=== PATIENT | female | born 1955 | race Caucasian/White ===

== ENCOUNTER 2021-07-18 12:42 | Outpatient (CLI) | payer MEDICARE, BC, SELFPAY ==
--- NOTE | 2021-07-18 12:50 | CT_ITS ---
STUDY: CT SCAN LOWER EXTREME RIGHT REASON FOR EXAM: Female, 66 years old. Templating for right TKA.JESUS protocol. RADIATION DOSAGE (If Supplied By Facility): CTDIvol = ( 18.76 ) mGy, DLP = ( 1257.95 ) mGycm. Individualized dose optimization techniques were used for this CT.? TECHNIQUE: Multiple axial tomographic images of the right hip, right knee and right ankle joints were obtained. Coronal and sagittal reconstruction was obtained as well. COMPARISON: None. FINDINGS: Imaging of the hip joint was obtained. Minimal degree of joint space narrowing. Otherwise, no abnormality is seen. Imaging of the right knee joint was obtained. There is a moderate to marked degree of joint space narrowing involving the medial compartment of the knee joint. There is a 9.7 mm well-corticated bony fragment in the anterior infrapatellar region of the joint space. 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 Small joint effusion. Imaging of the right ankle joint was obtained as well. There is evidence of an old avulsion fracture of the medial malleolus. CT/Extremity Lower without Contra IMPRESSION: Moderate to marked degree of joint space narrowing involving the medial compartment and the joint. 9.7 mm well-defined corticated bony fragment in the anterior infrapatellar region suggestive of a small joint mouse. Electronically Signed: Trent Arreguin MD at 15:19 EST ,
== END 2021-07-18 23:59 | disposition short-term general hospital (02) ==
PROVIDERS: Referring Provider Orthopaedic Surgery; Visit Provider Orthopaedic Surgery
DX: M17.11 Unilateral primary osteoarthritis, right knee (principal)
CPT/HCPCS: 73700

== ENCOUNTER 2021-08-06 10:29 | Observation (INO) | payer MEDICARE, BC, SELFPAY ==
--- NOTE | 2021-07-26 11:33 | EKG12_ITS ---
Test Reason : PREOP Blood Pressure : / mmHG Vent. Rate : 077 BPM Atrial Rate : 077 BPM P-R Int : 186 ms QRS Dur : 094 ms QT Int : 384 ms P-R-T Axes : 049 -11 053 degrees QTc Int : 434 ms Normal sinus rhythm Normal ECG Confirmed by JEFF COTTO, SARAI ([id number]), associate editor FER MAYO ([id number]) on 07/29/2021 10:24:35 AM Referred By: Aly Lujan Confirmed By:SARAI AGUILAR MD
[2021-07-26 12:14] LABS: Absolute Lymphocyte Count 1.72 X10^3/uL (0.83-4.51); Basophil# 0.09 X10^3/uL; Basophil% 0.9 % (0-1); Eosinophil# 0.11 X10^3/uL; Eosinophils% 1.2 % (0-5); Hematocrit 39.1 % (37-47); Hemoglobin 12.3 g/dL (12.0-15.0); Lymphocyte # 1.72 X10^3/ul (0.83-4.51); Mean Corp Hgb Conc 31.5 g/dL (32-36); Mean Corpuscular Hgb 26.1 pg (27.0-32.0); Mean Platelet Vol. 10.2 fl (6.2-12.0); Monocyte# 0.64 X10^3/uL; Monocyte% 6.7 % (0-10); NRBC Flagged by Analyzer 0 % (0-5); Neutrophil # 6.96 X10^3/uL (2.7-7.7); Platelet Count 252 K/mm3 (150-450); RBC Distribution Width SD 49.1 fl (35.1-43.9); Red Blood Count 4.71 M/mm3 (4.2-5.4); White Blood Count 9.5 K/mm3 (4.4-11.0)
[2021-07-26 12:21] LABS: International Normalized Ratio 1.1; Prothrombin Time (Protime)PT. 13.7 SECONDS (11.7-14.9)
[2021-07-26 12:48] LABS: Anion Gap 6 (5-15); BUN 24 mg/dL (7-18); BUN/Creat Ratio 29.7 RATIO (10-20); Calcium,Total 9.2 mg/dL (8.5-10.1); Chloride 106 mmol/L (98-107); Creatinine, Serum 0.81 mg/dL (0.55-1.02); EST Glomerular Filtration Rate 75 mL/min (>60); Est Glom Filt Rate - Afr Amer 91 mL/min (>60); Glucose 94 mg/dL (74-106); Potassium 3.8 mmol/L (3.5-5.1); Sodium Level 138 mmol/L (136-145)
[2021-07-26 12:57] LABS: AST(SGOT) 8 U/L (15-37); Alanine Aminotransfer ALT/SGPT 19 U/L (13-56); Albumin, Serum 3.6 g/dL (3.2-5.0); Alkaline Phosphatase 99 U/L (45-117); Bilirubin, Direct 0.07 mg/dL (0.00-0.30); Protein, Total 7.6 g/dL (6.4-8.2)
[2021-07-27 07:15] LABS: Fructosamine 205 umol/L (0-285); MG Sendout 2.4 mg/dL (1.6-2.3)
[2021-08-06] VITALS (11 sets, daily range): BP systolic 106–156; BP diastolic 62–90; PULSE 59–90; RESP 16–18; TEMP 36.3–36.6; O2SAT 94–100; BMI 33.7
--- NOTE | 2021-08-06 | KNEE_PTH ---
PATIENT: HERNÁN BERRY LOC: MS3 U#:[id number] AGE/SX: 66/F ROOM: [facility] [place]/06/[address]: Dr. Aly Lujan DO : 1955 BED: 1 DIS: 08/07/2021 SPEC #: [id number] RECD: 08/06/21 13:16 STATUS: KATERIN PAULProsper #: [id number] KELLY: 08/06/21 00:[address]: Aly Lujan DEPT: SURGICAL PATHOLOGY RECD BY: Faraz Mccoy ENTERED: 08/06/21 13:17 SP TYPE: TOTAL KNEE OTHR DR: Dr. Raúl Rivas MD Tissues: Knee, NOS Procedures: Decalcification bone/plaque Surgery Specimen Level IV HEADER OPERATION: ERAS, total knee replacement, robotic arm assist PRE-OP DIAGNOSIS: Osteoarthritis right knee TISSUE SUBMITTED: Debrided tissue and bone right knee MICROSCOPIC DIAGNOSIS Bone and soft tissue, right knee, total knee replacement/resection: Pieces of bone with degenerative osteoarthritic changes. TERESE:sid 08/09/2021 MICROSCOPIC DESCRIPTION Slides are reviewed. GROSS DESCRIPTION Received is one container designated bone and tissue right knee. The specimen consists of multiple fragments of ibarra-yellow bone measuring in aggregate 9 x 7 x 2 cm. No soft tissue is identified. A number of bony fragments contain articular surfaces consistent with tibial plateau and femoral condyle and displaying prominent osteophyte formation, eburnation, and bone erosion. Bakery Machine Mechanic sections are submitted in one cassette after decalcification. / TERESE:sid 08/06/2021 TC:5 CPT: 50319, 95532
--- NOTE | 2021-08-06 06:00 | HP_ITS ---
Visit Reasons: Bilat knee Allergies amoxicillin [From Augmentin] Allergy (Verified 08/10/20 09:43) rash clavulanic acid [From Augmentin] Allergy (Verified 08/10/20 09:43) rash Medications glucosam 750 mg-chondroi 100 mg-hyalur 1.65 mg-CF borate 108 mg tablet tab PO 08/10/20 [History Confirmed 06/26/21] vitamins A,C,J-kwyi-ttpwnm 14,320 unit-226 mg-200 unit capsule 1 cap PO BID 08/10/20 [History Confirmed 06/26/21] [facility] Medical History (Updated 06/26/21 @ 09:37 by Izabela Corona) Knee pain Surgical History (Updated 08/10/20 @ 09:44 by Tiana Guerra) History of appendectomy History of bilateral carpal tunnel release History of tubal ligation Family History (Updated 08/10/20 @ 09:45 by Tiana Guerra) Father CVA (cerebral vascular accident) Brother CVA (cerebral vascular accident) Myocardial infarction Mother Bladder cancer Social History (Updated 08/15/20 @ 10:[address] Aly Lujan DO) Smoking Status: Never smoker alcohol intake: never HPI Bilat knee Details: Parts of this documentation were recorded by a scribe, this documentation accurately reflects the service provided and the decisions made by me, Dr. Aly Lujan DO 06/26/21 3206. HERNÁN BERRY is a 66 year old F here today for BL knee pain, she states that the right knee pain is worse then the left. She last had BL knee steroid injection in 07/2020 which she states was effective until March and she stated that they were helpful. She said that if she knew she was going to be preforming increased ambulation she should take Ibuprofen that day. Denies any new injuries. She said that a couple weeks ago she has had some increased achiness with ADLs. Right knee pain is over the anterior lateral knee pain, feel that it is muscular pain and and achiness, increased stiffness/tightness. Left knee pain is occasionally achy with weight bearing and she does have a feeling of giving out in the left knee. She denies any knee bracing. Denies any PT. Denies any surgery of the BL knees. Ortho Exam General General: Yes no acute distress Neurologic: Yes alert and Yes oriented x3 Psychologic: Yes reasonable and appropriate Right Knee Homans Sign: No Knee ROM: No ROM-Extension -20 to 0 (lacking 5) and No ROM-Flexion 0-140 (100) Examination: Yes Med jt line tenderness and Yes Lat jt line tenderness Stability: NML: Anterior Drawer, NML: Posterior Drawer and NML: Varus 30 and 1+: Valgus 30 (3mm medial gapping d/t joint space narrowing) Patella Translation: 1 Apprehension with Lateral Translation: No KNEE: varicose veins no significant edema good pulses Left Knee Skin/Wound: No ecchymosis, No erythema and No swelling Homans Sign: No Knee ROM: Yes ROM-Extension -20 to 0 and No ROM-Flexion 0-140 (120) Stability: NML: Anterior Drawer, NML: Posterior Drawer and NML: Varus 30 and 1+: Valgus 30 (1mm medial gapping d/t joint space narrowing) Patella Translation: 1 Office Procedures Ortho Injections Injections Yes Knee Left Details: Obtained consent for injection. Under sterile conditions, injected the patient's left knee with 2cc bupivacaine, 2cc lidocaine and 1.5cc Kenalog. The patient tolerated the injection well without any noted complication. Patient should call our office if redness develops, pain worsens or if they have any concerns. Office Meds Kenalog Performing Provider: Aly Lujan DO Administered by: Aly Lujan DO on 06/26/21 09:39 Dose Route Admin Location Lot Number Expiration Date NDC Electrical Project Engineer 60 mg intra-articular left knee [id number] 05/22/22 9111-3564-42 [facility] Supplemental Info 08/15/2020 x-ray right knee: Advanced knee arthrosis [id number] medial compartment with varus deformity moderate patellofemoral arthrosis 08/15/2020 x-ray left knee: Medial joint space narrowing Coding Level of Care Code Off vis,est,level 3 Diagnoses Primary osteoarthritis of left knee M17.12 Primary osteoarthritis of right knee M17.11 CPT 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 Aly Lujan DO: Obtained X-rays of patient's BL knees. Personally reviewed x-rays. There is no obvious fracture, dislocation, or lucency noted. Patient educated that she does have arthritis of her BL knee and the right knee arthritis is more advanced. Treatment options are do nothing or NSAIDs or PT for strengthening or process chemist bracing or steroid injection or viscosupplementation which may not be as effective with her more severe arthritis or TKA. Risks, benefits and alternatives of surgery reviewed including but not limited to bleeding, infection, nerve, artery and/or tissue damage, fracture, VTE, mechanical feel of the knee, continued pain, stiffness and expected post-operative course. If she does wish to have a knee replacement then she will need pre-hab and post op outpatient PT. She may need to stay the night, she will be on a blood thinner for 2 weeks post op to reduce the risk of blood clot. Can take up to 1-2 years to recover from a TKA. Can prescribe the ice machine if she wishes. Educated on the IOVERA procedure and she wishes to have this as long as it is covered by insurance. She wishes to think about her options and will call with a decision. She does wish to proceed with a left knee steroid injection today. Follow up if wishes to proceed with right TKA or for injection in right knee or sooner if pain, swelling, numbness or associated symptoms, or concerns develop. All questions answered. Patient in agreement of plan.
[2021-08-06 06:21] LABS: Bedside Glucose 100 mg/dL (70-110)
[2021-08-06] MEDS: Lactated Ringers 1,000 ML 15 ML IV (06:30)
[2021-08-06] MEDS: Celecoxib 200 MG Capsule 400 MG PO (06:32)
[2021-08-06] MEDS: Gabapentin 600 MG Tablet PO (06:32)
[2021-08-06] MEDS: Acetaminophen 500 MG Tablet 1000 MG PO ×3 (06:32→21:22)
--- NOTE | 2021-08-06 07:29 | PCM.HP.BLA ---
History and Physical Date of Admission: 08/06/21 Date of Service: 06/26/21 MR#:[id number]:[id number]: HERNÁN BERRY [facility] #:[id number]:1955 Provider:Dr. Aly Lujan DOAge/Sex: 66/F Location:[facility]:Signed Intake Vital Signs 06/26/21 09:29 Height 5 ft 5.5 in Weight: 209 lb BMI 34.2 Intake Visit Reasons: Bilat knee Allergies amoxicillin [From Augmentin] Allergy (Verified 08/10/20 09:43) rash clavulanic acid [From Augmentin] Allergy (Verified 08/10/20 09:43) rash Medications glucosam 750 mg-chondroi 100 mg-hyalur 1.65 mg-CF borate 108 mg tablet tab PO 08/10/20 [History Confirmed 06/26/21] vitamins A,C,C-dwrs-wnyjxp 14,320 unit-226 mg-200 unit capsule 1 cap PO BID 08/10/20 [History Confirmed 06/26/21] [facility] Medical History (Updated 06/26/21 @ 09:37 by Izabela Corona) Knee pain Surgical History (Updated 08/10/20 @ 09:44 by Tiana Guerra) History of appendectomy History of bilateral carpal tunnel release History of tubal ligation Family History (Updated 08/10/20 @ 09:45 by Tiana Guerra) Father CVA (cerebral vascular accident) Brother CVA (cerebral vascular accident) Myocardial infarction Mother Bladder cancer Social History (Updated 08/15/20 @ 10:[address] Aly Lujan DO) Smoking Status: Never smoker alcohol intake: never HPI Bilat knee Details: Parts of this documentation were recorded by a scribe, this documentation accurately reflects the service provided and the decisions made by me, Dr. Aly Lujan DO 06/26/21 0756. HERNÁN BERRY is a 66 year old F here today for BL knee pain, she states that the right knee pain is worse then the left. She last had BL knee steroid injection in 07/2020 which she states was effective until March and she stated that they were helpful. She said that if she knew she was going to be preforming increased ambulation she should take Ibuprofen that day. Denies any new injuries. She said that a couple weeks ago she has had some increased achiness with ADLs. Right knee pain is over the anterior lateral knee pain, feel that it is muscular pain and and achiness, increased stiffness/tightness. Left knee pain is occasionally achy with weight bearing and she does have a feeling of giving out in the left knee. She denies any knee bracing. Denies any PT. Denies any surgery of the BL knees. Ortho Exam General General: Yes no acute distress Neurologic: Yes alert and Yes oriented x3 Psychologic: Yes reasonable and appropriate Right Knee Homans Sign: No Knee ROM: No ROM-Extension -20 to 0 (lacking 5) and No ROM-Flexion 0-140 (100) Examination: Yes Med jt line tenderness and Yes Lat jt line tenderness Stability: NML: Anterior Drawer, NML: Posterior Drawer and NML: Varus 30 and 1+: Valgus 30 (3mm medial gapping d/t joint space narrowing) Patella Translation: 1 Apprehension with Lateral Translation: No KNEE: varicose veins no significant edema good pulses Left Knee Skin/Wound: No ecchymosis, No erythema and No swelling Homans Sign: No Knee ROM: Yes ROM-Extension -20 to 0 and No ROM-Flexion 0-140 (120) Stability: NML: Anterior Drawer, NML: Posterior Drawer and NML: Varus 30 and 1+: Valgus 30 (1mm medial gapping d/t joint space narrowing) Patella Translation: 1 Office Procedures Ortho Injections Injections Yes Knee Left Details: Obtained consent for injection. Under sterile conditions, injected the patient's left knee with 2cc bupivacaine, 2cc lidocaine and 1.5cc Kenalog. The patient tolerated the injection well without any noted complication. Patient should call our office if redness develops, pain worsens or if they have any concerns. Office Meds Kenalog Performing Provider: Aly Lujan DO Administered by: Aly Lujan DO on 06/26/21 09:39 Dose Route Admin Location Lot Number Expiration Date NDC Contract Post Office Clerk 60 mg intra-articular left knee [id number] 05/22/22 [id number] [facility] Supplemental Info 08/15/2020 x-ray right knee: Advanced knee arthrosis dizi-dx-egze medial compartment with varus deformity moderate patellofemoral arthrosis 08/15/2020 x-ray left knee: Medial joint space narrowing Coding Level of Care Code Off vis,est,level 3 Diagnoses Primary osteoarthritis of left knee M17.12 Primary osteoarthritis of right knee M17.11 CPT Codes 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 Aly Lujan, DO: Obtained X-rays of patient's BL knees. Personally reviewed x-rays. There is no obvious fracture, dislocation, or lucency noted. Patient educated that she does have arthritis of her BL knee and the right knee arthritis is more advanced. Treatment options are do nothing or NSAIDs or PT for strengthening or ship unloader bracing or steroid injection or viscosupplementation which may not be as effective with her more severe arthritis or TKA. Risks, benefits and alternatives of surgery reviewed including but not limited to bleeding, infection, nerve, artery and/or tissue damage, fracture, VTE, mechanical feel of the knee, continued pain, stiffness and expected post-operative course. If she does wish to have a knee replacement then she will need pre-hab and post op outpatient PT. She may need to stay the night, she will be on a blood thinner for 2 weeks post op to reduce the risk of blood clot. Can take up to 1-2 years to recover from a TKA. Can prescribe the ice machine if she wishes. Educated on the IOVERA procedure and she wishes to have this as long as it is covered by insurance. She wishes to think about her options and will call with a decision. She does wish to proceed with a left knee steroid injection today. Follow up if wishes to proceed with right TKA or for injection in right knee or sooner if pain, swelling, numbness or associated symptoms, or concerns develop. All questions answered. Patient in agreement of plan. 06/26/21 1025<Electronically signed by Aly Lujan DO>Date Aly Lujan DO Cosigner Signature:Date (if applicable) CC: ~I have re-examined the patient. There are no clinical changes since date of exam
[2021-08-06] MEDS: Cefazolin 2 GM in 0.9% Normal Saline 100 ML IV (07:57)
[2021-08-06] MEDS: TXA 1000mg in NS100 100ml (IVPB at Incision) 660 MG IV (08:09)
[2021-08-06] MEDS: Scopolamine 1mg/72hr Patch 1 PATCH TD (08:15)
[2021-08-06] MEDS: dexAMETHasone 10 MG/ML Vial IV (09:23)
[2021-08-06] MEDS: TXA 1000mg in NS100 100ml (IVPB at Closure) 660 MG IV (09:26)
[2021-08-06] MEDS: 0.9% Normal Saline (Pres. free 10 ML Vial (09:44)
[2021-08-06] MEDS: Bupivacaine 0.5% PF 10 ML VIAL (09:44)
[2021-08-06] MEDS: Epinephrine (1 mg/ml) 1 MG/ML VIAL (09:44)
[2021-08-06] MEDS: Betamethasone/Betamethasone 30 MG/5 ML Vial (09:44)
--- NOTE | 2021-08-06 10:29 | PCM.OPRPT ---
Report of Operation Date of Procedure: 08/06/21 Description of Surgical Findings:: Preoperative diagnosis: Right knee DJD Postoperative diagnosis: Same Procedure: Right total knee arthroplasty CT guided Robotic Assisted Implant: Ayde triathlon press fit, femoral component size3, tibial baseplate size 4, asymmetric patella size 35, polyethylene X3 size 10 CS Anesthesia: Spinal with adductor canal block Tourniquet time: 15 minutes at 300 mmHg Complications: None Condition: Stable to PACU Estimated blood loss: 200 cc Indication for procedure: This is a 66-year-old female with long standing degenerative joint disease of the knee who has failed conservative treatment and wished to proceed with elective total knee arthroplasty. Risk benefits and alternatives were reviewed including; risk of bleeding, infection, nerve artery and tissue damage, continued pain, postoperative stiffness, venous thromboembolism, need for postoperative rehabilitation, mechanical feel to the knee, and expected postoperative course. The pre- operative CT and templating was performed with component sizing. Procedure: The patient was met in the preoperative holding area. The operative extremity was identified by both patient and physician and was marked. Patient was met by anesthesia. An adductor canal block was placed by anesthesia postoperatively the patient was brought back to the operating room on a wheeled cart and transferred to the operating table in the supine position. Anesthesia was started. A well-padded tourniquet was placed on the operative extremity. The patient was prepped and draped in the usual sterile fashion. A timeout was called to ensure the proper patient procedure and extremity were being contemplated. An esmarch was used to exsanguinate the extremity. The tourniquet was inflated. A 10 blade scalpel was used to make a midline incision down through the skin and subcutaneous tissue. Skin retractors placed. Bovie and Aquamantis were used to perform meticulous hemostasis. full-thickness flaps were elevated medial and lateral along the joint capsule. A deep blade scalpel was used to perform a medial parapatellar arthrotomy. The knee was brought to full extension. A bovie was used to release the soft tissues off the most proximal aspect of the medial tibial plateau, a three-quarter inch curved osteotome was also used in this process. The infrapatellar fat pad was excised. The suprapatellar fat pad was excised partially anteriorolateraly and portion the anterioromedial pad was elevated from the femur. At this point our intra-articular femoral array was placed at a 45 degree angle proximal and posterior to the medial epicondyle. femoral checkpoint was placed at this time. Our tibial array was placed greater than 1 hands breath below the incision at a 20 degree angle stab incisions were made with a 15 blade scalpel and pins were placed and attached to the tibial array , tibial checkpoint was placed in the proximal tibial metaphysis. Tourniquet was let down. At this point registration will were taken throughout the knee . Once the knee was registered we then tensioned the medial and lateral ligaments in extension and 90 degrees of flexion. We then used these numbers to adjust our components within parameters to balance the knee in both flexion and extension once this was done on our monitor we then proceeded with using the robotic arm to make our tibial plateau cut, anterior and posterior chamfer and distal femur cuts., Just prior to making our last chamfer cut the robotic arm handle became detached and fell onto the field landing on the tibial array, we removed the handle from the field the screw was removed from the field nothing entered the wound. We thoroughly irrigated the wound and ray with Betadine and several liters of irrigation wrapped the handle with Coban completed the last cut. Gloves were changed. we removed the cut fragments with the use of a bovie and Lu, we did use a lamina associate programmer analyst to insure we visualized and removed all posterior osteophytes and at this time also used the Aquamantis on the posterior joint capsule. we then trialed and achieved the desired plan with a well-balanced knee. we used the green probe to mariel the corresponding tibial rotation based on our CT template. Lug holes were drilled in the femur the tibia preparation was completed with the appropriate sized base plate pinned based on previous rotation mariel. An appropriate sized fin punch was used on the tibia and 4 corner drill was used for the press fit component and the patella was prepared by first using a caliper to ensure sufficient bone stock and a patellar reamer to remove the desired amount of bone. lug holes drilled for an asymmetric poly. We then brought the knee through range of motion with excellent patellar tracking. We thoroughly irrigated the knee. Trial components were removed a posterior capsular injection was preformed with our standard cocktail. In addition the aqua Mantis was also used to aid in hemostasis. Betadine rinse was allowed to sit and washed out completely. Components were press-fit into place. Aricept rinse was then used followed by several more liters of irrigation after it was allowed to sit. The joint capsule was closed with #1 Ethibond [id number] followed by Vicryl in the subcutaneous tissues with gerald in the skin. Arrays and checkpoints were removed prior to closure all counts were correct stab incisions were closed with a staple standard dressing in the form of Mepilex AG for the main incision and a small Mepilex over the pin holes. Thigh-high ASHLEY hose applied over top of dressing. Patient tolerated the procedure well and was directed to PACU in stable condition .
--- NOTE | 2021-08-06 10:50 | RAD_ITS ---
STUDY: X-RAY - RIGHT KNEE REASON FOR EXAM: Female, 66 years old. Postoperative evaluation after total knee arthroplasty. TECHNIQUE: 2 view(s) of the knee. COMPARISON: CT of the right knee dated 07/18/2021. FINDINGS: There is a 3 component total knee arthroplasty in anatomic position. There are expected post-operative findings. There are no complications. No other significant abnormality is identified. RAD/Knee 1 or 2 Views IMPRESSION: Total knee arthroplasty in anatomic alignment without complications. Electronically Signed: Karson Matthew MD at 11:04 EST ,
[2021-08-06] MEDS: Lactated Ringers 1,000 ML 125 ML IV ×2 (11:10→17:29)
[2021-08-06] MEDS: Ketorolac 15 MG/ML Vial IV (12:04)
[2021-08-06] MEDS: oxyCODONE 5 MG Tablet PO ×2 (12:49→21:21)
[2021-08-06] MEDS: Cefazolin 1 GM/50 ML BAG IV (15:35)
[2021-08-06] MEDS: Ondansetron 4 MG/2 ML Vial IV (18:08)
[2021-08-06] MEDS: Senna/Docusate Sodium 1 Tablet 2 TABLET PO (21:22)
[2021-08-07] MEDS: Cefazolin 1 GM/50 ML BAG IV ×2 (00:27→07:57)
[2021-08-07 00:51] VITALS: BP 108/45; PULSE 63; RESP 18; TEMP 36.6; O2SAT 97
[2021-08-07] MEDS: oxyCODONE 5 MG Tablet PO ×3 (04:21→12:44)
[2021-08-07] MEDS: Acetaminophen 500 MG Tablet 1000 MG PO ×2 (04:48→14:07)
[2021-08-07 04:53] VITALS: BP 124/63; PULSE 63; RESP 16; TEMP 36.4; O2SAT 96
[2021-08-07 06:33] LABS: Hematocrit 30.6 % (37-47); Hemoglobin 9.9 g/dL (12.0-15.0); Mean Corp Hgb Conc 32.4 g/dL (32-36); Mean Corpuscular Hgb 26.7 pg (27.0-32.0); Mean Corpuscular Volume 82.5 fL (81-99); Mean Platelet Vol. 10.5 fl (6.2-12.0); Platelet Count 238 K/mm3 (150-450); RBC Distribution Width CV 16.1 % (11.6-14.6); RBC Distribution Width SD 48.8 fl (35.1-43.9); Red Blood Count 3.71 M/mm3 (4.2-5.4); White Blood Count 15.3 K/mm3 (4.4-11.0)
[2021-08-07] MEDS: APIXABAN 2.5 MG TABLET PO ×2 (06:40→07:59)
[2021-08-07 06:55] LABS: Anion Gap 7 (5-15); BUN 15 mg/dL (7-18); BUN/Creat Ratio 16.3 RATIO (10-20); Calcium,Total 8.5 mg/dL (8.5-10.1); Chloride 106 mmol/L (98-107); Creatinine, Serum 0.92 mg/dL (0.55-1.02); EST Glomerular Filtration Rate 65 mL/min (>60); Est Glom Filt Rate - Afr Amer 78 mL/min (>60); Estimated Creatinine Clearance 52.66 ml/min; Glucose 150 mg/dL (74-106); Potassium 3.9 mmol/L (3.5-5.1); Sodium Level 139 mmol/L (136-145)
--- NOTE | 2021-08-07 07:43 | PCM.PN.ORT ---
Subjective Subjective sitting in chairDoing well pain controlled. Ambulated well with physical therapy denies fever chills nausea vomiting shortness of breath or chest pain. Objective Data Objective Data Vital Signs: Vital Signs Temp Pulse Resp BP Pulse Ox 97.5 F L 63 16 124/63 H 96 08/07/21 04:53 08/07/21 04:53 08/07/21 04:53 08/07/21 04:53 08/07/21 04:53 Oxygen Flow Rate (L/min) 5 Oxygen Delivery Method Room Air Weight: 205 lb 14.588 oz Body Mass Index (BMI) 33.7 Intake & Output: Intake and Output for Last 24 Hours 08/05/21 08/06/21 08/07/21 23:59 23:59 23:59 Intake Total 2885.5 / 2885.5 1350.00 / 1350.00 Output Total 200 / 200 Balance 2685.5 / 2685.5 1350.00 / 1350.00 Lab / Micro Data Result Diagrams: 08/07/21 05:50 08/07/21 05:50 Labs: Laboratory Results - last 24 hr 08/07/21 05:50: WBC 15.3 H, RBC 3.71 L, Hgb 9.9 L, Hct 30.6 L, MCV 82.5, MCH 26.7 L, MCHC 32.4, RDW Std Deviation 48.8 H, RDW Coeff of Ilana 16.1 H, Plt Count 238, MPV 10.5 08/07/21 05:50: Sodium 139, Potassium 3.9, Chloride 106, Carbon Dioxide 26.0, Anion Gap 7, BUN 15, Creatinine 0.92, Estim Creat Clear Calc 52.66, Est GFR (MDRD) Af Amer 78, Est GFR (MDRD) Non-Af 65, BUN/Creatinine Ratio 16.3, Glucose 150 H, Calcium 8.5 Micro: Microbiology 07/26/21 11:49 Swab (Method) Nasal Screen MRSA/MSSA - Final Radiography Diagnostic Testing: Radiology Impression Knee X-Ray 08/06/21 10:50 IMPRESSION: Total knee arthroplasty in anatomic alignment without complications. Electronically Signed: Karson Matthew MD at 11:04 EST , Physical Exam Const alert and oriented x3 General Appearance: cooperative Extremity Extremity Narrative: Dressings with mild bloody drainage still sealed compartments soft neurovascular intact EHL tibialis anterior gastrocsoleus intact station light touch palpable pedal pulses Assessment & Plan Assessment/Plan (1) Status post total knee replacement not using cement: QUALIFIERS: Laterality: right Qualified Code(s): Z96.651 - Presence of right artificial knee joint PLAN: Patient is doing well. She will be discharged home after physical therapy and 23 hours of postoperative antibiotics she will continue her Eliquis 2.5 mg twice daily for 2 weeks she will follow-up in the office in 2 weeks she is already scheduled for outpatient physical therapy.
--- NOTE | 2021-08-07 07:45 | EX.PCM.DISCH ---
Discharge Instructions Diet Discharge Diet: No restrictions Activity Weight Bearing Status: Weight bearing as tolerated Additional Activity Instructions:: Ice and elevate one week while not ambulating. Ambulation is encouraged. Weightbearing as tolerated. Use assistive devise for stability. Encourage FULL knee extension and flexion 1 time EVERY time you get up and down and MULTIPLE times per day. No showering 72 hours after surgery. Begin showering postop day #3. Remove the dressing prior to shower and gently wash with warm water and antibacterial soap then pat dry and place abdominal pad (or plain gauze) and ASHLEY hose over top. This is to be done daily. Do not submerge for 3 weeks. If not showering daily after the initial 72 hours then you must clean incision and change dressing daily. Do not allow animals near the incision area. Keep clean. Follow anticoagulation recommendations as prescribed. Do not take any NSAIDs while on blood thinner. Do not take any additional narcotic pain medication other than what was prescribed on your surgery day without discussing with physician. Narcotic medication can be addictive. Do not drink alcohol while taking narcotics. Start physical therapy. If you are not currently scheduled for physical therapy or you are unsure of appointment time please call office [place] to arrange. Call Dr. Lujan with any concerns. Follow Up Care Please Follow Up With: Aly Lujan DO When: 2 weeks Test Results: Test results from this visit will be discussed in further detail at your follow-up appointment, if applicable. Discharge Plan Admission Admit Date/Time: 08/06/21 10:29 Attending Provider: Aly Lujan Primary Care Provider: Raúl Rivas Discharge Orders/Prescriptions Prescriptions: New acetaminophen 500 mg Tablet 1,000 mg PO Q6H Qty: 90 RF: 0 oxycodone 5 mg Tablet 5 - 10 mg PO Q4H PRN PRN (Reason: Pain Score 4-10) 7 Days Qty: 60 RF: 0 Eliquis 2.5 mg Tablet 2.5 mg PO BID Qty: 28 RF: 0 No Action PreserVision AREDS [id number]-[id number] capsule 1 cap PO BID RF: 0 Referrals / Follow Up: Raúl Rivas MD [Primary Care Provider] -
[2021-08-07 07:50] VITALS: BP 103/62; PULSE 56; RESP 16; TEMP 36.3; O2SAT 96
[2021-08-07 07:53] VITALS: BP 115/64; PULSE 58; RESP 14; TEMP 36.6; O2SAT 96
[2021-08-07] MEDS: 0.9% Saline Lock 10 ML Syringe IV (07:57)
[2021-08-07] MEDS: Senna/Docusate Sodium 1 Tablet 2 TABLET PO (07:59)
[2021-08-07 08:10] VITALS: O2SAT 98
--- NOTE | 2021-08-07 11:18 | CASEMGMT ---
TC to [facility] pharmacy, spoke with Jose Limon applied pt cost is 0.
--- NOTE | 2021-08-07 11:30 | CASEMGMT ---
AME RODRIGUES Assessment: Face to Face with pt for initial transition planning/care coordination assessment. AME RODRIGUES introduced self and role at [facility], pt voices understanding and consents to assessment. Pt is A/O x4 and answers all questions appropriately at this time. Pt sitting up in chair in no distress. Pt is at bedside. Care providers, pharmacy, and demographics verified/updated. Admitting Dx: Rt Total Knee Robotic PCP: Rob Specialists: justa Lujan Pharmacy: [facility] Retail Insurance: Long GARCIA Prescription Benefit: yes LW/HPOA: Pt has a LW/DPOA on file at [facility] and this is on file. Her DPOA is her Karson Caraballo. LNOK: Karson Caraballo, Living Arrangements: Pt lives with in a single story house with 2 steps to enter without a rail. Pt reports she is I in ADL's and denies concerns at home. Transportation: Pt drives self and denies concerns with transportation. Pt able to assist with transportation until pt able to drive again. DME/HHC/SNF: Pt has polar care, walker, shower seat and BSC at home. Pt denies hx of HHC or SNF stays. Pt states no concerns with going home at time of dc. Pt has outpt therapy set up at [facility] on Thursday. Pt states no further concerns/needs. CM to follow. Advised pt to ask CM if any further question/concerns/needs arise, voices understanding. Pt Goal: Home with outpt therapy Plan: Home with outpt therapy
== END 2021-08-07 14:33 ==
LOC: SDC 10:54 → MS3 10:54
PROVIDERS: Anesthesiology; Admitting Provider Orthopaedic Surgery; PCP Internal Medicine; Referring Provider Orthopaedic Surgery; Visit Provider Orthopaedic Surgery
PROC: 0SRC0JZ Replacement of Right Knee Joint with Synthetic Substitute, Open Approach (ICD-10-PCS; CPT 27447; principal; 2021-08-06 07:45)
DX: M17.0 Bilateral primary osteoarthritis of knee (principal); R35.0 Frequency of micturition; I83.91 Asymptomatic varicose veins of right lower extremity; R23.8 Other skin changes; R12 Heartburn; R06.02 Shortness of breath
CPT/HCPCS: 27447; S2900; 64447; 01402; 36415; 73560; 80048; 80076; 82962; 82985; 83735; 85025; 85027; 85610; 85730; 86850; 86900; 86901; 87081; 88305; 88311; 93005; 96361; 96365; 96366; 96375; 96376; 97110; 97116; 97162; 97166; 97530; 97535; 99218; 99251; C1776; J7120; A4216; G0378; G0463; J0702; J2405; J3490

== ENCOUNTER 2021-09-25 11:00 | Outpatient (RCR) | payer MEDICARE, BC, SELFPAY ==
--- NOTE | 2021-06-27 16:23 | HP.PTEVAL ---
Patient's Visit Information HERNÁN BERRY is a 66 year old F referred to Physical Therapy by Dr. Aly Lujan DO with a diagnosis of Right Knee OA. Date of Evaluation: 06/27/21 Physical Therapist: Susan Peterson DPT - Visit Plan Frequency: 1x/Week Duration: 1 Week Plan: HEP Given IE: Seated hamstring stretch, seated knee extension stretch, heel slide, quad set, SLR, hip abd, hip add - Subjective Patient reports that her right knee- saw Dr. Hanks- has OA and is bone to bone the left is thin but not bone to bone. Had cortisone injections lasted about 9 months- few weeks ago noticed that she aches all the time unless she is off of it. It is drastically effected her life even through pain medication. Not to bad right now as she has rested it and had 4 Ibuprofen. Went to see him again- had an injection yesterday in the left but thinks that she will have a right TKR. She would like to build up the muscles in the knee for a home exercise program to prepare for the replacement. Agg: being up on it, going down the stairs she has to go backwards, down hill. She plans to have the knee sooner rather than later. Pain is located around the knee- no radiating pain. Worst: 8/10 Best: 0/10 Eases: sitting and elevation and a pillow under the knee. Sleep: not disturbed- side sleeper- pillow between the knees. X-rays: in system no MRI completed at this time. Walk in shower- fully I and very active but is limited due to pain. Does not have stairs inside- 3 steps to enter. She has a walking stick at home- does not have access to a walker or cane- only uses the stick for uneven surfaces. PMHx/Meds: no changes since saw MD - Objective Posture: FH, RS- can correct but does not maintain. Gait: slightly antalgic- decreased stance on the right LE with poor heel/toe pattern due to decreased extension HR/TR: able reports pulling and discomfort with TR. SLS: weight shift but does not SLS reports pain and buckling. Observation: no edema noted. Stairs: asc/desc non recip with 2 HR Palpation: tender along medial joint line. ROM: -10-115 degrees with pain at end range. Strength: Core: fair Hip: 4+/5 throughout, Knee: 4-/5 with pain, ankle: 5/5. Flex: HS: severe, Gastroc: moderate. Special Test: Haylee: positive - Balance/Special Test Scores Lower Extremity Functional Score: 24 - Goals Goal 1:: Patient will be I with HEP and progression Goal Time Frame: 4-6 Weeks - Rehabilitation Potential Physical Therapy Diagnosis: Patient presents with hypomobility- she has decreased pain free ROM, LE and core strength/stabilization, flex and muscular endurance leading to poor posture and increased pain with ADL's. Rehabilitation Potential: Good - Anticipated Interventions Patient/Client Instruction: Educate patient on: Benefits of Fitness Program Therapeutic Exercise to Include: Strength training Thank you for the opportunity to evaluate your patient. For Medicare and Medicare HMO plans, please review the plan of care and approve it. It will need to be FAXED BACK to us at [phone] for Medicare purposes. For Medicare only, by signing this I certify the plan of care. Please let me know if there are questions or concerns regarding this plan of care. Physician Signature: Date:
--- NOTE | 2021-06-27 16:23 | HP.PT.NRP ---
HERNÁN BERRY was seen in my office for initial evaluation on 06/27/21. The following Plan of Care was established for this patient: Initial Frequency: 1x/Week Initial Duration: 1 Week Patient/Client Instruction: Educate patient on: Benefits of Fitness Program Therapeutic Exercise to Include: Strength training This patient was last seen in our office . Pertinent comments regarding their Physical therapy will appear below: At this point I will be discontinuing this patient from physical therapy. I would be happy to see this patient again in the future if found appropriate by the physician. Thank you! Susan Peterson, JACOBY Balance/Gait/Functional tests - Balance/Special Test Scores Lower Extremity Functional Score: 24
--- NOTE | 2021-08-09 11:55 | HP.PTREVAL_ITS ---
Dr. Aly Lujan, DO, It has been my pleasure to treat HERNÁN BERRY over the last 2 visits for Right Knee OA. Please see the progress note below for an update on the physical therapy plan of care! Subjective: Right TKR 08/06/[address] Hanks- stayed in the hospital overnight. She lives with her - just two steps to enter- then lives on one floor. Sleep: in the recliner- disturbed. Worst: 01/29 Agg: movement Eases: rest and ice, medication. Best: 07/01. Describes the pain as dull and achy- soreness. Pain is located in the knee- no radiating pain. No N/T in the toes. Fully I prior to surgery. She has a walker, cane and walking stick at home as needed. She was in/out of the shower safely with help from . Objective/Function: Posture: FH, RS, can correct with verbal and tactile cues. Gait: antalgic- decreased stance on the right LE with poor heel/toe pattern- step to with FWW. Stairs non recip with 2 HR. HR/TR: able with UE A. SLS: weight shift with UE A. Girth: Patella: 47 cm. ROM: -5-80 degrees. Strength: Core: fair, Hip: unable to SLR without mod A from PT, all other motions: 4+/5 Kn ee: quad set visible Flexion: 11.7 Extn: 10.4 Ankle: 5/5 Plan Plan: Right TKR 08/05/2021- focus on ROM and LE strength with functional mobility. HEP Given IE: Seated hamstring stretch, seated knee extension stretch, heel slide, quad set, SLR, hip abd, hip add Balance/Gait/Functional tests - Balance/Special Test Scores Lower Extremity Functional Score: 12 TUG Test Time Seconds: 45 Tug Test: >30sec.=impaired mobility WOMAC Total Score: 83 WOMAC Percentage: 13.5500 Goals Goal 1:: Patient will be I with HEP and progression Goal Time Frame: 4-6 Weeks Goal 2:: Patient will ambulate >300 feet with a normalized gait pattern no AD Goal Time Frame: 4-6 Weeks Goal 3:: Patient will asc/desc 8 stairs recip no HR Goal Time Frame: 4-6 Weeks Goal 4:: Patient will demo 0-120 degrees of ROM in right knee Goal Time Frame: 4-6 Weeks Goal 5:: Patient will report 80% better Goal Time Frame: 4-6 Weeks Anticipated Interventions Patient/Client Instruction: Educate patient on: Benefits of Fitness Program Therapeutic Exercise to Include: Strength training Please do not hesitate to contact me at [phone] by phone or if you have questions or concerns regarding this new plan of care! Sincerely, ELISA ChaseT
--- NOTE | 2021-09-03 11:31 | HP.PTREVAL_ITS ---
Dr. Aly Lujan, DO, It has been my pleasure to treat HERNÁN BERRY over the last 12 visits for Right Knee OA. Please see the progress note below for an update on the physical therapy plan of care! Subjective: Patient reports that she is doing okay- she feels like she starts over every day. Sleep: a little better- she is not able to sleep all night in bed- left side sleeper. She is using a cane in the community but does not always use it at home. Worst: 3/10 Best: 0/10. Eases: ice and movement. Objective/Function: Posture: fair throughout. Gait: slightly antalgic- decreased stance on the right LE with poor heel/toe pattern straight cane. Stairs: recip with 2 HR poor control with descent and jumps for propulsion HR/TR: able with UE A. SLS: 5 seconds. Girth: Patella: 42 cm, 6 above: 57 cm. ROM: 0-105 degrees. Strength: Core: fair, Hip: 4+/5 Knee: Flexion: 22.9 Extn: 28.8 Ankle: 5/5 Plan Plan: 09/03/21: Continue with POC- continue to focus on functional mobility. IE:Right TKR 08/06/2021- focus on ROM and LE strength with functional mobility Balance/Gait/Functional tests - Balance/Special Test Scores Lower Extremity Functional Score: 41 TUG Test Time Seconds: 12 Tug Test: <20 sec.=mostly independent WOMAC Total Score: 13 WOMAC Percentage: 86.4600 Goals Goal 1:: Patient will be I with HEP and progression Goal Time Frame: 4-6 Weeks Goal Progress: Progressing Goal 2:: Patient will ambulate >300 feet with a normalized gait pattern no AD Goal Time Frame: 4-6 Weeks Goal Progress: Progressing Goal 3:: Patient will asc/desc 8 stairs recip no HR Goal Time Frame: 4-6 Weeks Goal Progress: Progressing Goal 4:: Patient will demo 0-120 degrees of ROM in right knee Goal Time Frame: 4-6 Weeks Goal Progress: Progressing Goal 5:: Patient will report 80% better Goal Time Frame: 4-6 Weeks Goal Progress: Progressing Anticipated Interventions Patient/Client Instruction: Educate patient on: Benefits of Fitness Program Therapeutic Exercise to Include: Strength training Please do not hesitate to contact me at [phone] by phone or Fax: if you have questions or concerns regarding this new plan of care! Sincerely, ELISA ChaseT
--- NOTE | 2021-09-25 11:46 | HP.PTDCSUM_ITS ---
It has been my pleasure to treat HERNÁN BERRY referred by Dr. Aly Lujan, , with the diagnosis of Right Knee OA/R TKR DOS 08-06-21 for a total of 21 visit(s). Discharge Date: 09/25/21 Please see the following information for a summary of their discharge status. Subjective: PATIENT REPORTS SHE FEELS SHE IS DOING REALLY GOOD. STATES HER WENT TO [place] FOR 4 DAYS AND SHE DID FINE ALONE. ALSO REPORTS SHE WENT TO [facility] ALONE FOR 1.5 HOURS AND DID FINE. HER IS WITH HER AND THEY DESCRIBE IN GREAT DETAIL EXCELLENT HEP COMPLIANCE INCLUDING STATIONARY BIKE AND MEASURING HER KNEE BEND. SHE REPORTS SHE MAINLY ONLY HAS PAIN BENDING HER KNEE. RIGHT KNEE Pain Intensity (Out of 10): 2 % Improvement: 98 Objective/Function: PATIENT WAS SEEN TODAY FOR RE-ASSESSMENT OF PROGRESS TOWARD THE SET PT GOALS AND THE NEED FOR FURTHER PHYSICAL THERAPY VS READINESS FOR DISCHARGE. KNEE ROM HAS STAYED THE SAME FOR SEVERAL WEEKS NOW. PATIENT AND PATIENTS FEEL LIKE SHE IS DOING GOOD AND CAN CONTINUE AT HOME AT THIS POINT. PLAN TO FOLLOW UP WITH DR. LUJAN IN 3-4 WEEKS AND WILL CALL SOONER IF KNEE ROM DECREASES. UPON EXAM TODAY: THIS PATIENT AMBULATES INDEP'LY INTO PT TODAY WITHOUT ANY ASSISTIVE DEVICES AND A VERY MILD LIMP ON THE RIGHT LE. SHE IS ABLE TO ASCEND STEPS RECIP WITH NO HR AND DECEND RECIP WITH VERY MIN ONE UE HR ASSIST. GOOD MUSCLE CONTROL DESCENDING STEPS BUT APPEARS TO NEED A LITTLE UE ASSIST DUE TO KNEE TIGHTNESS. TUG TIME IS 9.92 SEC. CIRCUMFERENCE MEASUREMENTS: PATELLA 42.5CM, 6 SUPRAPETELLAR 57.5 CM (OVER JEANS). R KNEE ROM 0 DEG EXT TO 105 DEG FLEX WITH ASSIST SECURING FOOT IN PLACE. RIGHT LE HIP, KNE E AND ANKLE STRENGTH 5/5. Goal 1:: Patient will be I with HEP and progression Goal Progress: Goal Met Goal 2:: Patient will ambulate >300 feet with a normalized gait pattern no AD Goal Progress: Goal Met Goal 3:: Patient will asc/desc 8 stairs recip no HR Goal Progress: Progressing Goal 4:: Patient will demo 0-120 degrees of ROM in right knee Goal Progress: Not Progressing Goal 5:: Patient will report 80% better Goal Progress: Goal Met Plan: D/C TO INDEP HEP. PATIENT AND AGREEABLE. If there are questions or concerns regarding this patient's physical therapy, please feel free to call me at [phone]. Thank you for the referral of this patient. Sincerely, Bryanna Saldivar, PT, Cert MDT Balance/Gait/Functional tests - Balance/Special Test Scores Lower Extremity Functional Score: 59 TUG Test Time Seconds: 12 Tug Test: <20 sec.=mostly independent WOMAC Total Score: 13 WOMAC Percentage: 86.4600
== END 2021-09-25 12:21 | disposition home or self-care (01) ==
LOC: PT 11:00
PROVIDERS: Referring Provider Orthopaedic Surgery; Visit Provider Orthopaedic Surgery
DX: M17.0 Bilateral primary osteoarthritis of knee (principal)
CPT/HCPCS: 97110; 97162; 97164

== ENCOUNTER → 2024-09-23 | Outpatient (CLI) | payer MEDICARE, BC, SELFPAY ==
[2024-09-23 12:14] LABS: Absolute Lymphocyte Count 1.72 X10^3/uL (0.83-4.51); Absolute Neutrophil Count 11.5 X10^3/uL (2.0-7.7); Basophil# 0.12 X10^3/uL; Basophil% 0.8 % (0-1); Eosinophil# 0.25 X10^3/uL; Eosinophils% 1.7 % (0-5); Hematocrit 35.7 % (37-47); Hemoglobin 11.2 g/dL (12.0-15.0); Lymphocyte # 1.72 X10^3/ul (0.83-4.51); Lymphocyte % 11.7 % (19-41); Mean Corp Hgb Conc 31.4 g/dL (32-36); Mean Corpuscular Hgb 23.5 pg (27.0-32.0); Mean Corpuscular Volume 74.8 fL (81-99); Mean Platelet Vol. 9.2 fl (6.2-12.0); Monocyte# 0.99 X10^3/uL; Monocyte% 6.7 % (0-10); NRBC Flagged by Analyzer 0 % (0-5); Neutrophil # 11.49 X10^3/uL (2.7-7.7); Neutrophil % 78.4 % (47-70); POSITIVE MORPHOLOGY YES; Platelet Count 745 K/mm3 (150-450); RBC Distribution Width CV 20.2 % (11.6-14.6); RBC Distribution Width SD 53.8 fl (35.1-43.9); Red Blood Count 4.77 M/mm3 (4.2-5.4); White Blood Count 14.7 K/mm3 (4.4-11.0)
[2024-09-23 12:55] LABS: Differential Indicated SCAN CRITERIA MET
[2024-09-23 13:48] LABS: ALB/GLOB Ratio 0.9 RATIO (0.9-2.4); AST(SGOT) 26 U/L (<=31); Alanine Aminotransfer ALT/SGPT 36 U/L (<=34); Albumin, Serum 3.5 g/dL (3.4-4.8); Alkaline Phosphatase 253 U/L (35-104); Anion Gap 12 (5-15); BUN 18 mg/dL (4-19); BUN/Creat Ratio 20.7 RATIO (10-20); Calcium,Total 9.5 mg/dL (7.6-11.0); Carbon Dioxide 21.7 mmol/L (21.0-32.0); Chloride 104 mmol/L (98-108); Cholesterol 172 mg/dL (<=200); Creatinine, Serum 0.88 mg/dL (0.70-1.20); EST Glomerular Filtration Rate 70 (>60); Glucose 94 mg/dL (70-99); High Density Lipoprotein 45 mg/dL; Low Density Lipoprotein Calc. 112 mg/dL; Potassium 4.6 mmol/L (3.3-5.1); Protein, Total 7.6 g/dL (5.9-8.4); Sodium Level 138 mmol/L (133-145); Total Bilirubin 0.29 mg/dL (0.00-1.30); Triglycerides 74 mg/dL; Very Low Density Lipoprotein 15 mg/dL (5-40); cholesterol:hdl ratio screen 3.81
[2024-09-23 14:34] LABS: Anisocytosis 1+; Platelet Estimate MKD INC (ADEQ); Polychromasia 1+
[2024-09-23 16:48] LABS: Iron 27 ug/dL (50-170)
[2024-09-23 16:49] LABS: Ferritin 214 ng/mL (22-378); Vitamin B12 690 pg/mL (180-914)
== END | disposition home or self-care (01) ==
LOC: BIMLAB 09:54
PROVIDERS: PCP Internal Medicine; Referring Provider Physician Assistant; Visit Provider Physician Assistant
DX: Z00.00 Encounter for general adult medical examination without abnormal findings (principal); D64.9 Anemia, unspecified; E78.00 Pure hypercholesterolemia, unspecified; E55.9 Vitamin D deficiency, unspecified
CPT/HCPCS: 36415; 80053; 80061; 82306; 82607; 82728; 83540; 84443; 85025

== ENCOUNTER → 2024-09-26 | Outpatient (CLI) | payer MEDICARE, BC, SELFPAY | END | disposition home or self-care (01) | LOC: LABSPEC 10:09 | PROVIDERS: PCP Internal Medicine; Referring Provider Physician Assistant; Visit Provider Physician Assistant | DX: D64.9 Anemia, unspecified (principal) | CPT/HCPCS: 82274 ==

== ENCOUNTER → 2024-10-11 | Outpatient (CLI) | payer MEDICARE, BC, SELFPAY ==
[2024-10-11 12:26] LABS: Absolute Lymphocyte Count 1.52 X10^3/uL (0.83-4.51); Absolute Neutrophil Count 12.2 X10^3/uL (2.0-7.7); Basophil# 0.11 X10^3/uL; Basophil% 0.7 % (0-1); Eosinophil# 0.15 X10^3/uL; Hematocrit 39.3 % (37-47); Hemoglobin 12.3 g/dL (12.0-15.0); Lymphocyte # 1.52 X10^3/ul (0.83-4.51); Mean Corp Hgb Conc 31.3 g/dL (32-36); Mean Corpuscular Hgb 24.1 pg (27.0-32.0); Mean Corpuscular Volume 77.1 fL (81-99); Mean Platelet Vol. 10.1 fl (6.2-12.0); Monocyte# 1.16 X10^3/uL; Monocyte% 7.6 % (0-10); NRBC Flagged by Analyzer 0 % (0-5); Neutrophil # 12.23 X10^3/uL (2.7-7.7); Neutrophil % 80.3 % (47-70); POSITIVE MORPHOLOGY YES; Platelet Count 384 K/mm3 (150-450); RBC Distribution Width CV 22.6 % (11.6-14.6); RBC Distribution Width SD 61.7 fl (35.1-43.9); White Blood Count 15.2 K/mm3 (4.4-11.0)
[2024-10-11 12:43] LABS: Differential Indicated SCAN CRITERIA MET
[2024-10-11 12:56] LABS: Anisocytosis 2+; Differential Comment SCANNED
== END | disposition home or self-care (01) ==
LOC: BIMLAB 09:47
PROVIDERS: PCP Internal Medicine; Referring Provider Internal Medicine; Visit Provider Internal Medicine
DX: D64.9 Anemia, unspecified (principal)
CPT/HCPCS: 36415; 85025

== ENCOUNTER → 2024-10-26 | Outpatient (CLI) | payer MEDICARE, BC, SELFPAY | END | disposition home or self-care (01) | LOC: BIMLAB 15:27 | PROVIDERS: PCP Internal Medicine; Referring Provider Internal Medicine; Visit Provider Internal Medicine | DX: R53.83 Other fatigue (principal) | CPT/HCPCS: 36415; 84443 ==

== ENCOUNTER → 2024-11-11 | Outpatient (CLI) | payer MEDICARE, BC, SELFPAY ==
--- NOTE | 2024-11-11 06:06 | CT_ITS ---
PROCEDURE: ABDOMEN/PELVIS WITH CONTRAST 11/11/2024 REASON FOR EXAM: IRON ANEMIA, CONSTIPATION TECHNIQUE: Abdomen and pelvis CT with intravenous contrast. Coronal and Sagittal reconstruction series were provided. PATIENT PREPARATION: Per protocol ORAL CONTRAST TYPE: Readi-Cat CONTRAST: 96 cc Isovue 370 IV One or more dose reduction techniques were used (e.g., Automated exposure control, adjustment of the mA and/or kV according to patient size, use of iterative reconstruction technique. RADIATION DOSE SUMMARY: CTDlvol: 21.08 mGy DLP: 1068.97 mGycm COMPARISON: None available FINDINGS: Bilateral multifocal varying size pulmonary nodules, largest on the left is partially seen at the lingula measuring 9 mm and largest on the right just above the diaphragm 12 mm. Dredge Runner image with appearance of larger appearing pulmonary nodules and masses which are not included on field of view. The liver is enlarged containing innumerable varying size liver lesions concerning for metastatic disease. Liver mass in the posterior right lobe appears associated with calcification measuring around 4.8 cm. The gallbladder appears distended without wall thickening or surrounding inflammatory change and may contain a small amount of sludge. No biliary ductal dilation identified. 1.8 cm cystic focus within the head of the pancreas may represent pseudocyst or cystic neoplasm. No pancreatic ductal dilation identified. The adrenal glands, kidneys appear within limits. Small left renal cyst noted. The spleen appears diffusely heterogeneous and may represent differences in splenic pulp with possibility of numerous lesions, metastatic disease not excluded. Enlarged vipin hepatis node measuring 3.4 by 2.5 cm. Abdominal aorta appears within limits. Adjacent to the right common iliac vessels and right psoas muscle is a soft tissue mass measuring 4.5 by 2.7 cm with the right common iliac vein draped across and difficult to distinguish. Adjacent along the presacral soft tissues upper right sacrum is a heterogeneous mass with mixed cystic and solid appearance and areas of suggested calcification measures 4.2 x 3.7 cm. Possibility includes metastatic lymphadenopathy, possibility of lymphoma not excluded. No bowel dilation or free air. No evidence of colonic wall thickening or pericolonic inflammatory change. Overall there does appear to be soft tissue fullness at the perineum about the vaginal introitus and rectum/perianal soft tissues for example axial 117 and sagittal 97. Recommend further clinical correlation. Very small amount of perihepatic free fluid noted. Status post hysterectomy. Bilateral fallopian tube clips are seen with what appears to be adjacent bilateral ovarian tissue which appears within limits. The bladder appears within limits. There are multifocal areas of osseous sclerotic lesions mostly involving the sacrum although also involving the right ilium, posterior thoracic spine and the anterior right 6th rib. No pathologic fracture identified. Lower lumbar spondylosis/discogenic change and facet degenerative changes. CT/Abdomen/Pelvis WITH Contrast IMPRESSION: Multifocal partially imaged noncalcified pulmonary nodules, hepatomegaly filled with numerous lesions, vipin hepatis lymphadenopathy, possible splenic lesions, lower right retroperitoneal presacra l masses and sclerotic multifocal osseous lesions consistent with metastatic disease with possible lymphoma not entirely excluded as described in detail above. Requires further clinical correlation and workup. Fullness peroneal soft tissues about the vaginal introitus and rectum/anus anabel mmend further clinical correlation. Cystic focus within the pancreatic head as above. Reading Location: [id number]
== END | disposition home or self-care (01) ==
LOC: CT 06:04
PROVIDERS: PCP Internal Medicine; Referring Provider Internal Medicine Gastroenterology; Visit Provider Internal Medicine Gastroenterology
DX: D50.9 Iron deficiency anemia, unspecified (principal); K59.09 Other constipation
CPT/HCPCS: 74177; Q9967

== ENCOUNTER → 2024-11-29 | Outpatient (CLI) | payer MEDICARE, BC, SELFPAY ==
[2024-11-29] VITALS (12 sets, daily range): BP systolic 103–134; BP diastolic 68–93; PULSE 89–110; RESP 17–18; TEMP 36.6; O2SAT 93–97; BMI 29.9
--- NOTE | 2024-11-29 | ASPIGT_PTH ---
PATIENT: HERNÁN BERRY LOC: [place] U#:[id number] AGE/SX: 69/F ROOM: RE11/29/[address]: Dr. Ramona Funez MD : [id number] BED: DIS: 11/29/2024 SPEC #: [id number] RECD: 11/29/24 10:30 STATUS: KATERIN REQ #: [id number] KELLY: 11/29/24 00:[address]: Ramona Funez DEPT: SURGICAL PATHOLOGY RECD BY: Stefan Conteh ENTERED: 11/29/24 13:13 SP TYPE: ASP RAD OTHR DR: Dr. Diya George MD Tissues: A - Liver, NOS Procedures: FNA Specimen Adequacy Immunohistochemical Stains Special Stain Group II Surgery Specimen Level IV Surgery Specimen Level V Imprint (control) IHC Stain ADDITIONAL HEADER OPERATION: CT guided liver biopsy PRE-OP DIAGNOSIS: Liver lesions TISSUE SUBMITTED: A- Liver biopsy - 18 gauge x 5 cores MICROSCOPIC DIAGNOSIS A. Liver lesions, CT-guided core biopsy: * Well-differentiated neuroendocrine tumor, Grade 3, consistent with metastasis - see note and Comment. * Note: IHCs were performed - * Positive: Chromogranin, Synaptophysin, Ki67 (approximately 25%), CK7 (weak focal), CK8 (weak focal), 34be12 (focal). * Negative: Pancytokeratin, CK20, CDX2. * CK19 is pending and will be reported in an addendum. COMMENT The specimen is evaluated at the time of biopsy by Dr. Blandon. Immediate Evaluation - 1. Adequate. 2. Adequate Selected slides/images were reviewed in intradepartmental consultation by Dr Cuong Pinedo (GI pathology division, [facility]). MICROSCOPIC DESCRIPTION Slides are reviewed. All matched controls reacted appropriately. These tests were developed and their performance characteristics determined by [facility]. They may not have been cleared or approved by the U.S. Food and Drug Administration. The FDA has determined that such clearance or approval is not necessary.? The above immunohistochemical/dualISH?markers are ordered and reviewed by the Pathologist. GROSS DESCRIPTION A. Received in formalin following CT-guided liver biopsy, labeled with the patient's name and date of are multiple fragmented ibarra soft tissue cores, ranging 0.8 cm to 1.4 cm in length by 0.1 cm in diameter. Entirely submitted in 1 cassette, following evaluation of touch prep at time of biopsy. [facility] 11/29/2024 CPT:[id number] ADDENDUM ADDENDUM ADDENDUM ADDENDUM 12/09/2024 14:31 ADDENDUM 12/09/2024 14:31 ADDENDUM 12/09/2024 14:31 ADDENDUM 12/09/2024 14:31 ADDENDUM 12/09/2024 14:31 This addendum is to report the result of the IHC for CK19: The tumor cells are negative for CK19.
--- NOTE | 2024-11-29 08:57 | CT_ITS ---
PROCEDURE: BIOPSY/INJ OR NEEDLE PLACEMENT 11/29/2024 REASON FOR EXAM: UNKNOWN PRIMARY CANCER TECHNIQUE: CT-guided liver biopsy. The procedure as well as the benefits and possible complications including infection and bleeding were explained to the patient. Informed consent was obtained. The patient was in the supine position. Conscious sedation was performed. The patient received 2 mg of Versed and 50 mcg of fentanyl intravenously. Conscious sedation was started at 10:05 a.m. and terminated at 10:31 a.m.. The patient was independently monitored by the department nurse. The overlying skin was prepped and draped in the usual sterile fashion. Following local anesthetic application, an 18 gauge core biopsy needle system was placed into the medial aspect of the right lobe of the liver. 5 core biopsies were performed. The pathologist deemed the specimen to be adequate. The patient tolerated the procedure well. RADIATION DOSE SUMMARY: CTDlvol: 26.5 mGy DLP: 667.68 mGycm COMPARISON: Prior study dated November 11, 2024. FINDINGS: Multiple pulmonary nodules and hepatic lesions. Hepatomegaly. CT/Biopsy/Inj or Needle Placement IMPRESSION: CT-guided core biopsy of the right lobe of the liver as described. Conscious sedation was performed. The patient tolerated the procedure well. No immediate complication was noted. Reading Location: [facility]
[2024-11-29 09:07] LABS: Absolute Lymphocyte Count 2.05 X10^3/uL (0.83-4.51); Absolute Neutrophil Count 18.2 X10^3/uL (2.0-7.7); Basophil# 0.16 X10^3/uL; Basophil% 0.7 % (0-1); Eosinophil# 0.27 X10^3/uL; Eosinophils% 1.2 % (0-5); Hematocrit 36.5 % (37-47); Hemoglobin 11.9 g/dL (12.0-15.0); Lymphocyte # 2.05 X10^3/ul (0.83-4.51); Lymphocyte % 9.2 % (19-41); Mean Corp Hgb Conc 32.6 g/dL (32-36); Mean Corpuscular Hgb 24.8 pg (27.0-32.0); Mean Corpuscular Volume 76.2 fL (81-99); Mean Platelet Vol. 8.6 fl (6.2-12.0); Monocyte# 1.25 X10^3/uL; Monocyte% 5.6 % (0-10); NRBC Flagged by Analyzer 0 % (0-5); Neutrophil # 18.22 X10^3/uL (2.7-7.7); Neutrophil % 82.1 % (47-70); POSITIVE MORPHOLOGY YES; Platelet Count 715 K/mm3 (150-450); RBC Distribution Width CV 21.2 % (11.6-14.6); RBC Distribution Width SD 57.2 fl (35.1-43.9); Red Blood Count 4.79 M/mm3 (4.2-5.4); White Blood Count 22.2 K/mm3 (4.4-11.0)
[2024-11-29 09:08] LABS: Differential Indicated SCAN CRITERIA MET
[2024-11-29 09:14] LABS: International Normalized Ratio 1.2; Prothrombin Time (Protime)PT. 15.1 SECONDS (11.7-14.9)
[2024-11-29 09:15] LABS: Partial Thromboplast Time 30.9 Seconds (24.1-36.2)
[2024-11-29] MEDS: 0.9% Saline Lock 10 ML Syringe IV (09:30)
[2024-11-29 09:41] LABS: Platelet Estimate MKD DEC (ADEQ); Target Cells 1+
[2024-11-29] MEDS: 0.9% Normal Saline (250mL Bag) 250 ML 15 ML IV (10:05)
[2024-11-29] MEDS: Midazolam 2 MG/2 ML Syringe IV (10:08)
[2024-11-29] MEDS: fentaNYL 100 MCG/2 ML Ampul IV (10:08)
[2024-11-29] MEDS: Lidocaine 2% (20 ml mdv) 20 ML Vial INFILT (10:15)
== END | disposition home or self-care (01) ==
PROVIDERS: Radiology Diagnostic Radiology; PCP Internal Medicine; Referring Provider Internal Medicine Hematology & Oncology; Visit Provider Internal Medicine Hematology & Oncology
DX: Z01.818 Encounter for other preprocedural examination (principal); K76.9 Liver disease, unspecified
CPT/HCPCS: 47000; 36415; 77012; 85025; 85610; 85730; 88172; 88305; 88307; 88313; 99156

== ENCOUNTER → 2024-11-30 | Outpatient (CLI) | payer MEDICARE, BC, SELFPAY ==
--- NOTE | 2024-11-30 10:15 | NM_ITS ---
PROCEDURE: BONE SCAN WHOLE BODY 11/30/2024 REASON FOR EXAM: UNKNOWN PRIMARY CANCER TECHNIQUE: Whole-body bone scan with anterior and posterior views, with delayed imaging. RADIOPHARMACEUTICAL: 26.8 mCi Technetium-99m MDP IV COMPARISON: Abdomen and pelvis CT 11/11/2024. FINDINGS: Bones: Extensive abnormal uptake is seen throughout much of the bilateral sacrum, corresponding with sclerotic lesion seen on the CT of 11/11/2024. Degenerative changes are seen of the bilateral acromioclavicular joints, cervical and thoracic spine, and bilateral 1st carpal-metacarpal joints. NM/Bone Scan Whole Body IMPRESSION: Extensive abnormal uptake is seen throughout much of the bilateral sacrum, efrem esponding with sclerotic lesion seen on a recent CT scan. This is most consistent with osseous metastatic disease. Reading Location: [address]
--- NOTE | 2024-11-30 10:15 | CT_ITS ---
PROCEDURE: CHEST WITH CONTRAST 11/30/2024 REASON FOR EXAM: UNKNOWN PRIMARY CANCER TECHNIQUE: Prone and supine chest CT with intravenous contrast, high resolution CT (HRCT) protocol. Coronal and Sagittal reconstruction series were provided. CONTRAST: Isovue-350 VOLUME: 100 mL One or more dose reduction techniques were used (e.g., Automated exposure control, adjustment of the mA and/or kV according to patient size, use of iterative reconstruction technique). RADIATION DOSE SUMMARY: CTDlvol: 10.38 mGy DLP: 367 mGycm COMPARISON: CT scan of the abdomen and pelvis on 11/11/2024. FINDINGS: Multiple bilateral noncalcified pulmonary pulmonary nodules are noted in the upper lobes, right middle lobe, lingula and bilateral lower lobes ranging in size between 0.5 and 2.8 cm. Mildly enlarged mediastinal and hilar lymph nodes are noted with the largest measuring 1.7 cm. No coronary artery calcifications are noted. Hepatomegaly. Multiple hepatic nodules are noted with the largest measuring 1.7 cm. Enlarged vipin hepatis lymph nodes are noted with the largest measuring 1.6 cm. Normal thoracic aorta and visualized great vessels. There is no demonstrated aortic dissection. Normal heart and pericardium. Normal visualized trachea and bronchi. Normal pleura. CT/Chest WITH Contrast IMPRESSION: Coronary artery calcification (CAC) is is absent Multiple bilateral noncalcified pulmonary pulmonary nodules are noted in the up per lobes, right middle lobe, lingula and bilateral lower lobes ranging in size between 0.5 and 2.8 cm. Mildly enlarged mediastinal and hilar lymph nodes are noted with the largest me asuring 1.7 cm. No coronary artery calcifications are noted. Hepatomegaly. Multiple hepatic nodules are noted with the largest measuring 1.7 cm. Enlarged vipin hepatis lymph nodes are noted with the largest measuring 1.6 cm. Reading [facility] [address]
== END | disposition home or self-care (01) ==
LOC: NM 10:13
PROVIDERS: PCP Internal Medicine; Referring Provider Internal Medicine Hematology & Oncology; Visit Provider Internal Medicine Hematology & Oncology
DX: C79.9 Secondary malignant neoplasm of unspecified site (principal); C79.51 Secondary malignant neoplasm of bone
CPT/HCPCS: 71260; 78306; A9503; Q9967

== ENCOUNTER 2024-12-21 05:45 | Day surgery (SDC) | payer MEDICARE, BC, SELFPAY ==
[2024-12-21] VITALS (10 sets, daily range): BP systolic 88–120; BP diastolic 51–72; PULSE 69–85; RESP 14–20; TEMP 36.3–36.8; O2SAT 90–97; BMI 29.6
[2024-12-21] MEDS: Lactated Ringers 1,000 ML 15 ML IV (06:38)
[2024-12-21] MEDS: Clindamycin 900 MG/50 ML BAG 75 MG IV (07:34)
[2024-12-21] MEDS: Lidocaine 1% /Epi 1:100 (50ml) 50 ML VIAL (08:09)
== END 2024-12-21 10:00 | disposition home or self-care (01) ==
LOC: SDC 05:45 → AC 05:46
PROVIDERS: PCP Internal Medicine; Referring Provider Internal Medicine; Visit Provider Surgery
PROC: (CPT 36561; principal; 2024-12-21 07:15)
DX: Z45.2 Encounter for adjustment and management of vascular access device (principal); C79.51 Secondary malignant neoplasm of bone; C80.1 Malignant (primary) neoplasm, unspecified
CPT/HCPCS: 36561; 00532; 71045; 77001; C1788

== ENCOUNTER 2025-01-01 14:04 | Emergency (ER) | payer MEDICARE, BC, SELFPAY ==
[2025-01-01 14:05] VITALS: BP 117/73; PULSE 96; RESP 16; TEMP 36.5; O2SAT 93; BMI 29.6
--- NOTE | 2025-01-01 14:23 | EKG12_ITS ---
Test Reason : N/V Blood Pressure : */* mmHG Vent. Rate : 100 BPM Atrial Rate : 100 BPM P-R Int : 152 ms QRS Dur : 82 ms QT Int : 344 ms P-R-T Axes : 57 45 48 degrees QTcB Int : 443 ms Normal sinus rhythm Possible Anterior infarct , age undetermined Abnormal ECG Confirmed by Fernie Cardoso ([id number]), primer expeditor and drier DELIO NAVA ([id number]) on 01/02/2025 1:06:56 PM Referred By: Confirmed By: Fernie Cardoso
--- NOTE | 2025-01-01 14:23 | EX.ED.GENINJ ---
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 Wears glasses Arthritis Bladder disease Easy bruising Heartburn Non-smoker Shortness of breath on exertion History of pain when walking Home Medications ?Medication ?Instructions ?Recorded ?Last Taken ?Type pantoprazole 40 mg tablet,delayed 40 mg PO QDAY 11/23/24 12/20/24 History release (Protonix) ondansetron 4 mg disintegrating 4 mg PO Q6H PRN nausea and 12/01/24 12/20/24 Rx tablet vomiting #90 tabs oxycodone 5 mg tablet 2.5 - 5 mg PO Q6H PRN pain 12/19/24 Unknown History sennosides 8.6 mg-docusate sodium 1 tab PO BID PRN constipation 12/19/24 12/20/24 History 50 mg tablet (Stool Softener-Stimulant Laxative) vitamins A,C,G-nyki-nceidw 2,148 2 tab PO BID 12/19/24 Unknown History mcg-113 mg-45 mg-17.4 mg tablet (PreserVision AREDS) prochlorperazine maleate 10 mg 10 mg PO TID PRN nausea and 12/20/24 12/20/24 Rx tablet (Compazine) vomiting #30 tabs lidocaine-prilocaine 2.5 %-2.5 % 1 applic topical ONCE PRN port 12/26/24 Unknown Rx topical cream access 30 days #30 grams metoclopramide HCl 5 mg tablet 5 mg PO Q8H PRN nausea and 01/01/25 Unknown Rx (Reglan) vomiting 7 days #20 tabs Allergy/AdvReac Type Severity Reaction Status Date / Time amoxicillin (From Augmentin) Allergy rash Verified 12/28/24 09:15 clavulanic acid (From Allergy rash Verified 12/28/24 09:15 Augmentin) Family History Father CVA (cerebral vascular accident) Brother CVA (cerebral vascular accident) Myocardial infarction Prostate cancer Mother Bladder cancer Surgical History S/P breast biopsy History of liver biopsy S/P endoscopy History of total right knee replacement Hx of colonoscopy History of bilateral carpal tunnel release History of appendectomy History of tubal ligation Social History adopted: No household members: spouse number of children: 1 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[employer] pets and animals: No leisure activities: reading history of recent travel: No sexually active: Yes Smoking Status: Never smoker alcohol intake: never substance use type: does not use well-balanced diet: rarely or never caffeine: No eating out: other during the past year weight has: decreased > 10 lbs what type of physical activity do you participate in: none frequency: does not exercise ahsan/rastafari: NA seatbelt use: always do you feel safe at home: Yes EXAM Physical Exam Const Vital Signs: 01/01/25 14:05 01/01/25 15:34 01/01/25 17:00 Temperature 97.7 F L Temperature Source Oral Pulse Rate 96 91 86 Respiratory Rate 16 28 H 23 H Blood Pressure 117/73 134/83 H Blood Pressure Mean 87 100 Pulse Ox 93 93 93 Oxygen Delivery Method Room Air Room Air Room Air 01/01/25 19:28 Temperature 98.0 F Temperature Source Pulse Rate 80 Respiratory Rate 18 Blood Pressure 112/61 Blood Pressure Mean 78 Pulse Ox 97 Oxygen Delivery Method MDM MDM MDM Narrative Medical decision making narrative: HISTORY OF PRESENT ILLNESS: Chief complaint: Nausea vomiting 69-year-old female history of metastatic cancer, neuroendocrine tumor, venous access port presents with nausea and vomiting. Also endorses left arm swelling today. Denies history of blood clots. Denies chest pain or shortness of breath REVIEW OF SYSTEMS: Pertinent positives: Nausea vomiting Pertinent negatives: Fever, chest pain or shortness of PHYSICAL EXAM: Nursing triage notes reviewed, Vital signs reviewed Constitutional: please see mdm HENT: MMM Eyes: Pupils equal round and reactive to light, Extraocular muscles intact Neck: No stridor, no JVD, full neck ROM Lungs: Clear to auscultation, No wheezing or rales. No increased work of breathing, no conversational dyspnea, no accessory muscle use, no nasal flaring. No respiratory distress noted Heart: Regular rate and rhythm, No murmurs, No rubs and No gallops, 2+ distal pulses (radial, femoral, posterior tibial) in all extremities Abdomen: Soft, there is no tenderness, rigidity, rebound or guarding, no obvious peritoneal signs, no palpable pulsatile abdominal masses, no auscultated abdominal bruit : No CVAT Extremities:, Edema to noted to left upper extremity. No TTP over the venous system of the left upper extremity Neuro: No new focal neurological deficits, cranial nerves II through XII intact, 5/5 strength in all present extremities. Intact sensation to light touch in all present extremities, 2+ reflexes bilateral patella tendons. Skin: No rash or lesions noted MEDICAL DECISION MAKING: Chief Complaint: please see HPI External records reviewed: Reviewed prior imaging studies: Reviewed CT scan abdomen pelvis from August 2024 which showed pulmonary nodules, numerous hepatic lesions, splenic lesions, retroperitoneal and presacral masses, sclerotic osseous lesions as well Factors affecting care: Metastatic cancer Social determinants of health: none History obtained from others: family Consults: none MDM Narrative: The patient was initially hemodynamically stable, afebrile and nontoxic-appearing. Exam with TTP over the entire abdomen. I considered the following differential diagnosis: A AAA, small bowel obstruction, abdominal perforation, appendicitis, pancreatitis, hepatobiliary pathology (acute cholecystitis), mesenteric ischemia, pathology (ie nephrolithiasis, pyelonephritis). I obtained a broad lab and imaging work to further determine if the patient was suffering from a life-threatening etiology. Initially resuscitated patient with IV fluids, Pepcid, Reglan ALL IMAGES (IF OBTAINED) HAVE BEEN PERSONALLY REVIEWED AND INTERPRETED BY MYSELF. CBC with baseline leukocytosis concerning for systemic elevation, no anemia, no thrombocytopenia BMP without significant electrolyte abnormalities, no acute kidney injury, noted slightly low bicarb and elevated anion gap suggestive metabolic acidosis endorgan hypoperfusion LFTs show no evidence of hepatobiliary pathology. Noted elevation alk phos which is baseline likely secondary to metastatic lesion Lipase is wnl indicating no pancreatic inflammation. CT scan abdomen pelvis shows no acute surgical problem pathology but does show multiple metastatic foci likely source of the patient's pain Upon reevaluation vitals remained stable. Patient is able tolerate p.o. Ordered outpatient ultrasound given left upper extremity swelling that was noted. The patient and/or family, caregivers express understanding. The patient and/or family, caregivers agrees with the plan. Shared decision making: I will have a discussion with the patient and or visitors regarding risk/benefits of further testing or admission. They will be made aware of of the risk/benefits inherent in this decision they will be given the opportunity to voice understanding. Total critical care time today provided was at least 0 minutes. This excludes separately billable procedures. Critical care time (if documented) is secondary to the patient having high probability of clinically significant/life threatening deterioration in the patient's condition which required my urgent intervention. Impression: 1. Metastatic cancer 2. Leukocytosis 3. Nausea vomiting Dispo: Discharge This note was generated with INTTRA dictation software. It may contain incorrect words, spelling, and punctuation that were not noted in review of the chart prior to signing. Lab Data Labs: Laboratory Results - last 24 hr 01/01/25 14:55 WBC 22.1 H RBC 5.27 Hgb 13.1 Hct 40.6 MCV 77.0 L MCH 24.9 L MCHC 32.3 RDW Std Deviation 57.1 H RDW Coeff of Ilana 21.2 H Plt Count 684 H MPV 9.3 Immature Gran % (Auto) 0.900 Neut % (Auto) 92.4 H Lymph % (Auto) 5.1 L [place] % (Auto) 1.3 Eos % (Auto) 0.1 Baso % (Auto) 0.2 Absolute Neuts (auto) 20.4 H Absolute Lymphs (auto) 1.12 Nucleated RBC % 0 Differential Comment SCANNED Platelet Estimate MKD INC Anisocytosis 2+ Sodium 135 Potassium 4.3 Chloride 97 L Carbon Dioxide 20.8 L Anion Gap 17 H BUN 29 H Creatinine 0.76 Estim Creat Clear Calc 65.35 Est GFR (MDRD) Non-Af 84 BUN/Creatinine Ratio 38.1 H Glucose 112 H Calcium 8.4 Total Bilirubin 0.59 AST 16 ALT 15 Alkaline Phosphatase 297 H Total Protein 6.2 Albumin 3.0 L Globulin 3.2 Albumin/Globulin Ratio 0.9 Lipase 24 Radiography Diagnostic Testing: Clinical Impression(s) from Imaging Studies Abdomen/Pelvis CT 01/01/25 15:35 IMPRESSION: 1. Mild wall thickening involving the descending and sigmoid colon, which may represent colitis (of infectious, inflammatory, or ischemic etiology). Portal colopathy could also appear similar. 2. Small to moderate volume of ascites. 3. Hydropic gallbladder containing subtle densities within, possibly stones. No significant wall thickening or pericholecystic fluid. Consider ultrasound if there is concern for acute cholecystitis. 4. Interval worsening of pulmonary metastatic disease compared to CT on 11/11/2024. Persistence of hepatic and osseous metastases, in addition to multiple soft tissue masses throughout the abdomen and pelvis which are also likely metastatic deposits. Reading Location: [facility] Discharge Plan Triage Chief Complaint: Nausea/Vomiting ED Provider: Kumar Sanches Dx/Rx/DC Orders Instructions: ED Understanding Colitis, ED Diet Vomiting Diarrhea Prescriptions: New metoclopramide HCl [Reglan] 5 mg tablet 5 mg PO Q8H PRN (Reason: nausea and vomiting) 7 Days Qty: 20 0RF No Action ondansetron 4 mg tablet,disintegrating 4 mg PO Q6H PRN (Reason: nausea and vomiting) Qty: 90 0RF pantoprazole [Protonix] 40 mg tablet,delayed release (DR/EC) 40 mg PO QDAY sennosides-docusate sodium [Stool Softener-Stimulant Laxat] 8.6-50 mg tablet 1 tab PO BID PRN (Reason: constipation) oxycodone 5 mg tablet 2.5 - 5 mg PO Q6H PRN (Reason: pain) PreserVision AREDS 2,148 mcg-113 mg-45 mg-17.4mg tablet 2 tab PO BID Rx Instructions: administer with AM and PM meals prochlorperazine maleate [Compazine] 10 mg tablet 10 mg PO TID PRN (Reason: nausea and vomiting) Qty: 30 1RF lidocaine-prilocaine 2.5-2.5 % cream 1 applic topical ONCE PRN (Reason: port access) 30 Days Qty: 30 2RF Other Ambulatory Orders: Venous Duplex US, Unilateral (Stat) Facility: [facility] - Location: [facility] Ordered By: Dr. Kumar Sanches Primary Care Provider: Diya George Referrals: Diya George MD [Primary Care Provider] - Activity Restrictions/Additional Instructions: Thank you for trusting us with your care today! Your labs are reassuring. Your images are consistent with metastatic disease. There is also some inflammation of your colon consistent with colitis. Please take Tylenol (2 pills, 650 mg), ibuprofen (2 pills, 400 mg) every 6 hours as needed for pain and fever control. Please take Phenergan as needed for nausea and vomiting control Please return to the emergency department if your symptoms change or worsen. Please follow with your primary care physician for further outpatient evaluation and management. Print Language: Slovenian Disposition Disposition: Home, Self Care Discharge Date/Time: 01/01/25 19:29
[2025-01-01] MEDS: 0.9% Normal Saline (500mL Bag) 500 ML 1000 ML IV (14:57)
[2025-01-01] MEDS: Famotidine 200 MG/20 ML MDV 20 MG in 0.9% Normal Saline (Pres. free 8 ML 300 MG IV (14:58)
--- OUTSIDE RECORDS SUMMARY | 2025-01-01 15:07 | XMS RPT_ITS | CCD ---
Author Organization [facility] Care Team Providers Care Stock Car Driver Name Role Phone MARLINE LARA DPJosh Attending Unavailable MARLINE LARA DPM Primary Care Unavailable MARLINE LARA DPM Admitting Unavailable Dr. Aly Lujan Attending Provider [phone] Dr. Raúl Rivas Primary Care Provider Dr. Nj Miles Attending Provider [phone] Aly Lujan Referring Provider [phone] Care Physician, No Primary Primary Care Provider Unavailable Care Physician, No Primary Referring Provider Un available LOS Gallegos Attending Provider Dr. Aly Lujan Other Provider Dr. Aly Lujan Admit Provider Unavailable Primary Care Provider UnavailRaúl Moeller MD Primary Care Provider Raúl Rivas MD Primary Care Provider Unavailable Primary Care Provider Unavailabl e PROVIDER, UNKNOWN Referring Unavailable ROBE GARCIA Referring Unavailable ROBE GARCIA Referring Unavailable RAMONE MCMAHON Attending Unavailable ROBE GARCIA Referring Unavailable Dr. Raúl Rivas MD Primary Care Provider Dr. Raúl Rivas MD Referring Provider Adria Gallegos Attending Provider Dr. Diya George MD Primary Care Provider [phone] Adria Gallegos Referring Provider [phone] Diya George MD Attending Provider Dr. Diya George MD Referring Provider Batsheva COTTO Dr. Vincent Attending Provider Batsheva COTTO, Dr. Osman Referring Provider Dee Dee COTTO, Dr. Greene Attending Provider Dee Dee COTTO, Dr. Greene Referring Provider Evelyn Angela Attending Provider Unavailable Millie DIRECTOR [employer], Magalie Attending Provider Danna COTTO, Dr. Tera Le Attending Provider Danna COTTO, Dr. Tera Le Other Provider Dee Dee COTTO, Dr. Greene Attending Provider Dee Dee COTTO, Dr. Greene Referring Provider Ariel, Diay Primary Care Unavailable Ariel, Diya Referring Unavailable Isckarus, Mansour Attending Unavailable Rivas, Raúl Referring Unavailable Rivas, Raúl Primary Care Unavailable Adria Orosco Attending Unavailable South Lee, Diya Primary Care Unavailable Isckarus, Mansour Attending Unavailable Wayt, Adria Referring Unavailable Tera Clay Attending Unavailable Tera Clay Consulting Unavailable [place], Diya Primary Care Unavailable [place], Diya Referring Unavailable Ariel, Diya Primary Care Unavailable [place], Diya Attending Unavailable Rivas, Raúl Referring Unavailable [place], Diya Primary Care Unavailable [place], Diya Referring Unavailable Isckarus, Ramona Attending Unavailable Millie DIRECTOR [employer], Magalie Attending Unavailable [place], Diya Primary Care Unavailable [place], Diya Referring Unavailable Tera Clay Attending Unavailable [place], Diya Primary Care Unavailable Isckarus, Mansour Referring Unavailable [place], Diya Attending Unavailable [place], Diya Primary Care Unavailable Swanger, Abimaelvet Attending Unavailable [place], Diya Primary Care Unavailable Wayt Adria Attending Unavailable Ariel, Diya Primary Care Unavailable Wayt, Adria Referring Unavailable [place], Diya Primary Care Unavailable Isckarus, Mansour Referring Unavailable Isckarus, Sherrieour Attending Unavailable Ariel, Diya Attending Unavailable [place], Diya Primary Care Unavailable Ariel, Diya Referring Unavailable Ariel, Diya Primary Care Unavailable Brianakarus, Sherrieour Attending Unavailable Isckarus, Mansour Referring Unavailable [place], Diya Primary Care Unavailable Dawson Herman Attending Unavailable Dawson Herman Referring Unavailable Tera Clay Attending Unavailable [place], Diya Primary Care Unavailable [place], Diya Referring Unavailable Ariel, Diya Attending Unavailable Ariel, Dyia Primary Care Unavailable Ariel, Diya Referring Unavailable [place], Diya Primary Care Unavailable Brianakarus, Mansour Attending Unavailable Brianakarus, Mansour Referring Unavailable Adria Orosco Attending Unavailable Ariel, Diya Primary Care Unavailable Adria Orosco Referring Unavailable Allergies Allergy Classification Reported Allergen(s) Allergy Type Date of Onset Reaction(s) Facility (14 sources) Amoxicillin Drug Allergy 08-19-2021 [facility] (14 sources) Clavulanate Drug Allergy 08-19-2021 [facility] (17 sources) Amoxicillin / Clavulanate; Translations: [AMOXICILLIN-POT CLAVULANATE] Drug Allergy 07-03-2006 [facility] Work Phone: (1 source) Amoxicillin Drug Allergy 12-28-2024 [facility] Repository (1 source) Clavulanate Drug Allergy 12-28-2024 [facility] Repository Medications Current Medications Medication Drug Class(es) Dates Sig (Normalized) Sig (Original) acetaminophen 500 mg oral tablet (14 sources) Start: 08-07-2021 take 1000 mg by mouth every six hours Acetaminophen Active 1000 MG PO EVERY 6 HOURS 90 August 07, 2021 8:46am Start: 08-07-2021 End: 09-23-2024 take 2 tablets by mouth every six hours Acetaminophen 500 mg Tablet Discontinued 1000 mg PO EVERY 6 HOURS 90 0 August 07, 2021 1:00am September 23, 2024 8:37am ascorbic acid 113 mg / beta carotene 7160 mg / cuprous oxide 0.4 mg / dl-alpha tocopheryl acetate 100 unt / zinc oxide 17.4 mg oral tablet (2 sources) Vitamin C Start: 12-19-2024 Vitamins A,C,G-Duux-Lkhgdv (Preservision Areds) 2,148 mcg-113 mg-45 mg-17.4mg tablet Active 2 {tbl} PO TWICE A DAY December 19, 2024 12:00am administer with AM and PM meals docusate sodium 50 mg / sennosides, senior care 8.6 mg oral tablet (2 sources) Start: 12-19-2024 Sennosides-Docusate Sodium (Stool Softener-Stimulant Laxat) 8.6-50 mg tablet Active 1 {tbl} PO TWICE A DAY as needed for constipation December 19, 2024 12:00am Lidocaine / Prilocaine (1 source) Antiarrhythmic, Amide Local Anesthetic Start: 12-26-2024 Lidocaine-Prilocaine 2.5-2.5 % cream Active 1 NMA TOPICAL ONCE as needed for port access December 26, 2024 12:00am 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 Malignant neoplasm metastatic to lung Other malignant neuroendocrine tumors 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 Active ondansetron 4 mg disintegrating oral tablet (7 sources) Serotonin-3 Receptor Antagonist Start: 12-01-2024 take 1 tablet by mouth every six hours as needed for nausea and vomiting Ondansetron 4 mg tablet,disintegrating Active 4 mg PO EVERY 6 HOURS as needed for nausea and vomiting 90 0 December 01, 2024 12:00am oxyCODONE hydrochloride 5 mg oral tablet (20 sources) Opioid Agonist Start: 12-19-2024 take 2.5-5 mg by mouth every six hours as needed for pain Oxycodone 5 mg tablet Active 2.5 - 5 mg PO EVERY 6 HOURS as needed for pain December 19, 2024 12:00am Start: 08-14-2021 End: 08-21-2021 take 5-10 mg by mouth every six hours as needed for pain Oxycodone 5 mg tablet Discontinued 5 - 10 mg PO EVERY 6 HOURS as needed for Pain Score 6-10/10 56 7 0 August 14, 2021 August 20, 2021 1:00am August 21, 2021 1:04am Other acute postprocedural pain Start: 08-07-2021 End: 09-16-2021 take 5-10 mg by mouth every four hours as needed for pain Oxycodone 5 mg Tablet Discontinued 5 - 10 mg PO EVERY 4 HOURS NEEDED as needed for Pain Score 4-10 60 7 0 August 07, 2021 September 16, 2021 9:59am Other acute postprocedural pain Other acute postprocedural pain pantoprazole 40 mg delayed release oral tablet (8 sources) Proton Pump Inhibitor Start: 11-23-2024 take 1 tablet by mouth once daily Pantoprazole (Protonix) 40 mg tablet,delayed release (DR/EC) Active 40 mg PO daily November 23, 2024 12:00am prochlorperazine 10 mg oral tablet (2 sources) Phenothiazine Start: 12-20-2024 take 1 tablet by mouth three times daily as needed for nausea and vomiting Prochlorperazine Maleate (Compazine) 10 mg tablet Active 10 mg PO THREE TIMES A DAY as needed for nausea and vomiting 30 1 December 20, 2024 12:00am Nausea Pancreatobiliary-typ e carcinoma 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 Malignant neoplasm metastatic to lung Nausea Malignant (primary) neoplasm, unspecified Other malignant neuroendocrine tumors 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 Active vit C/vit E ac/l ut/copper/zinc (PRESERVISION LUTEIN ORAL) Take by mouth. 0 Active Comment on above: Take by mouth. Vitamins A,C,L-Vhoh-Fipycd (Preservision Areds) 14,320-226-200 weou-zx-aadk capsule (14 sources) Start: 08-10-2020 take 1 capsule by mouth twice daily Vitamins A,C,B-Pydx-Fcgijc (Preservision Areds) 14,320-226-200 xpjb-uu-daoh capsule Active 1 CAP PO TWICE A DAY August 10, 2020 10:43am Start: 08-10-2020 End: 12-07-2024 Vitamins A,C,D-Hdoo-Axgnnx ( Preservision Areds) 14,320-226-200 dfmy-is-xqjf capsule Discontinued 1 NMA PO TWICE A DAY August 10, 2020 1:00am December 07, 2024 3:50pm Start: 08-10-2020 Vitamins A,C,E -Zinc-Copper (Preservision Areds) 14,320-226-200 duqa-se-bvsq capsule Active 1 NMA PO TWICE A DAY August 10, 2020 1:00am Completed/Discontinued Medications Medication Drug Class(es) Dates Sig (Normalized) Sig (Original) apixaban 2.5 mg oral tablet (14 sources) Factor Xa Inhibitor Start: 08-07-2021 End: 09-16-2021 take 1 tablet by mouth twice daily Apixaban (Eliquis) 2.5 mg Tablet Discontinued 2.5 mg PO TWICE A DAY 28 0 August 07, 2021 1:00am September 16, 2021 9:59am cephalexin 500 mg oral capsule (20 sources) Cephalosporin Antibacterial Start: 03-11-2023 End: 09-23-2024 take 4 capsules by mouth once Cephalexin 500 mg capsule Discontinued 2000 mg PO ONCE 4 March 11, 2023 12:00am September 23, 2024 8:37am Take within 1 hour prior to dental procedure Start: 10-28-2021 End: 09-23-2024 take 4 capsules by mouth twice daily Cephalexin 500 mg capsule Discontinued 2000 mg PO TWICE A DAY 4 2 October 28, 2021 12:00am September 23, 2024 8:37am within 1 hr prior to dental procedure. clindamycin 300 mg oral capsule (13 sources) Lincosamide Antibacterial Start: 03-28-2024 End: 09-23-2024 take 2 capsules by mouth once Clindamycin Hcl 300 mg capsule Discontinued 600 mg PO ONCE 2 March 28, 2024 12:00am September 23, 2024 8:37am Take within 1 hour prior to dental procedure levothyroxine sodium 0.025 mg oral tablet (20 sources) l-Thyroxine Start: 10-27-2024 End: 11-29-2024 take 1 tablet by mouth once daily Levothyroxine 25 mcg tablet Discontinued 25 ug PO daily 30 0 October 27, 2024 10:27am November 29, 2024 9:26am Lidocaine (1 source) Antiarrhythmic, Amide Local Anesthetic Start: 05-18-2024 End: 05-18-2024 OTHER, X (OR/PROCEDURE) PRN, Starting on Thu05/18/24 at 1108, Until Thu05/18/24 at 1108, Intraprocedure linaclotide 0.072 mg oral capsule (9 sources) Guanylate Cyclase-C Agonist Start: 11-17-2024 End: 11-29-2024 take 1 capsule by mouth once daily in the morning Linaclotide (Linzess) 72 mcg capsule Discontinued 72 ug PO EVERY MORNING November 17, 2024 12:00am November 29, 2024 9:26am mesalamine 1200 mg delayed release oral tablet (9 sources) Aminosalicylate Start: 11-17-2024 End: 11-29-2024 take 2 tablets by mouth once daily Mesalamine (Lialda) 1.2 gram tablet,delayed release (DR/EC) Discontinued 2.4 g PO daily November 17, 2024 12:00am November 29, 2024 9:26am methylPREDNISolone acetate 40 mg/ml injectable suspension (1 source) Corticosteroid Start: 08-15-2020 End: 08-15-2020 Depo-Medrol (methylprednisolon e acetate) 40 mg/mL suspension for injection Discontinued 80 MG INTRAARTIC ONCE 2 August 15, 2020 10:29am August 15, 2020 11:14am Rdqqnxsn-Btw-Cnhd-Fa-V it K-Lut (Centrum Minis Women 50 Plus) 4 mg iron-200 mcg-25 mcg tablet (13 sources) Start: 09-23-2024 End: 11-29-2024 take 1 tablet by mouth once Lohpvhfj-Rgq-Idcx- Fa-Vit K-Lut (Centrum Minis Women 50 Plus) 4 mg iron-200 mcg-25 mcg tablet Discontinued {tbl} PO September 23, 2024 12:00am November 29, 2024 9:26am Start: 09-23-2024 take 1 tablet by maryanne th once Kdsfadix-Ayg-Ryao-Fa-Vit K-Lut (Centrum Minis Women 50 Plus) 4 mg iron-200 mcg-25 mcg tablet Active {tbl} PO September 23, 2024 12:00am sucralfate 1000 mg oral tablet (10 sources) Aluminum Complex Start: 11-09-2024 End: 11-23-2024 take 1 tablet by mouth twice daily Sucralfate (Carafate) 1 gram tablet Discontinued 1 g PO TWICE A DAY 30 0 November 09, 2024 12:00am November 23, 2024 2:24pm triamcinolone acetonide 40 mg/ml injectable suspension (1 source) Corticosteroid Start: 06-26-2021 End: 06-26-2021 Kenalog (triamcinolone acetonide) 40 mg/mL suspension for injection Discontinued 60 MG INTRAARTIC ONCE 1.5 June 26, 2021 9:55am June 26, 2021 10:40am Problems Active Problems Problem Classification Problem Date Documented Da te Episodic/Chronic Administrative/social admission (9 sources) First encounter by subject; Translations: [Persons encountering health services in other specified circumstances] Onset: 12-08-2024 12-01-2024 Episodic Deficiency and other anemia (20 sources) Anemia; Translations: [Anemia, unspecified] 09-23-2024 Episodic Deficiency and other anemia (1 source) Iron deficiency anemia, unspecified; Translations: [Iron deficiency anemia, unspecified] Onset: 11-15-2024 Episodic Deficiency and other anemia (1 source) Anemia, unspecified; Translations: [Anemia, unspecified] Onset: 10-17-2024 Episodic Disorders of lipid metabolism (1 source) Pure hypercholesterolemia , unspecified; Translations: [Pure hypercholesterolemia , unspecified] Onset: 09-23-2024 Chronic Malaise and fatigue (20 sources) Fatigue; Translations: [Other fatigue] Onset: 11-01-2024 09-23-2024 Episodic Malignant neoplasm without specification of site (20 sources) Neuroendocrine carcinoma; Translations: [Other malignant neuroendocrine tumors] Onset: 12-28-2024 12-07-2024 Chronic Nausea and vomiting (9 sources) Nausea and vomiting; Translations: [Nausea with vomiting, unspecified] 12-01-2024 Episodic Nonmalignant breast conditions (4 sources) Breast problem; Translations: [Disorder of breast, unspecified] Onset: 05-18-2024 05-04-2024 Episodic Nutritional deficiencies (1 source) Vitamin D deficiency, unspecified; Translations: [Vitamin D deficiency, unspecified] Onset: 09-23-2024 Chronic Osteoarthritis (20 sources) Osteoarthritis of left knee joint; Translations: [Unilateral primary osteoarthritis, left knee] Chronic Other aftercare (13 sources) Follow-up status; Translations: [Encounter for other orthopedic aftercare] 10-28-2021 Episodic Other aftercare (2 sources) Encounter for adjustment and management of vascular access device; Translations: [Encounter for adjustment and management of vascular access device] Onset: 12-29-2024 Episodic Other connective tissue disease (14 sources) History of total knee arthroplasty; Translations: [Presence of unspecified artificial knee joint] 08-07-2021 Chronic Other connective tissue disease (3 sources) Presence of unspecified artificial knee joint; Translations: [Knee joint replacement] Chronic Other gastrointestinal disorders (4 sources) Occult blood in stools Episodic Other nervous system disorders (15 sources) Carpal tunnel syndrome of left wrist; Translations: [Carpal tunnel syndrome, left upper limb] Onset: 01-03-2013 01-03-2013 Chronic Other nervous system disorders (14 sources) Acute postoperative pain; Translations: [Other acute postprocedural pain] 08-07-2021 Episodic Other nervous system disorders (1 source) Other acute postprocedural pain; Translations: [Other acute postoperative pain] Episodic Other screening for suspected conditions (not mental disorders or infectious disease) (20 sources) Patient encounter status; Translations: [Encounter for other screening for malignant neoplasm of breast] Onset: 03-09-2024 03-03-2024 Episodic Secondary malignancies (20 sources) Secondary malignant neoplasm of bone; Translations: [Secondary malignant neoplasm of bone] 11-17-2024 Chronic Secondary malignancies (20 sources) Secondary malignant neoplastic disease; Translations: [Secondary malignant neoplasm of unspecified site] 11-17-2024 Chronic Secondary malignancies (14 sources) Secondary malignant neoplasm of lung; Translations: [Secondary malignant neoplasm of unspecified lung] 12-07-2024 Chronic Secondary malignancies (14 sources) Secondary malignant neoplasm of liver; Translations: [Secondary malignant neoplasm of liver and intrahepatic bile duct] 12-07-2024 Chronic Secondary malignancies (2 sources) Secondary malignant neoplasm of unspecified site; Translations: [Secondary malignant neoplasm of unspecified site] Onset: 12-20-2024 Chronic Secondary malignancies (2 sources) Secondary malignant neoplasm of bone; Translations: [Secondary malignant neoplasm of bone] Onset: 12-20-2024 Chronic Secondary malignancies (1 source) Secondary malignant neoplasm of right lung; Translations: [Secondary malignant neoplasm of right lung] Onset: 12-28-2024 Chronic Secondary malignancies (1 source) Secondary malignant neoplasm of left lung; Translations: [Secondary malignant neoplasm of left lung] Onset: 12-28-2024 Chronic Secondary malignancies (1 source) Secondary malignant neoplasm of liver and intrahepatic bile duct; Translations: [Secondary malignant neoplasm of liver and intrahepatic bile duct] Onset: 12-28-2024 Chronic Sprains and strains (14 sources) Strain of knee; Translations: [Strain of unspecified muscle(s) and tendon(s) at lower leg level, right leg, initial encounter] 08-10-2020 Episodic Unclassified (13 sources) R19.5 - Other fecal abnormalities Unclassified (9 sources) C79.9 - Secondary malignant neoplasm of unspecified site,C79.51 - Secondary malignant neoplasm of bone Unclassified (3 sources) Metastasis of unknown origin Unclassified (3 sources) Malignant neoplasm metastatic to bone Unclassified (3 sources) Metastatic malignant neoplasm Past or Other Problems Problem Classification Problem Date Documented Da te Episodic/Chronic Residual codes; unclassified (15 sources) Family history of cardiac disorder; Translations: [Family history of ischemic heart disease and other diseases of the circulatory system] Onset: 08-12-2012 08-12-2012 Episodic Results Test Name Value Interpretation Reference Range Facility Absolute lymphocyte countOrd ered By: Ramona Funez on 12-28-2024 Lymphocytes Auto (Unsp spec) [#/Vol] 1.06 10*3/uL 0.83-4.51 [facility] Absolute neutrophil countOrd ered By: Ramona Funez on 12-28-2024 Neutrophils (Bld) [#/Vol] 16.3 10*3/uL High 2.0-7.7 [facility] Anion gap in Serum or Plasma Ordered By: Ramona Funez on 12-28-2024 Anion gap [Moles/Vol] 12 mmol/L 5-15 [facility] Automated lymphocyte count a s percentage of total leukocytesOrdered By: Ramona Funez on 12-28-2024 Lymphocytes/100 WBC Auto (Unsp spec) 5.6 % Low 19-41 [facility] BUN/creatinine ratioOrdered By: Ramona Funez on 12-28-2024 Urea nitrogen/Creatinine [Mass ratio] 29.5 mg/mg High 10-20 [facility] Basophil percentageOrdered B y: Ramona Warrendomi on 12-28-2024 Basophils/100 WBC (Bld) 0.4 % 0-1 [facility] Bilirubin, totalOrdered By: Ramona Warrendomi on 12-28-2024 Bilirubin [Mass/Vol] 0.46 mg/dL 0.00-1.30 [facility] CBC W/Diff, Automatedon 07-0 Anisocytosis Ql (Bld) 1+ Normal [facility] Comment on above: Performed By: #### L 501.5200, L500.4050, L100.0100 #### [facility] [address] [place], [address] Carbon dioxide, total [Moles /volume] in Central venous bloodOrdered By: Ramona Dee Dee on 12-28-2024 CO2 [Moles/Vol] 23.8 mmol/L 21.0-32.0 [facility] Chloride assayOrdered By: Kim chaudhry Dee Dee on 12-28-2024 Chloride [Moles/Vol] 96 mmol/L Low 98-108 [facility] Comprehensive Metabolic Prof ilon 12-28-2024 Albumin [Mass/Vol] 2.7 g/dL Low 3.4-4.8 [facility] Comment on above: Performed By: #### L 501.5200, [id number], L100.0100 #### [facility] [address] [place], [address] Albumin/Globulin [Mass ratio] 0.8 {ratio} Low 0.9-2.4 [facility] Comment on above: Performed By: #### L 501.5200, [id number], L100.0100 #### [facility] [address] [place], [address] ALK PHOS 361 U/L High 35-104 [facility] Comment on above: Performed By: #### L 501.5200, [id number], L100.0100 #### [facility] [address] [place], [address] ALT [Catalytic activity/Vol] 12 U/L Normal <=34 [facility] Comment on above: Performed By: #### L 501.5200, [id number], L100.0100 #### [facility] [address] [place], [address] AST [Catalytic activity/Vol] 23 U/L Normal <=31 [facility] Comment on above: Performed By: #### L 501.5200, [id number], L100.0100 #### [facility] [address] [place], [address] Bilirubin [Mass/Vol] 0.46 mg/dL Normal 0.00-1.30 [facility] Comment on above: Performed By: #### L 501.5200, [id number], L100.0100 #### [facility] [address] [place], [address] BUN/CRE 29.5 RATIO High 10-20 [facility] Comment on above: Performed By: #### L 501.5200, [id number], L100.0100 #### [facility] [address] [place], [address] Calcium [Mass/Vol] 8.6 mg/dL Normal 7.6-11.0 [facility] Comment on above: Performed By: #### L 501.5200, [id number], L100.0100 #### [facility] [address] [place], [address] Chloride [Moles/Vol] 96 mmol/L Low 98-108 [facility] Comment on above: Performed By: #### L 501.5200, [id number], L100.0100 #### [facility] [address] [place], [address] CO2 [Moles/Vol] 23.8 mmol/L Normal 21.0-32.0 [facility] Comment on above: Performed By: #### L 501.5200, [id number], L100.0100 #### [facility] [address] [place], [address] Creatinine [Mass/Vol] 0.57 mg/dL Low 0.70-1.20 [facility] Comment on above: Performed By: #### L 501.5200, [id number], L100.0100 #### [facility] [address] [place], [address] ECRCL 65.43 ml/min Normal 50-250 [facility] Comment on above: Performed By: #### L 501.5200, [id number], L100.0100 #### [facility] [address] [place], [address] GAP 12 Normal 5-15 [facility] Comment on above: Performed By: #### L 501.5200, [id number], L100.0100 #### [facility] [address] [place], [address] GFR/1.73 sq M.predicted among non-blacks MDRD (S/P/Bld) [Vol rate/Area] 97 mL/min/{1.73_m2} Normal >60 [facility] Comment on above: Result Comment: mL/m in/1.73m2 CKD-EPI Creatinine Equation (2020) Performed By: #### L 501.5200, [id number], L100.0100 #### [facility] [address] [place], [address] Globulin (S) [Mass/Vol] 3.4 g/dL Normal 2.2-4.2 [facility] Comment on above: Performed By: #### L 501.5200, [id number], L100.0100 #### [facility] [address] [place], [address] Glucose [Mass/Vol] 102 mg/dL High 70-99 [facility] Comment on above: Performed By: #### L 501.5200, [id number], L100.0100 #### [facility] [address] [place], [address] Potassium [Moles/Vol] 3.9 mmol/L Normal 3.3-5.1 [facility] Comment on above: Performed By: #### L 501.5200, L500.4050, L100.0100 #### [facility] [address] [place], [address] Sodium [Moles/Vol] 131 mmol/L Low 133-145 [facility] Comment on above: Performed By: #### L 501.5200, L500.4050, L100.0100 #### [facility] [address] [place], [address] T PROT 6.2 g/dL Normal 5.9-8.4 [facility] Comment on above: Performed By: #### L 501.5200, L500.4050, L100.0100 #### [facility] [address] [place], [address] Urea nitrogen [Mass/Vol] 17 mg/dL Normal 4-19 [facility] Comment on above: Performed By: #### L 501.5200, L500.4050, L100.0100 #### [facility] [address] [place], [address] Eosinophil percentageOrdered By: Ramona Funez on 12-28-2024 Eosinophils/100 WBC (Bld) 0.8 % 0-5 [facility] Erythrocyte distribution wid th ratioOrdered By: Ramona Funez on 12-28-2024 Erythrocyte distribution width (RBC) [Ratio] 20.1 % High 11.6-14.6 [facility] Erythrocyte distribution wid th standard deviationOrdered By: Ramona Funez on 12-28-2024 Erythrocyte distribution width (RBC) [Ratio] 55.8 fl High 35.1-43.9 [facility] Glomerular filtration rate ( GFR) estimation/1.73 sq m using serum, plasma, or whole bOrdered By: Ramona Funez on 12-28-2024 GFR/1.73 sq M.predicted among non-blacks MDRD (S/P/Bld) [Vol rate/Area] 97 mL/min/{1.73_m2} >60 [facility] Comment on above: mL/min/1.73m2 CKD-EP I Creatinine Equation (2020) Hematocrit Auto (Bld) [Volum e fraction]Ordered By: Ramona Funez on 12-28-2024 Hematocrit (Bld) [Volume fraction] 34.1 % Low 37-47 [facility] Hemoglobin measurementOrdere d By: Ramona Funez on 12-28-2024 Hemoglobin (Bld) [Mass/Vol] 11.3 g/dL Low 12.0-15.0 [facility] Immature granulocytes/100 WB C Auto (Bld)Ordered By: [facility] on 12-28-2024 Immature granulocytes/100 WBC (Bld) 0.600 % 0.0-0.9 [facility] Comment on above: IG% - Immature Granu locytes (promyelocytes, myelocytes and metamyelocytes) > 1% indicates that a LEFT SHIFT is Present. Laboratory - Chemistry and C hemistry - challengeOrdered By: Ramona Funez on 12-28-2024 AST [Catalytic activity/Vol] 23 U/L <32 [facility] Laboratory - Hematology and Cell countsOrdered By: [facility] on 12-28-2024 Anisocytosis Ql (Bld) 1+ [facility] MCV (mean corpuscular volume ) determinationOrdered By: Ramona Funez on 12-28-2024 MCV (RBC) [Entitic vol] 76.5 fL Low 81-99 [facility] Magnesiumon 12-28-2024 Magnesium [Mass/Vol] 2.1 mg/dL Normal 1.5-2.2 [facility] Comment on above: Performed By: #### L 501.5200, L500.4050, L100.0100 #### [facility] [address] [place], [place], [address] Magnesium measurement (mass/ volume)Ordered By: Ramona Funez on 12-28-2024 Magnesium (Unsp spec) [Mass/Vol] 2.1 mg/dL 1.5-2.2 [facility] Mean corpuscular hemoglobin (MCH) determinationOrdered By: Ramona Funez on 12-28-2024 MCH (RBC) [Entitic mass] 25.3 pg Low 27.0-32.0 [facility] Mean corpuscular hemoglobin concentration (MCHC) determinationOrdered By: [facility] on 12-28-2024 MCHC (RBC) [Mass/Vol] 33.1 g/dL 32-36 [facility] Mean platelet volume determi nationOrdered By: Ramona Funez on 12-28-2024 Platelet mean volume (Bld) [Entitic vol] 9.0 fL 6.2-12.0 [facility] Monocyte percentageOrdered B y: Ramona Funez on 12-28-2024 Monocytes/100 WBC (Bld) 7.2 % 0-10 [facility] Neutrophil percentageOrdered By: [facility] on 12-28-2024 Neutrophils/100 WBC (Bld) 85.4 % High 47-70 [facility] Nucleated red blood cell per centageOrdered By: Ramona Funez on 12-28-2024 Nucleated RBC/100 WBC (Bld) [Ratio] 0 % 0-5 [facility] Oncology Visit Reporton Oncology Visit Report [facility] [place] [facility] [address] [place] [address] OFFICE VISIT Date of Service: 12/28/24909 MR#: [id number] Acct: [id number] Name: LIZZETH BERRY Rep #: [id number] : 1955 From: aRmona Funez MD Age/Sex: 69/F Location: [facility] Status: Signed HPI Subjective Date of Service 12/28/24 Chief Complaint Metastatic cancer History of Present Illness 69-year-old female who presents with a few months history of anorexia, 20+ pound weight loss, and increasing fatigue. 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 Patient reports that in 2023 she had an abnormal screening mammogram on the left breast, had a biopsy at [facility] and was told was negative for malignancy. November 04, [address] Madsen: Impression colitis like picture Pathology: Ascending colon active colitis. Descending colon colonic mucosa no significant pathologic changes. Rectum biopsy rectal mucosa no significant histopathologic changes. November 11, 2024 CT abdomen and pelvis: FINDINGS: Bilateral multifocal varying size pulmonary nodules, largest on the left is partially seen at the lingula measuring 9 mm and largest on the right just above the diaphragm 12 mm. 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 The liver is enlarged containing innumerable varying size liver lesions concerning for metastatic disease. Liver mass in the posterior right lobe appears associated with calcification measuring around 4.8 cm. The gallbladder appears distended without wall thickening or surrounding inflammatory change and may contain a small amount of sludge. No biliary ductal dilation identified. 1.8 cm cystic focus within the head of the pancreas may represent pseudocyst or cystic neoplasm. No pancreatic ductal dilation identified. The adrenal glands, kidneys appear within limits. Small left renal cyst noted. The spleen appears diffusely heterogeneous and may represent differences in splenic pulp with possibility of numerous lesions, metastatic disease not excluded. Enlarged vipin hepatis node measuring 3.4 by 2.5 cm. Abdominal aorta appears within limits. Adjacent to the right common iliac vessels and right psoas muscle is a soft tissue mass measuring 4.5 by 2.7 cm with the right common iliac vein draped across and difficult to distinguish. Adjacent along the presacral soft tissues upper right sacrum is a heterogeneous mass with mixed cystic and solid appearance and areas of suggested calcification measures 4.2 x 3.7 cm. Possibility includes metastatic lymphadenopathy, possibility of lymphoma not excluded. No bowel dilation or free air. No evidence of colonic wall thickening or pericolonic inflammatory change. Overall there does appear to be soft tissue fullness at the perineum about the vaginal introitus and rectum/perianal soft tissues for example axial 117 and sagittal 97. Recommend further clinical correlation. Very small amount of perihepatic free fluid noted. Status post hysterectomy. Bilateral fallopian tube clips are seen with what appears to be adjacent bilateral ovarian tissue which appears within limits. The bladder appears within limits. There are multifocal areas of osseous sclerotic lesions mostly involving the sacrum although also involving the right ilium, posterior thoracic spine and the anterior right 6th rib. No pathologic fracture identified. Lower lumbar spondylosis/discogenic change and facet degenerative changes. IMPRESSION: Multifocal partially imaged noncalcified pulmonary nodules, hepatomegaly filled with numerous lesions, vipin hepatis lymphadenopathy, possible splenic lesions, lower right retroperitoneal presacral masses and sclerotic multifocal osseous lesions consistent with metastatic disease with possible lymphoma not entirely excluded as described in detail above. Requires further clinical correlation and workup. Fullness peroneal soft tissues about the vaginal introitus and rectum/anus recommend further clinical correlation. Cystic focus within the pancreatic head as above. November 22, [address] Herman: Hiatus hernia, exudate and ulceration in the prepyloric area and duodenum. Biopsy showing active inflammation and hemorrhage negative for H. pylori no malignancy. November 30, 2024 bone scan: IMPRESSION: Extensive abnormal uptake is seen throughout much of the bilateral sacrum, corresponding with sclerotic lesion seen on a recent CT scan. This is most consistent with osseous metastatic disease. November 30, 2024 CT chest: IMPRESSION: Coronary artery calcification (CAC) is is absent Multiple bilateral noncalcified pulmonary pulmonary nodules are noted in the upper lobes, right middle lobe, (more content not included)... Normal [facility] Platelet countOrdered By: Kim Funez on 12-28-2024 Platelets (Bld) [#/Vol] 488 10*3/uL High 150-450 [facility] Potassium measurement (mass/ volume)Ordered By: Ramona Funez on 12-28-2024 Potassium (Unsp spec) [Mass/Vol] 3.9 mmol/L 3.3-5.1 [facility] RBC Auto (Bld) [#/Vol]Ordere d By: Ramona Funez on 12-28-2024 RBC (Bld) [#/Vol] 4.46 10*6/uL 4.2-5.4 [facility] Serum creatinine measurement (mass/volume)Ordered By: Ramona Funez on 12-28-2024 Creatinine [Mass/Vol] 0.57 mg/dL Low 0.70-1.20 [facility] Serum globulin measurementOr dered By: Ramona Funez on 12-28-2024 Globulin (S) [Mass/Vol] 3.4 g/dL 2.2-4.2 [facility] Serum glucose measurement (m ass/volume)Ordered By: Ramona Funez on 12-28-2024 Glucose [Mass/Vol] 102 mg/dL High 70-99 [facility] Serum or plasma alanine wright otransferase (ALT) measurementOrdered By: Ramona Funez on 12-28-2024 ALT [Catalytic activity/Vol] 12 U/L <35 [facility] Serum or plasma albumin raúl urement (mass/volume)Ordered By: Ramona Funez on 12-28-2024 Albumin [Mass/Vol] 2.7 g/dL Low 3.4-4.8 [facility] Serum or plasma albumin/glob ulin mass ratioOrdered By: Ramona Funez on 12-28-2024 Albumin/Globulin [Mass ratio] 0.8 {ratio} Low 0.9-2.4 [facility] Serum or plasma alkaline lesli sphatase measurementOrdered By: Ramona Funez on 12-28-2024 ALP [Catalytic activity/Vol] 361 U/L High 35-104 [facility] Serum or plasma calcium raúl urement (mass/volume)Ordered By: Ramona Funez on 12-28-2024 Calcium [Mass/Vol] 8.6 mg/dL 7.6-11.0 [facility] Serum or plasma urea nitroge n measurement (mass/volume)Ordered By: Ramona Funez on 12-28-2024 Urea nitrogen [Mass/Vol] 17 mg/dL 4-19 [facility] Sodium levelOrdered By: Sherrie Funez on 12-28-2024 Sodium [Moles/Vol] 131 mmol/L Low 133-145 [facility] Total proteinOrdered By: Dante Funez on 12-28-2024 Protein [Mass/Vol] 6.2 g/dL 5.9-8.4 [facility] White blood cell (WBC) count Ordered By: Ramona Funez on 12-28-2024 WBC (Bld) [#/Vol] 19.1 10*3/uL High 4.4-11.0 [facility] CXR for Line Placementon CXR for Line Placement [facility] Imaging Services [address] [place] [address] CXR for Line Placement MR#: [id number] Acct: [id number] Name: LIZZETH BERRY Rep #: [id number] : 1955 F 69 From: Ricardo Beard MD PCP: Dr. Diya George MD Status: [facility] Study: CXR for Line Placement Date of Exam: 12/21/24 Exam# [id number] Ordering Dr: Tera Clay MD PROCEDURE: CXR FOR LINE PLACEMENT 12/21/2024 REASON FOR EXAM: NEW LEFT-SIDED MEDIPORT TECHNIQUE: CXR FOR LINE PLACEMENT COMPARISON: November 30, 2024 CT FINDINGS: There is a line on the left with its tip in the superior vena cava above the right atrium. Heart size is within normal limits. Bilateral pulmonary nodules are noted with the largest on the left measuring 2 cm, similar to the prior CT. There is no visible pneumothorax. There is no significant effusion. There is no acute bony abnormality. There is no acute bony abnormality. RAD/CXR for Line Placement IMPRESSION: Line in position. Reading Location: [facility] CC: Dr. Diya George MD; Dr. Tera Clay MD Cuff Presser: Signed Normal [facility] Discharge Instructionon Discharge Instruction [facility] Medical Records Department [address] [place] [address] Instructions for Home/Discharge Instructions 12/21/24826 MR#: [id number] Acct: [id number] Name: LIZZETH BERRY Rep #: [id number] : 1955 69 From: Tera Clay MD PCP: Dr. Diya George MD Status:REG [facility] Discharge Instructions Diet Discharge Diet: Light diet - advance as tolerated Activity Discharge Activity: Return to Normal Activity and May Shower May shower in (days): 1 Ice area for (Minutes): 30 Dressing / Incision Call your doctor if your incision/area has: Continuous Slow Oozing, Sudden Increased Bleeding, Increased Pain/ Swelling, Increased Redness, Foul Smelling Discharge and Swelling at the incision site Call your doctor if you observe: Fever of 101 or Higher Remove Dressing in: 2 days Cleanse incision/area with: Soap Water Follow Up Care Please Follow Up With: Tera Clay MD When: as needed Test Results: Test results from this visit will be discussed in further detail at your follow-up appointment, if applicable. Discharge Plan Admission Primary Reason for Your Visit: Mediport placement Attending Provider: Tera Clay Primary Care Provider: Diya George Instructions Print Language: Lao Discharge Orders/Prescriptions Prescriptions: Continued ondansetron 4 mg tablet,disintegrating 4 mg PO Q6H PRN (Reason: nausea and vomiting) Qty: 90 0RF pantoprazole [Protonix] 40 mg tablet,delayed release (DR/EC) 40 mg PO QDAY sennosides-docusate sodium [Stool Softener-Stimulant Laxat] 8.6-50 mg tablet 1 tab PO BID PRN (Reason: constipation) oxycodone 5 mg tablet 2.5 - 5 mg PO Q6H PRN (Reason: pain) PreserVision AREDS 2,148 mcg-113 mg-45 mg-17.4mg tablet 2 tab PO BID Rx Instructions: administer with AM and PM meals prochlorperazine maleate [Compazine] 10 mg tablet 10 mg PO TID PRN (Reason: nausea and vomiting) Qty: 30 1RF Referrals / Follow Up: Diya George MD [Primary Care Provider] - Disposition Disposition (needs filled in before D/C Order can be placed): Home, Self Care 12/21/24 0832 Tera Clay MD CC: Dr. Diya George MD Signed [facility] MR/POSTOP.Michelle 12-21-2024 MR/POSTOP.[facility] Medical Records Department [address] [place] [address] Anesthesia Postop Eval I 12/21/24 0826 MR#: [id number] Acct: [id number] Name: LIZZETH BERRY Rep #: [id number] : 1955 69 From: Poppy Loera CRNA PCP: Dr. Diya George MD Status:[facility] Y Race: C Location: [place] [address] Anesthesia: Postop Eval I Current Vital Signs Temperature: 97.4 F Pulse Rate: 85 Blood Pressure: 88/59 Respiratory Rate: 16 Pulse Ox: 91 Oxygen Delivery Method: Room Air Assessment Airway patent: Yes Spontaneous unlabored respirations: Yes Mental status: Awake and Calm nausea: No Vomiting: No Anesthesia Complication: No Fluid Hydration Crystalloid volume administer (ml): 300 Total IV fluid infused: 300 Progress Note Anesthesia document: Postop Eval 1 completed: Yes 12/21/24826 Date Poppy Loera REED MAN Cosigner Signature: Date CC: Signed Normal [facility] MR/[id number] 12-21-2024 [facility] Medical Records Department [address] [place] [address] Anesthesia Postop Eval II 12/21/24 1453 MR#: [id number] Acct: [id number] Name: LIZZETH BERRY Rep #: [id number] : 1955 69 From: Al Otto CRNA PCP: Dr. Diya George MD Status:[facility] Y Race: C Location: [facility] Anesthesia Postop Eval I Sum Postop Eval Completion status Anesthesia document: Postop Eval 1 completed: Yes Anesthesia Postop Eval I Summary Anesthesia Postop Eval I Summary: Anesthesia Postop Eval I: Assessment Summary Airway patent Yes 12/21/24 08:27 REED [email or web address] Spontaneous unlabored Yes 12/21/24 08:27 REED [email or web address] respirations Mental status Awake,Calm 12/21/24 08:27 REED [email or web address] nausea No 12/21/24 08:27 REED [email or web address] Vomiting No 12/21/24 08:27 REED [email or web address] Anesthesia Postop Eval I: Fluid Summary Crystalloid volume administer 300 12/21/24 08:27 REED [email or web address] (ml) Colloids volume administered ( ml) Blood Product volume administered (ml) Total IV fluid infused 300 12/21/24 08:27 REED [email or web address] Anesthesia Postop Eval I: Summary Notes Anesthesia Complication No 12/21/24 08:27 REED [email or web address] Anesthesia Complication Comment: Post-operative progress note Anesthesia: Postop Eval II Evaluation Mental status: Awake Pain Level: 1 nausea: No Vomiting: No 12/21/24 1453 Date Al Otto REED MAN Cosigner Signature: Date CC: Signed Normal [facility] Operative Reporton 5 Operative Report [facility] Medical Records Department [address] [place] [address] Operative Report 12/21/24 0832 MR#: [id number] Acct: [id number] Name: LIZZETH BERRY Rep #: [id number] : 1955 69 From: Tera Clay MD PCP: Dr. Diya George MD Status:[facility] Location: [place] [address] Problems Associated Problem List Diagnoses (1) Cancer, metastatic to bone: Procedures Cardiovascular CF Procedures [id number]-39xxx: [id number] Insert tunneled cv cath Operative Report (Standard) Operative Information Date of Procedure: 12/21/24 Pre-Operative Diagnosis: Metastatic cancer Post-Operative Diagnosis: Same Surgery/Procedure Performed: Left-sided Mediport placement with CM tube turner: No Type of Anesthesia: Local and MAC RN Documented Start/Stop Times: Operation Date: 12/21/24 07:30 Case Time Into Pre-Op 12/21/24 05:59 Out of Pre-Op 12/21/24 07:28 Anesthesia Start 12/21/24 07:30 Into Room 12/21/24 07:30 Procedure Start 12/21/24 07:53 Procedure End 12/21/24 08:16 Anesthesia End 12/21/24 08:21 Out of Room 12/21/24 08:21 Into Recovery 12/21/24 08:25 Procedure Start Time: 07:53 Procedure Stop Time: 08:16 Select all DRAINS/GRAFTS/IMPLANTS that apply: Implanted device Implanted device details: PowerPort Mediport Estimated Blood Loss: 5 mL Specimen collected: No Description of surgery: The patient is a 69-year-old female who was recently seen through the office to schedule Mediport insertion. She was recently discovered to have metastatic cancer to the bone. Her treating oncology team is recommending chemotherapy. For this reason Mediport insertion was recommended. In the office we discussed the details of the planned procedure as well as risks, benefits as well as alternatives. She wished to proceed. She was brought to the operating room today following informed consent. The operative antibiotics were given and a timeout was performed. She was placed supine on the operative table with arms ini tially outstretched on arm boards. MAC anesthesia was then induced. Once in sleep, axillary roll was placed between her shoulders and her arms were comfortably tucked at her sides. The chest and neck regions were prepped and draped in the usual sterile manner. Local anesthetic was then injected into the left periclavicular area. Using the supplied needle and syringe, the left subclavian vein was accessed on the first pass. The blood return was a dark red, nonpulsatile, venous appearing blood return. The guidewire was then threaded through the aperture and the needle and was advanced. The guidewire was then secured to the drapes. C-arm was brought into confirm guidewire being in the right side of the heart. Next a incision was made near the site of the planned port hub insertion. Local anesthetic was injected first and then a #15 blade was used to make the incision. Bovie electrocautery was then used to dissect down through subcutaneous tissue down to the level of the chest wall. Once at this level a subcutaneous pocket was created. A small incision was made at the entry point of the guidewire as well. Curved hemostat was then used to create a small pocket at the entry point of the guidewire. Tubing and tunneler were then threaded into the large incision and up and out through the smaller incision. Tubing was trimmed to about 21.5 cm. This was then attached to the port hub. The hub was then affixed to the chest wall using Prolene suture x 2. Next the dilator and tear-away sheath were threaded over the guidewire under fluoroscopy. This was in good position and so the guidewire and dilator were then removed thus leaving the sheath in place. The free end of the Mediport tubing was then threaded down the aperture and the sheath. The sheath was then extracted as the tubing was advanced. With this in place the port was tested using injectable saline. It patt and flushed easily with good blood return. It was then confirmed to be in good position with the aid of fluoroscopy. The port was then flushed with 3 mL of heparin flush. The incisions were then closed with 3-0 Vicryl and 4-0 Vicryl. Skin glue was applied as dressing. A sterile 2 x 2 and a large Tegaderm was then applied. She was awakened anesthesia and taken recovery in good condition where chest x-ray will be performed Surgical Findings: See operative note Complications Complications: No Admit VTE Documentation VTE Present on Admission: No VTE Mechan Device Prophylaxis: SCD's VTE Pharm Prophylaxis ordered?: No Reason prophylaxis not ordered: Treatment Not Indicated 12/21/24 0844 Cosigner Signature (if applicable): CC: Dr. Diya George MD; Dr. Tera Clay MD Signed Normal [facility] Surgery Visit Reporton 12-16 Surgery Visit Report [facility] [address] [place] [address] OFFICE VISIT Date of Service: 12/16/24 MR#: [id number] Acct: [id number] Name: LIZZETH BERRY Rep #: [id number] : 1955 Provider: Dr. Tera smiley MD Age/Sex: 69/F Location: [facility] Status: Signed Intake Vital Signs 12/08/24 15:00 12/16/24 13:39 Height 5 ft 4.5 in 5 ft 4 in Weight: 174 lb 171 lb 6 oz BMI 29.4 29.4 BP 114/75 118/77 Blood Pressure Location Lt brachial Rt brachial Position Sitting Sitting Respiration 18 17 Pulse 84 88 Pulse Source Monitor Monitor Temp 98.2 F 96.6 F L Temp Source Temporal Pulse Oximetry (%) 93 94 Oxygen Delivery Method room air room air Intake Visit Reasons: PORT PLACEMENT Chief Complaint: port placement Is patient in pain?: No Allergies amoxicillin (From Augmentin) Allergy (Verified 12/16/24 13:40) rash clavulanic acid (From Augmentin) Allergy (Verified 12/16/24 13:40) rash Medications ???Medication ???Instructions ???Recorded ???Confirmed ???Type pantoprazole 40 mg tablet,delayed 40 mg PO QDAY 11/23/24 12/16/24 H istory release (Protonix) ondansetron 4 mg disintegrating 4 mg PO Q6H PRN nausea and 5 12/16/24 Rx tablet vomiting #90 tabs Have you fallen in the past year?: No [facility] Medical History (Updated 12/16/24 @ 13:39 by Basilia Spencer) Encounter for education 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 Wears glasses Arthritis Bladder disease Easy bruising Heartburn Non-smoker Shortness of breath on exertion History of pain when walking Surgical History S/P breast biopsy History of liver biopsy S/P endoscopy History of total right knee replacement Hx of colonoscopy History of bilateral carpal tunnel release History of appendectomy History of tubal ligation Family History Father CVA (cerebral vascular accident) Brother CVA (cerebral vascular accident) Myocardial infarction Prostate cancer Mother Bladder cancer Social History adopted: No household members: spouse number of children: 1 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[employer] pets and animals: No leisure activities: reading history of recent travel: No sexually active: Yes Smoking Status: Never smoker alcohol intake: never substance use type: does not use well-balanced diet: rarely or never caffeine: No eating out: other during the past year weight has: decreased > 10 lbs what type of physical activity do you participate in: none frequency: does not exercise ahsan/hoahaoism: NA seatbelt use: always do you feel safe at home: Yes HPI HPI HPI: The patient is a 69-year-old female recently found to have metastatic lung cancer who is here today to discuss Mediport placement. ROS General General: Yes weight change and fatigue; No appetite, colon cancer, breast cancer or weakness HEENT HEENT: No difficulty swallowing, eye injury, eye surgery, swollen glands or hoarseness Endo Endocrine: No thyroid disease, diabetes mellitus, thyroid cancer, Hair loss, heat intolerance or cold intolerance Skin Skin: No rash or changing moles Musc Musculoskeletal: Yes arthritis; No back problems, rheumatoid arthritis, gout or joint pain Cardio Cardiovascular: No murmur, pacemaker, heart disease, atrial fibrillation, high blood pressure, heart attack, heart stent, palpitations, shortness of breath with exertion or chest pain Psych Psychiatric: Yes depression; No anxiety or hearing voices Resp Respiratory: No shortness of breath, No sleep apnea, No cough, No COPD, No asthma, No emphysema and No wheezing Gastro Gastrointestinal: No abdominal pain, Yes nausea or vomiting, No diarrhea, Yes constipation, Yes blood in stool, Yes acid reflux, Yes hemorrhoids, No ulcers, No gallbladder problem and No black,tarry stools Aaron Hematologic: No blood thinners, No blood disorders, No bleeding, No anemia and No blood clots Neuro Neurologic: No system reviewed and no additional complaints, except as documented, No as per HPI, No abnormal gait, No abnormal hearing, No abnormal movements, No abnormal speech, No behavioral changes, No burning sensations, No confusion, No convulsions, No disequilibrium, No dizziness, No localized weakness, No frequent falls, No headache(s), No lack of coordination, No loss of vision, No memory loss, No numbness, No other visual disturbances, No radicular pain, No restless legs, No sensory deficit, No syncope, No tingling, No tremor(s), No weakness and No other Exam Const General: cooperative, healt (more content not included)... [facility] Oncology Visit Reporton 11-20 Oncology Visit Report [facility] [place] [address] OFFICE VISIT Date of Service: 12/08/24 1458 MR#: [id number] Acct: [id number] Name: LIZZETH BERRY Rep #: [id number] : 1955 From: Magalie Pinto NP DIRECTOR CONSUMER AFFAIRS -C Age/Sex: 69/F [place] [facility] [place] Status: Signed HPI Subjective Date of Service 12/08/24 Chief Complaint Metastatic cancer History of Present Illness 69-year-old female who presents with a few months history of anorexia, 20+ pound weight loss, and increasing fatigue. 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 Patient reports that in 2023 she had an abnormal screening mammogram on the left breast, had a biopsy at [facility] and was told was negative for malignancy. November 04, [address] Madsen: Impression colitis like picture Pathology: Ascending colon active colitis. Descending colon colonic mucosa no significant pathologic changes. Rectum biopsy rectal mucosa no significant histopathologic changes. November 11, 2024 CT abdomen and pelvis: FINDINGS: Bilateral multifocal varying size pulmonary nodules, largest on the left is partially seen at the lingula measuring 9 mm and largest on the right just above the diaphragm 12 mm. 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 The liver is enlarged containing innumerable varying size liver lesions concerning for metastatic disease. Liver mass in the posterior right lobe appears associated with calcification measuring around 4.8 cm. The gallbladder appears distended without wall thickening or surrounding inflammatory change and may contain a small amount of sludge. No biliary ductal dilation identified. 1.8 cm cystic focus within the head of the pancreas may represent pseudocyst or cystic neoplasm. No pancreatic ductal dilation identified. The adrenal glands, kidneys appear within limits. Small left renal cyst noted. The spleen appears diffusely heterogeneous and may represent differences in splenic pulp with possibility of numerous lesions, metastatic disease not excluded. Enlarged vipin hepatis node measuring 3.4 by 2.5 cm. Abdominal aorta appears within limits. Adjacent to the right common iliac vessels and right psoas muscle is a soft tissue mass measuring 4.5 by 2.7 cm with the right common iliac vein draped across and difficult to distinguish. Adjacent along the presacral soft tissues upper right sacrum is a heterogeneous mass with mixed cystic and solid appearance and areas of suggested calcification measures 4.2 x 3.7 cm. Possibility includes metastatic lymphadenopathy, possibility of lymphoma not excluded. No bowel dilation or free air. No evidence of colonic wall thickening or pericolonic inflammatory change. Overall there does appear to be soft tissue fullness at the perineum about the vaginal introitus and rectum/perianal soft tissues for example axial 117 and sagittal 97. Recommend further clinical correlation. Very small amount of perihepatic free fluid noted. Status post hysterectomy. Bilateral fallopian tube clips are seen with what appears to be adjacent bilateral ovarian tissue which appears within limits. The bladder appears within limits. There are multifocal areas of osseous sclerotic lesions mostly involving the sacrum although also involving the right ilium, posterior thoracic spine and the anterior right 6th rib. No pathologic fracture identified. Lower lumbar spondylosis/discogenic change and facet degenerative changes. IMPRESSION: Multifocal partially imaged noncalcified pulmonary nodules, hepatomegaly filled with numerous lesions, vipin hepatis lymphadenopathy, possible splenic lesions, lower right retroperitoneal presacral masses and sclerotic multifocal osseous lesions consistent with metastatic disease with possible lymphoma not entirely excluded as described in detail above. Requires further clinical correlation and workup. Fullness peroneal soft tissues about the vaginal introitus and rectum/anus recommend further clinical correlation. Cystic focus within the pancreatic head as above. November 22, [address] Herman: Hiatus hernia, exudate and ulceration in the prepyloric area and duodenum. Biopsy showing active inflammation and hemorrhage negative for H. pylori no malignancy. November 30, 2024 bone scan: IMPRESSION: Extensive abnormal uptake is seen throughout much of the bilateral sacrum, corresponding with sclerotic lesion seen on a recent CT scan. This is most consistent with osseous metastatic disease. November 30, 2024 CT chest: IMPRESSION: Coronary artery calcification (CAC) is is absent Multiple bilateral noncalcified pulmonary pulmonary nodules are noted in the upper lobes, right middle l (more content not included)... [facility] Oncology Visit Reporton 06- Oncology Visit Report [facility] [place] [address] OFFICE VISIT Date of Service: 12/07/24 1547 MR#: [id number] Acct: [id number] Name: LIZZETH BERRY Rep #: [id number] : 1955 From: Ramona Funez MD Age/Sex: 69/F [place] [facility] [place] Status: Signed HPI Subjective Date of Service 12/07/24 Chief Complaint Metastatic cancer History of Present Illness 69-year-old female who presents with a few months history of anorexia, 20+ pound weight loss, and increasing fatigue. 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 Patient reports that in 2023 she had an abnormal screening mammogram on the left breast, had a biopsy at [facility] and was told was negative for malignancy. November 04, [address] Madsen: Impression colitis like picture Pathology: Ascending colon active colitis. Descending colon colonic mucosa no significant pathologic changes. Rectum biopsy rectal mucosa no significant histopathologic changes. November 11, 2024 CT abdomen and pelvis: FINDINGS: Bilateral multifocal varying size pulmonary nodules, largest on the left is partially seen at the lingula measuring 9 mm and largest on the right just above the diaphragm 12 mm. 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 The liver is enlarged containing innumerable varying size liver lesions concerning for metastatic disease. Liver mass in the posterior right lobe appears associated with calcification measuring around 4.8 cm. The gallbladder appears distended without wall thickening or surrounding inflammatory change and may contain a small amount of sludge. No biliary ductal dilation identified. 1.8 cm cystic focus within the head of the pancreas may represent pseudocyst or cystic neoplasm. No pancreatic ductal dilation identified. The adrenal glands, kidneys appear within limits. Small left renal cyst noted. The spleen appears diffusely heterogeneous and may represent differences in splenic pulp with possibility of numerous lesions, metastatic disease not excluded. Enlarged vipin hepatis node measuring 3.4 by 2.5 cm. Abdominal aorta appears within limits. Adjacent to the right common iliac vessels and right psoas muscle is a soft tissue mass measuring 4.5 by 2.7 cm with the right common iliac vein draped across and difficult to distinguish. Adjacent along the presacral soft tissues upper right sacrum is a heterogeneous mass with mixed cystic and solid appearance and areas of suggested calcification measures 4.2 x 3.7 cm. Possibility includes metastatic lymphadenopathy, possibility of lymphoma not excluded. No bowel dilation or free air. No evidence of colonic wall thickening or pericolonic inflammatory change. Overall there does appear to be soft tissue fullness at the perineum about the vaginal introitus and rectum/perianal soft tissues for example axial 117 and sagittal 97. Recommend further clinical correlation. Very small amount of perihepatic free fluid noted. Status post hysterectomy. Bilateral fallopian tube clips are seen with what appears to be adjacent bilateral ovarian tissue which appears within limits. The bladder appears within limits. There are multifocal areas of osseous sclerotic lesions mostly involving the sacrum although also involving the right ilium, posterior thoracic spine and the anterior right 6th rib. No pathologic fracture identified. Lower lumbar spondylosis/discogenic change and facet degenerative changes. IMPRESSION: Multifocal partially imaged noncalcified pulmonary nodules, hepatomegaly filled with numerous lesions, vipin hepatis lymphadenopathy, possible splenic lesions, lower right retroperitoneal presacral masses and sclerotic multifocal osseous lesions consistent with metastatic disease with possible lymphoma not entirely excluded as described in detail above. Requires further clinical correlation and workup. Fullness peroneal soft tissues about the vaginal introitus and rectum/anus recommend further clinical correlation. Cystic focus within the pancreatic head as above. November 22, [address] Herman: Hiatus hernia, exudate and ulceration in the prepyloric area and duodenum. Biopsy showing active inflammation and hemorrhage negative for H. pylori no malignancy. November 30, 2024 bone scan: IMPRESSION: Extensive abnormal uptake is seen throughout much of the bilateral sacrum, corresponding with sclerotic lesion seen on a recent CT scan. This is most consistent with osseous metastatic disease. November 30, 2024 CT chest: IMPRESSION: Coronary artery calcification (CAC) is is absent Multiple bilateral noncalcified pulmonary pulmonary nodules are noted in the upper lobes, right middle lobe, (more content not included)... [facility] Bone Scan Whole Bodyon 11-30 Bone Scan Whole Body [facility] Imaging Services [address] [place] [address] Bone Scan Whole Body MR#: [id number] Acct: [id number] Name: LIZZETH BERRY Rep #: [id number] : 1955 F 69 From: Erik Bland PCP: Dr. Diya George MD Status: REG CLI Study: Bone Scan Whole Body Date of Exam: 11/30/24 Exam# [id number] Ordering Dr: Ramona Funez MD PROCEDURE: BONE SCAN WHOLE BODY 11/30/2024 REASON FOR EXAM: UNKNOWN PRIMARY CANCER TECHNIQUE: Whole-body bone scan with anterior and posterior views, with delayed imaging. RADIOPHARMACEUTICAL: 26.8 mCi Technetium-99m MDP IV COMPARISON: Abdomen and pelvis CT 11/11/2024. FINDINGS: Bones: Extensive abnormal uptake is seen throughout much of the bilateral sacrum, corresponding with sclerotic lesion seen on the CT of 11/11/2024. Degenerative changes are seen of the bilateral acromioclavicular joints, cervical and thoracic spine, and bilateral 1st carpal-metacarpal joints. NM/Bone Scan Whole Body IMPRESSION: Extensive abnormal uptake is seen throughout much of the bilateral sacrum, corresponding with sclerotic lesion seen on a recent CT scan. This is most consistent with osseous metastatic disease. Reading Location: [address] CC: Dr. Diya George MD; Dr. Ramona Funez MD Cuff Presser: Signed [facility] Chest WITH Contraston 2024 Chest WITH Contrast [facility] Imaging Services [address] [place], [place] [address] Chest WITH Contrast MR#: [id number] Acct: [id number] Name: LIZZETH BERRY Rep #: [id number] : 1955 F 69 From: Myrna richter MD PCP: Dr. Diya George MD Status: REG CLI Study: Chest WITH Contrast Date of Exam: 11/30/24 Exam# [id number] Ordering Dr: Ramona Funez MD PROCEDURE: CHEST WITH CONTRAST 11/30/2024 REASON FOR EXAM: UNKNOWN PRIMARY CANCER TECHNIQUE: Prone and supine chest CT with intravenous contrast, high resolution CT (HRCT) protocol. Coronal and Sagittal reconstruction series were provided. CONTRAST: Isovue-350 VOLUME: 100 mL One or more dose reduction techniques were used (e.g., Automated exposure control, adjustment of the mA and/or kV according to patient size, use of iterative reconstruction technique). RADIATION DOSE SUMMARY: CTDlvol: 10.38 mGy DLP: 367 mGycm COMPARISON: CT scan of the abdomen and pelvis on 11/11/2024. FINDINGS: Multiple bilateral noncalcified pulmonary pulmonary nodules are noted in the upper lobes, right middle lobe, lingula and bilateral lower lobes ranging in size between 0.5 and 2.8 cm. Mildly enlarged mediastinal and hilar lymph nodes are noted with the largest measuring 1.7 cm. No coronary artery calcifications are noted. Hepatomegaly. Multiple hepatic nodules are noted with the largest measuring 1.7 cm. Enlarged vipin hepatis lymph nodes are noted with the largest measuring 1.6 cm. Normal thoracic aorta and visualized great vessels. There is no demonstrated aortic dissection. Normal heart and pericardium. Normal visualized trachea and bronchi. Normal pleura. CT/Chest WITH Contrast IMPRESSION: Coronary artery calcification (CAC) is is absent Multiple bilateral noncalcified pulmonary pulmonary nodules are noted in the upper lobes, right middle lobe, lingula and bilateral lower lobes ranging in size between 0.5 and 2.8 cm. Mildly enlarged mediastinal and hilar lymph nodes are noted with the largest measuring 1.7 cm. No coronary artery calcifications are noted. Hepatomegaly. Multiple hepatic nodules are noted with the largest measuring 1.7 cm. Enlarged vipin hepatis lymph nodes are noted with the largest measuring 1.6 cm. Reading Location: [facility] CC: Dr. Diya George MD; Dr. Ramona Funez MD Cuff Presser: Signed [facility] Internal Medicine Office Vis pawel 11-30-2024 Internal Medicine Office Visit [facility] [address] [place] [address] [place] [address] OFFICE VISIT Date of Service: 12/01/24 MR#: [id number] Acct: [id number] Name: LIZZETH BERRY Rep #: [id number] : 1955 Provider: Dr. 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 Required: No Is patient in pain?: No Allergies amoxicillin (From Augmentin) Allergy (Verified 12/01/24 10:52) rash clavulanic acid (From Augmentin) Allergy (Verified 12/01/24 10:52) rash Medications ???Medication ???Instructions ???Recorded ???Confirmed ???Type vitamins A,C,T-xtun-dbvhcx 4,296 1 cap PO BID 08/10/20 12/01/24 His tory mcg-226 mg-90 mg capsule (PreserVision AREDS) pantoprazole 40 mg tablet,delayed 40 mg PO QDAY 11/23/24 12/01/24 H istory release (Protonix) ondansetron 4 mg disintegrating 4 mg PO Q6H PRN nausea and 5 12/01/24 Rx tablet vomiting #90 tabs Have you fallen in the past year?: No Nurse's Note: Pt dc'd synthroid, and was having a hard time w/ Nausea and vomiting and felt like it was not going to make that big of a difference. Pt was prescribed carafate by Dr. Ferrer to get her through. Pt states protonix is helping some. She still has nausea and vomiting, has some days that are better than others, saw Dr. Herman who advised to go back to pcp. Pt unable to give average on how many times per week she has emesis episodes. [facility] Medical History (Updated 12/01/24 @ 11:[address] Diya George MD) Wears glasses Arthritis Bladder disease Easy bruising Heartburn Non-smoker Shortness of breath on exertion History of pain when walking Surgical History (Updated 12/01/24 @ 11:[address] 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 Over the last 2 weeks, how often have you been bothered by any of the following problems? 1. Little interest or pleasure in doing things: more than half the days 2. Feeling down, depressed, or hopeless: several days 3. Trouble falling or staying asleep, or sleeping too much: not at all 4. Feeling tired or having little energy: nearly every day 5. Poor appetite or overeating: nearly every day 6. Feeling bad about yourself - or that you are a failure or have let yourself and your family down: not at all 7. Trouble concentrating on things, such as reading the newspaper or watching television: not at all 8. Moving or speaking so slowly that other people could have noticed? - Or the opposite - being so fidgety or restless that you have been moving around a lot more than usual: not at all 9. Thoughts that you would be better off or of hurting yourself in some way: not at all Total score: 9 If you checked off any problems, how difficult have these problems made it for you to do your work, take care of things at home, or get along with other people?: very difficult Source: Developed by Drs. Junaid Ramirze, Joanna Hughes, All Dunn and colleagues, with an educational jasvir from [employer]. HPI HPI Details: LIZZETH BERRY, is a 69 F who presents to the office today to establish care. She was seeing Dr. Villaseñor and last saw them several years ago. She is not due for any routine blood work or screening. She isn't due for any immunizations. She doesn't smoke and doesn't need any (more content not included)... [facility] Absolute lymphocyte countOrd ered By: Trent Arreguin on 11-29-2024 Lymphocytes Auto (Unsp spec) [#/Vol] 2.05 10*3/uL 0.83-4.51 [facility] Absolute neutrophil countOrd ered By: Trent Arreguin on 11-29-2024 Neutrophils (Bld) [#/Vol] 18.2 10*3/uL High 2.0-7.7 [facility] Activated partial thrombopla stin time (aPTT) in platelet poor plasma by coagulation aOrdered By: Trent Arreguin on 11-29-2024 aPTT Coag (PPP) [Time] 30.9 s 24.1-36.2 [facility] Automated lymphocyte count a s percentage of total leukocytesOrdered By: Trent Arreguin on 11-29-2024 Lymphocytes/100 WBC Auto (Unsp spec) 9.2 % Low 19-41 [facility] Basophil percentageOrdered B y: Trent Arreguin on 11-29-2024 Basophils/100 WBC (Bld) 0.7 % 0-1 [facility] Biopsy/Inj or Needle Placeme nton 11-29-2024 Biopsy/Inj or Needle Placement [facility] Imaging Services [address] [place] [address] Biopsy/Inj or Needle Placement MR#: [id number] Acct: [id number] Name: LIZZETH BERRY Rep #: [id number] : 1955 F 69 From: Trent de santiago MD PCP: Dr. Diya George MD Status: REG CLI Study: Biopsy/Inj or Needle Placement Date of Exam: 0 11/29/24 Exam# [id number] Ordering Dr: Ramona Funez MD PROCEDURE: BIOPSY/INJ OR NEEDLE PLACEMENT 11/29/2024 REASON FOR EXAM: UNKNOWN PRIMARY CANCER TECHNIQUE: CT-guided liver biopsy. The procedure as well as the benefits and possible complications including infection and bleeding were explained to the patient. Informed consent was obtained. The patient was in the supine position. Conscious sedation was performed. The patient received 2 mg of Versed and 50 mcg of fentanyl intravenously. Conscious sedation was started at 10:05 a.m. and terminated at 10:31 a.m.. The patient was independently monitored by the department nurse. The overlying skin was prepped and draped in the usual sterile fashion. Following local anesthetic application, an 18 gauge core biopsy needle system was placed into the medial aspect of the right lobe of the liver. 5 core biopsies were performed. The pathologist deemed the specimen to be adequate. The patient tolerated the procedure well. RADIATION DOSE SUMMARY: CTDlvol: 26.5 mGy DLP: 667.68 mGycm COMPARISON: Prior study dated November 11, 2024. FINDINGS: Multiple pulmonary nodules and hepatic lesions. Hepatomegaly. CT/Biopsy/Inj or Needle Placement IMPRESSION: CT-guided core biopsy of the right lobe of the liver as described. Conscious sedation was performed. The patient tolerated the procedure well. No immediate complication was noted. Reading Location: [place] [address] CC: Dr. Diya George MD; Dr. Ramona Funez MD Cuff Presser: Signed [facility] CBC W/Diff, Automatedon 11-20 PLT EST MKD DEC Normal ADEQ [facility] Comment on above: Performed By: #### P IMHI #### [facility] [address] [place], [place], [id number] TARGET CELLS 1+ Normal [facility] Comment on above: Performed By: #### P IMHI #### [facility] [place], [address] Eosinophil percentageOrdered By: Trent Arreguin on 11-29-2024 Eosinophils/100 WBC (Bld) 1.2 % 0-5 [facility] Erythrocyte distribution wid th ratioOrdered By: Trentmanish Arreguin on 11-29-2024 Erythrocyte distribution width (RBC) [Ratio] 21.2 % High 11.6-14.6 [facility] Erythrocyte distribution wid th standard deviationOrdered By: Trentmanish Arreguin on 11-29-2024 Erythrocyte distribution width (RBC) [Ratio] 57.2 fl High 35.1-43.9 [facility] Hematocrit Auto (Bld) [Volum e fraction]Ordered By: Trentmanish Arreguin on 11-29-2024 Hematocrit (Bld) [Volume fraction] 36.5 % Low 37-47 [facility] Hemoglobin measurementOrdere d By: Trent Arreguin on 11-29-2024 Hemoglobin (Bld) [Mass/Vol] 11.9 g/dL Low 12.0-15.0 [facility] Immature granulocytes/100 WB C Auto (Bld)Ordered By: Trent Arreguin on 11-29-2024 Immature granulocytes/100 WBC (Bld) 1.200 % High 0.0-0.9 [facility] Comment on above: IG% - Immature Granu locytes (promyelocytes, myelocytes and metamyelocytes) > 1% indicates that a LEFT SHIFT is Present. Immunohistochemical Stainson 11-29-2024 Immunohistochemical Stains ---- Patient Age/Sex Location Account Attending Physician ---- LIZZETH BERRY 69/F CT [id number] Dr. Ramona Funez MD ---- Specimen: [id number] Received: 11/29/24 Status: KATERIN Javier Num: [id number] Spec Type: ASP RAD Subm Dr: Dr. Ramona Funez MD HEADER OPERATION: CT guided liver biopsy PRE-OP DIAGNOSIS: Liver lesions TISSUE SUBMITTED: A- Liver biopsy - 18 gauge x 5 cores ---- MICROSCOPIC DIAGNOSIS A. Liver lesions, CT-guided core biopsy: * Well-differentiated neuroendocrine tumor, Grade 3, consistent with metastasis - see note and Comment. * Note: IHCs were performed - * Positive: Chromogranin, Synaptophysin, Ki67 (approximately 25%), CK7 (weak focal), CK8 (weak focal), 34be12 (focal). * Negative: Pancytokeratin, CK20, CDX2. * CK19 is pending and will be reported in an addendum. COMMENT The specimen is evaluated at the time of biopsy by Dr. Blandon. Immediate Evaluation - 1. Adequate. 2. Adequate Selected slides/images were reviewed in intradepartmental consultation by Dr Cuong Pinedo (GI pathology division, [facility]). MICROSCOPIC DESCRIPTION Slides are reviewed. All matched controls reacted appropriately. These tests were developed and their performance characteristics determined by [facility]. They may not have been cleared or approved by the U.S. Food and Drug Administration. The FDA has determined that such clearance or approval is not necessary.??? The above immunohistochemical/du alISH???markers are ordered and reviewed by the Pathologist. GROSS DESCRIPTION A. Received in formalin following CT-guided liver biopsy, labeled with the patient's name and date of are multiple fragmented ibarra soft tissue cores, ranging 0.8 cm to 1.4 cm in length by 0.1 cm in diameter. Entirely submitted in 1 cassette, following evaluation of touch prep at time of biopsy. [facility] [place]/29/2024 ---- Patient Age/Sex Location Account Attending Physician ---- LIZZETH BERRY 69/F CT [id number] Dr. Ramona Funez MD ---- CPT:[id number], [id number] ---- ADDENDUM Addendum 1 Entered: 12/09/24-1431 This addendum is to report the result of the IHC for CK19: The tumor cells are negative for CK19. Addendum Signed (signature on file) Dr. Tiffany Blandon MD 12/09/24 1431 ---- ---- Patient Age/Sex Location Account Attending Physician ---- LIZZETH BERRY 69/F CT [id number] Dr. Ramona Funez MD ---- Signed (signature on file) Dr. Tiffany Blandon MD 12/07/24 1448 ---- Normal [facility] Comment on above: Performed By: #### [facility] #### [facility] [place], [address] International normalized rat io (INR) calculationOrdered By: Trent Arreguin on 11-29-2024 INR Coag (Bld) [Relative time] 1.2 {INR} [facility] MCV (mean corpuscular volume ) determinationOrdered By: Trent Arreguin on 11-29-2024 MCV (RBC) [Entitic vol] 76.2 fL Low 81-99 [facility] Mean corpuscular hemoglobin (MCH) determinationOrdered By: Trent Arreguin on 11-29-2024 MCH (RBC) [Entitic mass] 24.8 pg Low 27.0-32.0 [facility] Mean corpuscular hemoglobin concentration (MCHC) determinationOrdered By: Trent Arreguin on 11-29-2024 MCHC (RBC) [Mass/Vol] 32.6 g/dL 32-36 [facility] Mean platelet volume determi nationOrdered By: Trent Arreguin on 11-29-2024 Platelet mean volume (Bld) [Entitic vol] 8.6 fL 6.2-12.0 [facility] Monocyte percentageOrdered B y: Trent Arreguin on 11-29-2024 Monocytes/100 WBC (Bld) 5.6 % 0-10 [facility] Neutrophil percentageOrdered By: Trent Arreguin on 11-29-2024 Neutrophils/100 WBC (Bld) 82.1 % High 47-70 [facility] Nucleated red blood cell per centageOrdered By: Trent Arreguin on 11-29-2024 Nucleated RBC/100 WBC (Bld) [Ratio] 0 % 0-5 [facility] Partial Thromboplast Timeon 11-29-2024 aPTT Coag (Bld) [Time] 30.9 s Normal 24.1-36.2 [facility] Comment on above: Performed By: #### P IMHI #### [facility] [address] [place], [address] (393) Platelet countOrdered By: Dimitri Arreguin on 11-29-2024 Platelets (Bld) [#/Vol] 715 10*3/uL High 150-450 [facility] Platelet estimateOrdered By: Trent Arreguin on 11-29-2024 Platelets LM Ql (Bld) MKD DEC ADEQ [facility] Prothrombin Time w/INRon INR Coag (PPP) [Relative time] 1.2 {INR} Normal [facility] Comment on above: Performed By: #### P IMHI #### [facility] [address] [place], [address] PT Coag (PPP) [Time] 15.1 s High 11.7-14.9 [facility] Comment on above: Performed By: #### P IMHI #### [facility] [address] [place], [address] Prothrombin timeOrdered By: Trent Arreguin on 11-29-2024 PT Coag (PPP) [Time] 15.1 s High 11.7-14.9 [facility] RBC Auto (Bld) [#/Vol]Ordere d By: Trent Arreguin on 11-29-2024 RBC (Bld) [#/Vol] 4.79 10*6/uL 4.2-5.4 [facility] Target cell detectionOrdered By: Trent Arreguin on 11-29-2024 Target cells LM Ql (Bld) 1+ [facility] White blood cell (WBC) count Ordered By: Trent Arreguin on 11-29-2024 WBC (Bld) [#/Vol] 22.2 10*3/uL High 4.4-11.0 [facility] Absolute lymphocyte countOrd ered By: [facility] on 11-17-2024 Lymphocytes Auto (Unsp spec) [#/Vol] 2.10 10*3/uL 0.83-4.51 [facility] Absolute neutrophil countOrd ered By: Ramona Funez on 11-17-2024 Neutrophils (Bld) [#/Vol] 17.6 10*3/uL High 2.0-7.7 [facility] Anion gap in Serum or Plasma Ordered By: Ramona Funez on 11-17-2024 Anion gap [Moles/Vol] 14 mmol/L 5-15 [facility] Automated lymphocyte count a s percentage of total leukocytesOrdered By: Ramona Funez on 11-17-2024 Lymphocytes/100 WBC Auto (Unsp spec) 9.7 % Low 19-41 [facility] BUN/creatinine ratioOrdered By: Ramona Funez on 11-17-2024 Urea nitrogen/Creatinine [Mass ratio] 18.5 mg/mg 10-20 [facility] Basophil percentageOrdered B y: Ramona Funez on 11-17-2024 Basophils/100 WBC (Bld) 0.8 % 0-1 [facility] Bilirubin, totalOrdered By: Ramona Funez on 11-17-2024 Bilirubin [Mass/Vol] 0.42 mg/dL 0.00-1.30 [facility] Blood manual differential co mment interpretation (narrative result)Ordered By: Ramona Funez on 11-17-2024 Manual differential comment Earnest (Bld) [Interp] SCANNED [facility] CBC W/Diff, Automatedon - Anisocytosis Ql (Bld) 2+ Normal [facility] Comment on above: Performed By: #### P IMHI #### [facility] [address] [place], [address] SMEAR COMMENT SCANNED Normal [facility] Comment on above: Performed By: #### P IMHI #### [facility] [address] [place], [address] Carbon dioxide, total [Moles /volume] in Central venous bloodOrdered By: Ramona Funez on 11-17-2024 CO2 [Moles/Vol] 22.0 mmol/L 21.0-32.0 [facility] Chloride assayOrdered By: Kim Funez on 11-17-2024 Chloride [Moles/Vol] 100 mmol/L 98-108 [facility] Comprehensive Metabolic Prof ilon 11-17-2024 Albumin [Mass/Vol] 3.9 g/dL Normal 3.4-4.8 [facility] Comment on above: Performed By: #### P IMHI #### [facility] [address] [place], [address] Albumin/Globulin [Mass ratio] 1.1 {ratio} Normal 0.9-2.4 [facility] Comment on above: Performed By: #### P IMHI #### [facility] [address] [place], [address] ALK PHOS 284 U/L High 35-104 [facility] Comment on above: Performed By: #### P IMHI #### [facility] [address] [place], [address] ALT [Catalytic activity/Vol] 24 U/L Normal <=34 [facility] Comment on above: Performed By: #### P IMHI #### [facility] [address] [place], [address] AST [Catalytic activity/Vol] 34 U/L High <=31 [facility] Comment on above: Performed By: #### P IMHI #### [facility] [address] [place], [address] Bilirubin [Mass/Vol] 0.42 mg/dL Normal 0.00-1.30 [facility] Comment on above: Performed By: #### P IMHI #### [facility] [address] [place], [address] BUN/CRE 18.5 RATIO Normal 10-20 [facility] Comment on above: Performed By: #### P IMHI #### [facility] [address] [place], [address] Calcium [Mass/Vol] 9.9 mg/dL Normal 7.6-11.0 [facility] Comment on above: Performed By: #### P IMHI #### [facility] [address] [place], [address] Chloride [Moles/Vol] 100 mmol/L Normal 98-108 [facility] Comment on above: Performed By: #### P IMHI #### [facility] [address] [place], [address] CO2 [Moles/Vol] 22.0 mmol/L Normal 21.0-32.0 [facility] Comment on above: Performed By: #### P IMHI #### [facility] [address] [place], [address] Creatinine [Mass/Vol] 0.97 mg/dL Normal 0.70-1.20 [facility] Comment on above: Performed By: #### P IMHI #### [facility] [address] [place], [address] ECRCL 54.59 ml/min Normal 50-250 [facility] Comment on above: Performed By: #### P IMHI #### [facility] [address] [place], [address] GAP 14 Normal 5-15 [facility] Comment on above: Performed By: #### P IMHI #### [facility] [address] [place], [address] GFR/1.73 sq M.predicted among non-blacks MDRD (S/P/Bld) [Vol rate/Area] 62 mL/min/{1.73_m2} Normal >60 [facility] Comment on above: Result Comment: mL/m in/1.73m2 CKD-EPI Creatinine Equation (2020) Performed By: #### P IMHI #### [facility] [address] [place], [address] Globulin (S) [Mass/Vol] 3.7 g/dL Normal 2.2-4.2 [facility] Comment on above: Performed By: #### P IMHI #### [facility] [address] [place], [address] Glucose [Mass/Vol] 107 mg/dL High 70-99 [facility] Comment on above: Performed By: #### P IMHI #### [facility] [address] [place], [address] Potassium [Moles/Vol] 4.4 mmol/L Normal 3.3-5.1 [facility] Comment on above: Performed By: #### P IMHI #### [facility] [address] [place], [address] Sodium [Moles/Vol] 136 mmol/L Normal 133-145 [facility] Comment on above: Performed By: #### P IMHI #### [facility] [address] [place], [address] T PROT 7.5 g/dL Normal 5.9-8.4 [facility] Comment on above: Performed By: #### P IMHI #### [facility] [address] [place], [place], [id number] Urea nitrogen [Mass/Vol] 18 mg/dL Normal 4-19 [facility] Comment on above: Performed By: #### [facility] #### [facility] [address] [place], [place], [id number] Eosinophil percentageOrdered By: Ramona Funez on 11-17-2024 Eosinophils/100 WBC (Bld) 0.8 % 0-5 [facility] Erythrocyte distribution wid th ratioOrdered By: [facility] on 11-17-2024 Erythrocyte distribution width (RBC) [Ratio] 21.8 % High 11.6-14.6 [facility] Erythrocyte distribution wid th standard deviationOrdered By: [facility] [place] Dee on 11-17-2024 Erythrocyte distribution width (RBC) [Ratio] 59.0 fl High 35.1-43.9 [facility] Glomerular filtration rate ( GFR) estimation/1.73 sq m using serum, plasma, or whole bOrdered By: [facility] on 11-17-2024 GFR/1.73 sq M.predicted among non-blacks MDRD (S/P/Bld) [Vol rate/Area] 62 mL/min/{1.73_m2} >60 [facility] Comment on above: mL/min/1.73m2 CKD-EP I Creatinine Equation (2020) Hematocrit Auto (Bld) [Volum e fraction]Ordered By: [facility] on 11-17-2024 Hematocrit (Bld) [Volume fraction] 42.3 % 37-47 [facility] Hemoglobin measurementOrdere d By: [facility] on 11-17-2024 Hemoglobin (Bld) [Mass/Vol] 13.7 g/dL 12.0-15.0 [facility] Immature granulocytes/100 WB C Auto (Bld)Ordered By: Ramona Funez on 11-17-2024 Immature granulocytes/100 WBC (Bld) 0.400 % 0.0-0.9 [facility] Comment on above: IG% - Immature Granu locytes (promyelocytes, myelocytes and metamyelocytes) > 1% indicates that a LEFT SHIFT is Present. LDHon 11-17-2024 LDH 152 U/L Normal 84-246 [facility] Comment on above: Order Comment: ADD O N FROM EARLIER, THANKS Performed By: #### P IMHI #### [facility] [address] [place], [address] Laboratory - Chemistry and C hemistry - challengeOrdered By: Ramona Funez on 11-17-2024 AST [Catalytic activity/Vol] 34 U/L High <32 [facility] - Hematology and Cell countsOrdered By: Ramona Funez on 11-17-2024 Anisocytosis Ql (Bld) 2+ [facility] Lactate dehydrogenase (LDH) measurementOrdered By: Ramona Funez on 11-17-2024 LDH [Catalytic activity/Vol] 152 U/L 84-246 [facility] MCV (mean corpuscular volume ) determinationOrdered By: Ramona Funez on 11-17-2024 MCV (RBC) [Entitic vol] 77.6 fL Low 81-99 [facility] Mean corpuscular hemoglobin (MCH) determinationOrdered By: [facility] on 11-17-2024 MCH (RBC) [Entitic mass] 25.1 pg Low 27.0-32.0 [facility] Mean corpuscular hemoglobin concentration (MCHC) determinationOrdered By: Ramona Funez on 11-17-2024 MCHC (RBC) [Mass/Vol] 32.4 g/dL 32-36 [facility] Mean platelet volume determi nationOrdered By: Ramona Funez on 11-17-2024 Platelet mean volume (Bld) [Entitic vol] 9.9 fL 6.2-12.0 [facility] Monocyte percentageOrdered B y: Ramona Funez on 11-17-2024 Monocytes/100 WBC (Bld) 7.3 % 0-10 [facility] Neutrophil percentageOrdered By: Ramona Funez on 11-17-2024 Neutrophils/100 WBC (Bld) 81.0 % High 47-70 [facility] Nucleated red blood cell per centageOrdered By: Ramona Funez on 11-17-2024 Nucleated RBC/100 WBC (Bld) [Ratio] 0 % 0-5 [facility] Oncology Visit Reporton 05- Oncology Visit Report [facility] [place] [address] [place] [address] OFFICE VISIT Date of Service: 11/17/24 1455 MR#: [id number] Acct: [id number] Name: LIZZETH BERRY Rep #: [id number] : 1955 From: Ramona Funez MD Age/Sex: 69/F [place] [facility] [place] Status: Signed HPI Subjective Date of Service 11/17/24 Chief Complaint Weight loss History of Present Illness 69-year-old female who presents with a few months history of anorexia, 20+ pound weight loss, and increasing fatigue. 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 Patient reports that in 2023 she had an abnormal screening mammogram on the left breast, had a biopsy at [facility] and was told was negative for malignancy. November 04, [address] Madsen: Impression colitis like picture Pathology: Ascending colon active colitis. Descending colon colonic mucosa no significant pathologic changes. Rectum biopsy rectal mucosa no significant histopathologic changes. November 11, 2024 CT abdomen and pelvis: FINDINGS: Bilateral multifocal varying size pulmonary nodules, largest on the left is partially seen at the lingula measuring 9 mm and largest on the right just above the diaphragm 12 mm. 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 The liver is enlarged containing innumerable varying size liver lesions concerning for metastatic disease. Liver mass in the posterior right lobe appears associated with calcification measuring around 4.8 cm. The gallbladder appears distended without wall thickening or surrounding inflammatory change and may contain a small amount of sludge. No biliary ductal dilation identified. 1.8 cm cystic focus within the head of the pancreas may represent pseudocyst or cystic neoplasm. No pancreatic ductal dilation identified. The adrenal glands, kidneys appear within limits. Small left renal cyst noted. The spleen appears diffusely heterogeneous and may represent differences in splenic pulp with possibility of numerous lesions, metastatic disease not excluded. Enlarged vipin hepatis node measuring 3.4 by 2.5 cm. Abdominal aorta appears within limits. Adjacent to the right common iliac vessels and right psoas muscle is a soft tissue mass measuring 4.5 by 2.7 cm with the right common iliac vein draped across and difficult to distinguish. Adjacent along the presacral soft tissues upper right sacrum is a heterogeneous mass with mixed cystic and solid appearance and areas of suggested calcification measures 4.2 x 3.7 cm. Possibility includes metastatic lymphadenopathy, possibility of lymphoma not excluded. No bowel dilation or free air. No evidence of colonic wall thickening or pericolonic inflammatory change. Overall there does appear to be soft tissue fullness at the perineum about the vaginal introitus and rectum/perianal soft tissues for example axial 117 and sagittal 97. Recommend further clinical correlation. Very small amount of perihepatic free fluid noted. Status post hysterectomy. Bilateral fallopian tube clips are seen with what appears to be adjacent bilateral ovarian tissue which appears within limits. The bladder appears within limits. There are multifocal areas of osseous sclerotic lesions mostly involving the sacrum although also involving the right ilium, posterior thoracic spine and the anterior right 6th rib. No pathologic fracture identified. Lower lumbar spondylosis/discogenic change and facet degenerative changes. IMPRESSION: Multifocal partially imaged noncalcified pulmonary nodules, hepatomegaly filled with numerous lesions, vipin hepatis lymphadenopathy, possible splenic lesions, lower right retroperitoneal presacral masses and sclerotic multifocal osseous lesions consistent with metastatic disease with possible lymphoma not entirely excluded as described in detail above. Requires further clinical correlation and workup. Fullness peroneal soft tissues about the vaginal introitus and rectum/anus recommend further clinical correlation. Cystic focus within the pancreatic head as above. [facility] Medical History (Updated 11/17/24 @ 08:12 by LOS Garzon) Wears glasses Arthritis Bladder disease Easy bruising Heartburn Non-smoker Shortness of breath on exertion History of pain when walking Knee pain Surgical History (Updated 11/17/24 @ 15:03 by Evelyn Angela) Hx of colonoscopy History of bilateral carpal tunnel release History of appendectomy History of tubal ligation Family History (Updated 11/17/24 @ 15:04 by Evelyn Angela) Father CVA (cerebral vascular accident) Brother CVA (cerebral vascular accident) Myocardial infarction Prostate cancer Mother Bladder cancer So (more content not included)... Normal [facility] Platelet countOrdered By: Kim Funez on 11-17-2024 Platelets (Bld) [#/Vol] 535 10*3/uL High 150-450 [facility] Potassium measurement (mass/ volume)Ordered By: Ramona Funez on 11-17-2024 Potassium (Unsp spec) [Mass/Vol] 4.4 mmol/L 3.3-5.1 [facility] RBC Auto (Bld) [#/Vol]Ordere d By: Ramona Funez on 11-17-2024 RBC (Bld) [#/Vol] 5.45 10*6/uL High 4.2-5.4 [facility] Serum creatinine measurement (mass/volume)Ordered By: Ramona Funez on 11-17-2024 Creatinine [Mass/Vol] 0.97 mg/dL 0.70-1.20 [facility] Serum globulin measurementOr dered By: Ramona Funez on 11-17-2024 Globulin (S) [Mass/Vol] 3.7 g/dL 2.2-4.2 [facility] Serum glucose measurement (m ass/volume)Ordered By: Ramona Funez on 11-17-2024 Glucose [Mass/Vol] 107 mg/dL High 70-99 [facility] Serum or plasma alanine wright otransferase (ALT) measurementOrdered By: Ramona Funez on 11-17-2024 ALT [Catalytic activity/Vol] 24 U/L <35 [facility] Serum or plasma albumin raúl urement (mass/volume)Ordered By: Ramona Funez on 11-17-2024 Albumin [Mass/Vol] 3.9 g/dL 3.4-4.8 [facility] Serum or plasma albumin/glob ulin mass ratioOrdered By: Ramona Funez on 11-17-2024 Albumin/Globulin [Mass ratio] 1.1 {ratio} 0.9-2.4 [facility] Serum or plasma alkaline lesli sphatase measurementOrdered By: Ramona Funez on 11-17-2024 ALP [Catalytic activity/Vol] 284 U/L High 35-104 [facility] Serum or plasma calcium raúl urement (mass/volume)Ordered By: Ramona Funez on 11-17-2024 Calcium [Mass/Vol] 9.9 mg/dL 7.6-11.0 [facility] Serum or plasma urea nitroge n measurement (mass/volume)Ordered By: Ramona Dee Dee on 11-17-2024 Urea nitrogen [Mass/Vol] 18 mg/dL 4-19 [facility] Sodium levelOrdered By: Sherrie yadav Dee Dee on 11-17-2024 Sodium [Moles/Vol] 136 mmol/L 133-145 [facility] Total proteinOrdered By: Dante carranza Dee Dee on 11-17-2024 Protein [Mass/Vol] 7.5 g/dL 5.9-8.4 [facility] White blood cell (WBC) count Ordered By: Ramona Dee Dee on 11-17-2024 WBC (Bld) [#/Vol] 21.7 10*3/uL High 4.4-11.0 [facility] Abdomen/Pelvis WITH Contrast on 11-11-2024 Abdomen/Pelvis WITH Contrast [facility] Imaging Services [facility] [place], [place] [id number] Abdomen/Pelvis WITH Contrast MR#: [id number] Acct: [id number] Name: LIZZETH BERRY Rep #: [id number] : 1955 F 69 From: Junaid Esparza MD PCP: Dr. Diya George MD Status: REG CLI Study: Abdomen/Pelvis WITH Contrast Date of Exam: Exam# [id number] Ordering Dr: Dawson Herman MD PROCEDURE: ABDOMEN/PELVIS WITH CONTRAST 11/11/2024 REASON FOR EXAM: IRON ANEMIA, CONSTIPATION TECHNIQUE: Abdomen and pelvis CT with intravenous contrast. Coronal and Sagittal reconstruction series were provided. PATIENT PREPARATION: Per protocol ORAL CONTRAST TYPE: Readi-Cat CONTRAST: 96 cc Isovue 370 IV One or more dose reduction techniques were used (e.g., Automated exposure control, adjustment of the mA and/or kV according to patient size, use of iterative reconstruction technique. RADIATION DOSE SUMMARY: CTDlvol: 21.08 mGy DLP: 1068.97 mGycm COMPARISON: None available FINDINGS: Bilateral multifocal varying size pulmonary nodules, largest on the left is partially seen at the lingula measuring 9 mm and largest on the right just above the diaphragm 12 mm. 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 The liver is enlarged containing innumerable varying size liver lesions concerning for metastatic disease. Liver mass in the posterior right lobe appears associated with calcification measuring around 4.8 cm. The gallbladder appears distended without wall thickening or surrounding inflammatory change and may contain a small amount of sludge. No biliary ductal dilation identified. 1.8 cm cystic focus within the head of the pancreas may represent pseudocyst or cystic neoplasm. No pancreatic ductal dilation identified. The adrenal glands, kidneys appear within limits. Small left renal cyst noted. The spleen appears diffusely heterogeneous and may represent differences in splenic pulp with possibility of numerous lesions, metastatic disease not excluded. Enlarged vipin hepatis node measuring 3.4 by 2.5 cm. Abdominal aorta appears within limits. Adjacent to the right common iliac vessels and right psoas muscle is a soft tissue mass measuring 4.5 by 2.7 cm with the right common iliac vein draped across and difficult to distinguish. Adjacent along the presacral soft tissues upper right sacrum is a heterogeneous mass with mixed cystic and solid appearance and areas of suggested calcification measures 4.2 x 3.7 cm. Possibility includes metastatic lymphadenopathy, possibility of lymphoma not excluded. No bowel dilation or free air. No evidence of colonic wall thickening or pericolonic inflammatory change. Overall there does appear to be soft tissue fullness at the perineum about the vaginal introitus and rectum/perianal soft tissues for example axial 117 and sagittal 97. Recommend further clinical correlation. Very small amount of perihepatic free fluid noted. Status post hysterectomy. Bilateral fallopian tube clips are seen with what appears to be adjacent bilateral ovarian tissue which appears within limits. The bladder appears within limits. There are multifocal areas of osseous sclerotic lesions mostly involving the sacrum although also involving the right ilium, posterior thoracic spine and the anterior right 6th rib. No pathologic fracture identified. Lower lumbar spondylosis/discogenic change and facet degenerative changes. CT/Abdomen/Pelvis WITH Contrast IMPRESSION: Multifocal partially imaged noncalcified pulmonary nodules, hepatomegaly filled with numerous lesions, vipin hepatis lymphadenopathy, possible splenic lesions, lower right retroperitoneal presacral masses and sclerotic multifocal osseous lesions consistent with metastatic disease with possible lymphoma not entirely excluded as described in detail above. Requires further clinical correlation and workup. Fullness peroneal soft tissues about the vaginal introitus and rectum/anus recommend further clinical correlation. Cystic focus within the pancreatic head as above. Reading Location: [id number] CC: Dr. Diya George MD; Dr. Dawson Herman MD Cuff Presser: Signed Normal [facility] TSH DL <= 0.005 mIU/L QnOrde red By: Diya Georeg on 10-26-2024 TSH Qn 5.270 uIU/mL High 0.300-4.200 [facility] Thyroid Stim Hormone (TSH)on 10-26-2024 TSH 5.270 uIU/mL High 0.300-4.200 [facility] Comment on above: Performed By: #### P IMHI #### [facility] Laboratory [facility] [address] [place], [place], [id number] Absolute lymphocyte countOrd ered By: Diya George on 10-11-2024 Lymphocytes Auto (Unsp spec) [#/Vol] 1.52 10*3/uL 0.83-4.51 [facility] Absolute neutrophil countOrd ered By: Diya George on 10-11-2024 Neutrophils (Bld) [#/Vol] 12.2 10*3/uL High 2.0-7.7 [facility] Automated lymphocyte count a s percentage of total leukocytesOrdered By: Diya George on 10-11-2024 Lymphocytes/100 WBC Auto (Unsp spec) 10.0 % Low 19-41 [facility] Basophil percentageOrdered B y: Diya George on 10-11-2024 Basophils/100 WBC (Bld) 0.7 % 0-1 [facility] Blood manual differential co mment interpretation (narrative result)Ordered By: Diya George on 10-11-2024 Manual differential comment Earnest (Bld) [Interp] SCANNED [facility] CBC W/Diff, Automatedon 09-21 Absolute Lymph 1.52 X10 3/uL Normal 0.83-4.51 [facility] Comment on above: Performed By: #### P IMHI #### [facility] Laboratory [address] [place], [address] Absolute Neut 12.2 X10 3/uL High 2.0-7.7 [facility] Comment on above: Performed By: #### P IMHI #### [facility] Laboratory [address] [place], [address] Basophils/100 WBC (Bld) 0.7 % Normal 0-1 [facility] Comment on above: Performed By: #### P IMHI #### [facility] Laboratory [address] [place], [address] Eosinophils/100 WBC (Bld) 1.0 % Normal 0-5 [facility] Comment on above: Performed By: #### P IMHI #### [facility] Laboratory [address] [place], [address] Erythrocyte distribution width (RBC) [Ratio] 22.6 % High 11.6-14.6 [facility] Comment on above: Performed By: #### P IMHI #### [facility] Laboratory [address] [place], [address] Hematocrit (Bld) [Volume fraction] 39.3 % Normal 37-47 [facility] Comment on above: Performed By: #### P IMHI #### [facility] Laboratory [address] [place], [address] Hemoglobin (Bld) [Mass/Vol] 12.3 g/dL Normal 12.0-15.0 [facility] Comment on above: Performed By: #### P IMHI #### [facility] Laboratory [address] [place], [address] IG% 0.400 Normal 0.0-0.9 [facility] Comment on above: Result Comment: IG% - Immature Granulocytes (promyelocytes, myelocytes and metamyelocytes) > 1% indicates that a LEFT SHIFT is Present. Performed By: #### P IMHI #### [facility] Laboratory [address] [place], [address] Lymphocytes/100 WBC (Bld) 10.0 % Low 19-41 [facility] Comment on above: Performed By: #### P IMHI #### [facility] Laboratory [address] [place], [address] MCH (RBC) [Entitic mass] 24.1 pg Low 27.0-32.0 [facility] Comment on above: Performed By: #### P IMHI #### [facility] Laboratory [address] [place], [address] MCHC (RBC) [Mass/Vol] 31.3 g/dL Low 32-36 [facility] Comment on above: Performed By: #### P IMHI #### [facility] Laboratory [address] [place], [address] MCV (RBC) [Entitic vol] 77.1 fL Low 81-99 [facility] Comment on above: Performed By: #### P IMHI #### [facility] Laboratory [address] [place], [address] Monocytes/100 WBC (Bld) 7.6 % Normal 0-10 [facility] Comment on above: Performed By: #### P IMHI #### [facility] Laboratory [address] [place], [address] Neutrophils/100 WBC (Bld) 80.3 % High 47-70 [facility] Comment on above: Performed By: #### P IMHI #### [facility] Laboratory [address] [place], [address] Nucleated RBC (Bld) [#/Vol] 0 10*3/uL Normal 0-5 [facility] Comment on above: Performed By: #### P IMHI #### [facility] Laboratory [address] [place], [address] Platelet mean volume (Bld) [Entitic vol] 10.1 fL Normal 6.2-12.0 [facility] Comment on above: Performed By: #### P IMHI #### [facility] Laboratory [address] [place], [address] Platelets (Bld) [#/Vol] 384 10*3/uL Normal 150-450 [facility] Comment on above: Performed By: #### P IMHI #### [facility] Laboratory [address] [place], [address] RBC (Bld) [#/Vol] 5.10 10*6/uL Normal 4.2-5.4 [facility] Comment on above: Performed By: #### P IMHI #### [facility] Laboratory [address] [place], [address] RDW SD 61.7 fl High 35.1-43.9 [facility] Comment on above: Performed By: #### P IMHI #### [facility] Laboratory [address] [place], [address] WBC (Bld) [#/Vol] 15.2 10*3/uL High 4.4-11.0 [facility] Comment on above: Performed By: #### P IMHI #### [facility] Laboratory [address] [place], [address] Eosinophil percentageOrdered By: Diya George on 10-11-2024 Eosinophils/100 WBC (Bld) 1.0 % 0-5 [facility] Erythrocyte distribution wid th ratioOrdered By: Diya George on 10-11-2024 Erythrocyte distribution width (RBC) [Ratio] 22.6 % High 11.6-14.6 [facility] Erythrocyte distribution wid th standard deviationOrdered By: Diya George on 10-11-2024 Erythrocyte distribution width (RBC) [Ratio] 61.7 fl High 35.1-43.9 [facility] Hematocrit Auto (Bld) [Volum e fraction]Ordered By: Diya George on 10-11-2024 Hematocrit (Bld) [Volume fraction] 39.3 % 37-47 [facility] Hemoglobin measurementOrdere d By: Diya George on 10-11-2024 Hemoglobin (Bld) [Mass/Vol] 12.3 g/dL 12.0-15.0 [facility] Immature granulocytes/100 WB C Auto (Bld)Ordered By: Diya George on 10-11-2024 Immature granulocytes/100 WBC (Bld) 0.400 % 0.0-0.9 [facility] Comment on above: IG% - Immature Granu locytes (promyelocytes, myelocytes and metamyelocytes) > 1% indicates that a LEFT SHIFT is Present. Laboratory - Hematology and Cell countsOrdered By: Diya George on 10-11-2024 Anisocytosis Ql (Bld) 2+ [facility] MCV (mean corpuscular volume ) determinationOrdered By: Diya George on 10-11-2024 MCV (RBC) [Entitic vol] 77.1 fL Low 81-99 [facility] Mean corpuscular hemoglobin (MCH) determinationOrdered By: Diya George on 10-11-2024 MCH (RBC) [Entitic mass] 24.1 pg Low 27.0-32.0 [facility] Mean corpuscular hemoglobin concentration (MCHC) determinationOrdered By: Diya George on 10-11-2024 MCHC (RBC) [Mass/Vol] 31.3 g/dL Low 32-36 [facility] Mean platelet volume determi nationOrdered By: Diya George on 10-11-2024 Platelet mean volume (Bld) [Entitic vol] 10.1 fL 6.2-12.0 [facility] Monocyte percentageOrdered B y: Diya George on 10-11-2024 Monocytes/100 WBC (Bld) 7.6 % 0-10 [facility] Neutrophil percentageOrdered By: Diya George on 10-11-2024 Neutrophils/100 WBC (Bld) 80.3 % High 47-70 [facility] Nucleated red blood cell per centageOrdered By: Diya George on 10-11-2024 Nucleated RBC/100 WBC (Bld) [Ratio] 0 % 0-5 [facility] Platelet countOrdered By: Ray George on 10-11-2024 Platelets (Bld) [#/Vol] 384 10*3/uL 150-450 [facility] RBC Auto (Bld) [#/Vol]Ordere d By: Diya George on 10-11-2024 RBC (Bld) [#/Vol] 5.10 10*6/uL 4.2-5.4 [facility] White blood cell (WBC) count Ordered By: Diya George on 10-11-2024 WBC (Bld) [#/Vol] 15.2 10*3/uL High 4.4-11.0 [facility] Lower GI hemoglobin IA Ql (S tl)Ordered By: Adria Orosco on 09-26-2024 Stool Occult Blood (ZACK) Positive Abnormal [facility] Stool Occult Blood iFOBon STOB Positive Normal [facility] Comment on above: Performed By: #### L 501.5200, L500.4050, L100.0100 #### [facility] Laboratory [address] [place] [address], [address] Stool gastrointestinal hemog lobin detection by immunologic methodOrdered By: Adria Orosco on 09-26-2024 Lower GI hemoglobin IA Ql (Stl) Positive Abnormal [facility] Lower GI hemoglobin IA Ql (S tl)Ordered By: Adria Orosco on 09-25-2024 Stool Occult Blood (ZACK) Positive Abnormal [facility] Stool gastrointestinal hemog lobin detection by immunologic methodOrdered By: Adria Orosco on 09-25-2024 Lower GI hemoglobin IA Ql (Stl) Positive Abnormal [facility] Lower GI hemoglobin IA Ql (S tl)Ordered By: Adria Orosco on 09-24-2024 Stool Occult Blood (ZACK) Positive Abnormal [facility] Stool gastrointestinal hemog lobin detection by immunologic methodOrdered By: Adria Orosco on 09-24-2024 Lower GI hemoglobin IA Ql (Stl) Positive Abnormal [facility] Absolute lymphocyte countOrd ered By: Adria Orosco on 09-23-2024 Lymphocytes Auto (Unsp spec) [#/Vol] 1.72 10*3/uL 0.83-4.51 [facility] Absolute neutrophil countOrd ered By: Adria Orosco on 09-23-2024 Neutrophils (Bld) [#/Vol] 11.5 10*3/uL High 2.0-7.7 [facility] Anion gap in Serum or Plasma Ordered By: Adria Orosco on 09-23-2024 Anion gap [Moles/Vol] 12 mmol/L 5-15 [facility] Automated lymphocyte count a s percentage of total leukocytesOrdered By: Adria Orosco on 09-23-2024 Lymphocytes/100 WBC Auto (Unsp spec) 11.7 % Low 19-41 [facility] BUN/creatinine ratioOrdered By: Adria Orosco on 09-23-2024 Urea nitrogen/Creatinine [Mass ratio] 20.7 mg/mg High 10-20 [facility] Basophil percentageOrdered B y: Adria Orosco on 09-23-2024 Basophils/100 WBC (Bld) 0.8 % 0-1 [facility] Bilirubin, totalOrdered By: Adria Orosco on 09-23-2024 Bilirubin [Mass/Vol] 0.29 mg/dL 0.00-1.30 [facility] Blood polychromasia detectio n by light microscopyOrdered By: Adria Orosco on 09-23-2024 Polychromasia LM Ql (Bld) 1+ [facility] CBC W/Diff, Automatedon Anisocytosis Ql (Bld) 1+ Normal [facility] Comment on above: Performed By: #### L 501.5200, L500.4050, L100.0100 #### [facility] Laboratory [address] [place], [place], [id number] PLT EST MKD INC Normal ADEQ [facility] Comment on above: Performed By: #### L 501.5200, L500.4050, L100.0100 #### [facility] Laboratory [address] [place], [address] POLYCHROMASIA 1+ Normal [facility] Comment on above: Performed By: #### L 501.5200, L500.4050, L100.0100 #### [facility] Laboratory [address] [place], [address] Calculated very low density lipoprotein (VLDL) cholesterol measurementOrdered By: Adria Orosco on 09-23-2024 Calculated very low density lipoprotein (VLDL) cholesterol measurement 15 mg/dL -40 [facility] VLDL Cholesterol 15 mg/dL -40 [facility] Carbon dioxide, total [Moles /volume] in Central venous bloodOrdered By: Adria Orosco on 09-23-2024 CO2 [Moles/Vol] 21.7 mmol/L 21.0-32.0 [facility] Chloride assayOrdered By: Kim ttronal Orosco on 09-23-2024 Chloride [Moles/Vol] 104 mmol/L 98-108 [facility] Comprehensive Metabolic Prof ilon 09-23-2024 Albumin [Mass/Vol] 3.5 g/dL Normal 3.4-4.8 [facility] Comment on above: Performed By: #### L 501.5200, L500.4050, L100.0100 #### [facility] Laboratory [address] [place], [address] Albumin/Globulin [Mass ratio] 0.9 {ratio} Normal 0.9-2.4 [facility] Comment on above: Performed By: #### L 501.5200, L500.4050, L100.0100 #### [facility] Laboratory [address] [place], [address] ALK PHOS 253 U/L High 35-104 [facility] Comment on above: Performed By: #### L 501.5200, L500.4050, L100.0100 #### [facility] Laboratory [address] [place], [address] ALT [Catalytic activity/Vol] 36 U/L High <=34 [facility] Comment on above: Performed By: #### L 501.5200, L500.4050, L100.0100 #### [facility] Laboratory [address] [place], [address] AST [Catalytic activity/Vol] 26 U/L Normal <=31 [facility] Comment on above: Performed By: #### L 501.5200, L500.4050, L100.0100 #### [facility] Laboratory [address] [place], [address] Bilirubin [Mass/Vol] 0.29 mg/dL Normal 0.00-1.30 [facility] Comment on above: Performed By: #### L 501.5200, L500.4050, L100.0100 #### [facility] Laboratory [address] [place], [address] BUN/CRE 20.7 RATIO High 10-20 [facility] Comment on above: Performed By: #### L 501.5200, L500.4050, L100.0100 #### [facility] Laboratory [address] [place], [address] Calcium [Mass/Vol] 9.5 mg/dL Normal 7.6-11.0 [facility] Comment on above: Performed By: #### L 501.5200, L500.4050, L100.0100 #### [facility] Laboratory [address] [place], [address] Chloride [Moles/Vol] 104 mmol/L Normal 98-108 [facility] Comment on above: Performed By: #### L 501.5200, L500.4050, L100.0100 #### [facility] Laboratory [address] [place], [address] CO2 [Moles/Vol] 21.7 mmol/L Normal 21.0-32.0 [facility] Comment on above: Performed By: #### L 501.5200, L500.4050, L100.0100 #### [facility] Laboratory [address] [place], [address] Creatinine [Mass/Vol] 0.88 mg/dL Normal 0.70-1.20 [facility] Comment on above: Performed By: #### L 501.5200, L500.4050, L100.0100 #### [facility] Laboratory [address] [place], [address] GAP 12 Normal 5-15 [facility] Comment on above: Performed By: #### L 501.5200, L500.4050, L100.0100 #### [facility] Laboratory [address] [place], [address] GFR/1.73 sq M.predicted among non-blacks MDRD (S/P/Bld) [Vol rate/Area] 70 mL/min/{1.73_m2} Normal >60 [facility] Comment on above: Result Comment: mL/m in/1.73m2 CKD-EPI Creatinine Equation (2020) Performed By: #### L 501.5200, L500.4050, L100.0100 #### [facility] Laboratory [address] [place], [address] Globulin (S) [Mass/Vol] 4.0 g/dL Normal 2.2-4.2 [facility] Comment on above: Performed By: #### L 501.5200, L500.4050, L100.0100 #### [facility] Laboratory [address] [place], [address] Glucose [Mass/Vol] 94 mg/dL Normal 70-99 [facility] Comment on above: Performed By: #### L 501.5200, L500.4050, L100.0100 #### [facility] Laboratory [address] [place], [address] Potassium [Moles/Vol] 4.6 mmol/L Normal 3.3-5.1 [facility] Comment on above: Performed By: #### L 501.5200, L500.4050, L100.0100 #### [facility] Laboratory [address] [place], [address] Sodium [Moles/Vol] 138 mmol/L Normal 133-145 [facility] Comment on above: Performed By: #### L 501.5200, L500.4050, L100.0100 #### [facility] Laboratory [address] [place], [address] T PROT 7.6 g/dL Normal 5.9-8.4 [facility] Comment on above: Performed By: #### L 501.5200, L500.4050, L100.0100 #### [facility] Laboratory [address] [place], [address] Urea nitrogen [Mass/Vol] 18 mg/dL Normal 4-19 [facility] Comment on above: Performed By: #### L 501.5200, L500.4050, L100.0100 #### [facility] Laboratory [address] [place], [address] Eosinophil percentageOrdered By: Adria Orosco on 09-23-2024 Eosinophils/100 WBC (Bld) 1.7 % 0-5 [facility] Erythrocyte distribution wid th (RBC) [Ratio]Ordered By: Adria Orosco on 09-23-2024 Erythrocyte distribution width (RBC) [Entitic vol] 53.8 fL High 35.1-43.9 [facility] Erythrocyte distribution wid th ratioOrdered By: Adria Orosco on 09-23-2024 Erythrocyte distribution width (RBC) [Ratio] 20.2 % High 11.6-14.6 [facility] Erythrocyte distribution wid th standard deviationOrdered By: Adria Orosco on 09-23-2024 Erythrocyte distribution width (RBC) [Ratio] 53.8 fl High 35.1-43.9 [facility] Ferritinon 09-23-2024 Ferritin [Mass/Vol] 214 ng/mL Normal 22-378 [facility] Comment on above: Performed By: #### L 501.5200, L500.4050, L100.0100 #### [facility] Laboratory [address] [place], [address] GFR/1.73 sq M.predicted richard g non-blacks MDRD (S/P/Bld) [Vol rate/Area]Ordered By: Adria Orosco on 09-23-2024 Estimated GFR (MDRD) Non-Af Amer 70 >60 [facility] Comment on above: mL/min/1.73m2 CKD-EP I Creatinine Equation (2020) Glomerular filtration rate ( GFR) estimation/1.73 sq m using serum, plasma, or whole bOrdered By: Adria Orosco on 09-23-2024 GFR/1.73 sq M.predicted among non-blacks MDRD (S/P/Bld) [Vol rate/Area] 70 mL/min/{1.73_m2} >60 [facility] Comment on above: mL/min/1.73m2 CKD-EP I Creatinine Equation (2020) Hematocrit Auto (Bld) [Volum e fraction]Ordered By: Adria Orosco on 09-23-2024 Hematocrit (Bld) [Volume fraction] 35.7 % Low 37-47 [facility] Hemoglobin measurementOrdere d By: Adria Orosco on 09-23-2024 Hemoglobin (Bld) [Mass/Vol] 11.2 g/dL Low 12.0-15.0 [facility] Immature granulocytes/100 WB C Auto (Bld)Ordered By: Adria Orosco on 09-23-2024 Immature granulocytes/100 WBC (Bld) 0.700 % 0.0-0.9 [facility] Comment on above: IG% - Immature Granu locytes (promyelocytes, myelocytes and metamyelocytes) > 1% indicates that a LEFT SHIFT is Present. Internal Medicine Office Vis pawel 09-23-2024 Internal Medicine Office Visit [facility] [address] [place] [address] [place] [address] OFFICE VISIT Date of Service: 09/23/24 MR#: [id number] Acct: [id number] Name: LIZZETH BERRY Rep #: [id number] : 1955 Provider: LOS Thakkar Age/Sex: 69/F Location: [facility] [place] Status: Signed Intake Vital Signs 08/06/21 11:54 09/23/24 08:39 Height 5 ft 5.5 in 5 ft 4 in Weight: 191 lb 8 oz BMI 32.8 BP 120/82 H Blood Pressure Location Rt brachial Position Sitting Respiration 16 Pulse 94 Pulse Source Monitor Temp 96.7 F L Temp Source Temporal Pulse Oximetry (%) 98 Oxygen Delivery Method room air Intake Visit Reasons: ACUTE NEW - FATIGUE AND TIRED 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 Accompanied by: Is patient in pain?: No Allergies amoxicillin (From Augmentin) Allergy (Verified 09/23/24 08:36) rash clavulanic acid (From Augmentin) Allergy (Verified 09/23/24 08:36) rash Medications ???Medication ???Instructions ???Recorded ???Confirmed ???Type vitamins A,C,S-nmpn-kgiepx 4,296 1 cap PO BID 08/10/20 09/23/24 His tory mcg-226 mg-90 mg capsule (PreserVision AREDS) [id number] 4 mg-folic acid tab PO 09/23/24 09/23/24 History 200 mcg-vit K 25 mcg-lutein tablet (Centrum Minis Women 50 Plus) Have you fallen in the past year?: No PFSH Medical History Wears glasses Arthritis Bladder disease Easy bruising Heartburn Non-smoker Shortness of breath on exertion History of pain when walking Knee pain Surgical History History of bilateral carpal tunnel release History of appendectomy History of tubal ligation Family History Father CVA (cerebral vascular accident) Brother CVA (cerebral vascular accident) Myocardial infarction Mother Bladder cancer Social History Smoking Status: Never smoker alcohol intake: never HPI HPI Chief Complaint: establishing fatigue and tired Details: LIZZETH KRISTI, is a 69 F who presents to the office today to establish care here in our office. She is a healthy 69 year old female without any significant PMH. She has never taken any daily medications or had any significant issues She does wear glasses and sees eye doctor regularly every 6 months for macular degeneration She does see Dentist regularly She has had colonoscopies last one in 2017 and they told her she was good for 10 years She did have regular mammograms. She had previous u/s as well as biopsies on the left breast. She states that everything ended up being normal without any concerns She did have bone density previously She was never a smoker or ever used nicotine No regular ETOH use She used to be a big Pepsi drinker but has layed off of this she states. She drinks sweet tea She does not get regular exercise She states that she feels like her diet is good. She states that her consumption of fruits and vegetables is iffy. Then states that pretty much eats what she wants when she wants. She is UTD with immunizations. She states that she is immunized up the [place] Patient has been a regular blood donor over the past 20 years. She states that over the years she has been unable to donate a few times when her hemoglobin was low. She used to take some Iron supplement to raise this and normally she could but it has been more consistently low She also had a stomach bug for a while She then just felt extremely tired for about a week after that. Since that week she has seen improvement in her fatigue ROS Const Constitutional: No body ache, excessive sweating, fatigue, fever(s), frequent falls, headache(s), snoring, weakness, weight change, sleep problems or change in appetite Eyes Eyes: No blurry vision, change in vision, eye pain or Light sensitivity ENT ENT: No abnormal hearing, ear or mastoid pain, tinnitus, nasal congestion, headache(s), neck pain or sore throat Resp Respiratory: No cough, shortness of breath, snoring or wheezing Cardio Cardiology: No chest pain at rest, chest pain with exertion, excessive sweating, shortness of breath, dyspnea on exertion, lightheadedness, orthopnea or palpitations Gastro GI: No abdominal pain, change in bowel habits, constipation, cramping, diarrhea, nausea/dyspepsia or vomiting Genitourinary-Female: No burning urination, painful urination, urinary incontinence, urinary frequency, blood in urine, abnormal periods or pelvic pain Musc Musculoskeletal: No abnormal gait, joint pain, back pain, limited range of motion, neck pain, numbness, stiffness, tingling or Arthritis Skin Skin: No dry skin, redness, lesions, i (more content not included)... Normal [facility] Ironon 09-23-2024 Iron [Mass/Vol] 27 ug/dL Low 50-170 [facility] Comment on above: Performed By: #### L 501.5200, L500.4050, L100.0100 #### [facility] [address] [place], [address] Iron (Unsp spec) [Mass/Mass] Ordered By: Adria Orosco on 09-23-2024 Iron [Mass/Vol] 27 ug/dL Low 50-170 [facility] Iron measurement (mass/mass) Ordered By: Adria Orosco on 09-23-2024 Iron (Unsp spec) [Mass/Mass] 27 ug/dL Low 50-170 [facility] LDL calc ser/plasOrdered By: Adria Orosco on 09-23-2024 Cholesterol in LDL [Mass/Vol] 112 mg/dL [facility] Comment on above: Oliwdzwgre=747-376 m g/dL & Higher Uboz=368 mg/dL or greater LDL Cholesterol, Calculated 112 mg/dL [facility] Comment on above: Gldnusiewd=519-634 m g/dL & Higher Bzjk=954 mg/dL or greater Laboratory - Chemistry and C hemistry - challengeOrdered By: Adria Orosco on 09-23-2024 AST [Catalytic activity/Vol] 26 U/L <32 [facility] Laboratory - Hematology and Cell countsOrdered By: Adria Orosco on 09-23-2024 Anisocytosis Ql (Bld) 1+ [facility] Lipid Profileon 09-23-2024 CHOL:HDL 3.81 Normal [facility] Comment on above: Performed By: #### L 501.5200, L500.4050, L100.0100 #### [facility] [address] [place], [address] Cholesterol [Mass/Vol] 172 mg/dL Normal <=200 [facility] Comment on above: Result Comment: Chol esterol level, Desirable <200 mg/dL Borderline high cholesterol 200-239 mg/dL High cholesterol >=240 mg/dL Recommendations of the NCEP Adult Treatment Panel for the following risk-cutoff thresholds for the [place] population. Performed By: #### L 501.5200, L500.4050, L100.0100 #### [facility] [address] [place], [address] Cholesterol in HDL [Mass/Vol] 45 mg/dL Normal [facility] Comment on above: Result Comment: Kayy onal Cholesterol Education Program (NCEP) guidelines: <40 mg/dL: Low HDL-cholesterol (major risk factor for CHD) >= 60 mg/dL: High HDL-cholesterol (negative risk factor for CHD) HDL-cholesterol is affected by a number of factors, e.g. smoking, exercise, hormones, sex and age. Performed By: #### L 501.5200, L500.4050, L100.0100 #### [facility] [address] [place], [address] Cholesterol in LDL [Mass/Vol] 112 mg/dL Normal [facility] Comment on above: Result Comment: Bord tfbzhk=361-827 mg/dL Higher Oors=775 mg/dL or greater Performed By: #### L 501.5200, L500.4050, L100.0100 #### [facility] [address] [place], [address] Cholesterol in VLDL [Mass/Vol] 15 mg/dL Normal 5-40 [facility] Comment on above: Performed By: #### L 501.5200, L500.4050, L100.0100 #### [facility] [address] [place], [address] Triglyceride [Mass/Vol] 74 mg/dL Normal [facility] Comment on above: Result Comment: The drugs N-Acetylcysteine and Metamizole may falsely depress this assay. Normal range: <150 mg/dL Borderline High: 150-199 mg/dL High: 200-499 mg/dL Very High: >500 mg/dL Performed By: #### L 501.5200, L500.4050, L100.0100 #### [facility] [address] [place], [address] Lymphocytes Auto (Unsp spec) [#/Vol]Ordered By: Adria Orosco on 09-23-2024 Lymphocytes (Bld) [#/Vol] 1.72 10*3/uL 0.83-4.51 [facility] Lymphocytes/100 WBC Auto (Un sp spec)Ordered By: Adria Orosco on 09-23-2024 Lymphocytes/100 WBC (Bld) 11.7 % Low 19-41 [facility] MCV (mean corpuscular volume ) determinationOrdered By: Adria Orosco on 09-23-2024 MCV (RBC) [Entitic vol] 74.8 fL Low 81-99 [facility] Mean corpuscular hemoglobin (MCH) determinationOrdered By: Adria Orosco on 09-23-2024 MCH (RBC) [Entitic mass] 23.5 pg Low 27.0-32.0 [facility] Mean corpuscular hemoglobin concentration (MCHC) determinationOrdered By: Adria Orosco on 09-23-2024 MCHC (RBC) [Mass/Vol] 31.4 g/dL Low 32-36 [facility] Mean platelet volume determi nationOrdered By: Adria Orosco on 09-23-2024 Platelet mean volume (Bld) [Entitic vol] 9.2 fL 6.2-12.0 [facility] Monocyte percentageOrdered B y: Adria Orosco on 09-23-2024 Monocytes/100 WBC (Bld) 6.7 % 0-10 [facility] Neutrophil percentageOrdered By: Adria Orosco on 09-23-2024 Neutrophils/100 WBC (Bld) 78.4 % High 47-70 [facility] Nucleated red blood cell per centageOrdered By: Adria Orosco on 09-23-2024 Nucleated RBC/100 WBC (Bld) [Ratio] 0 % 0-5 [facility] Platelet countOrdered By: Kim ttronal Orosco on 09-23-2024 Platelets (Bld) [#/Vol] 745 10*3/uL High 150-450 [facility] Platelet estimateOrdered By: Adria Orosco on 09-23-2024 Platelets LM Ql (Bld) MKD INC ADEQ [facility] Platelets LM Ql (Bld)Ordered By: Adria Orosco on 09-23-2024 Platelet Estimate MKD INC ADEQ [facility] Polychromasia LM Ql (Bld)Ord ered By: Adria Orosco on 09-23-2024 Polychromasia 1+ [facility] Potassium (Unsp spec) [Mass/ Vol]Ordered By: Adria Orosco on 09-23-2024 Potassium [Moles/Vol] 4.6 mmol/L 3.3-5.1 [facility] Potassium measurement (mass/ volume)Ordered By: Adria Orosco on 09-23-2024 Potassium (Unsp spec) [Mass/Vol] 4.6 mmol/L 3.3-5.1 [facility] RBC Auto (Bld) [#/Vol]Ordere d By: Adria Orosco on 09-23-2024 RBC (Bld) [#/Vol] 4.77 10*6/uL 4.2-5.4 [facility] Screening total cholesterol/ high density lipoprotein (HDL) cholesterol ratioOrdered By: Adria Orosco on 09-23-2024 Cholesterol.total/Choles terol in HDL [Mass ratio] 3.81 {ratio} [facility] Serum creatinine measurement (mass/volume)Ordered By: Adria Orosco on 09-23-2024 Creatinine [Mass/Vol] 0.88 mg/dL 0.70-1.20 [facility] Serum globulin measurementOr dered By: Adria Orosco on 09-23-2024 Globulin (S) [Mass/Vol] 4.0 g/dL 2.2-4.2 [facility] Serum glucose measurement (m ass/volume)Ordered By: Adria Orosco on 09-23-2024 Glucose [Mass/Vol] 94 mg/dL 70-99 [facility] Serum or plasma alanine wright otransferase (ALT) measurementOrdered By: Adria Orosco on 09-23-2024 ALT [Catalytic activity/Vol] 36 U/L High <35 [facility] Serum or plasma albumin raúl urement (mass/volume)Ordered By: Adria Orosco on 09-23-2024 Albumin [Mass/Vol] 3.5 g/dL 3.4-4.8 [facility] Serum or plasma albumin/glob ulin mass ratioOrdered By: Adria Orosco on 09-23-2024 Albumin/Globulin [Mass ratio] 0.9 {ratio} 0.9-2.4 [facility] Serum or plasma alkaline lesli sphatase measurementOrdered By: Adria Orosco on 09-23-2024 ALP [Catalytic activity/Vol] 253 U/L High 35-104 [facility] Serum or plasma calcium raúl urement (mass/volume)Ordered By: Adria Orosco on 09-23-2024 Calcium [Mass/Vol] 9.5 mg/dL 7.6-11.0 [facility] Serum or plasma cholesterol in HDL measurement (mass/volume)Ordered By: Adria Orosco on 09-23-2024 Cholesterol in HDL [Mass/Vol] 45 mg/dL >40 [facility] Comment on above: National Cholesterol Education Program (NCEP) guidelines:<40 mg/dL: Low HDL-cholesterol (major risk factor for CHD)>= 60 mg/dL: High HDL-cholesterol (negative risk factor for CHD)HDL-cholesterol is affected by a number of factors, e.g. smoking, exercise, hormones, sex and age. Serum or plasma cholesterol measurement (mass/volume)Ordered By: Adria Orosco on 09-23-2024 Cholesterol [Mass/Vol] 172 mg/dL <201 [facility] Comment on above: Cholesterol level, D esirable <200 mg/dLBorderline high cholesterol 200-239 mg/dLHigh cholesterol >=240 mg/dLRecommendations of the NCEP Adult Treatment Panel for the following risk-cutoff thresholds for the [place] population. Serum or plasma ferritin aleksandra surement (mass/volume)Ordered By: Adria Orosco on 09-23-2024 Ferritin [Mass/Vol] 214 ng/mL 22-378 [facility] Serum or plasma urea nitroge n measurement (mass/volume)Ordered By: Adria Orosco on 09-23-2024 Urea nitrogen [Mass/Vol] 18 mg/dL 4-19 [facility] Sodium levelOrdered By: Subhash sholavicente Orosco on 09-23-2024 Sodium [Moles/Vol] 138 mmol/L 133-145 [facility] TSH DL <= 0.005 mIU/L QnOrde red By: Adria Orosco on 09-23-2024 Thyroid Stimulating Hormone (TSH) 4.680 uIU/mL High 0.300-4.200 [facility] TSH Qn 4.680 uIU/mL High 0.300-4.200 [facility] Thyroid Stim Hormone (TSH)on 09-23-2024 TSH 4.680 uIU/mL High 0.300-4.200 [facility] Comment on above: Performed By: #### L 501.5200, L500.4050, L100.0100 #### [facility] [address] [place], [place], [id number] Total proteinOrdered By: Keny Orosco on 09-23-2024 Protein [Mass/Vol] 7.6 g/dL 5.9-8.4 [facility] Triglycerides measurementOrd ered By: Adria Orosco on 09-23-2024 Triglyceride [Mass/Vol] 74 mg/dL <199 [facility] Comment on above: The drugs N-Acetylcy steine and Metamizole may falsely depress this assay. Normal range: <150 mg/dLBorderline High: 150-199 mg/dLHigh: 200-499 mg/dLVery High: >500 mg/dL Vitamin B12on 09-23-2024 Cobalamin (Vitamin B12) [Mass/Vol] 690 pg/mL Normal 180-914 [facility] Comment on above: Performed By: #### L 501.5200, L500.4050, L100.0100 #### [facility] [address] [place], [place], [address] Vitamin B12 ser/plasOrdered By: Adria Orosco on 09-23-2024 Cobalamin (Vitamin B12) [Mass/Vol] 690 pg/mL 180-914 [facility] Vitamin D, 25-hydroxyOrdered By: Adria Orosco on 09-23-2024 Vitamin D 25-Hydroxy 37.0 ng/mL 30-100 [facility] Comment on above: Vitamin D StatusDefi ciency: <20 ng/mL (50nmol/L)Insufficiency: 20-30 ng/mL (50-75 nmol/L)Sufficiency: 30-100 ng/mL (75-250 nmol/L)Toxicity: >100 ng/mL (>250 nmol/L) Vitamin D,25 Hydroxyon 09-23 Vitamin D 25-OH 37.0 ng/mL Normal 30-100 [facility] Comment on above: Result Comment: Priscilla min D Status Deficiency: <20 ng/mL (50nmol/L) Insufficiency: 20-30 ng/mL (50-75 nmol/L) Sufficiency: 30-100 ng/mL (75-250 nmol/L) Toxicity: >100 ng/mL (>250 nmol/L) Performed By: #### L 501.5200, L500.4050, L100.0100 #### [facility] [address] [place], [address] White blood cell (WBC) count Ordered By: Adria Orosco on 09-23-2024 WBC (Bld) [#/Vol] 14.7 10*3/uL High 4.4-11.0 [facility] Andrew 05-24-2024 JILLIANN Telephone (RADMN) LIZZETH BERRY ([id number]) 1955 F Date Time Provider Department 05/24/24 CAROLYN MORGAN During your visit today, we recorded the following information about you: Carolyn Morgan, RN 05/24/2024 8:07 AM Signed Called patient to notify the breast pathology results are benign per Dr. Christine. Informed patient a 6 month follow up is recommended. Patient verbalized understanding. Allergies As of Date: 05/24/2024 Noted Allergy Reaction AUGMENTIN (AMOXICILLIN-POT CLAVUL*07/03/2006 2 - Rash Date Reviewed: 05/02/2024 Reviewed by: Selene Rush RN - Fully Assessed Reason for Visit: Results [95] Prescriptions as of 05/24/2024 - multivit with minerals/lutein (MULTIVITAMIN 50 PLUS ORAL) Take 1 tablet by mouth once daily. - vit C/vit E ac/lut/copper/zinc (PRESERVISION LUTEIN ORAL) Take by mouth. Meds Comments as of 01/03/2013: Krreal on hold January 03, 2013 Problem List As Of Date 05/24/2024 Noted Resolved Routine general medical examination at [facility]*02/04/2007 01/05/2012 Family history of cardiac arrest [Z82.49] 08/12/2012 Carpal tunnel syndrome of left wrist [G56.02] 01/03/2013 Encounter Status:Closed by CAROLYN MORGAN on 05/24/24 Normal [facility] RYLEE STEREO BX BREAST LTon [facility] STEREO BX BREAST LT * * *Final Repor t* * * * * * SEE BOTTOM OF REPORT FOR ADDENDED TEXT * * * DATE OF EXAM: May 18 2024 11:45AM RYAN 0630 - RYLEE STEREO BX BREAST LT / PROCEDURE REASON: N64.9-Breast disorder * * * * Physician Interpretation * * * * [place] [address] - - - - - - - - - - ADDENDED REPORT - - - - - - - - - - 05/23/2024 at 20:54:59 Addendum: The final pathology results of the patient's ultrasound guided core biopsy demonstrate the following; Site 1 - (left breast) - Fibroadenomatoid Changes. - Microcalcifications In Fibroadenomatoid Changes.. This is concordant with the imaging findings. RECOMMENDATION Site 1: Six month follow up mammogram Pathology results are as follows: Left breast, upper outer, calcifications, core biopsy, with tophat clip placement: - Fibroadenomatoid changes. - Microcalcifications in fibroadenomatoid change The breast imaging nurse will review these pathology results by phone with the patient. Patient should follow up with repeat imaging in six months. Interpreting Radiologist: María Christine M.D. Electronically signed on: 05/23/2024 - - - - - - - - - - ORIGINAL REPORT - - - - - - - - - - #[id number] - RYLEE STEREO BX BREAST LT HISTORY: 69 year old patient presents for a stereotactic core biopsy of grouped calcifications in the upper outer quadrant in the left breast. PATIENT CONSENT: A time out was performed immediately prior to procedure start with the radiology team, correctly identifying the patient name, date of , procedure, anatomy (including marking of site and side), patient position, relevant diagnostic and radiology test results, safety precautions, and procedure-specific equipment needs. The procedure was explained to the patient including the risks, benefits and alternatives. Medications and allergies were also reviewed. The risks, including but not limited to infection and bleeding, were reviewed by the performing physician and the patient agreed to undergo the procedure. The radiologist and technologist were present throughout the entire procedure. PROCEDURE: Correlation is made to exams dated: 04/05/2019 (mammogram), 10/25/2020 (mammogram), 10/28/2022 (mammogram), 03/09/2024 (mammogram) and 04/20/2024 (mammogram). Site 1: Audible Time Out: 1106 Procedure Start: 1108 Procedure End: 1118 A stereotactic biopsy was performed for the grouped calcifications located in the upper outer quadrant in the left breast. This was described on the previous mammography report. The skin was prepped in the usual manner. The abnormality was approached from the lateral aspect using an upright table. 10 ml of local anesthetic agent was administered. A skin jocelyn was made in the breast. A 12 gauge biopsy needle was placed adjacent to the grouped calcifications under computer guidance and confirmatory stereotactic mammography images were obtained to document needle placement. Once the needle was documented to be in the correct location, 7 specimens were obtained using the vacuum-assisted system. A top hat biopsy marker was then placed under mammogram guidance. A skin closure strip and a sterile dressing were applied to the access site. The specimens were sent to the laboratory for pathological analysis. Post-procedure mammogram: Localization device is displaced 2 cm lateral to the target. Post-procedure mammogram density: There are scattered areas of fibroglandular density. IMPRESSION: STEREOTACTIC GUIDED BIOPSY Site 1: Stereotactic biopsy of grouped calcifications in the upper outer quadrant in the left breast with placement of a top hat biopsy marker. Procedure was successful. Waiting for pathology result. An amendment will be issued to this report when pathology results become available. The specimen radiograph includes calcifications. Complications of this procedure was a small hematoma, which was treated with applied pressure. Interpreting Radiologist: María Christine M.D. Electronically signed on: 05/18/2024 Cuff Presser: CHRISTOPHER Transcribe Date/Time: May 18 2024 10:32A Dictated by : MARÍA CHRISTINE MD This examination was interpreted and the report reviewed and electronically signed by: MARÍA CHRISTINE MD on May 18 2024 11:53AM EST This document has been addended by: MARÍA CHRISTINE MD on May 23 2024 8:54PM EST [id number] [facility] stereo Guidance for biops y of Breast - lefton 05-18-2024 IMPRESSION: STEREOTACTIC GUIDED BIOPSY Site 1: Stereotactic biopsy of grouped calcifications in the upper outer quadrant in the left breast with placement of a top hat biopsy marker. Procedure was successful. Waiting for pathology result. An amendment will be issued to this report when pathology results become available. The imaged specimens includes calcifications. Complications of this procedure was a small hematoma, which was treated with applied pressure. Interpreting Radiologist: María Christine M.D. Electronically signed on: 05/18/2024 Cuff Presser: CHRISTOPHER Transcribe Date/Time: May 18 2024 10:32A Dictated by : MARÍA CHRISTINE MD This examination was interpreted and the report reviewed and electronically signed by: MARÍA CHRISTINE MD on May 18 2024 11:53AM EST [facility] * * *Final Report* * * DATE OF EXAM: May 18 2024 11:45AM RYAN 0630 - RYLEE STEREO BX BREAST LT / PROCEDURE REASON: N64.9-Breast disorder * * * * Physician Interpretation * * * * [facility] [address] [place] [address] #[id number] - [facility] STEREO BX BREAST LT HISTORY: 69 year old patient presents for a stereotactic guided core biopsy of grouped calcifications in the upper outer quadrant in the left breast. PATIENT CONSENT: A time out was performed immediately prior to procedure start with the radiology team, correctly identifying the patient name, date of , procedure, anatomy (including marking of site and side), patient position, relevant diagnostic and radiology test results, safety precautions, and procedure-specific equipment needs. The procedure was explained to the patient including the risks, benefits and alternatives. Medications and allergies were also reviewed. The risks, including but not limited to infection and bleeding, were reviewed by the performing physician and the patient agreed to undergo the procedure. The radiologist and technologist were present throughout the entire procedure. PROCEDURE: Correlation is made to exams dated: 04/05/2019 (mammogram), 10/25/2020 (mammogram), 10/28/2022 (mammogram), 03/09/2024 (mammogram) and 04/20/2024 (mammogram). Site 1: Audible Time Out: 1106 Procedure Start: 1108 Procedure End: 1118 A stereotactic guided biopsy was performed for the grouped calcifications located in the upper outer quadrant in the left breast. This was described on the previous mammography report. The skin was prepped in the usual manner. The abnormality was approached from the lateral aspect using an upright table. 10 ml of local anesthetic agent was administered. A skin jocelyn was made in the breast. A 12 gauge biopsy needle was placed adjacent to the grouped calcifications under computer guidance and confirmatory stereotactic mammography images were obtained to document needle placement. Once the needle was documented to be in the correct location, 7 specimens were obtained using the vacuum-assisted system. A top hat biopsy marker was then placed under mammogram guidance. A skin closure strip and a sterile dressing were applied to the access site. The specimens were sent to the laboratory for pathological analysis. Post-procedure mammogram: Localization device is displaced 2 cm lateral to the target. Post-procedure mammogram density: There are scattered areas of fibroglandular density. [place] [facility] Provider, [facility] - 05/18/2024 * * *Final Report* * * DATE OF EXAM: May 18 2024 11:45AM RYAN 0630 - [facility] STEREO BX BREAST LT / PROCEDURE REASON: N64.9-Breast disorder * * * * Physician Interpretation * * * * [facility] [address] [place] [address] #[id number] - RYLEE STEREO BX BREAST LT HISTORY: 69 year old patient presents for a stereotactic guided core biopsy of grouped calcifications in the upper outer quadrant in the left breast. PATIENT CONSENT: A time out was performed immediately prior to procedure start with the radiology team, correctly identifying the patient name, date of , procedure, anatomy (including marking of site and side), patient position, relevant diagnostic and radiology test results, safety precautions, and procedure-specific equipment needs. The procedure was explained to the patient including the risks, benefits and alternatives. Medications and allergies were also reviewed. The risks, including but not limited to infection and bleeding, were reviewed by the performing physician and the patient agreed to undergo the procedure. The radiologist and technologist were present throughout the entire procedure. PROCEDURE: Correlation is made to exams dated: 04/05/2019 (mammogram), 10/25/2020 (mammogram), 10/28/2022 (mammogram), 03/09/2024 (mammogram) and 04/20/2024 (mammogram). Site 1: Audible Time Out: 1106 Procedure Start: 1108 Procedure End: 1118 A stereotactic guided biopsy was performed for the grouped calcifications located in the upper outer quadrant in the left breast. This was described on the previous mammography report. The skin was prepped in the usual manner. The abnormality was approached from the lateral aspect using an upright table. 10 ml of local anesthetic agent was administered. A skin jocelyn was made in the breast. A 12 gauge biopsy needle was placed adjacent to the grouped calcifications under computer guidance and confirmatory stereotactic mammography images were obtained to document needle placement. Once the needle was documented to be in the correct location, 7 specimens were obtained using the vacuum-assisted system. A top hat biopsy marker was then placed under mammogram guidance. A skin closure strip and a sterile dressing were applied to the access site. The specimens were sent to the laboratory for pathological analysis. Post-procedure mammogram: Localization device is displaced 2 cm lateral to the target. Post-procedure mammogram density: There are scattered areas of fibroglandular density. IMPRESSION IMPRESSION: STEREOTACTIC GUIDED BIOPSY Site 1: Stereotactic biopsy of grouped calcifications in the upper outer quadrant in the left breast with placement of a top hat biopsy marker. Procedure was successful. Waiting for pathology result. An amendment will be issued to this report when pathology results become available. The imaged specimens includes calcifications. Complications of this procedure was a small hematoma, which was treated with applied pressure. Interpreting Radiologist: María Christine M.D. Electronically signed on: 05/18/2024 Cuff Presser: CHRISTOPHER Transcribe Date/Time: May 18 2024 10:32A Dictated by : MARÍA CHRISTINE MD This examination was interpreted and the report reviewed and electronically signed by: MARÍA CHRISTINE MD on May 18 2024 11:53AM EST [facility] Radiology Study observation (narrative) [facility] stereo Guidance for biops y of Breast - leftOrdered By: Ccf Provider on 05-18-2024 [facility] SURGICAL PATHOLOGYon 024 CASE REPORT [facility] Comment on above: Order Comment: Elyssa mandujano Type: TISSUE SPECIMEN Ordering Facility: [facility] Address: [address] [place] [address] Result Comment: Surg ica Pathology Report Case: [id number] Authorizing Provider: María Christine MD Collected: 05/18/2024 11:13 AM Ordering Location: Mammography Received: 05/18/2024 12:03 PM Pathologist: Maged Meredith MD Specimen: Breast, Left, Core Biopsy, Left uppoer outer calcifications; tophat clip Performed By: #### S #### [facility] CLIA [id number] [address] [place], [place] [address]K [address] [facility] FINAL DIAGNOSIS Normal [facility] Comment on above: Order Comment: Speckavon mandujano Type: TISSUE SPECIMEN Ordering Facility: [facility] Address: [address] [place] [address] Result Comment: Left breast, upper outer, calcifications, core biopsy, with tophat clip placement: - Fibroadenomatoid changes. - Microcalcifications in fibroadenomatoid changes. RS/rs 05/23/24 Performed By: #### S #### [facility] CLIA [id number] [address] [place] [address] OF [facility] FINAL PERFORMING LAB [facility] Comment on above: Order Comment: Elyssa mandujano Type: TISSUE SPECIMEN Ordering Facility: [facility] Address: [address] [place] [address] Result Comment: Diag nostic interpretation performed at [facility], [address] [place] [address] CLIA# [id number] Community Nurse: Rodolfo Rodriguez M.D. Performed By: #### S #### [facility] CLIA [id number] [address] [place] [address] OF [facility] GROSS DESCRIPTION [facility] Comment on above: Order Comment: Elyssa mandujano Type: TISSUE SPECIMEN Ordering Facility: [facility] Address: [address] [place] [address] Result Comment: Noel esparza, Left, Core Biopsy Received in formalin labeled as left breast core are multiple segments of cylindrical tissue aggregating to 3.0 x 2.0 x 0.2 cm, yellow-white in red-brown and of a soft consistency. The specimen was removed from the patient at 11:13 05/18/2024. On the same day, the specimen was placed in formalin at 11:20. Totally submitted in formalin in two cassettes. [facility] May 18, 2024 3:40 PM Gross examination performed at [facility], [address] [place] [address] Performed By: #### S #### [facility] CLIA [id number] [address] [place] [address] OF [facility] CNOVon 05-02-2024 CNOV Office Visit (GENS ) LIZZETH BERRY ([id number]) 1955 F Date Time Provider Department 05/02/24 2:00 PM RAMONE MCMAHON During your visit today, we recorded the following information about you: Temperature Pulse Blood pressure Weight 97.1 degrees 103/minute 118/81 95.2 kg Height 1.651 m Selene Rush RN 05/02/2024 1:59 PM Signed REVIEW OF SYSTEMS: General: The patient denies fatigue, denies weight loss, denies weight gain, denies feeling hot, and denies feelings of cold. Eyes: The patient denies glaucoma, denies eye injury/surgery, wears glasses or contacts. Ear/Nose/Throat: The patient NOTES allergies, denies hayfever, denies ear infections, and denies bloody noses. Cardiovascular: The patient denies chest pain, denies heart disease, denies high blood pressure,denies cardiac stent, denies prior heart attack, denies irregular heart beat, denies high cholesterol, denies poor circulation, denies heart failure, other cardiac issues, denies claudication, denies cold feet, denies peripheral arterial stent. Respiratory: The patient denies tuberculosis, denies pneumonia, denies frequent cough, denies pulmonary embolism, denies shortness of breath, and denies coughing up blood. Gastrointestinal: The patient denies difficulty swallowing, NOTES acid reflux, denies ulcers, denies vomiting, denies jaundice/hepatitis, denies gallbladder problems, denies black or tarry stools, denies hemorrhoids, denies bleeding from rectum, denies diverticulitis, denies constipation, denies diarrhea, denies loss of stool control, and denies hernias. Kidney/Bladder: The patient denies kidney stones, denies urine infections, and denies bloody urine. Skin: The patient denies a history of skin cancer, denies bleeding/changing moles, and denies a history of skin rash. Neurologic: The patient denies a history of epilepsy/convulsions, denies headaches, denies head/spinal injuries, and denies stroke/TIA. Psychiatric: The patient denies psychiatric medications, denies depression, and denies voices, denies substance abuse. Endocrine: The patient denies thyroid disorders, denies diabetes, and denies hormonal problems. Hematologic: The patient denies a history of bruising, denies bleeding, and denies anemia, denies blood clots. Infections: The patient denies a history of measles and mumps, denies rheumatic fever, and denies sexually transmitted diseases. Musculoskeletal: The patient denies back pain/injury, denies back problems, denies sciatica, NOTES knee/foot trouble, NOTES arthritis, or denies gout. When was patient's last Mammogram screening? 03/09/2024, 04/20/2024 Last Colonoscopy: 03/01/2018 AME Alvarado Daniel P, MD 05/05/2024 12:39 PM Signed HISTORY AND PHYSICAL - BREAST COMPLAINT Lizzeth Berry 1955 REFERRING PHYSICIAN: Robe Garcia MD CHIEF COMPLAINT: Microcalcification of left breast on mammogram (primary encounter diagnosis) HPI: The patient is a 69 year old female with a complaint of an abnormal mammogram. The patient had a mammogram with ultrasound on 04/20/24 which demonstrated : The patient denies a history of breast masses. She does perform a self breast exam routinely. She notes no skin changes. She denies nipple discharge. She notes no axillary masses. She notes no family history of breast problems. She notes no significant breast trauma or breast difficulties in the past. The patient is being seen by me today at the request of Dr. Garcia for my opinion and advice regarding Microcalcification of left breast on mammogram (primary encounter diagnosis). PAST MEDICAL HISTORY Diagnosis Date Abnormal mammogram of left breast 04/20/2024 Carpal tunnel syndrome bilateral wrists GERD (gastroesophageal reflux disease) PAST SURGICAL HISTORY Procedure Laterality Date APPENDECTOMY 1989 COLONOSCOPY FLX DX W/COLLJ SPEC WHEN PFRMD 01/31/2008 Colonoscopy [facility] Dr. Herman COLONOSCOPY FLX DX W/COLLJ SPEC WHEN PFRMD 03/01/2018 Dr. Hreman-next colonoscopy in 10 years-02/2028 LIG/TRNSXJ FLP TUBE ABDL/VAG APPR UNI/BI 1987 Tubal ligation NEUROPLASTY AND/TRANSPOS MEDIAN NRV CARPAL TUNNE 11/22/2012 right NEUROPLASTY AND/TRANSPOS MEDIAN NRV CARPAL TUNNE 01/17/2013 LEFT Real Intent COVID-19 VACCINE, AGE 12+ YR (PURPLE TOP) 08/2020 both vaccines completed in August 2020 STEREOTACTIC CORE BIOPSY 08/17/2006 RIGHT BREAST BIOPSY TOTAL KNEE REPLACEMENT Right 08/06/2021 Current Outpatient Medications Medication Sig Dispense Refill multivit with minerals/lutein (MULTIVITAMIN 50 PLUS ORAL) Take 1 tablet by mouth once daily. vit C/vit E ac/lut/copper/zinc (PRESERVISION LUTEIN ORAL) Take by mouth. No current facility-administered medications for this visit. ALLERGIES: Augmentin [Amoxicillin-Pot Clavulanate] PERSONAL HISTORY: Social History Tobacco Use (more content not included)... Normal [facility] DBT Breast - left diagnostic for implanton 04-20-2024 IMPRESSION: Calcifications in the left breast are suspicious of malignancy. A stereotactic biopsy is recommended. BI-RADS Category 4: Suspicious RISK: Based on the Tyrer-Cuzick (TC) risk assessment model, this patient has a 3.2% lifetime risk of developing breast cancer, meaning they are at average risk for developing breast cancer. However, this is only an estimate based on available history provided on the patient's questionnaire. We encourage all patients to talk with their providers about these results, further recommendations for managing breast health, and appropriate supplemental screening options if the patient has dense breast tissue. Interpreting Radiologist: Tomasz Marmolejo M.D. Electronically signed on: 04/20/2024 Cuff Presser: CHRISTOPHER Transcribe Date/Time: Apr 20 2024 11:41A Dictated by: TOMASZ MARMOLEJO MD This examination was interpreted and the report reviewed and electronically signed by: TOAMSZ MARMOLEJO MD on Apr 20 2024 11:54AM [facility] DIVISION OF RADIOLOGY * * *Final Report* * * DATE OF EXAM: Apr 20 2024 11:42AM [facility] 0628 - RYLEE OANHG Vicente RODRÍGUEZ LT / PROCEDURE REASON: Abnormal screening mammogram * * * * Physician Interpretation * * * * RESULT: [place] [address] [place] [id number] HISTORY: Patient is 69 years old and is seen for diagnostic evaluation of abnormal mammogram in the left breast. COMPARISON STUDIES: The present examination has been compared to prior imaging studies dated 10/25/2020 (mammogram), 10/28/2022 (mammogram) and 03/09/2024 (mammogram). MAMMOGRAM TECHNIQUE: The study was acquired using full field digital technology and interpreted from soft copy. Digital Breast Tomosynthesis (DBT) images were obtained and used to assist in the interpretation of this examination. Computer-aided detection was utilized by the radiologist in the interpretation of this examination. MAMMOGRAM FINDINGS: There are scattered areas of fibroglandular density. There are grouped fine pleomorphic calcifications in the upper outer quadrant of the left breast. DIVISION OF RADIOLOGY Provider, [facility] - 04/20/2024 * * *Final Report* * * DATE OF EXAM: Apr 20 2024 11:42AM [facility] 0628 - RYLEE FRANK RODRÍGUEZ LT / PROCEDURE REASON: Abnormal screening mammogram * * * * Physician Interpretation * * * * RESULT: [place] [id number] HISTORY: Patient is 69 years old and is seen for diagnostic evaluation of abnormal mammogram in the left breast. COMPARISON STUDIES: The present examination has been compared to prior imaging studies dated 10/25/2020 (mammogram), 10/28/2022 (mammogram) and 03/09/2024 (mammogram). MAMMOGRAM TECHNIQUE: The study was acquired using full field digital technology and interpreted from soft copy. Digital Breast Tomosynthesis (DBT) images were obtained and used to assist in the interpretation of this examination. Computer-aided detection was utilized by the radiologist in the interpretation of this examination. MAMMOGRAM FINDINGS: There are scattered areas of fibroglandular density. There are grouped fine pleomorphic calcifications in the upper outer quadrant of the left breast. IMPRESSION IMPRESSION: Calcifications in the left breast are suspicious of malignancy. A stereotactic biopsy is recommended. BI-RADS Category 4: Suspicious RISK: Based on the Tyrer-Cuzick (TC) risk assessment model, this patient has a 3.2% lifetime risk of developing breast cancer, meaning they are at average risk for developing breast cancer. However, this is only an estimate based on available history provided on the patient's questionnaire. We encourage all patients to talk with their providers about these results, further recommendations for managing breast health, and appropriate supplemental screening options if the patient has dense breast tissue. Interpreting Radiologist: Tomasz Marmolejo M.D. Electronically signed on: 04/20/2024 Cuff Presser: CHRISTOPHER Transcriazul Date/Time: Apr 20 2024 11:41A Dictated by: TOMASZ MARMOLEJO MD This examination was interpreted and the report reviewed and electronically signed by: TOMASZ MARMOLEJO MD on Apr 20 2024 11:54AM EST [facility] Radiology Study observation (narrative) [facility] DBT Breast - left diagnostic for implantOrdered By: Ccf Provider on 04-20-2024 [facility] RYLEE DIAG W MARCOS LTon 024 RYLEE DIAG W MARCOS LT * * *Final Report* * * DATE OF EXAM: Apr 20 2024 11:42AM [facility] 0628 - RYLEE DIAG W MARCOS LT / PROCEDURE REASON: Abnormal screening mammogram * * * * Physician Interpretation * * * * RESULT: [place] [address] [place] [address] HISTORY: Patient is 69 years old and is seen for diagnostic evaluation of abnormal mammogram in the left breast. COMPARISON STUDIES: The present examination has been compared to prior imaging studies dated 10/25/2020 (mammogram), 10/28/2022 (mammogram) and 03/09/2024 (mammogram). MAMMOGRAM TECHNIQUE: The study was acquired using full field digital technology and interpreted from soft copy. Digital Breast Tomosynthesis (DBT) images were obtained and used to assist in the interpretation of this examination. Computer-aided detection was utilized by the radiologist in the interpretation of this examination. MAMMOGRAM FINDINGS: There are scattered areas of fibroglandular density. There are grouped fine pleomorphic calcifications in the upper outer quadrant of the left breast. IMPRESSION: Calcifications in the left breast are suspicious of malignancy. A stereotactic biopsy is recommended. BI-RADS Category 4: Suspicious RISK: Based on the Tyrer-Cuzick (TC) risk assessment model, this patient has a 3.2% lifetime risk of developing breast cancer, meaning they are at average risk for developing breast cancer. However, this is only an estimate based on available history provided on the patient's questionnaire. We encourage all patients to talk with their providers about these results, further recommendations for managing breast health, and appropriate supplemental screening options if the patient has dense breast tissue. Interpreting Radiologist: Tomasz Marmolejo M.D. Electronically signed on: 04/20/2024 Cuff Presser: CHRISTOPHER Transcriazul Date/Time: Apr 20 2024 11:41A Dictated by: TOMASZ MARMOLEJO MD This examination was interpreted and the report reviewed and electronically signed by: TOMASZ MARMOLEJO MD on Apr 20 2024 11:54AM EST [id number] Normal [facility] CNPNon 03-11-2024 CNPN Telephone (RADMN) LIZZETH BERRY ([id number]) 1955 F Date Time Provider Department 03/11/24 OLIMPIA HENAO RADNH During your visit today, we recorded the following information about you: Allergies As of Date: 03/11/2024 Noted Allergy Reaction AUGMENTIN (AMOXICILLIN-POT CLAVUL*07/03/2006 2 - Rash Date Reviewed: 10/28/2022 Reviewed by: Robe Garcia MD - Fully Assessed Reason for Visit: Mammogram Result Call Back [[id number]] Prescriptions as of 03/11/2024 - vit C/vit E ac/lut/copper/zinc (PRESERVISION LUTEIN ORAL) Take by mouth. Meds Comments as of 01/03/2013: Yolis on hold January 03, 2013 Problem List As Of Date 03/11/2024 Noted Resolved Routine general medical examination at [facility]*02/04/2007 01/05/2012 Family history of cardiac arrest [Z82.49] 08/12/2012 Carpal tunnel syndrome of left wrist [G56.02] 01/03/2013 Encounter Status:Closed by FÁTIMA TREVINO on 03/11/24 Normal [facility] CNCOon 03-10-2024 CNCO HNO ID: [id number] Author: COORDINATOR, MAMMOGRAPHY, ? Service: ? Author Type: Physician Type: Letter Filed: 03/10/2024 16:04 Note Text: March 10, 2024 PID: [id number] Lizzeth Berry [address] [place] [address] Dear Ms. Berry, Your recent breast imaging exam on 03/09/2024 showed a possible finding that requires additional imaging studies for a complete evaluation. Most such findings are probably benign (not cancer). Breast tissue can be either dense or not dense. Dense tissue makes it harder to find breast cancer on a mammogram and also raises the risk of developing breast cancer. Your breast tissue is not dense. Talk to your healthcare provider about breast density, risks for breast cancer, and your individual situation. If you have a healthcare provider who ordered/prescribed your screening mammogram: Please call [phone] or EXT: [phone] to schedule an appointment for your additional imaging (if you have not already done so). If you DO NOT have a healthcare provider (ie you did not have an order/prescription for your screening mammogram): Please call to schedule an appointment for your additional imaging (if you have not already done so). You must have an order/prescription from your physician when calling to schedule your appointment. If your order/prescription is not electronic, you must bring the hard copy with you on the day of your exam to avoid delays. Your imaging studies and reports are kept on file at [facility] as part of your permanent medical record, and are available for your continuing care. Thank you for allowing us to help in meeting your health care needs. Sincerely, Dr. Henao Interpreting Radiologist [facility] (Additional imaging) Normal [facility] Andrew 03-10-2024 MIGUEL Telephone (OBGYWM) LIZZETH BERRY ([id number]) 1955 F Date Time Provider Department 03/10/24 ROBE GARCIA During your visit today, we recorded the following information about you: Eunice Santa RN 03/10/2024 4:58 PM Signed ----- Message from Robe Garcia MD sent at 03/10/2024 4:41 PM EDT ----- Needs additional imaging MD Arina Gomez Trisha, RN 03/10/2024 5:00 PM Signed Please file orders. AME Sabillon Karmon, MD 03/10/2024 5:04 PM Signed Orders filed MD Alina Gomez Jennifer, RN 03/11/2024 8:27 AM Signed Left message for patient to call office. AME Manning Lindsey, RN 03/11/2024 8:54 AM Signed Patient notified and voiced understanding. Transferred to schedule diagnostic mammogram. Margaret Torre RN Allergies As of Date: 03/10/2024 Noted Allergy Reaction AUGMENTIN (AMOXICILLIN-POT CLAVUL*07/03/2006 2 - Rash Date Reviewed: 10/28/2022 Reviewed by: Robe Garcia MD - Fully Assessed Reason for Visit: Results [95] Primary Visit Diagnosis:Abnormal screening mammogram [R92.8] Order(s):US BREAST LTD LEFT [[id number]] Order #: [id number] FUTURE [facility] DIAGNOSTIC LEFT [[id number]] Order #: [id number] FUTURE Prescriptions as of 03/11/2024 - vit C/vit E ac/lut/copper/zinc (PRESERVISION LUTEIN ORAL) Take by mouth. Meds Comments as of 01/03/2013: Yolis on hold January 03, 2013 Problem List As Of Date 03/10/2024 Noted Resolved Routine general medical examination at [facility]*02/04/2007 01/05/2012 Family history of cardiac arrest [Z82.49] 08/12/2012 Carpal tunnel syndrome of left wrist [G56.02] 01/03/2013 Encounter Status:Closed by MARGARET TORRE on 03/11/24 Normal [facility] Breast Screeningon 2023 * * *Final Report* * * DATE OF EXAM: Mar 09 2024 11:27AM [facility] 0581 - [facility] SCREENING / PROCEDURE REASON: multiple diagnoses * * * * Physician Interpretation * * * * RESULT: #[id number] - RYLEE SCREENING BILATERAL DIGITAL SCREENING MAMMOGRAM WITH CAD: 03/09/2024 HISTORY: /Screening Mammogram - patient reports NO breast symptoms /priors available for comparison Multiple Diagnoses. RESULT: TECHNIQUE: The study was acquired using full field digital technology and interpreted from soft copy. Current study was also evaluated with a Computer Aided Detection (CAD). Comparison is made to exams dated: 10/28/2022 mammogram, 10/25/2020 mammogram - [facility], and 04/05/2019 mammogram - [facility]. There are scattered areas of fibroglandular density. There is a biopsy clip in the right breast. There is a possible cluster of calcifications in the left breast central to the nipple middle depth. No other significant masses, calcifications, or other findings are seen in either breast. DIVISION OF RADIOLOGY Provider, [facility] - 03/10/2024 * * *Final Report* * * DATE OF EXAM: Mar 09 2024 11:27AM [facility] 0581 - [facility] SCREENING / PROCEDURE REASON: multiple diagnoses * * * * Physician Interpretation * * * * RESULT: #[id number] - RYLEE SCREENING BILATERAL DIGITAL SCREENING MAMMOGRAM WITH CAD: 03/09/2024 HISTORY: /Screening Mammogram - patient reports NO breast symptoms /priors available for comparison Multiple Diagnoses. RESULT: TECHNIQUE: The study was acquired using full field digital technology and interpreted from soft copy. Current study was also evaluated with a Computer Aided Detection (CAD). Comparison is made to exams dated: 10/28/2022 mammogram, 10/25/2020 mammogram - [facility], and 04/05/2019 mammogram - [facility]. There are scattered areas of fibroglandular density. There is a biopsy clip in the right breast. There is a possible cluster of calcifications in the left breast central to the nipple middle depth. No other significant masses, calcifications, or other findings are seen in either breast. IMPRESSION IMPRESSION: INCOMPLETE: NEED ADDITIONAL IMAGING EVALUATION The possible cluster of calcifications in the left breast is indeterminate. Additional views are recommended. Olimpia Henao M.D., jr/yung:03/10/2024 16:04:08 Double Back Operator(s): RT Jermaine(Ella)(M), [facility] letter sent: Additional Imaging Needed Mammogram BI-RADS: Category 0: Incomplete: Need Additional Imaging Evaluation If this report indicates you need additional imaging, and it has NOT yet been performed, please call , to schedule. We sincerely thank you for choosing the [facility] for your breast imaging needs. Multiple national specialty organizations have released breast cancer screening guidelines for women at average risk for developing breast cancer - guidelines that are based on both evidence and opinion, yet differ on when to start and how often to screen for breast cancer. With representation from Breast Imaging, Internal Medicine, Women's Health, Family Medicine, and Medical/Surgical Oncology, the [facility] has carefully reviewed the data and reached the following consensus: 1) All women should engage in shared decision-making with their providers to decide when to start and how often to screen; 2) All women should have the opportunity to start screening mammography at age 40; 3) For women ages 45-55, we recommend annual screening mammograms; 4) For women ages 55 and over, we support both the transition from an annual to a biennial interval if this aligns more with patient's values and preferences, or continuation with annual screening; 5) All women should discuss with their providers when to stop screening mammograms. Cuff Presser: Yung Transcribe Date/Time: Mar 09 2024 11:17A Dictated by: OLIMPIA HENAO MD This examination was interpreted and the report reviewed and electronically signed by: OLIMPIA HENAO MD on Mar 10 2024 4:04PM EST [facility] MG Breast ScreeningOrdered B y: [facility] Provider on 03-10-2024 [facility] SCREENINGon 03-09-2024 [facility] SCREENING * * *Final Report* * * DATE OF EXAM: Mar 09 2024 11:27AM JRW [id number] - [facility] SCREENING / PROCEDURE REASON: multiple diagnoses * * * * Physician Interpretation * * * * RESULT: #[id number] - [facility] SCREENING BILATERAL DIGITAL SCREENING MAMMOGRAM WITH CAD: 03/09/2024 HISTORY: /Screening Mammogram - patient reports NO breast symptoms /priors available for comparison Multiple Diagnoses. RESULT: TECHNIQUE: The study was acquired using full field digital technology and interpreted from soft copy. Current study was also evaluated with a Computer Aided Detection (CAD). Comparison is made to exams dated: 10/28/2022 mammogram, 10/25/2020 mammogram - [facility], and 04/05/2019 mammogram - [facility]. There are scattered areas of fibroglandular density. There is a biopsy clip in the right breast. There is a possible cluster of calcifications in the left breast central to the nipple middle depth. No other significant masses, calcifications, or other findings are seen in either breast. IMPRESSION: INCOMPLETE: NEED ADDITIONAL IMAGING EVALUATION The possible cluster of calcifications in the left breast is indeterminate. Additional views are recommended. Olimpia Henao M.D., jr/yung:03/10/2024 16:04:08 Double Back Operator(s): RT Jermaine(R)(M), [facility] letter sent: Additional Imaging Needed Mammogram BI-RADS: Category 0: Incomplete: Need Additional Imaging Evaluation If this report indicates you need additional imaging, and it has NOT yet been performed, please call , to schedule. We sincerely thank you for choosing the [facility] for your breast imaging needs. Multiple national specialty organizations have released breast cancer screening guidelines for women at average risk for developing breast cancer - guidelines that are based on both evidence and opinion, yet differ on when to start and how often to screen for breast cancer. With representation from Breast Imaging, Internal Medicine, Women's Health, Family Medicine, and Medical/Surgical Oncology, the [facility] has carefully reviewed the data and reached the following consensus: 1) All women should engage in shared decision-making with their providers to decide when to start and how often to screen; 2) All women should have the opportunity to start screening mammography at age 40; 3) For women ages 45-55, we recommend annual screening mammograms; 4) For women ages 55 and over, we support both the transition from an annual to a biennial interval if this aligns more with patient's values and preferences, or continuation with annual screening; 5) All women should discuss with their providers when to stop screening mammograms. Cuff Presser: Yung Transcribe Date/Time: Mar 09 2024 11:17A Dictated by: OLIMPIA HENAO MD This examination was interpreted and the report reviewed and electronically signed by: OLIMPIA HENAO MD on Mar 10 2024 4:04PM EST [id number] Normal [facility] Breast Screeningon 2023 Radiology Study observation (narrative) [facility] CNPNon 03-03-2024 CNPN Telephone (OBGYWM) LIZZETH BERRY ([id number]) 1955 F Date Time Provider Department 03/03/24 ROBE GARCIA OBGYWM During your visit today, we recorded the following information about you: Keri Fuller RN 03/03/2024 2:36 PM Signed Patient requesting order for Mammogram. Order pending. Has upcoming Mamm appt on 03/09/24. AME Manning Karmon, MD 03/03/2024 3:01 PM Signed Filed Robe Garcia MD Allergies As of Date: 03/03/2024 Noted Allergy Reaction AUGMENTIN (AMOXICILLIN-POT CLAVUL*07/03/2006 2 - Rash Date Reviewed: 10/28/2022 Reviewed by: Robe Garcia MD - Fully Assessed Reason for Visit: Orders [681] Primary Visit Diagnosis:Breast screening [Z12.39] Other Visit Diagnosis:Encounter for screening mammogram for malignant neoplasm of breast [Z12.31] Order(s):RYLEE SCREENING [[id number]] Order #: [id number] FUTURE Prescriptions as of 03/03/2024 - vit C/vit E ac/lut/copper/zinc (PRESERVISION LUTEIN ORAL) Take by mouth. Meds Comments as of 01/03/2013: Yolis on hold January 03, 2013 Problem List As Of Date 03/03/2024 Noted Resolved Routine general medical examination at [facility]*02/04/2007 01/05/2012 Family history of cardiac arrest [Z82.49] 08/12/2012 Carpal tunnel syndrome of left wrist [G56.02] 01/03/2013 Encounter Status:Closed by [facility]INTMWS[facility] LIZZETH BERRY ([id number]) 1955 F Date Time Provider Department 12/29/23 LARISA GUEVARA INTJoshWS During your visit today, we recorded the following information about you: Larisa Guevara, CECY.JILLIAN 12/29/2023 9:47 AM Signed Patient has not been seen in two years. Please call and schedule Medicare Wellness visit Larisa Guevara APRN.Khadra Bosch RN 12/29/2023 10:30 AM Signed Called and left a voicemail for the Patient to call back and ask for a nurse to receive the providers message. AME Forrester Toni, MA 12/30/2023 12:25 PM Signed Spoke with patient - states that she does not want to schedule an appointment at this time and to remove Dr. Rivas as PCP. Allergies As of Date: 12/29/2023 Noted Allergy Reaction AUGMENTIN (AMOXICILLIN-POT CLAVUL*07/03/2006 2 - Rash Date Reviewed: 10/28/2022 Reviewed by: Robe Garcia MD - Fully Assessed Reason for Visit: Appointment [186] Prescriptions as of 12/30/2023 - vit C/vit E ac/lut/copper/zinc (PRESERVISION LUTEIN ORAL) Take by mouth. Meds Comments as of 01/03/2013: Yolis on January 03, 2013 Problem List As Of Date 12/29/2023 Noted Resolved [facility]*02/04/2007 01/05/2012 Family history of cardiac arrest [Z82.49] 08/12/2012 Carpal tunnel syndrome of left wrist [G56.02] 01/03/2013 Encounter Status:Closed by NILESH ANDERSON on 12/30/23 Normal [facility] Basophil percentageon 2021 Chloride [Moles/Vol] 106 mmol/L 98-107 [facility] Work Phone: Glucose [Mass/Vol] 150 mg/dL 74-106 [facility] Work Phone: Comment on above: Fasting Glucose resu lt greater than or equal to 126 mg/dL suggests DIABETES MELLITUS per A.D.A. criteria. Potassium [Moles/Vol] 3.9 mmol/L 3.5-5.1 [facility] Work Phone: Sodium [Moles/Vol] 139 mmol/L 136-145 [facility] Work Phone: [phone] WBC (Bld) [#/Vol] 15.3 10*3/uL 4.4-11.0 [facility] Work Phone: Blood erythrocytes count (nu mber/volume)on 08-07-2021 RBC (Bld) [#/Vol] 3.71 10*6/uL 4.2-5.4 [facility] Work Phone: [phone] Blood hemoglobin measurement (mass/volume)on 08-07-2021 Hemoglobin (Bld) [Mass/Vol] 9.9 g/dL 12.0-15.0 [facility] Work Phone: [phone] Blood platelet mean volumeon 08-07-2021 Platelet mean volume (Bld) [Entitic vol] 10.5 fL 6.2-12.0 [facility] Work Phone: [phone] Determination of erythrocyte mean corpuscular volume (MCV)on 08-07-2021 MCV (RBC) [Entitic vol] 82.5 fL 81-99 [facility] Work Phone: [phone] Hematocrit Auto (Bld) [Volum e fraction]on 08-07-2021 Hematocrit (Bld) [Volume fraction] 30.6 % 37-47 [facility] Work Phone: [phone] Laboratory - Chemistry and C hemistry - challengeon 08-07-2021 CO2 [Moles/Vol] 26.0 mmol/L 21.0-32.0 [facility] Work Phone: [phone] Urea nitrogen/Creatinine [Mass ratio] 16.3 mg/mg 10-20 [facility] Work Phone: [phone] Laboratory - Hematology and Cell countson 08-07-2021 Erythrocyte distribution width (RBC) [Entitic vol] 48.8 fL 35.1-43.9 [facility] Work Phone: [phone] Erythrocyte distribution width (RBC) [Ratio] 16.1 % 11.6-14.6 [facility] Work Phone: [phone] MCH (RBC) [Entitic mass] 26.7 pg 27.0-32.0 [facility] Work Phone: [phone] MCHC Auto (RBC) [Mass/Vol]on 08-07-2021 MCHC (RBC) [Mass/Vol] 32.4 g/dL 32-36 [facility] Work Phone: No Panel Informationon 08-07 Estimated Creatinine Clearance Calc 52.66 ml/min [facility] Work Phone: [phone] GFR (MDRD) Amer 78 mL/min >60 [facility] Work Phone: [phone] Comment on above: GFR Calc Estimated GFR (MDRD) Non-Af Amer 65 mL/min >60 [facility] Work Phone: [phone] Comment on above: Non- GFR Calc Platelets bldon 08-07-2021 Platelets (Bld) [#/Vol] 238 10*3/uL 150-450 [facility] Work Phone: [phone] Serum or plasma calcium raúl urement (mass/volume)on 08-07-2021 Calcium [Mass/Vol] 8.5 mg/dL 8.5-10.1 [facility] Work Phone: Serum or plasma creatinine m easurement (mass/volume)on 08-07-2021 Creatinine [Mass/Vol] 0.92 mg/dL 0.55-1.02 [facility] Work Phone: Comment on above: The validity of the calculated GFR & GFRAA in patients over 70 years has not been determined. Clinical correlation is essential. Serum or plasma urea nitroge n measurement (mass/volume)on 08-07-2021 Urea nitrogen [Mass/Vol] 15 mg/dL 7-18 [facility] Work Phone: Thin prep Papanicolaou smear with manual screeningon 08-07-2021 Thin prep Papanicolaou smear with manual screening 7 5-15 [facility] Work Phone: Glucose Glucometer (BldC) [M ass/Vol]on 08-06-2021 Glucose [Mass/Vol] 100 mg/dL 70-110 [facility] Work Phone: Comment on above: MANAGEMENT OF PATIEN T CARE PER NURSING PROTOCOL Absolute lymphocyte counton 07-26-2021 Lymphocytes Auto (Unsp spec) [#/Vol] 1.72 10*3/uL 0.83-4.51 [facility] Work Phone: Basophil percentageon 2021 Basophils/100 WBC (Bld) 0.9 % 0-1 [facility] Work Phone: Bilirubin [Mass/Vol] 0.40 mg/dL 0.20-1.00 [facility] Work Phone: Comment on above: For patients on eltr ombopag therapy, use of Dimension [place] TBIL is not recommended. Eosinophils/100 WBC (Bld) 1.2 % 0-5 [facility] Work Phone: Neutrophils (Bld) [#/Vol] 7.0 10*3/uL 2.0-7.7 [facility] Work Phone: Neutrophils/100 WBC (Bld) 73.0 % 47-70 [facility] Work Phone: Protein [Mass/Vol] 7.6 g/dL 6.4-8.2 [facility] [place] [place] Work Phone: Blood lymphocytes/100 leukoc yteson 07-26-2021 Lymphocytes/100 WBC (Bld) 18.0 % 19-41 [facility] Work Phone: Blood monocytes/100 leukocyt eson 07-26-2021 Monocytes/100 WBC (Bld) 6.7 % 0-10 [facility] Work Phone: Direct bilirubinon Bilirubin.direct [Mass/Vol] 0.07 mg/dL 0.00-0.30 [facility] Work Phone: INR in Blood by Coagulation assayon 07-26-2021 INR Coag (Bld) [Relative time] 1.1 {INR} [facility] Work Phone: Laboratory - Chemistry and C hemistry - challengeon 07-26-2021 ALP [Catalytic activity/Vol] 99 U/L 45-117 [facility] Work Phone: ALT [Catalytic activity/Vol] 19 U/L 13-56 [facility] Work Phone: Globulin (S) [Mass/Vol] 4.0 g/dL 2.2-4.2 [facility] Work Phone: Magnesium [Mass/Vol] 2.4 mg/dL [facility] Work Phone: Comment on above: Performed at: [facility] [address] [id number] Director: Dawson Dwyer PhD, Phone: [phone] Laboratory - Coagulationon 0 07-26-2021 aPTT Coag (Bld) [Time] 31.0 s 24.1-36.2 [facility] Work Phone: PT Coag (PPP) [Time] 13.7 s 11.7-14.9 [facility] Work Phone: Laboratory - Hematology and Cell countson 07-26-2021 Immature granulocytes/100 WBC (Bld) 0.200 % 0.0-0.9 [facility] Work Phone: Comment on above: IG% - Immature Granu locytes (promyelocytes, myelocytes and metamyelocytes) > 1% indicates that a LEFT SHIFT is Present. Nucleated RBC/100 WBC (Bld) [Ratio] 0 % 0-5 [facility] Work Phone: No Panel Informationon 07-26 Fructosamine 205 umol/L [facility] Work Phone: Comment on above: Published reference interval for apparently healthysubjects between age 20 and 60 is 205 - 285 umol/L and in apoorly controlled diabetic population is 228 - 563 umol/Lwith a mean of 396 umol/L.Performed at: [address] [id number] Director: Dawson Dwyer PhD, Phone: [phone] Nasal Screen MRSA/MSSA [facility] Work Phone: Serum or plasma albumin raúl urement (mass/volume)on 07-26-2021 Albumin [Mass/Vol] 3.6 g/dL 3.2-5.0 [facility] Work Phone: Thin prep Papanicolaou smear with manual screeningon 07-26-2021 Thin prep Papanicolaou smear with manual screening 8 U/L 15-37 [facility] Work Phone: FOOT COMPLETE LTon 1 FOOT COMPLETE LT [place] [id number] Patient: LIZZETH BERRY Phone#: : 1955 Age: 65 Gender: F Pt. Type: Out Account: [id number] Location: Ordering: MARLINE LARA Exam Date: 10/16/2020/9:14 Family Phys: Charge Code: [id number] Physician: [place] Order #: [id number] DLP Dose#: PROCEDURE: X-RAY FOOT LT COMPLETE MIN 3 VIEWS COMPARISON: None. INDICATIONS: Foot pain. FINDINGS: BONES: A small calcaneal spur is present. There is no evidence of acute bone abnormality. SOFT TISSUES: Negative. No visible soft tissue swelling. EFFUSION: None visible. OTHER: Negative. CONCLUSION: No acute disease. Dictated by: Afsaneh Love MD on 10/16/2020 at 15:00 Approved by: Afsaneh Love MD on 10/16/2020 at 15:01 Normal [facility] Vital Signs Date Time Vital Sign Value Performing Clinician Facility 12-28-2024 09:17-0400 Body height 162.[address] Raúl Rivas MD Work Phone: 9(046)333-184761 [place] [address] 12-28-2024 09:17-0400 Body mass index (BMI) [Ratio] 29.7 kg/m2 Dr. Raúl Rivas MD Work Phone: 1(606)962-037192 [place] [address] 12-28-2024 09:17-0400 Body temperature 97.8 [degF] Dr. Raúl Rivas MD Work Phone: 0(540)286-104892 [place] [address] 12-28-2024 09:17-0400 Body weight 78.[address] Raúl Rivas MD Work Phone: 8(144)577-984192 [place] [address] 12-28-2024 09:17-0400 Diastolic blood pressure 75 mm[Hg] Dr. Raúl Rivas MD Work Phone: 0(610)035-680561 [place] [address] 12-28-2024 09:17-0400 Heart rate 88 /min Dr. Raúl Rivas MD Work Phone: 3(562)591-572761 [place] [address] 12-28-2024 09:17-0400 Respiratory rate 16 /min Dr. Raúl Rivas MD Work Phone: 1(111)411-527861 [place] [address] 12-28-2024 09:17-0400 SaO2% (BldA) [Mass fraction] 94 % Dr. Raúl Rivas MD Work Phone: 1(541)739-988492 [place] [address] 12-28-2024 09:17-0400 Systolic blood pressure 118 mm[Hg] Dr. Raúl Rivas MD Work Phone: 0(036)679-276692 [place] [address] 12-21-2024 09:11-0400 Body temperature 97.4 [degF] Dr. Raúl Rivas MD Work Phone: 8(945)004-308592 [place] [address] 12-21-2024 09:11-0400 Diastolic blood pressure 72 mm[Hg] Dr. Raúl Rivas MD Work Phone: 5(931)211-933792 [place] [address] 12-21-2024 09:11-0400 Heart rate 69 /min Dr. Raúl Rivas MD Work Phone: 1(788)952-402692 [place] [address] 12-21-2024 09:11-0400 Respiratory rate 18 /min Dr. Raúl Rivas MD Work Phone: 4(618)175-366892 [place] [address] 12-21-2024 09:11-0400 SaO2% (BldA) [Mass fraction] 97 % Dr. Raúl Rivas MD Work Phone: 8(126)193-382092 [place] [address] 12-21-2024 09:11-0400 Systolic blood pressure 120 mm[Hg] Dr. Raúl Rivas MD Work Phone: 6(756)105-344392 [place] [address] 12-21-2024 08:45-0400 Inhaled oxygen flow rate 2 L/min Dr. Raúl Riavs MD Work Phone: 3(049)638-450692 [place] [address] 12-21-2024 06:32-0400 Body height 162.[address] Raúl Rivas MD Work Phone: 7(401)281-023992 [place] [address] 12-21-2024 06:32-0400 Body mass index (BMI) [Ratio] 29.6 kg/m2 Dr. Raúl Rivas MD Work Phone: 7(508)183-838992 [place] [address] 12-21-2024 06:32-0400 Body weight 78.[address] Raúl Rivas MD Work Phone: 8(927)051-904692 [place] [address] 12-16-2024 13:39-0400 Body height 162.[address] Raúl Rivas MD Work Phone: 1(969)529-533192 [place] [address] 12-16-2024 13:39-0400 Body mass index (BMI) [Ratio] 29.4 kg/m2 Dr. Raúl Rivas MD Work Phone: 5(288)784-522692 [place] [address] 12-16-2024 13:39-0400 Body temperature 96.6 [degF] Dr. Raúl Rivas MD Work Phone: 4(872)543-479792 [place] [address] 12-16-2024 13:39-0400 Body weight 77.[address] Raúl Rivas MD Work Phone: 3(531)181-937592 [place] [address] 12-16-2024 13:39-0400 Diastolic blood pressure 77 mm[Hg] Dr. Raúl Rivas MD Work Phone: 6(067)697-144692 [place] [address] 12-16-2024 13:39-0400 Heart rate 88 /min Dr. Raúl Rivas MD Work Phone: 3(562)983-617892 [place] [address] 12-16-2024 13:39-0400 Respiratory rate 17 /min Dr. Raúl Rivas MD Work Phone: 5(902)386-399392 [place] [address] 12-16-2024 13:39-0400 SaO2% (BldA) [Mass fraction] 94 % Dr. Raúl Rivas MD Work Phone: 2(978)359-547592 [place] [address] 12-16-2024 13:39-0400 Systolic blood pressure 118 mm[Hg] Dr. Raúl Rivas MD Work Phone: 8(900)816-382492 [place] [address] 12-08-2024 15:00-0400 Body height 163.[address] Raúl Rivas MD Work Phone: 4(723)400-020692 [place] [address] 12-08-2024 15:00-0400 Body mass index (BMI) [Ratio] 29.4 kg/m2 Dr. Raúl Rivas MD Work Phone: 4(290)373-925592 [place] [address] 12-08-2024 15:00-0400 Body temperature 98.2 [degF] Dr. Raúl Rivas MD Work Phone: 1(863)456-125392 [place] [address] 12-08-2024 15:00-0400 Body weight 78.[address] Raúl Rivas MD Work Phone: 2(404)421-111061 [place] [address] 12-08-2024 15:00-0400 Diastolic blood pressure 75 mm[Hg] Dr. Raúl Rivas MD Work Phone: [facility] 12-08-2024 15:00-0400 Heart rate 84 /min Dr. Raúl Rivas MD Work Phone: 6(616)870-910261 [place] [address] 12-08-2024 15:00-0400 Respiratory rate 18 /min Dr. Raúl Rivas MD Work Phone: 3(262)705-443561 [place] [address] 12-08-2024 15:00-0400 SaO2% (BldA) [Mass fraction] 93 % Dr. Raúl Rivas MD Work Phone: 0(731)967-735561 [place] [address] 12-08-2024 15:00-0400 Systolic blood pressure 114 mm[Hg] Dr. Raúl Rivas MD Work Phone: 2(556)920-348261 [place] [address] 12-07-2024 15:48-0400 Body height 163.[address] Raúl Rivas MD Work Phone: 9(538)447-086261 [place] [address] 12-07-2024 15:48-0400 Body mass index (BMI) [Ratio] 29.4 kg/m2 Dr. Raúl Rivas MD Work Phone: 3(062)456-034061 [place] [address] 12-07-2024 15:48-0400 Body temperature 98 [degF] Dr. Raúl Rivas MD Work Phone: 2(669)285-259961 [place] [address] 12-07-2024 15:48-0400 Body weight 78.[address] Raúl Rivas MD Work Phone: 6(870)003-507061 [place] [address] 12-07-2024 15:48-0400 Diastolic blood pressure 81 mm[Hg] Dr. Raúl Rivas MD Work Phone: 1(031)340-463761 [place] [address] 12-07-2024 15:48-0400 Heart rate 88 /min Dr. Raúl Rivas MD Work Phone: 3(079)753-019261 [place] [address] 12-07-2024 15:48-0400 Respiratory rate 16 /min Dr. Raúl Rivas MD Work Phone: 0(935)605-551692 [place] [address] 12-07-2024 15:48-0400 SaO2% (BldA) [Mass fraction] 93 % Dr. Raúl Rivas MD Work Phone: 6(943)471-833692 [place] [address] 12-07-2024 15:48-0400 Systolic blood pressure 123 mm[Hg] Dr. Raúl Rivas MD Work Phone: 9(725)653-047492 [place] [address] 12-01-2024 11:01-0400 Body height 163.[address] Raúl Rivas MD Work Phone: 2(722)620-592692 [place] [address] 12-01-2024 11:01-0400 Body mass index (BMI) [Ratio] 29.5 kg/m2 Dr. Raúl Rivas MD Work Phone: 9(608)757-549392 [place] [address] 12-01-2024 11:01-0400 Body temperature 97.5 [degF] Dr. Raúl Rivas MD Work Phone: 3(919)758-586192 [place] [address] 12-01-2024 11:01-0400 Body weight 79.[address] Raúl Rivas MD Work Phone: 5(968)927-715692 [place] [address] 12-01-2024 11:01-0400 Diastolic blood pressure 82 mm[Hg] Dr. Raúl Rivas MD Work Phone: 4(504)782-962292 [place] [address] 12-01-2024 11:01-0400 Heart rate 110 /min Dr. Raúl Rivas MD Work Phone: 1(222)735-528392 [place] [address] 12-01-2024 11:01-0400 Respiratory rate 16 /min Dr. Raúl Rivas MD Work Phone: 6(229)508-518192 [place] [address] 12-01-2024 11:01-0400 SaO2% (BldA) [Mass fraction] 97 % Dr. Raúl Rivas MD Work Phone: 7(194)411-247392 [place] [address] 12-01-2024 11:01-0400 Systolic blood pressure 120 mm[Hg] Dr. Raúl Rivas MD Work Phone: 2(072)141-629092 [place] [address] 11-29-2024 11:20-0400 Body temperature 97.8 [degF] Dr. Raúl Rivas MD Work Phone: 7(484)896-335292 [facility] [place] [address] 11-29-2024 11:20-0400 Diastolic blood pressure 87 mm[Hg] Dr. Raúl Rivas MD Work Phone: 4(289)101-636792 [place] [address] 11-29-2024 11:20-0400 Heart rate 90 /min Dr. Raúl Rivas MD Work Phone: 8(463)126-215392 [place] [address] 11-29-2024 11:20-0400 Respiratory rate 18 /min Dr. Raúl Rivas MD Work Phone: 1(468)893-475292 [place] [address] 11-29-2024 11:20-0400 SaO2% (BldA) [Mass fraction] 94 % Dr. Raúl Rivas MD Work Phone: 3(694)686-420792 [place] [address] 11-29-2024 11:20-0400 Systolic blood pressure 129 mm[Hg] Dr. Raúl Rivas MD Work Phone: 7(928)692-482092 [place] [address] 11-29-2024 10:31-0400 Inhaled oxygen flow rate 2 L/min Dr. Raúl Rivas MD Work Phone: 4(489)718-368192 [place] [address] 11-29-2024 09:27-0400 Body mass index (BMI) [Ratio] 29.9 kg/m2 Dr. Raúl Rivas MD Work Phone: 2(920)134-713092 [place] [address] 11-29-2024 09:27-0400 Body weight 80.[address] Raúl Rivas MD Work Phone: 3(702)589-494292 [place] [address] 11-17-2024 16:26-0400 Body mass index (BMI) [Ratio] 29.9 kg/m2 Dr. Raúl Rivas MD Work Phone: 1(369)909-408992 [place] [address] 11-17-2024 15:08-0400 Body height 163.[address] Raúl Rivas MD Work Phone: 7(616)253-082061 [place] [address] 11-17-2024 15:08-0400 Body temperature 97.9 [degF] Dr. Raúl Rivas MD Work Phone: 2(243)417-953892 [place] [address] 11-17-2024 15:08-0400 Body weight 80.[address] Raúl Rivas MD Work Phone: 7(787)508-397992 [place] [address] 11-17-2024 15:08-0400 Diastolic blood pressure 85 mm[Hg] Dr. Ralú Rivas MD Work Phone: 1(214)414-830092 [place] [address] 11-17-2024 15:08-0400 Heart rate 105 /min Dr. Raúl Rivas MD Work Phone: 0(542)505-784292 [place] [address] 11-17-2024 15:08-0400 Respiratory rate 8 /min Dr. Raúl Rivas MD Work Phone: 3(879)915-153592 [place] [address] 11-17-2024 15:08-0400 SaO2% (BldA) [Mass fraction] 96 % Dr. Raúl Rivas MD Work Phone: 3(623)201-211092 [place] [address] 11-17-2024 15:08-0400 Systolic blood pressure 137 mm[Hg] Dr. Raúl Rivas MD Work Phone: 6(438)825-070092 [place] [address] 09-23-2024 08:39-0400 Body height 162.[address] Raúl Rivas MD Work Phone: 8(268)178-061861 [place] [address] 09-23-2024 08:39-0400 Body mass index (BMI) [Ratio] 32.8 kg/m2 Dr. Raúl Rivas MD Work Phone: 8(057)054-624492 [place] [address] 09-23-2024 08:39-0400 Body temperature 96.7 [degF] Dr. Raúl Rivas MD Work Phone: 9(488)397-638292 [place] [address] 09-23-2024 08:39-0400 Body weight 86.[address] Raúl Rivas MD Work Phone: 3(090)214-698961 [place] [address] 09-23-2024 08:39-0400 Diastolic blood pressure 82 mm[Hg] Dr. Raúl Rivas MD Work Phone: [facility] 09-23-2024 08:39-0400 Heart rate 94 /min Dr. Raúl Rivas MD Work Phone: [facility] 09-23-2024 08:39-0400 Respiratory rate 16 /min Dr. Raúl Rivas MD Work Phone: [facility] 09-23-2024 08:39-0400 SaO2% (BldA) [Mass fraction] 98 % Dr. Raúl Rivas MD Work Phone: [facility] 09-23-2024 08:39-0400 Systolic blood pressure 120 mm[Hg] Dr. Raúl Rivas MD Work Phone: [facility] 05-02-2024 13:51-0500 Body height 165.1 cm Ramone Mcmahon MD Work Phone: [facility] 05-02-2024 13:51-0500 Body mass index (BMI) [Ratio] 34.91 kg/m2 Ramone Mcmahon MD Work Phone: [facility] 05-02-2024 13:51-0500 Body temperature 97.11 [degF] Ramone Mcmahon MD Work Phone: [facility] 05-02-2024 13:51-0500 Body weight 95.17 kg Ramone Mcmahon MD Work Phone: [facility] 05-02-2024 13:51-0500 Diastolic blood pressure 81 mm[Hg] Ramone Mcmahon MD Work Phone: [facility] 05-02-2024 13:51-0500 Heart rate 103 /min Ramone Mcmahon MD Work Phone: [facility] 05-02-2024 13:51-0500 SaO2% (BldA) [Mass fraction] 98 % Ramone Mcmahon MD Work Phone: [facility] 05-02-2024 13:51-0500 Systolic blood pressure 118 mm[Hg] Ramone Mcmahon MD Work Phone: [facility] 08-07-2021 07:10-0500 SaO2% (BldA) [Mass fraction] 98 % Dr. Aly Lujan Work Phone: [facility] Work Phone: 08-07-2021 06:53-0500 Body temperature 97.9 [degF] Dr. Aly Lujan Work Phone: [facility] Work Phone: 08-07-2021 06:53-0500 Diastolic blood pressure 64 mm[Hg] Dr. Aly Lujan Work Phone: [facility] Work Phone: 08-07-2021 06:53-0500 Heart rate 58 /min Dr. Aly Lujan Work Phone: [facility] Work Phone: 08-07-2021 06:53-0500 Respiratory rate 14 /min Dr. Aly Lujan Work Phone: [facility] Work Phone: 08-07-2021 06:53-0500 Systolic blood pressure 115 mm[Hg] Dr. Aly Lujan Work Phone: [facility] Work Phone: 08-06-2021 10:54-0500 Body height 166.[address] Aly Lujan Work Phone: [facility] Work Phone: 08-06-2021 10:54-0500 Body mass index (BMI) [Ratio] 33.7 kg/m2 Dr. Aly Lujan Work Phone: [facility] Work Phone: 08-06-2021 10:54-0500 Body weight 93.[address] Aly Lujan Work Phone: [facility] Work Phone: 06-26-2021 08:29-0500 Body mass index (BMI) [Ratio] 34.2 kg/m2 Dr. Aly Lujan Work Phone: [facility] Work Phone: 06-26-2021 08:29-0500 Body weight 94.[address] Aly Lujan Work Phone: [facility] Work Phone: Encounters Encounter Date Encounter Type Care Provider Facility Start: 12-30-2024 ambulatory [facility] Facility :[facility] Start: 12-28-2024 End: 12-28-[address] Ramona Funez MD -[facility] Work Phone: Start: 12-28-2024 End: 12-28-[address] Raúl Rivas MD Work Phone: -[facility] Start: 12-28-[address] Clifford Funez MD -[facility] Start: 12-21-2024 ambulatory Tera Clay Facility :[facility] Start: 12-21-2024 Non-patient / Non-visit Dr. Suzy COTTO -[facility] Start: 12-21-2024 End: 12-21-2024 Admission to same day surgery center Dr. Tera Clay [facility] Start: 12-21-2024 End: 12-21-[address] Raúl Rivas MD Work Phone: [facility] Start: 12-16-2024 End: 12-16-[address] Tera Clay MD -[facility] Work Phone: Start: 12-16-2024 End: 12-16-[address] Raúl Rivas MD Work Phone: -[facility] Start: 12-08-2024 End: 12-08-2024 Patient encounter procedure Magalie AVALOS [facility] Work Phone: Start: 12-08-2024 End: 12-08-[address] Raúl Rivas MD Work Phone: [facility] Work Phone: Start: 12-07-2024 End: 12-07-[address] Ramona Funez MD -[facility] Work Phone: Start: 12-07-2024 End: 12-07-[address] Raúl Rivas MD Work Phone: [facility] Work Phone: Start: 12-02-2024 Encounter for other preprocedural examination Ramona Funez [facility] Start: 12-01-2024 End: 12-01-[address] Diya George MD -[facility] Work Phone: Start: 12-01-2024 End: 12-01-[address] Raúl Rivas MD Work Phone: [facility] Work Phone: Start: 11-30-2024 End: 11-30-[address] Raúl Rivas MD Work Phone: [facility] Work Phone: Start: 11-30-2024 End: 11-30-[address] Ramona Funez MD -Nuclear Medicine [facility] Work Phone: Start: 11-29-2024 End: 11-30-[address] Raúl Rivas MD Work Phone: [facility] Work Phone: Start: 11-29-2024 End: 11-29-[address] Ramona Funez MD -Cat Scan [facility] Work Phone: Start: 11-29-2024 End: 11-29-2024 ambulatory Diya George Facility:[facility] Start: 11-23-2024 Non-patient / Non-visit Evelyn ivey [facility] Work Phone: Start: 11-23-2024 ambulatory Evelyn Angela Facility [facility] Start: 11-17-2024 End: 11-17-[address] Ramona Funez MD -[facility] Work Phone: Start: 11-17-2024 End: 11-17-[address] Raúl Rivas MD Work Phone: [facility] Work Phone: Start: 11-17-[address] Clifford Funez MD -[facility] Start: 11-11-2024 End: 11-11-[address] Raúl Rivas MD Work Phone: [facility] Work Phone: Start: 11-11-2024 End: 11-11-[address] Dawson Herman MD -[facility] Work Phone: Start: 11-11-2024 End: 11-11-2024 ambulatory Diya George Facility:[facility] Start: 10-26-2024 End: 10-26-[address] Raúl Rivas MD Work Phone: [facility] Work Phone: Start: 10-26-2024 End: 10-26-[address] Diya George MD -Laboratory, [place] Start: 10-26-2024 End: 10-26-2024 ambulatory Diya Conroylay Facility:[facility] Start: 10-11-2024 End: 10-11-[address] Diya George MD -Laboratory, [place] Start: 10-11-2024 End: 10-11-2024 ambulatory Diya Conroylay Facility:[facility] Start: 09-28-2024 Encounter for genera l adult medical examination without abnormal findings Adria Orosco [facility] Start: 09-26-2024 Non-patient / Non-visit Dr. Andi COTTO -[facility] Start: 09-26-2024 ambulatory Diya Conroylay Facility :[facility] Start: 09-26-2024 End: 09-26-[address] Raúl Rivas MD Work Phone: [facility] Work Phone: Start: 09-26-2024 End: 09-26-2024 Patient encounter procedure Adria MADISON -Laboratory, Spec[facility] Work Phone: Start: 09-26-2024 End: 09-26-2024 ambulatory Adria Dolanclaudia Facility:[facility] Start: 09-23-2024 End: 09-23-[address] Raúl Rivas MD Work Phone: [facility] Work Phone: Start: 09-23-2024 End: 09-23-2024 Patient encounter procedure Adria MADISON -Laboratory, [facility] Start: 09-23-[address] Brian Rivas MD Work Phone: [facility] Start: 09-23-2024 End: 09-23-2024 Patient encounter procedure Adria MADISON -[facility] Work Phone: Start: 09-23-2024 End: 09-23-2024 ambulatory Raúl Rivas Facility:[facility] Start: 09-23-2024 End: 09-23-2024 ambulatory Adria Wayclaudia Facility:[facility] Start: 05-24-2024 End: 05-24-2024 Telephone encounter Carolyn Morgan RN Work Phone: Mammography Comment on above: Results Start: 05-18-2024 ambulatory UNKNOWN PROVIDER Facili ty:[facility] Start: 05-18-2024 End: 05-18-2024 Subsequent hospital visit by physician Procedure Mammo [facility] Work Phone: Mammography Comment on above: Breast disorder [N64 .9] Start: 05-17-2024 End: 05-17-2024 ambulatory María Christine MD Work Phone: Mammography Comment on above: Breast Problem Start: 05-17-2024 End: 05-17-2024 Patient encounter procedure María Christine MD Work Phone: Mammography Start: 05-04-2024 End: 05-04-2024 Radiology Wilbert Maldonado Work Phone: Mammography Comment on above: breast disorder Start: 05-02-2024 End: 05-02-2024 ambulatory RAMONE MCMAHON Facility:[facility] Start: 05-02-2024 End: 05-02-2024 Patient encounter procedure Ramone Mcmahon MD Work Phone: General Surgery Comment on above: Microcalcification o f left breast on mammogram (Primary Dx) Start: 04-20-2024 End: 04-20-2024 ambulatory ROBE GARCIA Facility:[facility] Start: 04-20-2024 End: 04-20-2024 Subsequent hospital visit by physician Diagnostic Mammo [facility] Start: 03-11-2024 End: 03-11-2024 Telephone encounter Olimpia Henao MD Work Phone: Mammography Comment on above: Mammogram Result Jack l Back Start: 03-10-2024 End: 03-11-2024 Documentation procedure Mammography Coordinator [facility] Start: 03-10-2024 End: 03-11-2024 Letter encounter Mammography Coordinator [facility] Start: 03-10-2024 End: 03-11-2024 Telephone encounter Robe Garcia MD Work Phone: OB/Gynecology Comment on above: Results Start: 03-09-2024 End: 03-09-2024 ambulatory ROBE GARCIA Facility:[facility] Start: 03-09-2024 End: 03-09-2024 Subsequent hospital visit by physician Screen Mammo [facility] Comment on above: Breast screening [Z1 2.39] Start: 03-03-2024 End: 03-03-2024 Telephone encounter Robe Garcia MD Work Phone: OB/Gynecology Comment on above: Orders Start: 12-29-2023 Telephone encounter Larisa kee APRN.CNP Work Phone: Internal Medicine [place] Comment on above: Appointment Start: 12-03-2022 ambulatory Jammie Desouza ladanvalentin KIM [facility] Comment on above: Population Health Na vigation Outreach (ACO No PCP list) Start: 10-29-2022 Documentation procedure Mammog imelda Coordinator [facility] Start: 10-29-2022 Letter encounter Mammography Coordinator [facility] Start: 09-25-2021 End: 09-25-[address] Aly Lujan Work Phone: [facility]-Physical Therapy Start: 09-16-2021 End: 09-16-[address] Aly Lujan Work Phone: [facility] Start: 08-19-2021 End: 08-19-[address] Aly Lujan Work Phone: [facility] Start: 08-07-2021 Non-patient / Non-visit Dr. Maya Lujan Work Phone: [facility] Start: 08-06-2021 End: 08-07-2021 Evaluation and management of inpatient [facility] A[facility] Start: 08-06-2021 Non-patient / Non-visit Dr. Maya Lujan Work Phone: [facility] Start: 07-26-2021 End: 07-26-[address] Aly Lujan Work Phone: [facility] Start: 07-26-2021 Non-patient / Non-visit Dr. Maya Lujan Work Phone: [facility] Start: 07-18-2021 End: 07-18-[address] Aly Lujan Work Phone: [facility] Start: 06-26-2021 End: 06-26-[address] Aly Lujan Work Phone: [facility] Start: 10-16-2020 End: 10-16-2020 ambulatory MARLINE DPM [facility] Start: 02-04-2007 End: 01-05-2012 Patient encounter status Larisa Guevara APRN.CNP Work Phone: [facility] Work Phone: Procedures Date Procedure Procedure Detail Performing Clinician Start: 12-28-[address] Raúl Rivas MD Work Phone: Start: 12-21-2024 Plain chest X-ray Dr. Brian Rivas MD Work Phone: Start: 12-21-2024 Fluoroscopic guidance Edwina Rivas MD Work Phone: Start: 12-21-2024 Implantation to cardiovascular system Dr. Raúl Rivas MD Work Phone: Start: 11-30-2024 CT of thorax with contrast Dr. Raúl Rivas MD Work Phone: Start: 11-30-2024 Radionuclide whole b azul bone study Dr. Raúl Rivas MD Work Phone: Start: 11-29-2024 Biopsy/Inj or Needle Placement Dr. Raúl Rivas MD Work Phone: Start: 11-17-[address] Raúl Rivas MD Work Phone: Start: 11-11-2024 Computed tomography of abdomen and pelvis with contrast Dr. Raúl Rivas MD Work Phone: Start: 09-26-2024 Measurement of occul t blood in stool specimen using immunoassay Dr. Raúl Rivas MD Work Phone: Start: 09-25-2024 Measurement of occul t blood in stool specimen using immunoassay Dr. Raúl Rivas MD Work Phone: Start: 09-24-2024 Measurement of occul t blood in stool specimen using immunoassay Dr. Raúl Rivas MD Work Phone: Start: 09-23-2024 Vitamin D, 25-hydrox y measurement Dr. Raúl Rivas MD Work Phone: Comment on above: Vitamin D StatusDefi ciency: <20 ng/mL (50nmol/L)Insufficiency: 20-30 ng/mL (50-75 nmol/L)Sufficiency: 30-100 ng/mL (75-250 nmol/L)Toxicity: >100 ng/mL (>250 nmol/L) Start: 05-18-2024 Bx breast w/device 1 st lesion stereotactic guid Wilbert Maldonado DO Work Phone: Start: 04-20-2024 Digital breast tomosynthesis unilateral Robe Garcia MD Work Phone: Start: 03-09-2024 Screening mammograph y bi 2-view breast inc cad Robe Garcia MD Work Phone: Start: 10-28-2022 Mammography Mammograph y Coordinator Start: 09-16-2021 Radiologic examinati on of knee Dr. Aly Lujan Work Phone: Start: 08-06-2021 Radiologic examinati on of knee Dr. Aly Lujan Work Phone: Start: 07-26-2021 Nasal Screen MRSA/MSSA Dr. Aly Lujan Work Phone: Start: 07-18-2021 MRI of lower extremity Dr. Aly Lujan Work Phone: Start: 03-01-2018 Colonoscopy Mammograph y Coordinator Start: 02-09-2017 Lipid 1996 panel - S caterina or Plasma Larisa Janice [employer]PORATE BANKING OFFICER.WINE BOTTLE INSPECTOR Work Phone: Plan of Treatment Date Care Activity Detail Author Start: 04-08-2030 Urine microalbumin profile [facility] Start: 2028 RSV Vaccine (1 - 1-dose 75+ series) RSV Vaccine (1 - 1-dose 75+ series) [facility] Start: 03-01-2028 Colonoscopy COLONOSCOPY [facility] Start: 03-01-2028 COLORECTAL CANCER SCREENING COLORECTAL CANCER SCREENING [facility] Start: 03-01-2028 Screening for malignant neoplasm of colon [facility] Start: 03-09-2025 Screening for malignant neoplasm of breast Mammogram Screening [facility] Start: 12-28-2024 [facility] Start: 12-28-2024 Venous catheter care management [facility] Start: 12-28-2024 Vital signs measurements [facility] Start: 12-21-2024 Patient discharge [facility] Start: 11-30-2024 NM Whole body Bone Views [facility] Start: 11-30-2024 Radionuclide whole body bone study Bone Scan Whole Body [facility] Start: 11-29-2024 Biopsy liver needle percutaneous NEEDLE BIOPSY OF LIVER PERQ [facility] Start: 11-29-2024 Following clinical pathway protocol [facility] Start: 11-29-2024 Catheterization of vein [facility] Start: 11-29-2024 Oxygen therapy [facility] Start: 11-29-2024 Patient discharge [facility] Start: 11-29-2024 Vital signs measurements [facility] Start: 11-17-2024 Lactate dehydrogenase measurement [facility] Start: 11-17-2024 [facility] Start: 11-17-2024 Patient referral [facility] Work Phone: Start: 09-26-2024 Patient referral [facility] Work Phone: Start: 08-01-2024 DIABETES SCREEN DIABETES SCREEN [facility] Start: 08-01-2024 Diabetes Screening Diabetes Screening [facility] Start: 05-18-2024 End: 05-18-2024 Patient encounter procedure 05/18/2024 10:00 AM EST Appointment Mammography [address] [place] [address] lt breast stereo upright Mammography Comment on above: lt breast stereo upright Start: 05-02-2024 End: 05-02-2024 Patient encounter procedure 05/02/2024 2:00 PM EST Office Visit General Surgery [address] [place] [address] Ramone Mcmahon MD [address] [place] [address] LT STEROTACTIC BIOPSY CONSULT General Surgery Comment on above: LT STEROTACTIC BIOPSY CONSULT Start: 04-20-2024 End: 04-20-2024 Patient encounter procedure Mammogram Comment on above: RYLEE DIAGNOSTIC LEFT CB PER JR US BREAST LTD LEFT C B PER JR Start: 03-09-2024 End: 03-09-2024 Patient encounter procedure 03/09/2024 11:30 AM EDT Appointment Mammogram [address] [place], [place] [id number] mamm screening Mammogram Comment on above: mamm screening Start: 02-21-2024 Covid-19 Vaccine () Covid-19 Vaccine () [facility] Start: 02-21-2024 Covid-19 Vaccine () Covid-19 Vaccine () [facility] Start: 02-21-2024 Influenza vaccination Influenza Vaccine (#1) [facility] Start: 10-29-2023 Mammography MAMMOGRAM [facility] Start: 10-29-2023 Screening for malignant neoplasm of breast Mammogram Screening [facility] Start: 06-22-2023 Advance Directive Discussion Advance Directive Discussion [facility] Start: 06-22-2023 Behavioral Health Screening Behavioral Health Screening [facility] Start: 02-20-2023 Covid-19 Vaccine () Covid-19 Vaccine () [facility] Start: 06-22-2022 ADVANCE DIRECTIVE DISCUSSION ADVANCE DIRECTIVE DISCUSSION [facility] Start: 06-22-2022 DEPRESSION ASSESSMENT DEPRESSION ASSESSMENT [facility] Start: 02-09-2022 Lipid panel Lipid Screening [facility] Start: 02-09-2022 LIPID SCREEN LIPID SCREEN [facility] Start: 08-06-2021 Anesth open/surg arthrs total knee arthroplasty ANESTH KNEE ARTHROPLASTY [facility] Work Phone: Start: 08-06-2021 Arthrp kne condyle&platu medial&lat compartments TOTAL KNEE ARTHROPLASTY [facility] Work Phone: Start: 08-06-2021 Injection aa&/strd femoral nerve NJX AA&/STRD FEMORAL NERVE [facility] Work Phone: Start: 2013 RSV Vaccine (1 - 1-dose 60+ series) RSV Vaccine (1 - 1-dose 60+ series) [facility] Start: 1998 COLOGUARD (FIT-DNA) COLOGUARD (FIT-DNA) [facility] Start: [address] COLONOGRAPHY [facility] Start: 1998 FECAL OCCULT BLOOD FECAL OCCULT BLOOD [facility] Start: 1998 Screening for malignant neoplasm of colon [facility] Start: 1998 SIGMOIDOSCOPY SIGMOIDOSCOPY [facility] Start: 1971 Anxiety Screening Anxiety Screening [facility] Start: 1971 Depression Screening Depression Screening [facility] Basic metabolic 2008 panel with ionized calcium - Serum or Plasma [facility] CBC W Auto Different ial panel - Blood [facility] CT Chest W contrast IV ost [facility] Folate [Moles/volume ] in Serum or Plasma [facility] Magnesium measurement [facility] End: 2025 MG Breast - left Diagnostic for implant RYLEE DIAGNOSTIC LEFT Radiology Routine Abnormal screening mammogram 1 Occurrences starting 03/10/2024 until 2025 [facility] Comment on above: 1 Occurrences starting 03/10/2024 until 2025 End: 04-02-2025 MG Breast Screening RYLEE SCREENING Radiology Routine Breast screening Encounter for screening mammogram for malignant neoplasm of breast 1 Occurrences starting 03/03/2024 until 04/02/2025 [facility] Work Phone: Comment on above: 1 Occurrences starting 03/03/2024 until 04/02/2025 End: 06-03-2025 MG stereo Guidance for biopsy of Breast - left RYLEE STEREO BX BREAST LEFT Radiology Routine Breast disorder 1 Occurrences starting 05/04/2024 until 06/03/2025 [facility] Work Phone: Comment on above: 1 Occurrences starting 05/04/2024 until 06/03/2025 End: 06-01-2025 MG stereo Guidance for biopsy of Breast - left RYLEE STEREO BX BREAST LEFT Radiology Routine Microcalcification of left breast on mammogram 1 Occurrences starting 05/02/2024 until 06/01/2025 [facility] Work Phone: Comment on above: 1 Occurrences starting 05/02/2024 until 06/01/2025 NM Whole body Bone Views [facility] Patient Education RAD RN Biopsy Liver Dc RAD RN Procedural Sedation [facility] Work Phone: Patient referral [facility] Work Phone: Serum inorganic phosphate measurement [facility] SURGICAL PATHOLOGY [facility] Work Phone: Comment on above: Release Upon Ordering for 1 Occurrences starting 05/18/2024, 1 completed End: 2025 US Breast - left limited US BREAST LTD LEFT Radiology Routine Abnormal screening mammogram 1 Occurrences starting 03/10/2024 until 2025 [facility] Work Phone: Comment on above: 1 Occurrences starting 03/10/2024 until 2025 [facility] Immunizations Immunization Date Immunization Notes Care Provider Fa carrier clinicty 03-09-2024 Pfizer Covid-19 (Comirnaty) Dr. Raúl Rivas MD Work Phone: [facility] 2023 influenza, injectabl e, quadrivalent, preservative free Dr. Raúl Rivas MD Work Phone: [facility] 2023 Pfizer Covid-19 (Comirnaty) Dr. Raúl Rivas MD Work Phone: [facility] 2023 influenza virus vaccine, unspecified formulation Screen Wstr [facility] 03-27-2022 Influenza High-Dose Quadrivalent Dr. Raúl Rivas MD Work Phone: [facility] 03-27-2022 influenza, high dose seasonal, preservative-free Mammography Coordinator [facility] 03-27-2022 influenza virus vaccine, unspecified formulation Larisa Guevara APRN.CNP Work Phone: [facility] 03-23-2022 Covid Pfizer Bivalen t Booster Dr. Raúl Rivas MD Work Phone: [facility] 04-19-2021 Covid (Pfizer) Dr. Raúl tee MD Work Phone: [facility] 04-10-2021 influenza, injectabl e, quadrivalent, preservative free Dr. Raúl Rivas MD Work Phone: [facility] 09-05-2020 Covid (Pfizer) Dr. Raúl tee MD Work Phone: [facility] 08-16-2020 Covid (Pfizer) Dr. Raúl tee MD Work Phone: [facility] 04-08-2020 Influenza High-Dose Quadrivalent Dr. Raúl Rivas MD Work Phone: [facility] 04-08-2020 influenza, high dose seasonal, preservative-free Mammography Coordinator [facility] 04-08-2020 pneumococcal polysaccharide vaccine, 23 valent Mammography Coordinator [facility] 04-08-2020 tetanus toxoid, redu sebastián diphtheria toxoid, and acellular pertussis vaccine, adsorbed Mammography Coordinator [facility] 08-05-2019 zoster vaccine recombinant Mammography Coordinator [facility] 04-06-2019 influenza, high dose seasonal, preservative-free Mammography Coordinator [facility] 04-06-2019 pneumococcal conjuga te vaccine, 13 valent Mammography Coordinator [facility] 04-06-2019 zoster vaccine recombinant Mammography Coordinator [facility] 03-25-2018 influenza, injectabl e, quadrivalent, preservative free Dr. Raúl Rivas MD Work Phone: [facility] 03-25-2018 influenza, seasonal, injectable Mammography Coordinator [facility] 04-03-2017 influenza, injectabl e, quadrivalent, preservative free Dr. Raúl Rivas MD Work Phone: [facility] 04-01-2016 influenza, injectabl e, quadrivalent, contains preservative Mammography Coordinator [facility] Work Phone: 04-01-2016 influenza, injectabl e, quadrivalent, preservative free Dr. Raúl Rivas MD Work Phone: [facility] 03-24-2015 influenza, injectabl e, quadrivalent, preservative free Dr. Raúl Rivas MD Work Phone: [facility] 03-24-2015 influenza, seasonal, injectable Mammography Coordinator [facility] Work Phone: 04-03-2014 influenza, injectabl e, quadrivalent, preservative free Dr. Raúl Rivas MD Work Phone: [facility] 04-03-2014 influenza, seasonal, injectable Mammography Coordinator [facility] 04-13-2013 zoster vaccine, live Mammogr aphy Coordinator [facility] 04-16-2009 novel [id number], preservative-free, injectable Dr. Raúl Rivas MD Work Phone: [facility] Payers Date Payer Category Payer Self-pay [id number] 2018 Medicare MEDICARE MEDICAR E A AND B [id number] 2018-Present [phone] [address] [address] [place] [address] Medicare [id number] 2018 Unknown ANTHEM ANTHEM ME DICARE SUPPLEMENT [id number] 2018-Present [phone] [address] [place] [address] Indemnity [id number] 2018 Medicare [id number] 2018 Medicare [id number] 1955 Unknown [id number] Unknown UHC *DO NOT USE* [id number] Unknown UHC *DO NOT USE* [id number] Unknown [id number] Unknown [id number] [id number]2 Unknown [id number] 2.16.840.1.475230.3.579.2.462 Unknown [id number] 2.16.840.1.067590.3.579.2.462 Unknown [id number] 2.16.840.1.953907.3.579.2.462 Unknown [id number] 2.16.840.1.460042.3.579.2.462 Unknown [id number] 2.16.840.1.906272.3.579.2.462 Unknown [id number] 2.16.840.1.893074.3.579.2.462 Unknown [id number] 2.16.840.1.741831.3.579.2.462 Unknown [id number] 2.16.840.1.433045.3.579.2.462 Unknown [id number] 2.16.840.1.074906.3.579.2.462 Unknown [id number] 2.16.840.1.983462.3.579.2.462 Unknown [id number] 2.16.840.1.679036.3.579.2.462 Unknown [id number] 2.16.840.1.483840.3.579.2.462 Unknown [id number] 2.16.840.1.780861.3.579.2.462 Unknown [id number] 2.16.840.1.198485.3.579.2.462 Unknown [id number] 2.16.840.1.310164.3.579.2.462 Unknown [id number] 2.16.840.1.972953.3.579.2.462 Unknown [id number] 2.16.840.1.742228.3.579.2.462 Social History Date Type Detail Facility [facility] Work Phone: Start: 09-16-2021 Tobacco smoking stat us NHIS Unknown if ever smoked [facility] Work Phone: Start: 1955 Sex Assigned At Female W [facility] Start: 01-05-2012 End: 12-19-2024 Tobacco smoking status NHIS Never smoked tobacco [facility] Start: 01-05-2012 Tobacco use and exposure Smokeless tobacco non-user [facility] Start: 10-28-2022 End: 05-02-2024 Alcohol intake Current drinker of alcohol (finding) [facility] Start: 12-18-2015 Alcohol Comment Rarely [facility] Start: 1955 Sex Assigned At Not on file C [facility] Start: 10-28-2022 End: 05-02-2024 History of Social function [facility] Start: 10-28-2022 End: 05-02-2024 Tobacco use panel [facility] National Score (1-100), lower number is lower risk 76 [facility] Start: 09-28-2024 End: 09-29-2024 Sex Female (finding) [facility] Sexual Orientation Heterosexual (finding) [facility] NEGATED: Highlighted row Not [facility] Medical Equipment Procedure Code Equipment Code Equipment Origin al Text Equipment Identifier Dates Insertion, vascular access port ([id number]) Vascular port/catheter ()[id number] FDA Start: 12-21-2024 ([id number]) Metal-backed patella prosthesis ()[id number] FDA Start: 08-06-2021 ([id number]) Coated knee femu r prosthesis ()[id number] [id number] FDA Start: 08-06-2021 ([id number]) Coated knee tibi a prosthesis ()[id number] [id number] FDA Start: 08-06-2021 ([id number]) Tibial insert ()[id number] [id number] FDA Start: 08-06-2021 Goals Date Patient Goal Desired Activity /State Functional Status Date Assessment Result Facility 08-07-2021 Functional status Chair [facility] Work Phone: Mental Status Date Assessment Result Facility 12-21-2024 Cognitive function Voice/Name [facility] Work Phone: 11-29-2024 Cognitive function Voice/Name [facility] Work Phone: 08-07-2021 Cognitive function Appropriate [facility] Work Phone: 08-07-2021 Cognitive function Arousable To Voice/Nam e [facility] Work Phone: Clinical Notes 02-04-2007 to 12-28-2024 Note Date & Type Note Facility 12-28-2024 Progress note [facility] 12-21-2024 History and physical note Note Date/Time December 21, 2024 7:19am [facility] Medical Records Department [address] [place] [place] [address] History & Physical Exam 12/21/24717 MR#: [id number] Acct: [id number] Name: LIZZETH BERRY Rep #:[id number] : 1955 69 From: Tera Clay MD PCP: Dr. 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 Wears glasses Arthritis Bladder disease Easy bruising Heartburn Non-smoker Shortness of breath on exertion History of pain when walking Home Medications ?Medication ?Instructions ?Recorded ?Last Taken ?Type pantoprazole 40 mg tablet,delayed 40 mg PO QDAY 12/20/24 History release (Protonix) ondansetron 4 mg disintegrating 4 mg PO Q6H PRN nausea and 12/01/24 12/20/24 Rx tablet vomiting #90 tabs oxycodone 5 mg tablet 2.5 - 5 mg PO Q6H PRN pain 0 12/19/24 Unknown History sennosides 8.6 mg-docusate sodium 1 tab PO BID PRN con stipation 12/19/24 12/20/24 History 50 mg tablet (Stool Softener-Stimulant Laxative) vitamins A,C,M-wzfq-rlsvvy 2,148 2 tab PO BID 12/19/24 Unknown History mcg-113 mg-45 mg-17.4 mg tablet (PreserVision AREDS) prochlorperazine maleate 10 mg 10 mg PO TID PRN nausea and 12/20/24 12/20/24 Rx tablet (Compazine) vomiting #30 tabs Allergy/AdvReac Type Severity Reaction Status Date / Time amoxicillin (From Augmentin) Allergy rash Verified 12/19/24 14:18 clavulanic acid (From Allergy rash Verified 12/19/24 14:18 Augmentin) Family History Father CVA (cerebral vascular accident) Brother CVA (cerebral vascular accident) Myocardial infarction Prostate cancer Mother Bladder cancer Surgical History S/P breast biopsy History of liver biopsy S/P endoscopy History of total right knee replacement Hx of colonoscopy History of bilateral carpal tunnel release History of appendectomy History of tubal ligation Social History adopted: No household members: spouse number of children: 1 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[employer] pets and animals: No leisure activities: reading history of recent travel: No sexually active: Yes Smoking Status: Never smoker alcohol intake: never substance use type: does not use well-balanced diet: rarely or never caffeine: No eating out: other during the past year weight has: decreased > 10 lbs what type of physical activity do you participate in: none frequency: does not exercise ahsan/hoahaoism: NA seatbelt use: always do you feel safe at home: Yes Vital Signs Vital Signs Vital Signs: 12/21/24 06:32 12/21/24 06:32 12/21/24 07:08 Temperature 98.2 F 98.2 F Temperature Source Temporal Pulse Rate 74 74 Respiratory Rate 18 18 Respiratory Pattern Normal Blood Pressure 100/51 L 100/51 L Blood Pressure Mean 67 Blood Pressure Source Monitor Blood Pressure Position Left Lateral Blood Pressure Location Right Arm Pulse Ox 96 96 Oxygen Delivery Method Room Air Room Air Weight Weight: 172 lb 9.951 oz Body Mass Index (BMI) 29.6 Physical Exam Const alert, oriented x3 and no apparent distress Assessment & Plan Assessment/Plan (1) Encounter for insertion of venous access port: PLAN: Plan left sided port placement today 12/21/24 0719 <Electronically signed by Tera Clay MD> Cosigner Signature (if applicable): CC: Dr. Diya George MD; Dr. Tera Clay MD~ Signed [facility] Work Phone: 1(891) 288-858007-02-2025 Consult note Author [facility] Note Date/Time December 21, 2024 7:08a [facility] Medical Records Department [address] [place] [address] Pre-Anesthesia Evaluation 12/21/24 0658 MR#: [id number] Acct: [id number] Name: LIZZETH BERRY Rep #:[id number] : 1955 69 From: Elan Rushing MD PCP: Dr. Diya George MD Status:REG SD Y Race: C Location: [place] [address] ASA Classification* ASA Classification ASA Classification: 2 Assessment & Plan Anesthesia* Anesthesia Assessment Anesthesia Assessment: Discussed sedation and/or anesthesia options, risks, benefits, and alternatives with patient/parents/legal guardian/POA. Questions invited. The patient/parents/legal guardian/POA seems to understand and agrees to proceedwith anesthesia plan. Reviewed the physical assessment, medical history, allergy history and patient home medications list prior to surgery/procedure/anesthetic and documented any changes. Performed airway and anesthesia risk assessments. Anesthesia Type Anesthesia Type: MAC History Source History Obtained from:: Patient and Chart Anesthesia Focused Assessment* Temperature: 98.2 F Pulse Rate: 74 Blood Pressure: 100/51 Respiratory Rate: 18 Pulse Ox: 96 Oxygen Delivery Method: Room Air Airway Assessment Mouth opens: >3 cm Mallampati Score: II Teeth Condition: Intact Neck Range of motion (ROM): Full ROM Labs Anesthesia Preop lab: CBC WBC 22.2 K/mm3 (4.4-11.0) H 11/29/24 08:50 5 RBC 4.79 M/mm3 (4.2-5.4) 11/29/24 08:50 11/29/24 Hgb 11.9 g/dL (12.0-15.0) L 11/29/24 08:50 5 Hct 36.5 % (37-47) L 11/29/24 08:50 11/29/24 Plt Count 715 K/mm3 (150-450) H 11/29/24 08:50 11/29/24 CHEMISTRY Potassium 4.4 mmol/L (3.3-5.1) 11/17/24 14:47 11/17/24 Sodium 136 mmol/L (133-145) 11/17/24 14:47 11/17/24 Magnesium 2.4 mg/dL (1.6-2.3) H 07/26/21 11:49 07/26/21 Phosphorus 3.2 mg/dL (2.5-4.9) 03/02/13 06:01 03/02/13 BUN 18 mg/dL (4-19) 11/17/24 14:47 11/17/24 Creatinine 0.97 mg/dL (0.70-1.20) 11/17/24 14:47 11/17/24 Glucose 107 mg/dL (70-99) H 11/17/24 14:47 11/17/24 POC Glucose 100 mg/dL (70-110) 08/06/21 06:16 08/06/21 TSH 5.270 uIU/mL (0.300-4.200) H 10/26/24 15:27 COAG PT 15.1 SECONDS (11.7-14.9) H 11/29/24 08:50 11/20 Pre-Assessment Diagnosis/Proposed Procedure Planned Operative Procedure(s): (L) Insertion, Vascular Port left poss right Anesthesia History Anesthesia History - reed man: Anesthesia History - reed man Hx Hospitalization No 12/19/24 14:27 Any Problems With Anesthesia No 12/19/24 14:27 Cholinesterase deficiency No 12/19/24 14:27 You/Your Family Experience No 12/19/24 14:27 fever (hyperthermia) with Relationship Recent Exposure to Contagious No 12/21/24 06:32 Disease Does patient have nerve No 12/19/24 14:27 stimulator Patient instructed to have device shut off --Does patient have Pacemaker No 12/21/24 06:32 or ICD? When Was Last Pacemaker Check QUESTION #4 FULL TEXT: You/Your Family Experience fever (hyperthermia) with Anesthesia Last Oral Intake Last Oral intake: Last Oral Intake NPO since 22:00 12/21/24 06:32 Meds taken in AM with sips of No 12/21/24 06:32 water? Meds patient instructed to take am of surgery PONV PONV - reed man: PONV - reed man Female Yes 12/19/24 14:27 HX of Motion Sickness No 12/19/24 14:27 HX of N/V After Surgery No 12/19/24 14:27 Non-Smoker Yes 12/19/24 14:27 Duration of Surgery greater No 12/19/24 14:27 than 60 minutes Number of Risk Factors 2 12/19/24 14:27 PONV Score Moderate Risk 12/19/24 14:27 Height & Weight Height & Weight: Anesthesia: Height & Weight Height 5 ft 4 in 12/21/24 06:32 Weight: 78.3 kg 12/21/24 06:32 Body Mass Index (BMI) 29.6 12/21/24 06:32 Respiratory Assessment Respiratory Assessment - reed man: Respiratory Tract Infection Hx - reed man Hx Respiratory Tract Infection No 12/19/24 14:27 STOP Sleep Apnea STOP Sleep Apnea - reed man: STOP Sleep Apnea - reed man Hx Hypertension No 12/19/24 14:27 Hx Sleep Apnea No 12/19/24 14:27 CPAP No 08/06/21 10:33 BIPAP Do you snore loudly (louder No 12/19/24 14:27 than talking or can be heard Do you often feel tired/ No 12/19/24 14:27 fatigued/ sleepy during daytime? Has anyone observed you stop No 12/19/24 14:27 breathing during sleep? STOP Results Negative 12/19/24 14:27 QUESTION #5 FULL TEXT : Do you snore loudly (louder than talking or can be heard through closed doors)? 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 Specify any problems Hx of Preganancy in last 3 No 12/19/24 14:27 Months Nurse Filling Out Transfusion JZOLLINGE 12/19/24 14:27 & Questions: Date: 12/19/24 12/19/24 14:27 Time: 14:28 12/19/24 14:27 Patient unable to answer at this time (ie. confused, unrespo /Reproduction History /Reproductive History - reed man: /Reproductive Hx- reed man Hx Now No 12/19/24 14:27 Gestational Age (in weeks): EDC: Hx Hx Para Hx Section SAB No 12/19/24 14:27 Active Medications Active Medications: Current Medications Generic Name Dose Route Start Last Admin Trade Name Freq PRN Reason Stop Dose Admin Clindamycin Phosphate 900 mg in 50 mls @ 75 mls/hr 12/21/24 07:30 Cleocin IV 12/21/24 08:09 INTRAOP ONE Lactated Ringer's 1,000 mls @ 15 mls/hr 12/21/24 06:00 12/21/24 06:38 IV 15 mls/hr .Q48H CRYSTAL Administration PFSH Medical History Nausea Encounter for education 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 Wears glasses Arthritis Bladder disease Easy bruising Heartburn Non-smoker Shortness of breath on exertion History of pain when walking Home Medications ?Medication ?Instructions ?Recorded ?Last Taken ?Type pantoprazole 40 mg tablet,delayed 40 mg PO QDAY 12/20/24 History release (Protonix) ondansetron 4 mg disintegrating 4 mg PO Q6H PRN nausea and 12/01/24 12/20/24 Rx tablet vomiting #90 tabs oxycodone 5 mg tablet 2.5 - 5 mg PO Q6H PRN pain 0 12/19/24 Unknown History sennosides 8.6 mg-docusate sodium 1 tab PO BID PRN con stipation 12/19/24 12/20/24 History 50 mg tablet (Stool Softener-Stimulant Laxative) vitamins A,C,M-jyps-hunbop 2,148 2 tab PO BID 12/19/24 Unknown History mcg-113 mg-45 mg-17.4 mg tablet (PreserVision AREDS) prochlorperazine maleate 10 mg 10 mg PO TID PRN nausea and 12/20/24 12/20/24 Rx tablet (Compazine) vomiting #30 tabs Allergy/AdvReac Type Severity Reaction Status Date / Time amoxicillin (From Augmentin) Allergy rash Verified 12/19/24 14:18 clavulanic acid (From Allergy rash Verified 12/19/24 14:18 Augmentin) Family History Father CVA (cerebral vascular accident) Brother CVA (cerebral vascular accident) Myocardial infarction Prostate cancer Mother Bladder cancer Surgical History S/P breast biopsy History of liver biopsy S/P endoscopy History of total right knee replacement Hx of colonoscopy History of bilateral carpal tunnel release History of appendectomy History of tubal ligation Social History adopted: No household members: spouse number of children: 1 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 12/21/24 0708 <Electronically signed by Elan rios MD> Date _ Elan Rushing MD Cosigner Signature: Date CC: ~ Signed [facility] Work Phone: 1(783) 881-957207-02-2025 Radiology Diagnostic study note [facility] Imaging Services [address] [place] [address] CXR for Line Placement MR#: [id number] Acct: [id number] Name: LIZZETH BERRY Rep #: [id number] : 1955 F 69 From: Renato Beard MD PCP: Dr. Diya George MD Status: [facility] Study:CXR for Line Placement Date of Exam: 12/21/24 Exam# [id number] Ordering Dr: St mirna Clay MD PROCEDURE: CXR FOR LINE PLACEMENT 12/21/2024 REASON FOR EXAM: NEW LEFT-SIDED MEDIPORT TECHNIQUE: CXR FOR LINE PLACEMENT COMPARISON: November 30, 2024 CT FINDINGS: There is a line on the left with its tip in the superior vena cava above the right atrium. Heart size is within normal limits. Bilateral pulmonary nodules are noted with the largest on the left measuring 2 cm, similar to the prior CT. There is no visible pneumothorax. There is no significant effusion. There is no acute bony abnormality. There is no acute bony abnormality. RAD/CXR for Line Placement IMPRESSION: Line in position. Reading Location: [facility] CC: Dr. Diya George MD; Dr. Tera Clay MD ~ Cuff Presser: Signed [facility]07-02-2025 Procedure note [facility] Medical Records Department [address] [place] [address] Operative Report 12/21/24 0832 MR#: [id number] Acct: [id number] Name: LIZZETH BERRY Rep #:[id number] : 1955 69 From: Tera Clay MD PCP: Dr. Diya George MD Status:[facility] Location: [place] [address] Problems Associated Problem List Diagnoses (1) Cancer, metastatic to bone: Procedures Cardiovascular CF Procedures [id number]: [id number] Insert tunneled cv cath Operative Report (Standard) Operative Information Date of Procedure: 12/21/24 Pre-Operative Diagnosis: Metastatic cancer Post-Operative Diagnosis: Same Surgery/Procedure Performed: Left-sided Mediport placement with CM tube turner: No Type of Anesthesia: Local and MAC RN Documented Start/Stop Times: Operation Date: 12/21/24 07:30 Case Time Into Pre-Op 12/21/24 05:59 Out of Pre-Op 12/21/24 07:28 Anesthesia Start 12/21/24 07:30 Into Room 12/21/24 07:30 Procedure Start 12/21/24 07:53 Procedure End 12/21/24 08:16 Anesthesia End 12/21/24 08:21 Out of Room 12/21/24 08:21 Into Recovery 12/21/24 08:25 Procedure Start Time: 07:53 Procedure Stop Time: 08:16 Select all DRAINS/GRAFTS/IMPLANTS that apply: Implanted device Implanted device details: PowerPort Mediport Estimated Blood Loss: 5 mL Specimen collected: No Description of surgery: The patient is a 69-year-old female who was recently seen through the office to schedule Mediport insertion. She was recently discovered to have metastatic cancer to the bone. Her treating oncology team is recommending chemotherapy. For this reason Mediport insertion was recommended. In the office we discussed the details of the planned procedure as well as risks, benefits as well as alternatives. She wished to proceed. She was brought to the operating room today following informed consent. The operative antibiotics were given and a timeout was performed. She was placed supine on the operative table with arms initially outstretched on arm boards. MAC anesthesia was then induced. Once in sleep, axillary roll was placed between her shoulders and her arms were comfortably tucked at her sides. The chest and neck regions were prepped and draped in the usual sterile manner. Local anesthetic was then injected into the left periclavicular area. Using thesupplied needle and syringe, the left subclavian vein was accessed on the first pass. The blood return was a dark red, nonpulsatile, venous appearing blood return.The guidewire was then threaded through the aperture and the needle andwas advanced. The guidewire was then secured to the drapes. C-arm was brought into confirm guidewire being in the right side of the heart. Next a incision was made near the site of the planned port hub insertion. Local anesthetic was injected first and then a #15 blade was used to make the incision. Bovie electrocautery was then used to dissect down through subcutaneous tissue down tothe level of the chest wall. Once at thislevel a subcutaneous pocket was created. A small incision was made at the entry point of the guidewire as well. Curved hemostat was then used to create a small pocket at the entry point of the guidewire. Tubing and tunneler were then threaded into the large incision and up and out through the smaller incision. Tubing was trimmed to about 21.5 cm. This was then attached to the port hub. The hub was then affixed to the chest wall using Prolene suture x 2. Next the dilator and tear-away sheath werethreaded over the guidewire under fluoroscopy. This was in good position and sothe guidewire and dilator were then removed thus leaving the sheath in place. The free end of the Mediport tubing was then threaded down the aperture and the sheath. The sheath was then extracted as the tubing was advanced. With this inplace the port was tested using injectable saline. It patt and flushed easily with good blood return. It was then confirmed to be in good position with the aid of fluoroscopy. The portwas then flushed with 3 mL of heparin flush. The incisions were then closed with 3-0 Vicryl and 4-0Vicryl. Skin glue was applied as dressing. A sterile 2 x 2 and a large Tegaderm was then applied. She was awakened anesthesia and taken recovery in good condition where chest x-ray will be performed Surgical Findings: See operative note Complications Complications: No Admit VTE Documentation VTE Present on Admission: No VTE Mechan Device Prophylaxis: SCD's VTE Pharm Prophylaxis ordered?: No Reason prophylaxis not ordered: Treatment Not Indicated 12/21/24 0844 Cosigner Signature (if applicable): CC: Dr. Diya George MD; Dr. Tera Clya MD~ Signed [facility]07-02-2025 Discharge summary [facility] Medical Records Department [address] [place] [address] Instructions for Home/Discharge Instructions 12/21/2427 MR#: [id number] Acct: [id number] Name: LIZZETH BERRY Rep #:[id number] : 1955 69 From: Tera Clay MD PCP: Dr. Diya George MD Status:REG [facility] Discharge Instructions Diet Discharge Diet: Light diet - advance as tolerated Activity Discharge Activity: Return to Normal Activity and May Shower May shower in (days): 1 Ice area for (Minutes): 30 Dressing / Incision Call your doctor if your incision/area has: Continuous Slow Oozing, Sudden Increased Bleeding, Increased Pain/ Swelling, Increased Redness, Foul Smelling Discharge and Swelling at the incision site Call your doctor if you observe: Fever of 101 or Higher Remove Dressing in: 2 days Cleanse incision/area with: Soap & Water Follow Up Care Please Follow Up With: Tera Clay MD When: as needed Test Results: Test results from this visit will be discussed in further detail at your follow- up appointment, if applicable. Discharge Plan Admission Primary Reason for Your Visit: Mediport placement Attending Provider: Tera Clay Primary Care Provider: Diya George Instructions Print Language: Lao Discharge Orders/Prescriptions Prescriptions: Continued ondansetron 4 mg tablet,disintegrating 4 mg PO Q6H PRN (Reason: nausea and vomiting) Qty: 90 0RF pantoprazole [Protonix] 40 mg tablet,delayed release (DR/EC) 40 mg PO QDAY sennosides-docusate sodium [Stool Softener-Stimulant Laxat] 8.6-50 mg tablet 1 tab PO BID PRN (Reason: constipation) oxycodone 5 mg tablet 2.5 - 5 mg PO Q6H PRN (Reason: pain) PreserVision AREDS 2,148 mcg-113 mg-45 mg-17.4mg tablet 2 tab PO BID Rx Instructions: administer with AM and PM meals prochlorperazine maleate [Compazine] 10 mg tablet 10 mg PO TID PRN (Reason: nausea and vomiting) Qty: 30 1RF Referrals / Follow Up: Diya George MD [Primary Care Provider] - Disposition Disposition (needs filled in before D/C Order can be placed): Home, Self Care 12/21/24 0832Tera Clay MD CC: Dr. Diya George MD ~ Signed [facility]07-02-2025 Consult [address] [facility] Medical Records Department [address] [place] [id number] Anesthesia Postop Eval I 12/21/2426 MR#: [id number] Acct: [id number] Name: LIZZETH BERRY Rep #:[id number] : 1955 69 From: Poppy Loera CRNA PCP: Dr. Diya George MD Status:REG [facility] Y Race: C Location: [place] [address] Anesthesia: Postop Eval I Current Vital Signs Temperature: 97.4 F Pulse Rate: 85 Blood Pressure: 88/59 Respiratory Rate: 16 Pulse Ox: 91 Oxygen Delivery Method: Room Air Assessment Airway patent: Yes Spontaneous unlabored respirations: Yes Mental status: Awake and Calm nausea: No Vomiting: No Anesthesia Complication: No Fluid Hydration Crystalloid volume administer (ml): 300 Total IV fluid infused: 300 Progress Note Anesthesia document: Postop Eval 1 completed: Yes 12/21/2427 st REED MAN> Date _ Poppy Loera REED MAN Cosigner Signature: Date CC: ~ Signed [facility]07-02-2025 History and physical note [facility] Medical Records Department [address] [place] [address] History & Physical Exam 12/21/24 0718 MR#: [id number] Acct: [id number] Name: LIZZETH BERRY Rep #:[id number] : 1955 69 From: Tera Clay MD PCP: Dr. 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 Wears glasses Arthritis Bladder disease Easy bruising Heartburn Non-smoker Shortness of breath on exertion History of pain when walking Home Medications ?Medication ?Instructions ?Recorded ?Last Taken ?Type pantoprazole 40 mg tablet,delayed 40 mg PO QDAY 12/20/24 History release (Protonix) ondansetron 4 mg disintegrating 4 mg PO Q6H PRN nausea and 12/01/24 12/20/24 Rx tablet vomiting #90 tabs oxycodone 5 mg tablet 2.5 - 5 mg PO Q6H PRN pain 0 12/19/24 Unknown History sennosides 8.6 mg-docusate sodium 1 tab PO BID PRN con stipation 12/19/24 12/20/24 History 50 mg tablet (Stool Softener-Stimulant Laxative) vitamins A,C,E-esde-fqqglr 2,148 2 tab PO BID 12/19/24 Unknown History mcg-113 mg-45 mg-17.4 mg tablet (PreserVision AREDS) prochlorperazine maleate 10 mg 10 mg PO TID PRN nausea and 12/20/24 12/20/24 Rx tablet (Compazine) vomiting #30 tabs Allergy/AdvReac Type Severity Reaction Status Date / Time amoxicillin (From Augmentin) Allergy rash Verified 12/19/24 14:18 clavulanic acid (From Allergy rash Verified 12/19/24 14:18 Augmentin) Family History Father CVA (cerebral vascular accident) Brother CVA (cerebral vascular accident) Myocardial infarction Prostate cancer Mother Bladder cancer Surgical History S/P breast biopsy History of liver biopsy S/P endoscopy History of total right knee replacement Hx of colonoscopy History of bilateral carpal tunnel release History of appendectomy History of tubal ligation Social History adopted: No household members: spouse number of children: 1 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[employer] pets and animals: No leisure activities: reading history of recent travel: No sexually active: Yes Smoking Status: Never smoker alcohol intake: never substance use type: does not use well-balanced diet: rarely or never caffeine: No eating out: other during the past year weight has: decreased > 10 lbs what type of physical activity do you participate in: none frequency: does not exercise ahsan/hoahaoism: NA seatbelt use: always do you feel safe at home: Yes Vital Signs Vital Signs Vital Signs: 12/21/24 06:32 12/21/24 06:32 12/21/24 07:08 Temperature 98.2 F 98.2 F Temperature Source Temporal Pulse Rate 74 74 Respiratory Rate 18 18 Respiratory Pattern Normal Blood Pressure 100/51 L 100/51 L Blood Pressure Mean 67 Blood Pressure Source Monitor Blood Pressure Position Left Lateral Blood Pressure Location Right Arm Pulse Ox 96 96 Oxygen Delivery Method Room Air Room Air Weight Weight: 172 lb 9.951 oz Body Mass Index (BMI) 29.6 Physical Exam Const alert, oriented x3 and no apparent distress Assessment & Plan Assessment/Plan (1) Encounter for insertion of venous access port: PLAN: Plan left sided port placement today 12/21/24 0719 Cosigner Signature (if applicable): CC: Dr. Diya George MD; Dr. Tera Clay MD~ Signed [facility]07-02-2025 [facility] Medical Records Department [address] [place] [address] History Physical Exam 12/21/24717 MR#: [id number] Acct: [id number] Name: LIZZETH BERRY Rep #: [id number] : 1955 69 From: Tera Clay MD PCP: Dr. 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 Wears glasses Arthritis Bladder disease Easy bruising Heartburn Non-smoker Shortness of breath on exertion History of pain when walking Home Medications ???Medication ???Instructions ???Recorded ???Last Taken ???Type pantoprazole 40 mg tablet,delayed 40 mg PO QDAY 11/23/24 12/20/24 H istory release (Protonix) ondansetron 4 mg disintegrating 4 mg PO Q6H PRN nausea and 5 12/20/24 Rx tablet vomiting #90 tabs oxycodone 5 mg tablet 2.5 - 5 mg PO Q6H PRN pain 5 Unknown History sennosides 8.6 mg-docusate sodium 1 tab PO BID PRN constipation 12/20/24 History 50 mg tablet (Stool Softener-Stimulant Laxative) vitamins A,C,D-bugy-vkzqpi 2,148 2 tab PO BID 12/19/24 Unknown Hist ory mcg-113 mg-45 mg-17.4 mg tablet (PreserVision AREDS) prochlorperazine maleate 10 mg 10 mg PO TID PRN nausea and 12/20/24 Rx tablet (Compazine) vomiting #30 tabs Allergy/AdvReac Type Severity Reaction Status Date / Time amoxicillin (From Augmentin) Allergy rash Verified 12/19/24 14:18 clavulanic acid (From Allergy rash Verified 12/19/24 14:18 Augmentin) Family History Father CVA (cerebral vascular accident) Brother CVA (cerebral vascular accident) Myocardial infarction Prostate cancer Mother Bladder cancer Surgical History S/P breast biopsy History of liver biopsy S/P endoscopy History of total right knee replacement Hx of colonoscopy History of bilateral carpal tunnel release History of appendectomy History of tubal ligation Social History adopted: No household members: spouse number of children: 1 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[employer] pets and animals: No leisure activities: reading history of recent travel: No sexually active: Yes Smoking Status: Never smoker alcohol intake: never substance use type: does not use well-balanced diet: rarely or never caffeine: No eating out: other during the past year weight has: decreased > 10 lbs what type of physical activity do you participate in: none frequency: does not exercise ahsan/hoahaoism: NA seatbelt use: always do you feel safe at home: Yes Vital Signs Vital Signs Vital Signs: 12/21/24 06:32 12/21/24 06:32 12/21/24 07:08 Temperature 98.2 F 98.2 F Temperature Source Temporal Pulse Rate 74 74 Respiratory Rate 18 18 Respiratory Pattern Normal Blood Pressure 100/51 L 100/51 L Blood Pressure Mean 67 Blood Pressure Source Monitor Blood Pressure Position Left Lateral Blood Pressure Location Right Arm Pulse Ox 96 96 Oxygen Delivery Method Room Air Room Air Weight Weight: 172 lb 9.951 oz Body Mass Index (BMI) 29.6 Physical Exam Const alert, oriented x3 and no apparent distress Assessment Plan Assessment/Plan (1) Encounter for insertion of venous access port: PLAN: Plan left sided port placement today 12/21/24 0719 Cosigner Signature (if applicable): CC: Dr. Diya George MD; [facility]. Tera Clay [facility] [address] [facility] Medical Records Department [address] [place] [address] Pre-Anesthesia Evaluation 12/21/24 0658 MR#: [id number] Acct: [id number] Name: LIZZETH BERRY Rep #:[id number] : 1955 69 From: Elan Rushing MD PCP: Dr. Diya George MD Status:REG [facility] Y Race: C Location: [place] [address] ASA Classification* ASA Classification ASA Classification: 2 Assessment & Plan Anesthesia* Anesthesia Assessment Anesthesia Assessment: Discussed sedation and/or anesthesia options, risks, benefits, and alternatives with patient/parents/legal guardian/POA. Questions invited. The patient/parents/legal guardian/POA seems to understand and agrees to proceedwith anesthesia plan. Reviewed the physical assessment, medical history, allergy history and patient home medications list prior to surgery/procedure/anesthetic and documented any changes. Performed airway and anesthesia risk assessments. Anesthesia Type Anesthesia Type: MAC History Source History Obtained from:: Patient and Chart Anesthesia Focused Assessment* Temperature: 98.2 F Pulse Rate: 74 Blood Pressure: 100/51 Respiratory Rate: 18 Pulse Ox: 96 Oxygen Delivery Method: Room Air Airway Assessment Mouth opens: >3 cm Mallampati Score: II Teeth Condition: Intact Neck Range of motion (ROM): Full ROM Labs Anesthesia Preop lab: CBC WBC 22.2 K/mm3 (4.4-11.0) H 11/29/24 08:50 5 RBC 4.79 M/mm3 (4.2-5.4) 11/29/24 08:50 11/29/24 Hgb 11.9 g/dL (12.0-15.0) L 11/29/24 08:50 5 Hct 36.5 % (37-47) L 11/29/24 08:50 11/29/24 Plt Count 715 K/mm3 (150-450) H 11/29/24 08:50 11/29/24 CHEMISTRY Potassium 4.4 mmol/L (3.3-5.1) 11/17/24 14:47 11/17/24 Sodium 136 mmol/L (133-145) 11/17/24 14:47 11/17/24 Magnesium 2.4 mg/dL (1.6-2.3) H 07/26/21 11:49 07/26/21 Phosphorus 3.2 mg/dL (2.5-4.9) 03/02/13 06:01 03/02/13 BUN 18 mg/dL (4-19) 11/17/24 14:47 11/17/24 Creatinine 0.97 mg/dL (0.70-1.20) 11/17/24 14:47 11/17/24 Glucose 107 mg/dL (70-99) H 11/17/24 14:47 11/17/24 POC Glucose 100 mg/dL (70-110) 08/06/21 06:16 08/06/21 TSH 5.270 uIU/mL (0.300-4.200) H 10/26/24 15:27 COAG PT 15.1 SECONDS (11.7-14.9) H 11/29/24 08:50 11/20 Pre-Assessment Diagnosis/Proposed Procedure Planned Operative Procedure(s): (L) Insertion, Vascular Port left poss right Anesthesia History Anesthesia History - reed man: Anesthesia History - reed man Hx Hospitalization No 12/19/24 14:27 Any Problems With Anesthesia No 12/19/24 14:27 Cholinesterase deficiency No 12/19/24 14:27 You/Your Family Experience No 12/19/24 14:27 fever (hyperthermia) with Relationship Recent Exposure to Contagious No 12/21/24 06:32 Disease Does patient have nerve No 12/19/24 14:27 stimulator Patient instructed to have device shut off --Does patient have Pacemaker No 12/21/24 06:32 or ICD? When Was Last Pacemaker Check QUESTION #4 FULL TEXT: You/Your Family Experience fever (hyperthermia) with Anesthesia Last Oral Intake Last Oral intake: Last Oral Intake NPO since 22:00 12/21/24 06:32 Meds taken in AM with sips of No 12/21/24 06:32 water? Meds patient instructed to take am of surgery PONV PONV - reed man: PONV - reed man Female Yes 12/19/24 14:27 HX of Motion Sickness No 12/19/24 14:27 HX of N/V After Surgery No 12/19/24 14:27 Non-Smoker Yes 12/19/24 14:27 Duration of Surgery greater No 12/19/24 14:27 than 60 minutes Number of Risk Factors 2 12/19/24 14:27 PONV Score Moderate Risk 12/19/24 14:27 Height & Weight Height & Weight: Anesthesia: Height & Weight Height 5 ft 4 in 12/21/24 06:32 Weight: 78.3 kg 12/21/24 06:32 Body Mass Index (BMI) 29.6 12/21/24 06:32 Respiratory Assessment Respiratory Assessment - reed man: Respiratory Tract Infection Hx - reed man Hx Respiratory Tract Infection No 12/19/24 14:27 STOP Sleep Apnea STOP Sleep Apnea - reed man: STOP Sleep Apnea - reed man Hx Hypertension No 12/19/24 14:27 Hx Sleep Apnea No 12/19/24 14:27 CPAP No 08/06/21 10:33 BIPAP Do you snore loudly (louder No 12/19/24 14:27 than talking or can be heard Do you often feel tired/ No 12/19/24 14:27 fatigued/ sleepy during daytime? Has anyone observed you stop No 12/19/24 14:27 breathing during sleep? STOP Results Negative 12/19/24 14:27 QUESTION #5 FULL TEXT : Do you snore loudly (louder than talking or can be heard through closeddoors)? 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 Specify any problems Hx of Preganancy in last 3 No 12/19/24 14:27 Months Nurse Filling Out Transfusion JZOLLINGE 12/19/24 14:27 & Questions: Date: 12/19/24 12/19/24 14:27 Time: 14:28 12/19/24 14:27 Patient unable to answer at this time (ie. confused, unrespo /Reproduction History /Reproductive History - reed man: /Reproductive Hx- reed man Hx Now No 12/19/24 14:27 Gestational Age (in weeks): EDC: Hx Hx Para Hx Section SAB No 12/19/24 14:27 Active Medications Active Medications: Current Medications Generic Name Dose Route Start Last Admin Trade Name Freq PRN Reason Stop Dose Admin Clindamycin Phosphate 900 mg in 50 mls @ 75 mls/hr 12/21/24 07:30 Cleocin IV 12/21/24 08:09 INTRAOP ONE Lactated Ringer's 1,000 mls @ 15 mls/hr 12/21/24 06:00 12/21/24 06:38 IV 15 mls/hr .Q48H CRYSTAL Administration PFSH Medical History Nausea Encounter for education 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 Wears glasses Arthritis Bladder disease Easy bruising Heartburn Non-smoker Shortness of breath on exertion History of pain when walking Home Medications ?Medication ?Instructions ?Recorded ?Last Taken ?Type pantoprazole 40 mg tablet,delayed 40 mg PO QDAY 12/20/24 History release (Protonix) ondansetron 4 mg disintegrating 4 mg PO Q6H PRN nausea and 12/01/24 12/20/24 Rx tablet vomiting #90 tabs oxycodone 5 mg tablet 2.5 - 5 mg PO Q6H PRN pain 0 12/19/24 Unknown History sennosides 8.6 mg-docusate sodium 1 tab PO BID PRN con stipation 12/19/24 12/20/24 History 50 mg tablet (Stool Softener-Stimulant Laxative) vitamins A,C,A-blkb-tbgjaq 2,148 2 tab PO BID 12/19/24 Unknown History mcg-113 mg-45 mg-17.4 mg tablet (PreserVision AREDS) prochlorperazine maleate 10 mg 10 mg PO TID PRN nausea and 12/20/24 12/20/24 Rx tablet (Compazine) vomiting #30 tabs Allergy/AdvReac Type Severity Reaction Status Date / Time amoxicillin (From Augmentin) Allergy rash Verified 12/19/24 14:18 clavulanic acid (From Allergy rash Verified 12/19/24 14:18 Augmentin) Family History Father CVA (cerebral vascular accident) Brother CVA (cerebral vascular accident) Myocardial infarction Prostate cancer Mother Bladder cancer Surgical History S/P breast biopsy History of liver biopsy S/P endoscopy History of total right knee replacement Hx of colonoscopy History of bilateral carpal tunnel release History of appendectomy History of tubal ligation Social History adopted: No household members: spouse number of children: 1 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 12/21/24 0708 balnca COTTO> Date _ Elan Rushing MD 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 Patient reports that in 2023 she had an abnormal screening mammogram on the leftbreast, had a biopsy at [facility] and was told was negative for malignancy. November 04, [address] Madsen: Impression colitis like picture Pathology: Ascending colon active colitis. Descending colon colonic mucosa no significant pathologic changes. Rectum biopsy rectal mucosa no significant histopathologic changes. November 11, 2024 CT abdomen and pelvis: FINDINGS: Bilateral multifocal varying size pulmonary nodules, largest on the left is partially seen at the lingula measuring 9 mm and largest on the right just above the diaphragm 12 mm. 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 The liver is enlarged containing innumerable varying size liver lesions concerning for metastatic disease. Liver mass in the posterior right lobe appears associated with calcification measuring around 4.8 cm. The gallbladder appears distended without wall thickening or surrounding inflammatory change and may contain a small amount of sludge. No biliary ductal dilation identified. 1.8 cm cystic focus within the head of the pancreas may represent pseudocyst or cystic neoplasm. Nopancreatic ductal dilation identified. The adrenal glands, kidneys appear within limits. Small left renal cyst noted. The spleen appears diffusely heterogeneous and may represent differences in splenic pulp with possibility of numerous lesions, metastatic disease not excluded. Enlarged vipin hepatis node measuring 3.4 by 2.5 cm. Abdominal aorta appears within limits. Adjacent to the right common iliac vessels and right psoas muscle is a soft tissue mass measuring 4.5 by 2.7 cm with the right common iliac vein draped across and difficult to distinguish. Adjacent along the presacral soft tissues upper right sacrum is a heterogeneous mass with mixed cystic and solid appearance and areas of suggested calcification measures 4.2 x 3.7 cm. Possibility includes metastatic lymphadenopathy, possibility of lymphoma not excluded. No bowel dilation or free air. No evidence of colonic wall thickening or pericolonic inflammatory change. Overall there does appear to be soft tissue fullness at the perineum about the vaginal introitus and rectum/perianal soft tissues for example axial 117 and sagittal 97. Recommend further clinical correlation. Very small amount of perihepatic free fluid noted. Status post hysterectomy. Bilateral fallopian tube clips are seen with what appears to be adjacent bilateral ovarian tissue which appears within limits. The bladder appears within limits. There are multifocal areas of osseous sclerotic lesions mostly involving the sacrum although also involving the right ilium, posterior thoracic spine and the anterior right 6th rib. No pathologic fractureidentified. Lower lumbar spondylosis/discogenic change and facet degenerative changes. IMPRESSION: Multifocal partially imaged noncalcified pulmonary nodules, hepatomegaly filled with numerous lesions, vipin hepatis lymphadenopathy, possible splenic lesions, lower right retroperitoneal presacralmasses and sclerotic multifocal osseous lesions consistent with metastatic disease with possible lymphoma not entirely excluded as described in detail above. Requires further clinical correlation and workup. Fullness peroneal soft tissues about the vaginal introitus and rectum/anus recommend further clinical correlation. Cystic focus within the pancreatic head as above. November 22, 2024 EGD by Dr. Herman: Hiatus hernia, exudate and ulceration in the prepyloric area and duodenum. Biopsy showing active inflammation and hemorrhage negative for H. pylori no malignancy. November 30, 2024 bone scan: IMPRESSION: Extensive abnormal uptake is seen throughout much of the bilateral sacrum, corresponding with sclerotic lesion seen on a recent CT scan. This is most consistent with osseous metastatic disease. November 30, 2024 CT chest: IMPRESSION: Coronary artery calcification (CAC) is is absent Multiple bilateral noncalcified pulmonary pulmonary nodules are noted in the upper lobes, right middle lobe, lingula and bilateral lower lobes ranging in size between 0.5 and 2.8 cm. Mildly enlarged mediastinal and hilar lymph nodes are noted with the largest measuring 1.7 cm. No coronary artery calcifications are noted. Hepatomegaly. Multiple hepatic nodules are noted with the largest measuring 1.7 cm. Enlarged vipin hepatis lymph nodes are noted with the largest measuring 1.6 cm November 29, 2024 MICROSCOPIC DIAGNOSIS A. Liver lesions, CT-guided core biopsy: - Well-differentiated neuroendocrine tumor, Grade 3, consistent with metastasis ? see note and Comment. o Note: IHCs were performed - o Positive: Chromogranin, Synaptophysin, Ki67 (approximately 25%), CK7 (weak focal), CK8 (weak focal), 34be12 (focal). o Negative: Pancytokeratin, CK20, CDX2. o CK19 is pending and will be reported in an addendum Interval History The patient is presenting to clinic accompanied by spouse for for a discussion about palliative FOLFOX. 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 Wears glasses Arthritis Bladder disease Easy bruising Heartburn Non-smoker Shortness of breath on exertion History of pain when walking Surgical History S/P breast biopsy History of liver biopsy S/P endoscopy History of total right knee replacement Hx of colonoscopy History of bilateral carpal tunnel release History of appendectomy History of tubal ligation Family History Father CVA (cerebral vascular accident) Brother CVA (cerebral vascular accident) Myocardial infarction Prostate cancer Mother Bladder cancer Social History adopted: No household members: spouse number of children: 1 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[employer] pets and animals: No leisure activities: reading history of recent travel: No sexually active: Yes Smoking Status: Never smoker alcohol intake: never substance use type: does not use well-balanced diet: rarely or never caffeine: No eating out: other during the past year weight has: decreased > 10 lbs what type of physical activity do you participate in: none frequency: does not exercise ahsan/hoahaoism: NA seatbelt use: always do you feel safe at home: Yes ROS Constitutional Constitutional: Reports systems reviewed and no addt'l complaints, except as documented, anorexia, fatigue, weight loss and other Details: Increasing fatigue; Denies fever(s) or night sweats Eyes Eyes: Reports systems reviewed and no addt'l complaints, except as documented; Denies change in vision ENT HEENT: Reports systems reviewed and no addt'l complaints, except as documented; Denies mouth lesions Cardiovascular Cardiovascular: Reports systems reviewed and no addt'l complaints, except as documented; Denies chest pain or edema Respiratory/Chest Respiratory/Chest: Reports systems reviewed and no addt'l complaints, except as documented; Denies cough or dyspnea Gastrointestinal Gastrointestinal: Reports systems reviewed and no addt'l complaints, except as documented, abdominal pain, constipation, heartburn, nausea and other Details: Nausea has responded to as needed ondansetron ; Denies hematochezia, melena or vomiting Genitourinary Genitourinary: Reports systems reviewed and no addt'l complaints, except as documented Musculoskeletal Musculoskeletal: Reports systems reviewed and no addt'l complaints, except as documented; Denies back pain Integumentary Integumentary: Reports systems reviewed and no addt'l complaints, except as documented; Denies new lesions Neurologic Neurologic: Reports systems reviewed and no addt'l complaints, except as documented; Denies focal weakness or paresthesias Psychiatric Psychiatric: Reports systems reviewed and no addt'l complaints, except as documented Endocrine Endocrinology: Reports systems reviewed and no addt'l complaints, except as documented Hematologic/Lymphatic Hematologic/Lymphatic: Reports systems reviewed and no addt'l complaints, exceptas documented; Denies lymphadenopathy Allergic/Immunologic Allergic/Immunologic: Reports systems reviewed and no addt'l complaints, except as documented Intake Vital Signs 12/07/24 15:48 12/08/24 15:00 Height 5 ft 4.5 in 5 ft 4.5 in Weight: 174 lb 174 lb BMI 29.4 29.4 BP 123/81 H 114/75 Blood Pressure Location Lt brachial Lt brachial Position Sitting Sitting Respiration 16 18 Pulse 88 84 Pulse Source Monitor Monitor Temp 98.0 F 98.2 F Temperature Source Temporal Artery Temporal Artery Pulse Oximetry (%) 93 93 Oxygen Delivery Method room air room air Intake Is patient in pain?: No Allergies amoxicillin (From Augmentin) Allergy (Verified 12/08/24 15:12) rash clavulanic acid (From Augmentin) Allergy (Verified 12/08/24 15:12) rash Medications ?Medication ?Instructions ?Recorded ?Confirmed ?Type pantoprazole 40 mg tablet,delayed 40 mg PO QDAY 12/08/24 History release (Protonix) ondansetron 4 mg disintegrating 4 mg PO Q6H PRN nausea and 12/01/24 12/08/24 Rx tablet vomiting #90 tabs Have you fallen in the past year?: No Central Venous Access Central Venous Access: No Exam Physical Exam Narrative ECOG 2 Const alert, oriented x3 and no apparent distress General Appearance: ill appearing Positive for chronically HEENT Face and Sinus: normal facial exam Eyes General Eye: normal appearance of both eyes Neuro Speech: speech normal Gait (Neuro): normal gait Psych mental status grossly normal Attitude: calm and engaged Coding Level of Care Code Off vis,est,level 5 Exam Problem Focused Diagnoses 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 C78.01; C78.02 Laterality: bilateral Metastasis to liver C78.7 Cancer, metastatic to bone C79.51 Encounter for education Z71.9 Assessment and Plan Assessment and Plan (1) Neuroendocrine carcinoma: Status: Acute (2) Pancreatobiliary-type carcinoma: Status: Acute (3) Metastasis to lung: Status: Acute Qualifiers: Laterality: bilateral Qualified Code(s): C78.01 - Secondary malignant neoplasm of right lung; C78.02 - Secondary malignant neoplasm of left lung (4) Metastasis to liver: Status: Acute (5) Cancer, metastatic to bone: Status: Acute (6) Encounter for education: Status: Acute Plan 69-year-old female, never smoker presents with a few months increasing fatigue, anorexia and unexplained weight loss. CT and bone scan imaging revealed high-volume widely metastatic malignancy most likely pancreaticobiliary with metastasis to lungs liver and bones. EGD and colonoscopy showed no primary lesions CT-guided liver biopsy confirmed a well-differentiated high-grade G3 neuroendocrine tumor. Plan: Based on up-to-date review of Well-differentiated high-grade (G3) gastroentero pancreatic (GEP) neuroendocrine tumors (NETs) and NCCN guidelines recommend options: 1-systemic chemotherapy with FOLFOX because tumor is symptomatic with major burden. The goal of treatment is palliative plus or minus modest survival benefit. The patient has been thoroughly educated to risks/benefits associated with FOLFOX. Specifically, she has been educated to potential side effects, recommendations for symptom management, and circumstances in which she should contact provider immediately, such as the development of any signs/symptomsof infection inclusive of temperature > 100.4. Encouraged to go directly to ED should fever occur outside normal clinic hours. She has been provided written educational information and after hourscontact information. A significant amount of time was allotted for questions. All the patient's concerns were addressed to her satisfaction. 2. Palliative care transitioning into home hospice. The 2 options were discussed with the patient and her . She will make a decision after discussion with her family and make our office aware of her decision by Thursday12/12/24. She is already established with palliative care and has a living well. I spent 65 minutes today reviewing labs, records and history. Time includes coordination of care and patient education, as well as documenting clinical information. Clinical Quality Measures Falls Risk Screening/Assistive Devices Have you fallen in the past year?: No 12/08/24 1649 h EZRA DIRECTOR CONSUMER AFFAIRS-C> Date _ Magalie Pinto NP, NP-C Cosigner Signature: Date (if applicable) CC: ~ [facility]06-19-2025 Progress note Author Magalie Pinto [facility] Note Date/Time December 08, 2024 4:49 pm [facility] [address] [address] OFFICE VISIT Date of Service: 12/08/24 1458 MR#: [id number] Acct: [id number] Name: LIZZETH BERRY Rep #: [id number] : 1955 From: Magalie Ledbetter EZRA DIRECTOR CONSUMER AFFAIRS-C Age/Sex: 69/F Location[place] [facility] [place] Status: Signed HPI Subjective Date of Service 12/08/24 Chief Complaint Metastatic cancer History of Present Illness 69-year-old female who presents with a few months history of anorexia, 20+ poundweight loss, and increasing fatigue. 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 Patient reports that in 2023 she had an abnormal screening mammogram on the leftbreast, had a biopsy at [facility] and was told was negative for malignancy. November 04, [address] Madsen: Impression colitis like picture Pathology: Ascending colon active colitis. Descending colon colonic mucosa no significant pathologic changes. Rectum biopsy rectal mucosa no significant histopathologic changes. November 11, 2024 CT abdomen and pelvis: FINDINGS: Bilateral multifocal varying size pulmonary nodules, largest on the left is partially seen at the lingula measuring 9 mm and largest on the right just above the diaphragm 12 mm. 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 The liver is enlarged containing innumerable varying size liver lesions concerning for metastatic disease. Liver mass in the posterior right lobe appears associated with calcification measuring around 4.8 cm. The gallbladder appears distended without wall thickening or surrounding inflammatory change and may contain a small amount of sludge. No biliary ductal dilation identified. 1.8 cm cystic focus within the head of the pancreas may represent pseudocyst or cystic neoplasm. No pancreatic ductal dilation identified. The adrenal glands, kidneys appear within limits. Small left renal cyst noted. The spleen appears diffusely heterogeneous and may represent differences in splenic pulp with possibility of numerous lesions, metastatic disease not excluded. Enlarged vipin hepatis node measuring 3.4 by 2.5 cm. Abdominal aorta appears within limits. Adjacent to the right common iliac vessels and right psoas muscle is a soft tissue mass measuring 4.5 by 2.7 cm with the right common iliac vein draped across and difficult to distinguish. Adjacent along the presacral soft tissues upper right sacrum is a heterogeneous mass with mixed cystic and solid appearance and areas of suggested calcification measures 4.2 x 3.7 cm. Possibility includes metastatic lymphadenopathy, possibility of lymphoma not excluded. No bowel dilation or free air. No evidence of colonic wall thickening or pericolonic inflammatory change. Overall there does appear to be soft tissue fullness at the perineum about the vaginal introitus and rectum/perianal soft tissues for example axial 117 and sagittal 97. Recommend further clinical correlation. Very small amount of perihepatic free fluid noted. Status post hysterectomy. Bilateral fallopian tube clips are seen with what appears to be adjacent bilateral ovarian tissue which appears within limits. The bladder appears within limits. There are multifocal areas of osseous sclerotic lesions mostly involving the sacrum although also involving the right ilium, posterior thoracic spine and the anterior right 6th rib. No pathologic fractureidentified. Lower lumbar spondylosis/discogenic change and facet degenerative changes. IMPRESSION: Multifocal partially imaged noncalcified pulmonary nodules, hepatomegaly filled with numerous lesions, vipin hepatis lymphadenopathy, possible splenic lesions, lower right retroperitoneal presacralmasses and sclerotic multifocal osseous lesions consistent with metastatic disease with possible lymphoma not entirely excluded as described in detail above. Requires further clinical correlation and workup. Fullness peroneal soft tissues about the vaginal introitus and rectum/anus recommend further clinical correlation. Cystic focus within the pancreatic head as above. November 22, [address] Herman: Hiatus hernia, exudate and ulceration in the prepyloric area and duodenum. Biopsy showing active inflammation and hemorrhage negative for H. pylori no malignancy. November 30, 2024 bone scan: IMPRESSION: Extensive abnormal uptake is seen throughout much of the bilateral sacrum, corresponding with sclerotic lesion seen on a recent CT scan. This is most consistent with osseous metastatic disease. November 30, 2024 CT chest: IMPRESSION: Coronary artery calcification (CAC) is is absent Multiple bilateral noncalcified pulmonary pulmonary nodules are noted in the upper lobes, right middle lobe, lingula and bilateral lower lobes ranging in size between 0.5 and 2.8 cm. Mildly enlarged mediastinal and hilar lymph nodes are noted with the largest measuring 1.7 cm. No coronary artery calcifications are noted. Hepatomegaly. Multiple hepatic nodules are noted with the largest measuring 1.7 cm. Enlarged vipin hepatis lymph nodes are noted with the largest measuring 1.6 cm November 29, 2024 MICROSCOPIC DIAGNOSIS A. Liver lesions, CT-guided core biopsy: - Well-differentiated neuroendocrine tumor, Grade 3, consistent with metastasis ? see note and Comment. o Note: IHCs were performed - o Positive: Chromogranin, Synaptophysin, Ki67 (approximately 25%), CK7 (weak focal), CK8 (weak focal), 34be12 (focal). o Negative: Pancytokeratin, CK20, CDX2. o CK19 is pending and will be reported in an addendum Interval History The patient is presenting to clinic accompanied by spouse for for a discussion about palliative FOLFOX. 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 Wears glasses Arthritis Bladder disease Easy bruising Heartburn Non-smoker Shortness of breath on exertion History of pain when walking Surgical History S/P breast biopsy History of liver biopsy S/P endoscopy History of total right knee replacement Hx of colonoscopy History of bilateral carpal tunnel release History of appendectomy History of tubal ligation Family History Father CVA (cerebral vascular accident) Brother CVA (cerebral vascular accident) Myocardial infarction Prostate cancer Mother Bladder cancer Social History adopted: No household members: spouse number of children: 1 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[employer] pets and animals: No leisure activities: reading history of recent travel: No sexually active: Yes Smoking Status: Never smoker alcohol intake: never substance use type: does not use well-balanced diet: rarely or never caffeine: No eating out: other during the past year weight has: decreased > 10 lbs what type of physical activity do you participate in: none frequency: does not exercise ahsan/hoahaoism: NA seatbelt use: always do you feel safe at home: Yes ROS Constitutional Constitutional: Reports systems reviewed and no addt'l complaints, except as documented, anorexia, fatigue, weight loss and other Details: Increasing fatigue; Denies fever(s) or night sweats Eyes Eyes: Reports systems reviewed and no addt'l complaints, except as documented; Denies change in vision ENT HEENT: Reports systems reviewed and no addt'l complaints, except as documented; Denies mouth lesions Cardiovascular Cardiovascular: Reports systems reviewed and no addt'l complaints, except as documented; Denies chest pain or edema Respiratory/Chest Respiratory/Chest: Reports systems reviewed and no addt'l complaints, except as documented; Denies cough or dyspnea Gastrointestinal Gastrointestinal: Reports systems reviewed and no addt'l complaints, except as documented, abdominal pain, constipation, heartburn, nausea and other Details: Nausea has responded to as needed ondansetron ; Denies hematochezia, melena or vomiting Genitourinary Genitourinary: Reports systems reviewed and no addt'l complaints, except as documented Musculoskeletal Musculoskeletal: Reports systems reviewed and no addt'l complaints, except as documented; Denies back pain Integumentary Integumentary: Reports systems reviewed and no addt'l complaints, except as documented; Denies new lesions Neurologic Neurologic: Reports systems reviewed and no addt'l complaints, except as documented; Denies focal weakness or paresthesias Psychiatric Psychiatric: Reports systems reviewed and no addt'l complaints, except as documented Endocrine Endocrinology: Reports systems reviewed and no addt'l complaints, except as documented Hematologic/Lymphatic Hematologic/Lymphatic: Reports systems reviewed and no addt'l complaints, exceptas documented; Denies lymphadenopathy Allergic/Immunologic Allergic/Immunologic: Reports systems reviewed and no addt'l complaints, except as documented Intake Vital Signs 12/07/24 15:48 12/08/24 15:00 Height 5 ft 4.5 in 5 ft 4.5 in Weight: 174 lb 174 lb BMI 29.4 29.4 BP 123/81 H 114/75 Blood Pressure Location Lt brachial Lt brachial Position Sitting Sitting Respiration 16 18 Pulse 88 84 Pulse Source Monitor Monitor Temp 98.0 F 98.2 F Temperature Source Temporal Artery Temporal Artery Pulse Oximetry (%) 93 93 Oxygen Delivery Method room air room air Intake Is patient in pain?: No Allergies amoxicillin (From Augmentin) Allergy (Verified 12/08/24 15:12) rash clavulanic acid (From Augmentin) Allergy (Verified 12/08/24 15:12) rash Medications ?Medication ?Instructions ?Recorded ?Confirmed ?Type pantoprazole 40 mg tablet,delayed 40 mg PO QDAY 12/08/24 History release (Protonix) ondansetron 4 mg disintegrating 4 mg PO Q6H PRN nausea and 12/01/24 12/08/24 Rx tablet vomiting #90 tabs Have you fallen in the past year?: No Central Venous Access Central Venous Access: No Exam Physical Exam Narrative ECOG 2 Const alert, oriented x3 and no apparent distress General Appearance: ill appearing Positive for chronically HEENT Face and Sinus: normal facial exam Eyes General Eye: normal appearance of both eyes Neuro Speech: speech normal Gait (Neuro): normal gait Psych mental status grossly normal Attitude: calm and engaged Coding Level of Care Code Off vis,est,level 5 Exam Problem Focused Diagnoses 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 C78.01; C78.02 Laterality: bilateral Metastasis to liver C78.7 Cancer, metastatic to bone C79.51 Encounter for education Z71.9 Assessment and Plan Assessment and Plan (1) Neuroendocrine carcinoma: Status: Acute (2) Pancreatobiliary-type carcinoma: Status: Acute (3) Metastasis to lung: Status: Acute Qualifiers: Laterality: bilateral Qualified Code(s): C78.01 - Secondary malignant neoplasm of right lung; C78.02 - Secondary malignant neoplasm of left lung (4) Metastasis to liver: Status: Acute (5) Cancer, metastatic to bone: Status: Acute (6) Encounter for education: Status: Acute Plan 69-year-old female, never smoker presents with a few months increasing fatigue, anorexia and unexplained weight loss. CT and bone scan imaging revealed high-volume widely metastatic malignancy most likely pancreaticobiliary with metastasis to lungs liver and bones. EGD and colonoscopy showed no primary lesions CT-guided liver biopsy confirmed a well-differentiated high-grade G3 neuroendocrine tumor. Plan: Based on up-to-date review of Well-differentiated high-grade (G3) gastroentero pancreatic (GEP) neuroendocrine tumors (NETs) and NCCN guidelines recommend options: 1-systemic chemotherapy with FOLFOX because tumor is symptomatic with major burden. The goal of treatment is palliative plus or minus modest survival benefit. The patient has been thoroughly educated to risks/benefits associated with FOLFOX. Specifically, she has been educated to potential side effects, recommendations for symptom management, and circumstances in which she should contact provider immediately, such as the development of any signs/symptoms of infection inclusive of temperature > 100.4. Encouraged to go directly to ED should fever occur outside normal clinic hours. She has been provided written educational information and after hours contact information. A significant amount of time was allotted for questions. All the patient's concerns were addressed to her satisfaction. 2. Palliative care transitioning into home hospice. The 2 options were discussed with the patient and her . She will make a decision after discussion with her family and make our office aware of her decision by Thursday12/12/24. She is already established with palliative care and has a living well. I spent 65 minutes today reviewing labs, records and history. Time includes coordination of care and patient education, as well as documenting clinical information. Clinical Quality Measures Falls Risk Screening/Assistive Devices Have you fallen in the past year?: No 12/08/24 1649 <Electronically signed by Magalie fish NP DIRECTOR CONSUMER AFFAIRS-C> Date _ Magalie Pinto NP, NP-C Cosigner Signature: Date (if applicable) CC: ~ [place] [employer] Work Phone: [phone]) 259-728406-12-2025 Nuclear medicine Diagnostic study note [facility] Imaging Services [address] [place] [id number] Bone Scan Whole Body MR#: [id number] Acct: [id number] Name: LIZZETH BERRY Rep #: [id number] : 1955 F 69 From: Donnie Pathak MD PCP: Dr. Diya George MD Status: REG CLI Study:Bone Scan Whole Body Date of Exam: 11/30/24 Exam# [id number] Ordering Dr: Ramona Funez MD PROCEDURE: BONE SCAN WHOLE BODY 11/30/2024 REASON FOR EXAM: UNKNOWN PRIMARY CANCER TECHNIQUE: Whole-body bone scan with anterior and posterior views, with delayed imaging. RADIOPHARMACEUTICAL: 26.8 mCi Technetium-99m MDP IV COMPARISON: Abdomen and pelvis CT 11/11/2024. FINDINGS: Bones: Extensive abnormal uptake is seen throughout much of the bilateral sacrum, corresponding with sclerotic lesion seen on the CT of 11/11/2024. Degenerative changes are seen of the bilateral acromioclavicular joints, cervical and thoracic spine, and bilateral 1st carpal-metacarpal joints. NM/Bone Scan Whole Body IMPRESSION: Extensive abnormal uptake is seen throughout much of the bilateral sacrum, corresponding with sclerotic lesion seen on a recent CT scan. This is most consistent with osseous metastatic disease. Reading Location: [address] CC: Dr. Diya George MD; Dr. Ramona Funez MD ~ Cuff Presser: Signed [facility]06-12-2025 Radiology Diagnostic study note [facility] Imaging Services [address] [place], [place] [address] Chest WITH Contrast MR#: [id number] Acct: [id number] Name: LIZZETH BERRY Rep #: [id number] : 1955 F 69 From: Boni Strong MD PCP: Dr. Diya George MD Status: REG CLI Study:Chest WITH Contrast Date of Exam: 11/30/24 Exam# [id number] Ordering Dr: Ramona Funez MD PROCEDURE: CHEST WITH CONTRAST 11/30/2024 REASON FOR EXAM: UNKNOWN PRIMARY CANCER TECHNIQUE: Prone and supine chest CT with intravenous contrast, high resolution CT (HRCT) protocol. Coronal and Sagittal reconstruction series were provided. CONTRAST: Isovue-350 VOLUME: 100 mL One or more dose reduction techniques were used (e.g., Automated exposure control, adjustment of the mA and/or kV according to patient size, use of iterative reconstruction technique). RADIATION DOSE SUMMARY: CTDlvol: 10.38 mGy DLP: 367 mGycm COMPARISON: CT scan of the abdomen and pelvis on 11/11/2024. FINDINGS: Multiple bilateral noncalcified pulmonary pulmonary nodules are noted in the upper lobes, right middle lobe, lingula and bilateral lower lobes ranging in size between 0.5 and 2.8 cm. Mildly enlarged mediastinal and hilar lymph nodes are noted with the largest measuring 1.7 cm. No coronary artery calcifications are noted. Hepatomegaly. Multiple hepatic nodules are noted with the largest measuring 1.7 cm. Enlarged vipin hepatis lymph nodes are noted with the largest measuring 1.6 cm. Normal thoracic aorta and visualized great vessels. There is no demonstrated aortic dissection. Normal heart and pericardium. Normal visualized trachea and bronchi. Normal pleura. CT/Chest WITH Contrast IMPRESSION: Coronary artery calcification (CAC) is is absent Multiple bilateral noncalcified pulmonary pulmonary nodules are noted in the upper lobes, right middle lobe, lingula and bilateral lower lobes ranging in size between 0.5 and 2.8 cm. Mildly enlarged mediastinal and hilar lymph nodes are noted with the largest measuring 1.7 cm. No coronary artery calcifications are noted. Hepatomegaly. Multiple hepatic nodules are noted with the largest measuring 1.7 cm. Enlarged viipn hepatis lymph nodes are noted with the largest measuring 1.6 cm. Reading Location: [facility] CC: Dr. Diya George MD; Dr. Ramona Funez MD ~ Cuff Presser: Signed [facility]06-10-2025 Radiology Diagnostic study note [facility] Imaging Services [address] [place] [address] Biopsy/Inj or Needle Placement MR#: [id number] Acct: [id number] Name: LIZZETH BERRY Rep #: [id number] : 1955 F 69 From: Martinez Arreguin MD PCP: Dr. Diya George MD Status: REG CLI Study:Biopsy/Inj or Needle Placement Date of Exam: 11/29/24 Exam# [id number] Ordering Dr: Ramona Funez MD PROCEDURE: BIOPSY/INJ OR NEEDLE PLACEMENT 11/29/2024 REASON FOR EXAM: UNKNOWN PRIMARY CANCER TECHNIQUE: CT-guided liver biopsy. The procedure as well as the benefits and possible complications including infection and bleeding were explained to the patient. Informed consent was obtained. The patient was in the supine position. Conscious sedation was performed. The patient received 2 mgof Versed and 50 mcg of fentanyl intravenously. Conscious sedation was started at 10:05 a.m. and terminated at 10:31 a.m.. The patient was independently monitored by the department nurse. The overlying skin was prepped and draped in the usual sterile fashion. Following local anesthetic application, an 18 gauge core biopsy needle system was placed into the medial aspect of the right lobe of the liver. 5 core biopsies were performed. The pathologist deemed the specimen to be adequate. The patient tolerated the procedure well. RADIATION DOSE SUMMARY: CTDlvol: 26.5 mGy DLP: 667.68 mGycm COMPARISON: Prior study dated November 11, 2024. FINDINGS: Multiple pulmonary nodules and hepatic lesions. Hepatomegaly. CT/Biopsy/Inj or Needle Placement IMPRESSION: CT-guided core biopsy of the right lobe of the liver as described. Conscious sedation was performed. The patient tolerated the procedure well. No immediate complication was noted. [facility] CC: Dr. Diya George MD; Dr. Ramona Funez MD ~ Cuff Presser: Signed [facility]05-29-2025 Progress [facility] [address] [place] [address] OFFICE VISIT Date of Service: 11/17/24 1455 MR#: [id number] Acct: [id number] Name: LIZZETH BERRY Rep #: [id number] : 1955 From: Ramona tineo MD Age/Sex: 69/F [place] [facility] [place] Status: Signed HPI Subjective Date of Service 11/17/24 Chief Complaint Weight loss History of Present Illness 69-year-old female who presents with a few months history of anorexia, 20+ poundweight loss, and increasing fatigue. 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 Patient reports that in 2023 she had an abnormal screening mammogram on the leftbreast, had a biopsy at [facility] and was told was negative for malignancy. November 04, [address] Madsen: Impression colitis like picture Pathology: Ascending colon active colitis. Descending colon colonic mucosa no significant pathologic changes. Rectum biopsy rectal mucosa no significant histopathologic changes. November 11, 2024 CT abdomen and pelvis: FINDINGS: Bilateral multifocal varying size pulmonary nodules, largest on the left is partially seen at the lingula measuring 9 mm and largest on the right just above the diaphragm 12 mm. 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 The liver is enlarged containing innumerable varying size liver lesions concerning for metastatic disease. Liver mass in the posterior right lobe appears associated with calcification measuring around 4.8 cm. The gallbladder appears distended without wall thickening or surrounding inflammatory change and may contain a small amount of sludge. No biliary ductal dilation identified. 1.8 cm cystic focus within the head of the pancreas may represent pseudocyst or cystic neoplasm. Nopancreatic ductal dilation identified. The adrenal glands, kidneys appear within limits. Small left renal cyst noted. The spleen appears diffusely heterogeneous and may represent differences in splenic pulp with possibility of numerous lesions, metastatic disease not excluded. Enlarged vipin hepatis node measuring 3.4 by 2.5 cm. Abdominal aorta appears within limits. Adjacent to the right common iliac vessels and right psoas muscle is a soft tissue mass measuring 4.5 by 2.7 cm with the right common iliac vein draped across and difficult to distinguish. Adjacent along the presacral soft tissues upper right sacrum is a heterogeneous mass with mixed cystic and solid appearance and areas of suggested calcification measures 4.2 x 3.7 cm. Possibility includes metastatic lymphadenopathy, possibility of lymphoma not excluded. No bowel dilation or free air. No evidence of colonic wall thickening or pericolonic inflammatory change. Overall there does appear to be soft tissue fullness at the perineum about the vaginal introitus and rectum/perianal soft tissues for example axial 117 and sagittal 97. Recommend further clinical correlation. Very small amount of perihepatic free fluid noted. Status post hysterectomy. Bilateral fallopian tube clips are seen with what appears to be adjacent bilateral ovarian tissue which appears within limits. The bladder appears within limits. There are multifocal areas of osseous sclerotic lesions mostly involving the sacrum although also involving the right ilium, posterior thoracic spine and the anterior right 6th rib. No pathologic fractureidentified. Lower lumbar spondylosis/discogenic change and facet degenerative changes. IMPRESSION: Multifocal partially imaged noncalcified pulmonary nodules, hepatomegaly filled with numerous lesions, vipin hepatis lymphadenopathy, possible splenic lesions, lower right retroperitoneal presacralmasses and sclerotic multifocal osseous lesions consistent with metastatic disease with possible lymphoma not entirely excluded as described in detail above. Requires further clinical correlation and workup. Fullness peroneal soft tissues about the vaginal introitus and rectum/anus recommend further clinical correlation. Cystic focus within the pancreatic head as above. [facility] Medical History (Updated 11/17/24 @ 08:12 by Adria MADISON, LOS) Wears glasses Arthritis Bladder disease Easy bruising Heartburn Non-smoker Shortness of breath on exertion History of pain when walking Knee pain Surgical History (Updated 11/17/24 @ 15:03 by Evelyn Angela) Hx of colonoscopy History of bilateral carpal tunnel release History of appendectomy History of tubal ligation Family History (Updated 11/17/24 @ 15:04 by Evelyn Angela) Father CVA (cerebral vascular accident) Brother CVA (cerebral vascular accident) Myocardial infarction Prostate cancer Mother Bladder cancer Social History Smoking Status: Never smoker alcohol intake: never ROS Constitutional Constitutional: Reports systems reviewed and no addt'l complaints, except as documented, anorexia, fatigue and weight loss; Denies fever(s) or night sweats Eyes Eyes: Reports systems reviewed and no addt'l complaints, except as documented; Denies change in vision ENT HEENT: Reports systems reviewed and no addt'l complaints, except as documented; Denies mouth lesions Cardiovascular Cardiovascular: Reports systems reviewed and no addt'l complaints, except as documented; Denies chest pain or edema Respiratory/Chest Respiratory/Chest: Reports systems reviewed and no addt'l complaints, except as documented; Denies cough, dyspnea or breast mass Gastrointestinal Gastrointestinal: Reports systems reviewed and no addt'l complaints, except as documented, abdominal pain, heartburn, nausea and other Details: Over the courseof the past several weeks she has had intermittent upper abdominal pain resolving without specific treatment ; Denies change in bowel habits, diarrhea, hematochezia, melena or vomiting Genitourinary Genitourinary: Reports systems reviewed and no addt'l complaints, except as documented Musculoskeletal Musculoskeletal: Reports systems reviewed and no addt'l complaints, except as documented; Denies back pain Integumentary Integumentary: Reports systems reviewed and no addt'l complaints, except as documented; Denies new lesions Neurologic Neurologic: Reports systems reviewed and no addt'l complaints, except as documented; Denies focal weakness or paresthesias Psychiatric Psychiatric: Reports systems reviewed and no addt'l complaints, except as documented Endocrine Endocrinology: Reports systems reviewed and no addt'l complaints, except as documented Hematologic/Lymphatic Hematologic/Lymphatic: Reports systems reviewed and no addt'l complaints, exceptas documented; Denies lymphadenopathy Allergic/Immunologic Allergic/Immunologic: Reports systems reviewed and no addt'l complaints, except as documented Intake Vital Signs 09/23/24 08:39 11/17/24 14:57 11/17/24 15:08 11/17/24 15:08 Height 5 ft 4 in 5 ft 4 in 5 ft 4.5 in 5 ft 4.5 in Weight: 80.286 kg 80.456 kg BMI 29.9 29.9 BP 137/85 H Blood Pressure Location Lt brachial Position Sitting Respiration 8 L Pulse 105 H Pulse Source Monitor Temp 97.9 F Temperature Source Temporal Artery Pulse Oximetry (%) 96 Oxygen Delivery Method room air Intake Is patient in pain?: No Allergies amoxicillin (From Augmentin) Allergy (Verified 11/17/24 14:59) rash clavulanic acid (From Augmentin) Allergy (Verified 11/17/24 14:59) rash Medications ?Medication ?Instructions ?Recorded ?Confirmed ?Type vitamins A,C,C-flfw-rrsnjc 4,296 1 cap PO BID 08/10/20 11/17/24 History mcg-226 mg-90 mg capsule (PreserVision AREDS) chumufdt-yeg-godj 4 mg-folic acid tab PO 09/23/240 10/14 History 200 mcg-vit K 25 mcg-lutein tablet (Centrum Minis Women 50 Plus) levothyroxine 25 mcg tablet 25 mcg PO QDAY #30 tabs 11/17/24 Rx sucralfate 1 gram tablet (Carafate) 1 g PO BID #30 tab s 11/09/24 11/17/24 Rx linaclotide 72 mcg capsule 72 mcg PO QAM 11/17/2410/21 History (Linzess) mesalamine 1.2 gram tablet,delayed 2.4 g PO QDAY 11/1711/17/24 History release (Lialda) Have you fallen in the past year?: No Central Venous Access Central Venous Access: No CBC, CMP November 17, 2024 reviewed in EMR I personally reviewed patient's CT scan images of the abdomen and pelvis concur with reported findings. Exam Physical Exam Const alert, oriented x3 and no apparent distress General Appearance: ill appearing Positive for chronically HEENT Face and Sinus: normal facial exam Eyes General Eye: normal appearance of both eyes Neck no lymphadenopathy and no JVD Chest inspection of breasts normal and palpation of breasts normal Resp clear to auscultation bilaterally Cardio regular rate and regular rhythm Jugular Venous Distention: Negative for JVD GI soft to palpation and non-tender Palpation: hepatomegaly; Negative for ascites Back/Spine no thoracic nor lumbar tenderness Extremity no clubbing, cyanosis or edema Skin no rashes or lesions noted Neuro oriented x3, CN's II-XII intact bilaterally, moves all extremities and no focal motor deficits Coordination / Balance: jblaoh-pw-yqpt test normal Speech: speech normal Gait (Neuro): normal gait Psych mental status grossly normal Coding Level of Care Code Off vis,new,level 5 Exam Problem Focused Diagnoses Metastasis of unknown primary C79.9 Assessment and Plan Assessment and Plan (1) Metastasis of unknown primary: Status: Acute Orders: Orders CBC W/Diff, Automated Today C79.51 - Secondary malignant neoplasm of bone, C79.9 - Secondary malignant neoplasm of unspecified site Comprehensive Metabolic Profil Today C79.51 - Secondary malignant neoplasm of bone, 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 In June 2024 she was declined as a regular blood donor because of anemia. Colonoscopy October 2024 showed no suspicious lesions and biopsies were suggestive of a nonspecific colitis. CT scan of the abdomen and pelvis October 2024 shows evidence of a disseminated malignant process involving the lungs, liver, spleen, pelvis, possibly bones with sclerotic lesions. It is noted that she has a markedly dilated gallbladderwithout dilation of the common bile duct nor jaundice most suggestive that the cystic duct is blocked. A nonspecific cystic focus within the head of the pancreas without dilation of the pancreatic duct. The differential diagnosis is between metastatic carcinoma of unknown primary, less likely lymphoma. Plan: 1. CT-guided liver biopsy, further pathologic testing depends on findings. 2. Complete imaging to include CT of the chest and a bone scan. 3. Patient is scheduled with Dr. Madsen for EGD, was advised to go ahead as scheduled. Patient was seen with her , impression and plan discussed. Patient askedspecific questions about stage (was told 4), treatment (would be systemic for disseminated malignancy). She has a livingwell with a DNR will and named her as her power of trade mark attorney. Ramona Funez MD Early Morning, [facility] Divisions of Medical Oncology & Hematology Department of Internal Medicine [place] [id number] This note was generated using a voice recognition system software. Although itwas reviewed by the author prior to finalization, it may still contain incorrectwords, spelling, and punctuation that were not noted when reviewing prior to saving. If a clinically significant typo or inaccurately typed phrase is noted, please notify the author. Clinical Quality Measures Falls Risk Screening/Assistive Devices Have you fallen in the past year?: No 11/17/24 1621 bianca COTTO> Date _ Ramona Funez MD Cosigner Signature: Date (if applicable) CC: Dr. Diya George MD; Dr. Dawson Herman MD; LOS Thakkar ~ [facility]05-29-2025 Progress note Author Ramona Funze [facility] Note Date/Time November 17, 2024 4:21p [facility] [place] [address] OFFICE VISIT Date of Service: 11/17/24 1455 MR#: [id number] Acct: [id number] Name: LIZZETH BERRY Rep #: [id number] : 1955 From: Ramona tineo MD Age/Sex: 69/F Location[place] [facility] [place] Status: Signed HPI Subjective Date of Service 11/17/24 Chief Complaint Weight loss History of Present Illness 69-year-old female who presents with a few months history of anorexia, 20+ poundweight loss, and increasing fatigue. 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 Patient reports that in 2023 she had an abnormal screening mammogram on the leftbreast, had a biopsy at [facility] and was told was negative for malignancy. November 04, [address] Madsen: Impression colitis like picture Pathology: Ascending colon active colitis. Descending colon colonic mucosa no significant pathologic changes. Rectum biopsy rectal mucosa no significant histopathologic changes. November 11, 2024 CT abdomen and pelvis: FINDINGS: Bilateral multifocal varying size pulmonary nodules, largest on the left is partially seen at the lingula measuring 9 mm and largest on the right just above the diaphragm 12 mm. 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 The liver is enlarged containing innumerable varying size liver lesions concerning for metastatic disease. Liver mass in the posterior right lobe appears associated with calcification measuring around 4.8 cm. The gallbladder appears distended without wall thickening or surrounding inflammatory change and may contain a small amount of sludge. No biliary ductal dilation identified. 1.8 cm cystic focus within the head of the pancreas may represent pseudocyst or cystic neoplasm. No pancreatic ductal dilation identified. The adrenal glands, kidneys appear within limits. Small left renal cyst noted. The spleen appears diffusely heterogeneous and may represent differences in splenic pulp with possibility of numerous lesions, metastatic disease not excluded. Enlarged vipin hepatis node measuring 3.4 by 2.5 cm. Abdominal aorta appears within limits. Adjacent to the right common iliac vessels and right psoas muscle is a soft tissue mass measuring 4.5 by 2.7 cm with the right common iliac vein draped across and difficult to distinguish. Adjacent along the presacral soft tissues upper right sacrum is a heterogeneous mass with mixed cystic and solid appearance and areas of suggested calcification measures 4.2 x 3.7 cm. Possibility includes metastatic lymphadenopathy, possibility of lymphoma not excluded. No bowel dilation or free air. No evidence of colonic wall thickening or pericolonic inflammatory change. Overall there does appear to be soft tissue fullness at the perineum about the vaginal introitus and rectum/perianal soft tissues for example axial 117 and sagittal 97. Recommend further clinical correlation. Very small amount of perihepatic free fluid noted. Status post hysterectomy. Bilateral fallopian tube clips are seen with what appears to be adjacent bilateral ovarian tissue which appears within limits. The bladder appears within limits. There are multifocal areas of osseous sclerotic lesions mostly involving the sacrum although also involving the right ilium, posterior thoracic spine and the anterior right 6th rib. No pathologic fractureidentified. Lower lumbar spondylosis/discogenic change and facet degenerative changes. IMPRESSION: Multifocal partially imaged noncalcified pulmonary nodules, hepatomegaly filled with numerous lesions, vipin hepatis lymphadenopathy, possible splenic lesions, lower right retroperitoneal presacralmasses and sclerotic multifocal osseous lesions consistent with metastatic disease with possible lymphoma not entirely excluded as described in detail above. Requires further clinical correlation and workup. Fullness peroneal soft tissues about the vaginal introitus and rectum/anus recommend further clinical correlation. Cystic focus within the pancreatic head as above. [facility] Medical History (Updated 11/17/24 @ 08:12 by LOS Garzon) Wears glasses Arthritis Bladder disease Easy bruising Heartburn Non-smoker Shortness of breath on exertion History of pain when walking Knee pain Surgical History (Updated 11/17/24 @ 15:03 by Evelyn Angela) Hx of colonoscopy History of bilateral carpal tunnel release History of appendectomy History of tubal ligation Family History (Updated 11/17/24 @ 15:04 by Evelyn Angela) Father CVA (cerebral vascular accident) Brother CVA (cerebral vascular accident) Myocardial infarction Prostate cancer Mother Bladder cancer Social History Smoking Status: Never smoker alcohol intake: never ROS Constitutional Constitutional: Reports systems reviewed and no addt'l complaints, except as documented, anorexia, fatigue and weight loss; Denies fever(s) or night sweats Eyes Eyes: Reports systems reviewed and no addt'l complaints, except as documented; Denies change in vision ENT HEENT: Reports systems reviewed and no addt'l complaints, except as documented; Denies mouth lesions Cardiovascular Cardiovascular: Reports systems reviewed and no addt'l complaints, except as documented; Denies chest pain or edema Respiratory/Chest Respiratory/Chest: Reports systems reviewed and no addt'l complaints, except as documented; Denies cough, dyspnea or breast mass Gastrointestinal Gastrointestinal: Reports systems reviewed and no addt'l complaints, except as documented, abdominal pain, heartburn, nausea and other Details: Over the courseof the past several weeks she has had intermittent upper abdominal pain resolving without specific treatment ; Denies change in bowel habits, diarrhea, hematochezia, melena or vomiting Genitourinary Genitourinary: Reports systems reviewed and no addt'l complaints, except as documented Musculoskeletal Musculoskeletal: Reports systems reviewed and no addt'l complaints, except as documented; Denies back pain Integumentary Integumentary: Reports systems reviewed and no addt'l complaints, except as documented; Denies new lesions Neurologic Neurologic: Reports systems reviewed and no addt'l complaints, except as documented; Denies focal weakness or paresthesias Psychiatric Psychiatric: Reports systems reviewed and no addt'l complaints, except as documented Endocrine Endocrinology: Reports systems reviewed and no addt'l complaints, except as documented Hematologic/Lymphatic Hematologic/Lymphatic: Reports systems reviewed and no addt'l complaints, exceptas documented; Denies lymphadenopathy Allergic/Immunologic Allergic/Immunologic: Reports systems reviewed and no addt'l complaints, except as documented Intake Vital Signs 09/23/24 08:39 11/17/24 14:57 11/17/24 15:08 11/17/24 15:08 Height 5 ft 4 in 5 ft 4 in 5 ft 4.5 in 5 ft 4.5 in Weight: 80.286 kg 80.456 kg BMI 29.9 29.9 BP 137/85 H Blood Pressure Location Lt brachial Position Sitting Respiration 8 L Pulse 105 H Pulse Source Monitor Temp 97.9 F Temperature Source Temporal Artery Pulse Oximetry (%) 96 Oxygen Delivery Method room air Intake Is patient in pain?: No Allergies amoxicillin (From Augmentin) Allergy (Verified 11/17/24 14:59) rash clavulanic acid (From Augmentin) Allergy (Verified 11/17/24 14:59) rash Medications ?Medication ?Instructions ?Recorded ?Confirmed ?Type vitamins A,C,A-hpoz-esrghk 4,296 1 cap PO BID 08/10/20 11/17/24 History mcg-226 mg-90 mg capsule (PreserVision AREDS) fwacruwa-lsj-fnij 4 mg-folic acid tab PO 09/23/2410/14 History 200 mcg-vit K 25 mcg-lutein tablet (Centrum Minis Women 50 Plus) levothyroxine 25 mcg tablet 25 mcg PO QDAY #30 tabs 11/17/24 Rx sucralfate 1 gram tablet (Carafate) 1 g PO BID #30 tab s 11/09/24 11/17/24 Rx linaclotide 72 mcg capsule 72 mcg PO QAM 11/17/2410/21 History (Linzess) mesalamine 1.2 gram tablet,delayed 2.4 g PO QDAY 11/1711/17/24 History release (Lialda) Have you fallen in the past year?: No Central Venous Access Central Venous Access: No CBC, CMP November 17, 2024 reviewed in EMR I personally reviewed patient's CT scan images of the abdomen and pelvis concur with reported findings. Exam Physical Exam Const alert, oriented x3 and no apparent distress General Appearance: ill appearing Positive for chronically HEENT Face and Sinus: normal facial exam Eyes General Eye: normal appearance of both eyes Neck no lymphadenopathy and no JVD Chest inspection of breasts normal and palpation of breasts normal Resp clear to auscultation bilaterally Cardio regular rate and regular rhythm Jugular Venous Distention: Negative for JVD GI soft to palpation and non-tender Palpation: hepatomegaly; Negative for ascites Back/Spine no thoracic nor lumbar tenderness Extremity no clubbing, cyanosis or edema Skin no rashes or lesions noted Neuro oriented x3, CN's II-XII intact bilaterally, moves all extremities and no focal motor deficits Coordination / Balance: rykjgo-al-tchu test normal Speech: speech normal Gait (Neuro): normal gait Psych mental status grossly normal Coding Level of Care Code Off vis,new,level 5 Exam Problem Focused Diagnoses Metastasis of unknown primary C79.9 Assessment and Plan Assessment and Plan (1) Metastasis of unknown primary: Status: Acute Orders: Orders CBC W/Diff, Automated Today C79.51 - Secondary malignant neoplasm of bone, C79.9 - Secondary malignant neoplasm of unspecified site Comprehensive Metabolic Profil Today C79.51 - Secondary malignant neoplasm of bone, 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 In June 2024 she was declined as a regular blood donor because of anemia. Colonoscopy October 2024 showed no suspicious lesions and biopsies were suggestive of a nonspecific colitis. CT scan of the abdomen and pelvis October 2024 shows evidence of a disseminated malignant process involving the lungs, liver, spleen, pelvis, possibly bones with sclerotic lesions. It is noted that she has a markedly dilated gallbladderwithout dilation of the common bile duct nor jaundice most suggestive that the cystic duct is blocked. A nonspecific cystic focus within the head of the pancreas without dilation of the pancreatic duct. The differential diagnosis is between metastatic carcinoma of unknown primary, less likely lymphoma. Plan: 1. CT-guided liver biopsy, further pathologic testing depends on findings. 2. Complete imaging to include CT of the chest and a bone scan. 3. Patient is scheduled with Dr. Madsen for EGD, was advised to go ahead as scheduled. Patient was seen with her , impression and plan discussed. Patient askedspecific questions about stage (was told 4), treatment (would be systemic for disseminated malignancy). She has a living well with a DNR will and named her as her power of trade mark attorney. Ramona Funez MD Early Morning, [facility] Divisions of Medical Oncology & Hematology Department of Internal Medicine [place] [id number] This note was generated using a voice recognition system software. Although itwas reviewed by the author prior to finalization, it may still contain incorrectwords, spelling, and punctuation that were not noted when reviewing prior to saving. If a clinically significant typo or inaccurately typed phrase is noted, please notify the author. Clinical Quality Measures Falls Risk Screening/Assistive Devices Have you fallen in the past year?: No 11/17/24 1621 <Electronically signed by Ramona valenzuela MD> Date _ Ramona Funez MD Cosigner Signature: Date (if applicable) CC: Dr. Diya George MD; Dr. Dawson Herman MD; LOS Thakkar ~ [facility] Work Phone: 1(407) 342-563205-23-2025 Radiology Diagnostic study note [facility] Imaging Services [address] [place] [id number] Abdomen/Pelvis WITH Contrast MR#: [id number] Acct: [id number] Name: LIZZETH BERRY Rep #: [id number] : 1955 F 69 From: Khadar Esparza MD PCP: Dr. Diya George MD Status: REG CLI Study:Abdomen/Pelvis WITH Contrast Date of Ex am: 11/11/24 Exam# [id number] Ordering Dr: Brian Herman MD PROCEDURE: ABDOMEN/PELVIS WITH CONTRAST 11/11/2024 REASON FOR EXAM: IRON ANEMIA, CONSTIPATION TECHNIQUE: Abdomen and pelvis CT with intravenous contrast. Coronal and Sagittal reconstruction series were provided. PATIENT PREPARATION: Per protocol ORAL CONTRAST TYPE: Readi-Cat CONTRAST: 96 cc Isovue 370 IV One or more dose reduction techniques were used (e.g., Automated exposure control, adjustment of the mA and/or kV according to patient size, use of iterative reconstruction technique. RADIATION DOSE SUMMARY: CTDlvol: 21.08 mGy DLP: 1068.97 mGycm COMPARISON: None available FINDINGS: Bilateral multifocal varying size pulmonary nodules, largest on the left is partially seen at the lingula measuring 9 mm and largest on the right just above the diaphragm 12 mm. 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 The liver is enlarged containing innumerable varying size liver lesions concerning for metastatic disease. Liver mass in the posterior right lobe appears associated with calcification measuring around 4.8 cm. The gallbladder appears distended without wall thickening or surrounding inflammatory change and may contain a small amount of sludge. No biliary ductal dilation identified. 1.8 cm cystic focus within the head of the pancreas may represent pseudocyst or cystic neoplasm. Nopancreatic ductal dilation identified. The adrenal glands, kidneys appear within limits. Small left renal cyst noted. The spleen appears diffusely heterogeneous and may represent differences in splenic pulp with possibility of numerous lesions, metastatic disease not excluded. Enlarged vipin hepatis node measuring 3.4 by 2.5 cm. Abdominal aorta appears within limits. Adjacent to the right common iliac vessels and right psoas muscle is a soft tissue mass measuring 4.5 by 2.7 cm with the right common iliac vein draped across and difficult to distinguish. Adjacent along the presacral soft tissues upper right sacrum is a heterogeneous mass with mixed cystic and solid appearance and areas of suggested calcification measures 4.2 x 3.7 cm. Possibility includes metastatic lymphadenopathy, possibility of lymphoma not excluded. No bowel dilation or free air. No evidence of colonic wall thickening or pericolonic inflammatory change. Overall there does appear to be soft tissue fullness at the perineum about the vaginal introitus and rectum/perianal soft tissues for example axial 117 and sagittal 97. Recommend further clinical correlation. Very small amount of perihepatic free fluid noted. Status post hysterectomy. Bilateral fallopian tube clips are seen with what appears to be adjacent bilateral ovarian tissue which appears within limits. The bladder appears within limits. There are multifocal areas of osseous sclerotic lesions mostly involving the sacrum although also involving the right ilium, posterior thoracic spine and the anterior right 6th rib. No pathologic fractureidentified. Lower lumbar spondylosis/discogenic change and facet degenerative changes. CT/Abdomen/Pelvis WITH Contrast IMPRESSION: Multifocal partially imaged noncalcified pulmonary nodules, hepatomegaly filled with numerous lesions, vipin hepatis lymphadenopathy, possible splenic lesions, lower right retroperitoneal presacralmasses and sclerotic multifocal osseous lesions consistent with metastatic disease with possible lymphoma not entirely excluded as described in detail above. Requires further clinical correlation and workup. Fullness peroneal soft tissues about the vaginal introitus and rectum/anus recommend further clinical correlation. Cystic focus within the pancreatic head as above. Reading Location: [id number] CC: Dr. Diya George MD; Dr. Dawson Herman MD ~ Cuff Presser: Signed [facility]04-04-2025 Chief complaint+Reason for visit Narrative * Chief Complaint Admit Date ACUTE NEW - FATIGUE AND TIRED September 23, 2024 8:32am Referral Order September 26, 2024 4:28 pm Reason for Visit Admit Date Anemia September 23, 2024 8:32 am Fatigue September 23, 2024 8:32 am [facility] Work Phone: 1(137) 221-499404-04-2025 Chief complaint+Reason for visit Narrative * Chief Complaint Admit Date ACUTE NEW - FATIGUE AND TIRED September 23, 2024 8:32am Referral Order September 26, 2024 4:28 pm IRON ANEMIA, CONSTIPATION. W/ ORAL CONTR AST November 11, 2024 6:04am Reason for Visit Admit Date Anemia September 23, 2024 8:32 am Fatigue September 23, 2024 8:32 am [facility] Work Phone: [phone] 106-276304-04-2025 Chief complaint+Reason for visit Narrative * Chief Complaint Admit Date ACUTE NEW - FATIGUE AND TIRED September 23, 2024 8:32am Referral Order September 26, 2024 4:28 pm IRON ANEMIA, CONSTIPATION. W/ ORAL CONTR AST November 11, 2024 6:04am PANCREATIC, LUNG, LIVER LESIONS October 2:44pm Reason for Visit Admit Date Anemia September 23, 2024 8:32 am Fatigue September 23, 2024 8:32 am Metastasis of unknown primary November 17, 2024 2:44pm [facility] Work Phone: 1([phone]) 239-633504-04-2025 Chief complaint+Reason for visit Narrative * Chief Complaint Admit Date ACUTE NEW - FATIGUE AND TIRED September 23, 2024 8:32am Referral Order September 26, 2024 4:28 pm IRON ANEMIA, CONSTIPATION. W/ ORAL CONTR AST November 11, 2024 6:04am PANCREATIC, LUNG, LIVER LESIONS October 2:44pm Amb Documentation November 23, 2024 2:23p m LIVER BIOPSY November 29, 2024 8:46 am LIVER CANCER November 30, 2024 10:1 1am [facility]OR [employer]. 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 December 01, 2024 10:39am Reason for Visit Admit Date Anemia September 23, 2024 8:32 am Fatigue September 23, 2024 8:32 am Metastasis of unknown primary November 17, 2024 2:44pm Metastasis of unknown primary December 01, 2024 10:39am Establishing care with new doctoreleni for December 01, 2024 10:39am [facility] Work Phone: 1([phone]) [phone] Chief complaint+Reason for visit Narrative * Chief Complaint Admit Date ACUTE NEW - FATIGUE AND TIRED September 23, 2024 8:32am Referral Order September 26, 2024 4:28 pm IRON ANEMIA, CONSTIPATION. W/ ORAL CONTR AST November 11, 2024 6:04am PANCREATIC, LUNG, LIVER LESIONS October 2:44pm Amb Documentation November 23, 2024 2:23p m LIVER BIOPSY November 29, 2024 8:46 am LIVER CANCER November 30, 2024 10:1 1am [facility]. 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 December 01, 2024 10:39am Reason for Visit Admit Date Anemia September 23, 2024 8:32 am Fatigue September 23, 2024 8:32 am Metastasis of unknown primary November 17, 2024 2:44pm Anemia December 01, 2024 10:3 9am Fatigue December 01, 2024 10:3 9am Metastasis of unknown primary December 01, 2024 10:39am Screening for depression December 01, 2024 10:39am Establishing care with new eleni brooks for December 01, 2024 10:39am Nausea and vomiting December 01, 2024 10:3 9am [facility] Work Phone: [phone] 872-991304-04-2025 Chief complaint+Reason for visit Narrative * Chief Complaint Admit Date ACUTE NEW - FATIGUE AND TIRED September 23, 2024 8:32am Referral Order September 26, 2024 4:28 pm IRON ANEMIA, CONSTIPATION. W/ ORAL CONTR AST November 11, 2024 6:04am PANCREATIC, LUNG, LIVER LESIONS October 2:44pm Amb Documentation November 23, 2024 2:23p m LIVER BIOPSY November 29, 2024 8:46 am LIVER CANCER November 30, 2024 10:1 1am [facility]. 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 December 01, 2024 10:39am REVIEW LIVER BX/BONE SCAN December 07 3:44pm Reason for Visit Admit Date Anemia September 23, 2024 8:32 am Fatigue September 23, 2024 8:32 am Metastasis of unknown primary November 17, 2024 2:44pm Anemia December 01, 2024 10:3 9am Fatigue December 01, 2024 10:3 9am Metastasis of unknown primary December 01, 2024 10:39am Screening for depression December 01, 2024 10:39am Establishing care with new eleni brooks for December 01, 2024 10:39am Nausea and vomiting December 01, 2024 10:3 9am [facility] Work Phone: 1([phone] Chief complaint+Reason for visit Narrative * Chief Complaint Admit Date ACUTE NEW - FATIGUE AND TIRED September 23, 2024 8:32am Referral Order September 26, 2024 4:28 pm IRON ANEMIA, CONSTIPATION. W/ ORAL CONTR AST November 11, 2024 6:04am PANCREATIC, LUNG, LIVER LESIONS October 2:44pm Amb Documentation November 23, 2024 2:23p m LIVER BIOPSY November 29, 2024 8:46 am LIVER CANCER November 30, 2024 10:1 1am [facility]OR [facility]. 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 December 01, 2024 10:39am REVIEW LIVER BX/BONE SCAN December 07 3:44pm CHEMO ED December 08, 2024 2:39 pm Reason for Visit Admit Date Anemia September 23, 2024 8:32 am Fatigue September 23, 2024 8:32 am Metastasis of unknown primary November 17, 2024 2:44pm Anemia December 01, 2024 10:3 9am Fatigue December 01, 2024 10:3 9am Metastasis of unknown primary December 01, 2024 10:39am Screening for depression December 01, 2024 10:39am Establishing care with new doctoreleni for December 01, 2024 10:39am Nausea and vomiting December 01, 2024 10:3 9am Cancer, metastatic to bone December 07 3:44pm Metastasis to liver December 07, 2024 3:44 pm Metastasis to lung December 07, 2024 3:44 pm 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 Work Phone: 1([phone]) [phone] Chief complaint+Reason for visit Narrative * Chief Complaint Admit Date ACUTE NEW - FATIGUE AND TIRED September 23, 2024 8:32am Referral Order September 26, 2024 4:28 pm IRON ANEMIA, CONSTIPATION. W/ ORAL CONTR AST November 11, 2024 6:04am PANCREATIC, LUNG, LIVER LESIONS October 2:44pm Amb Documentation November 23, 2024 2:23p m LIVER BIOPSY November 29, 2024 8:46 am LIVER CANCER November 30, 2024 10:1 1am DIRECTOR [employer]. 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 December 01, 2024 10:39am REVIEW LIVER BX/BONE SCAN December 07 3:44pm CHEMO ED December 08, 2024 2:39 pm PORT PLACEMENT December 16, 2024 1:23 pm Reason for Visit Admit Date Anemia September 23, 2024 8:32 am Fatigue September 23, 2024 8:32 am Metastasis of unknown primary November 17, 2024 2:44pm Anemia December 01, 2024 10:3 9am Fatigue December 01, 2024 10:3 9am Metastasis of unknown primary December 01, 2024 10:39am Screening for depression December 01, 2024 10:39am Establishing care with new doctoreleni for December 01, 2024 10:39am Nausea and vomiting December 01, 2024 10:3 9am Cancer, metastatic to bone December 07 3:44pm Metastasis to liver December 07, 2024 3:44 pm Metastasis to lung December 07, 2024 3:44 pm 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, 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 W/ ORAL CONTR AST November 11, 2024 6:04am NEW [facility] - LABS - [facility] November 17, 2024 2:40pm PANCREATIC, LUNG, LIVER LESIONS October 2:44pm Amb Documentation November 23, 2024 2:23p m LIVER BIOPSY November 29, 2024 8:46 am LIVER CANCER November 30, 2024 10:1 1am DIRECTOR [employer]. 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 December 01, 2024 10:39am REVIEW LIVER BX/BONE SCAN December 07 3:44pm CHEMO ED December 08, 2024 2:39 pm PORT PLACEMENT December 16, 2024 1:23 pm Insertion, Vascular Port left poss right December 21, 2024 5:45am Insertion, Vascular Port left poss right December 21, 2024 7:18am Reason for Visit Admit Date Anemia September 23, 2024 8:32 am Fatigue September 23, 2024 8:32 am Metastasis of unknown primary November 17, 2024 2:44pm Anemia December 01, 2024 10:3 9am Fatigue December 01, 2024 10:3 9am Metastasis of unknown primary December 01, 2024 10:39am Screening for depression December 01, 2024 10:39am Establishing care with new doctoreleni for December 01, 2024 10:39am Nausea and vomiting December 01, 2024 10:3 9am Cancer, metastatic to bone December 07 3:44pm Metastasis to liver December 07, 2024 3:44 pm Metastasis to lung December 07, 2024 3:44 pm 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, 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 Cancer, metastatic to bone December 08 2:39pm Encounter for education December 08, 2024 2:39pm Metastasis to liver December 08, 2024 2:39 pm Metastasis to lung December 08, 2024 2:39 pm Neuroendocrine carcinoma December 08, 2024 2:39pm 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 W/ ORAL CONTR AST November 11, 2024 6:04am PANCREATIC, LUNG, LIVER LESIONS October 2:44pm Amb Documentation November 23, 2024 2:23p m LIVER BIOPSY November 29, 2024 8:46 am LIVER CANCER November 30, 2024 10:1 1am DIRECTOR [employer]. 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 December 01, 2024 10:39am REVIEW LIVER BX/BONE SCAN December 07 3:44pm CHEMO ED December 08, 2024 2:39 pm PORT PLACEMENT December 16, 2024 1:23 pm Insertion, Vascular Port left poss right December 21, 2024 5:45am Insertion, Vascular Port left poss right December 21, 2024 7:18am NEW START - LABS - [facility] December 28, 2024 8:15am NEW START - LABS - [facility] December 28, 2024 8:17am Reason for Visit Admit Date Anemia September 23, 2024 8:32 am Fatigue September 23, 2024 8:32 am Metastasis of unknown primary November 17, 2024 2:44pm Anemia December 01, 2024 10:3 9am Fatigue December 01, 2024 10:3 9am Metastasis of unknown primary December 01, 2024 10:39am Screening for depression December 01, 2024 10:39am Establishing care with new doctoreleni for December 01, 2024 10:39am Nausea and vomiting December 01, 2024 10:3 9am Cancer, metastatic to bone December 07 3:44pm Metastasis to liver December 07, 2024 3:44 pm Metastasis to lung December 07, 2024 3:44 pm 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, 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 Cancer, metastatic to bone December 08 2:39pm Encounter for education December 08, 2024 2:39pm Metastasis to liver December 08, 2024 2:39 pm Metastasis to lung December 08, 2024 2:39 pm Neuroendocrine carcinoma December 08, 2024 2:39pm 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 2: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 Encounter for insertion of venous access port December 16, 2024 1:23pm Cancer, metastatic to bone December 21 5:45am Encounter for insertion of venous access port December 21, 2024 5:45am Cancer, metastatic to bone December 28 8:17am Metastasis to liver December 28, 2024 8:17a m Metastasis to lung December 28, 2024 8:17a m Neuroendocrine carcinoma December 28, 2024 8:17am Pancreatobiliary-type carcinoma December 8:17am [facility] Work Phone: 1([phone]) 795-728604-04-2025 Evaluation note* Diagnosis Onset Date Resolution Status Admit Date Anemia acute September 23 8:32am Fatigue acute September 23 8:32am [facility] Work Phone: 1([phone]) [phone] Evaluation note* Diagnosis Onset Date Resolution Status Admit Date Anemia acute September 23 8:32am Fatigue acute September 23 8:32am Metastasis of unknown primary acute November 17, 2024 2:44pm [place] [employer] Work Phone: [phone] Evaluation note* Diagnosis Onset Date Resolution Status Admit Date Anemia acute September 23 8:32am Fatigue acute September 23 8:32am Metastasis of unknown primary acute November 17, 2024 2:44pm Metastasis of unknown primary acute December 01, 2024 10:39am Establishing care with new doctor, encounter for noneactive December 01, 2024 10:39am [facility] Work Phone: 1([phone]) [phone] Evaluation note* Diagnosis Onset Date Resolution Status Admit Date Anemia acute September 23 8:32am Fatigue acute September 23 8:32am Metastasis of unknown primary acute November 17, 2024 2:44pm Anemia acute December 01 10:39am Fatigue acute December 01 10:39am Metastasis of unknown primary acute December 01, 2024 10:39am Screening for depression noneactive December 01, 2024 10:39am Establishing care with new doctor, encounter for noneactive December 01, 2024 10:39am Nausea and vomiting noneactive December 01, 2024 10:39am [facility] Work Phone: [phone] Evaluation note* Diagnosis Onset Date Resolution Status Admit Date Anemia acute September 23 8:32am Fatigue acute September 23 8:32am Metastasis of unknown primary delete d November 17, 2024 2:44pm Anemia acute December 01 10:39am Fatigue acute December 01 10:39am Metastasis of unknown primary delete d December 01, 2024 10:39am Screening for depression noneactive December 01, 2024 10:39am Establishing care with new doctor, encounter for noneactive December 01, 2024 10:39am Nausea and vomiting noneactive December 01, 2024 10:39am [facility] Work Phone: [phone] Evaluation note* Diagnosis Onset Date Resolution Status Admit Date Anemia acute September 23 8:32am Fatigue acute September 23 8:32am Metastasis of unknown primary delete d November 17, 2024 2:44pm Anemia acute December 01 10:39am Fatigue acute December 01 10:39am Metastasis of unknown primary delete d December 01, 2024 10:39am Screening for depression noneactive December 01, 2024 10:39am Establishing care with new doctor, encounter for noneactive December 01, 2024 10:39am Nausea and vomiting noneactive December 01, 2024 10:39am Cancer, metastatic to bone acute December 07, 2024 3:44pm Metastasis to liver acute December 07, 2024 3:44pm Metastasis to lung acute November 202024 3:44pm Neuroendocrine carcinoma acute December 07, 2024 3:44pm Pancreatobiliary-type carcinoma acut e December 07, 2024 3:44pm Cancer, metastatic to bone acute December 08, 2024 2:39pm Encounter for education acute J 2024 2:39pm Metastasis to liver acute December 08, 2024 2:39pm Metastasis to lung acute November 202024 2:39pm 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, 2024 2:39pm 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, 2024 2:39[facility] Work Phone: [phone] Evaluation note* Diagnosis Onset Date Resolution Status Admit Date Anemia acute September 23 8:32am Fatigue acute September 23 8:32am Metastasis of unknown primary delete d November 17, 2024 2:44pm Anemia acute December 01 10:39am Fatigue acute December 01 10:39am Metastasis of unknown primary delete d December 01, 2024 10:39am Screening for depression noneactive December 01, 2024 10:39am Establishing care with new doctor, encounter for noneactive December 01, 2024 10:39am Nausea and vomiting noneactive December 01, 2024 10:39am Cancer, metastatic to bone acute December 07, 2024 3:44pm Metastasis to liver acute December 07, 2024 3:44pm Metastasis to lung acute November 202024 3:44pm Neuroendocrine carcinoma acute December 07, 2024 3:44pm Pancreatobiliary-type carcinoma acut e December 07, 2024 3:44pm Cancer, metastatic to bone acute December 08, 2024 2:39pm Encounter for education acute J 2024 2:39pm Metastasis to liver acute December 08, 2024 2:39pm Metastasis to lung acute November 202024 2:39pm 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, 2024 2:39pm 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, 2024 2:39pm Encounter for insertion of venous access port acute December 16 1:23pm Cancer, metastatic to bone acute December 21, 2024 5:45am Encounter for insertion of venous access port acute December 21 5:45am [facility] Work Phone: [phone] Evaluation note* Diagnosis Onset Date Resolution Status Admit Date Anemia acute September 23 8:32am Fatigue acute September 23 8:32am Metastasis of unknown primary delete d November 17, 2024 2:44pm Anemia acute December 01 10:39am Fatigue acute December 01 10:39am Metastasis of unknown primary delete d December 01, 2024 10:39am Screening for depression noneactive December 01, 2024 10:39am Establishing care with new doctor, encounter for noneactive December 01, 2024 10:39am Nausea and vomiting noneactive December 01, 2024 10:39am Cancer, metastatic to bone acute December 07, 2024 3:44pm Metastasis to liver acute December 07, 2024 3:44pm Metastasis to lung acute November 202024 3:44pm Neuroendocrine carcinoma acute December 07, 2024 3:44pm Pancreatobiliary-type carcinoma acut e December 07, 2024 3:44pm Cancer, metastatic to bone acute December 08, 2024 2:39pm Encounter for education acute J 2024 2:39pm Metastasis to liver acute December 08, 2024 2:39pm Metastasis to lung acute November 202024 2:39pm 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, 2024 2:39pm 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, 2024 2:39pm Encounter for insertion of venous access port acute December 16 1:23pm Cancer, metastatic to bone acute December 21, 2024 5:45am Encounter for insertion of venous access port acute December 21 5:45am Cancer, metastatic to bone acute December 28, 2024 8:17am Metastasis to liver acute December 28, 2024 8:17am Metastasis to lung acute December 282024 8:17am Neuroendocrine carcinoma acute December 28, 2024 8:17am 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 Christine. Informed patient a 6 month follow up is recommended. Patient verbalized understanding. [facility] Work Phone: 1(636) 805-974712-03-2024 Miscellaneous Notes* Telephone Encounter - Carolyn Morgan RN - 05/24/2024 8:06 AM EST Called patient to notify the breast pathology results are benign per Dr. Christine. Informed patient a 6 month follow up is recommended. Patient verbalized understanding. documented in [facility]11-14-[facility]24 NoteHNO ID: [id number] Author: RAMONE MCMAHON MD Service: ? Author Type: Physician Type: Progress Notes Filed: 05/05/2024 12:39 Note Text: HISTORY AND PHYSICAL - BREAST COMPLAINT Lizzeth Berry 1955 REFERRING PHYSICIAN: Robe Garcia MD CHIEF COMPLAINT: Microcalcification of left breast on mammogram (primary encounter diagnosis) HPI: The patient is a 69 year old female with a complaint of an abnormal mammogram. The patient had a mammogram with ultrasound on 04/20/24 which demonstrated : The patient denies a history of breast masses. She does perform a self breast exam routinely. She notes no skin changes. She denies nipple discharge. She notes no axillary masses. She notes no family history of breast problems. She notes no significant breast trauma or breast difficulties in the past. The patient is being seen by me today at the request of Dr. Garcia for my opinion and advice regarding Microcalcification of left breast on mammogram (primary encounter diagnosis). PAST MEDICAL HISTORY Diagnosis Date Abnormal mammogram of left breast 04/20/2024 Carpal tunnel syndrome bilateral wrists GERD (gastroesophageal reflux disease) PAST SURGICAL HISTORY Procedure Laterality Date APPENDECTOMY 1989 COLONOSCOPY FLX DX W/COLLJ SPEC WHEN PFRMD 01/31/2008 Colonoscopy [facility] Dr. Herman COLONOSCOPY FLX DX W/COLLJ SPEC WHEN PFRMD 03/01/2018 Dr. Herman-next colonoscopy in 10 years-02/2028 LIG/TRNSXJ FLP TUBE ABDL/VAG APPR UNI/BI 1987 Tubal ligation NEUROPLASTY AND/TRANSPOS MEDIAN NRV CARPAL TUNNE 11/22/2012 right NEUROPLASTY AND/TRANSPOS MEDIAN NRV CARPAL TUNNE 01/17/2013 LEFT Real Intent COVID-19 VACCINE, AGE 12+ YR (PURPLE TOP) 08/2020 both vaccines completed in August 2020 STEREOTACTIC CORE BIOPSY 08/17/2006 RIGHT BREAST BIOPSY TOTAL KNEE REPLACEMENT Right 08/06/2021 Current Outpatient Medications Medication Sig Dispense Refill multivit with minerals/lutein (MULTIVITAMIN 50 PLUS ORAL) Take 1 tablet by mouth once daily. vit C/vit E ac/lut/copper/zinc (PRESERVISION LUTEIN ORAL) Take by mouth. No current facility-administered medications for this visit. ALLERGIES: Augmentin [Amoxicillin-Pot Clavulanate] PERSONAL HISTORY: Social History Tobacco Use Smoking status: Never Smokeless tobacco: Never Vaping Use Vaping status: Never Used Substance Use Topics Alcohol use: Yes Comment: Rarely Drug use: No FAMILY HISTORY: FAMILY HISTORY Problem Relation Age of Onset other (cva) Father other (bladder cancer) Mother Heart Brother 73 yrs of age, sudden [place] 2008 Stroke Brother CVA REVIEW OF SYMPTOMS: The review of systems data was entered by the nurse and reviewed by me Nursing Notes: Selene Rush RN 05/02/2024 1:59 PM Signed REVIEW OF SYSTEMS: General: The patient denies fatigue, denies weight loss, denies weight gain, denies feeling hot, and denies feelings of cold. Eyes: The patient denies glaucoma, denies eye injury/surgery, wears glasses or contacts. Ear/Nose/Throat: The patient NOTES allergies, denies hayfever, denies ear infections, and denies bloody noses. Cardiovascular: The patient denies chest pain, denies heart disease, denies high blood pressure,denies cardiac stent, denies prior heart attack, denies irregular heart beat, denies high cholesterol, denies poor circulation, denies heart failure, other cardiac issues, denies claudication, denies cold feet, denies peripheral arterial stent. Respiratory: The patient denies tuberculosis, denies pneumonia, denies frequent cough, denies pulmonary embolism, denies shortness of breath, and denies coughing up blood. Gastrointestinal: The patient denies difficulty swallowing, NOTES acid reflux, denies ulcers, denies vomiting, denies jaundice/hepatitis, denies gallbladder problems, denies black or tarry stools, denies hemorrhoids, denies bleeding from rectum, denies diverticulitis, denies constipation, denies diarrhea, denies loss of stool control, and denies hernias. Kidney/Bladder: The patient denies kidney stones, denies urine infections, and denies bloody urine. Skin: The patient denies a history of skin cancer, denies bleeding/changing moles, and denies a history of skin rash. Neurologic: The patient denies a history of epilepsy/convulsions, denies headaches, denies head/spinal injuries, and denies stroke/TIA. Psychiatric: The patient denies psychiatric medications, denies depression, and denies voices, denies substance abuse. Endocrine: The patient denies thyroid disorders, denies diabetes, and denies hormonal problems. Hematologic: The patient denies a history of bruising, denies bleeding, and denies anemia, denies blood clots. Infections: The patient denies a history of measles and mumps, denies rheumatic fever, and denies sexually transmitted diseases. Musculoskeletal: The patient denies back pain/injury, denies back problems, denies sciatica, NOTES knee/kimberly (more content not included)... [facility]11-14-2024 History of Present illness Narrative* Ramone Mcmahon MD - 05/05/2024 12:28 PM EST HISTORY AND PHYSICAL - BREAST COMPLAINT Lizzeth Lopezd 1955 REFERRING PHYSICIAN: Robe Garcia MD CHIEF COMPLAINT: Microcalcification of left breast on mammogram (primary encounter diagnosis) HPI: The patient is a 69 year old female with a complaint of an abnormal mammogram. The patient hada mammogram with ultrasound on 04/20/24 which demonstrated : The patient denies a history of breast masses. She does perform a self breast exam routinely. She notes no skin changes. She denies nipple discharge. She notes no axillary masses. She notes no familyhistory of breast problems. She notes no significant breast trauma or breast difficulties in the past. The patient is being seen by me today at the request of Dr. Garcia for my opinion and advice regarding Microcalcification of left breast on mammogram (primary encounter diagnosis). PAST MEDICAL HISTORY Diagnosis Date Abnormal mammogram of left breast 04/20/2024 Carpal tunnel syndrome bilateral wrists GERD (gastroesophageal reflux disease) PAST SURGICAL HISTORY Procedure Laterality Date APPENDECTOMY 1989 COLONOSCOPY FLX DX W/COLLJ SPEC WHEN PFRMD 01/31/2008 Colonoscopy [facility] Dr. Herman COLONOSCOPY FLX DX W/COLLJ SPEC WHEN PFRMD 03/01/2018 Dr. Herman-next colonoscopy in 10 years-02/2028 LIG/TRNSXJ FLP TUBE ABDL/VAG APPR UNI/BI 1987 Tubal ligation NEUROPLASTY &/TRANSPOS MEDIAN NRV CARPAL TUNNE 11/22/2012 right NEUROPLASTY &/TRANSPOS MEDIAN NRV CARPAL TUNNE 01/17/2013 LEFT Real Intent COVID-19 VACCINE, AGE 12+ YR (PURPLE TOP) 08/2020 both vaccines completed in August 2020 STEREOTACTIC CORE BIOPSY 08/17/2006 RIGHT BREAST BIOPSY TOTAL KNEE REPLACEMENT Right 08/06/2021 Current Outpatient Medications Medication Sig Dispense Refill multivit with minerals/lutein (MULTIVITAMIN 50 PLUS ORAL) Take 1 tablet by mouth once daily. vit C/vit E ac/lut/copper/zinc (PRESERVISION LUTEIN ORAL) Take by mouth. No current facility-administered medications for this visit. ALLERGIES: Augmentin [Amoxicillin-Pot Clavulanate] PERSONAL HISTORY: Social History Tobacco Use Smoking status: Never Smokeless tobacco: Never Vaping Use Vaping status: Never Used Substance Use Topics Alcohol use: Yes Comment: Rarely Drug use: No FAMILY HISTORY: FAMILY HISTORY Problem Relation Age of Onset other (cva) Father other (bladder cancer) Mother Heart Brother 73 yrs of age, sudden [place] 2008 Stroke Brother CVA REVIEW OF SYMPTOMS: The review of systems data was entered by the nurse and reviewed by sc Nursing Notes: Selene Rush RN 05/02/2024 1:59 PM Signed REVIEW OF SYSTEMS: General: The patient denies fatigue, denies weight loss, denies weight gain, denies feeling hot, and denies feelings of cold. Eyes: The patient denies glaucoma, denies eye injury/surgery, wears glasses or contacts. Ear/Nose/Throat: The patient NOTES allergies, denies hayfever, denies ear infections, and denies bloody noses. Cardiovascular: The patient denies chest pain, denies heart disease, denies high blood pressure,denies cardiac stent, denies prior heart attack, denies irregular heart beat, denies high cholesterol, denies poor circulation, denies heart failure, other cardiac issues, denies claudication, denies cold feet, denies peripheral arterial stent. Respiratory: The patient denies tuberculosis, denies pneumonia, denies frequent cough, denies pulmonary embolism, denies shortness of breath, and denies coughing up blood. Gastrointestinal: The patient denies difficulty swallowing, NOTES acid reflux, denies ulcers, denies vomiting, denies jaundice/hepatitis, denies gallbladder problems, denies black or tarry stools, denies hemorrhoids, denies bleeding from rectum, denies diverticulitis, denies constipation, denies diarrhea, denies loss of stool control, and denies hernias. Kidney/Bladder: The patient denies kidney stones, denies urine infections, and denies bloody urine. Skin: The patient denies a history of skin cancer, denies bleeding/changing moles, and denies a history of skin rash. Neurologic: The patient denies a history of epilepsy/convulsions, denies headaches, denies head/spinal injuries, and denies stroke/TIA. Psychiatric: The patient denies psychiatric medications, denies depression, and denies voices, denies substance abuse. Endocrine: The patient denies thyroid disorders, denies diabetes, and denies hormonal problems. Hematologic: The patient denies a history of bruising, denies bleeding, and denies anemia, denies blood clots. Infections: The patient denies a history of measles and mumps, denies rheumatic fever, and denies sexually transmitted diseases. Musculoskeletal: The patient denies back pain/injury, denies back problems, denies sciatica, NOTES knee/foot trouble, NOTES arthritis, or denies gout. When was patient's last Mammogram screening? 03/09/2024, 04/20/2024 Last Colonoscopy: 03/01/2018 Selene Rush RN PHYSICAL EXAMINATION: General: The patient is 69 year old female, well nourished, well hydrated in no acute distress. Thepatient is oriented to time, place, and person. VITALS: Blood pressure 118/81, pulse 103, temperature 36.2 C (97.1 F), height 165.1 cm (5' 5), weight 95.2 kg (209 lb 12.8 oz), SpO2 98%. Body mass index is 34.91 kg/m . HEENT: Normal cephalic, ataumatic, pupils are equally round, sclera are anicteric, mucous membranesare moist, oropharynx is clear. Neck has no masses, asymmetry or lymphadenopathy. Thyroid is unremarkable. Respiratory: Clear to auscultation and percussion. Normal respiratory excursion and pattern. Cardiac: Examination is regular rate and rhythm. Abdominal exam: Soft, nontender, with no palpable masses. No hepatosplenomegaly. No palpable hernias. Rectal exam: exam deferred Extremities: no clubbing, cyanosis or edema. No adenopathy. Breast: Visual inspection reveals no retractions, nipple inversion, or skin changes. Palpation of the right breast reveals no dominant or suspicious masses, but multiple benign-feeling nodules. Palpation of the left breast reveals no dominant or suspicious masses, but multiple benign-feeling nodules. Axillary exam demonstrates no suspicious masses in either the left or right axilla. There is no nipple discharge expressed from either the left or right breast. LABORATORY VALUES: As Noted RADIOLOGIC STUDIES: As Noted Assessment IMPRESSION: Microcalcification of left breast on mammogram (primary encounter diagnosis) PLAN: we will crystal'd a stereotactic biopsy of the left breast. The planned surgical procedure was discussed extensively with the patient. The risks, benefits, anticipated outcomes and possible complications were mentioned. My staff has also explained the procedure in understandable terms and the patient was given the option to take printed material concerning the planned procedure. The patient hadthe opportunity to ask questions concerning the planned procedure. The patient freely consents to the planned procedure. Diagnoses: (R92.0) Microcalcification of left breast on mammogram (primary encounter diagnosis) My findings have been communicated to Dr. Garcia via shared medical record. This note will be forwarded to Dr. Mackay primary care provider on file.. Return to Clinic: The patient is instructed to follow-up with me after the testing has been completed. Ramone Mcmahon III, MD documented in this encounterGreen [facility]11-13-2024 NoteHNO ID: [id number] Author: WILBERT MALDONADO, DO Service: ? Author Type: Physician Type: Progress Notes Filed: 05/04/2024 14:36 Note Text: IMAGING CONSULT Recent left breast diagnostic mammogram dated 04/20 submitted for review: a left breast stereotactic biopsy has been requested. Comparison to bilateral screening mammogram dated 03/09. Suspicious cluster of heterogeneous calcifications in the upper outer quadrant of the left breast. Agree with recommendation of left breast stereotactic biopsy. Order placed in Epic. Images from the 04/20 mammogram are annotated. Case reviewed with Attending Radiologist, Dr. Swan. Wilbert Maldonado, [facility]11-13-2024 History of Present illness Narrative* Wilbert Maldonado DO - 05/04/2024 2:26 PM EST IMAGING CONSULT Recent left breast diagnostic mammogram dated 04/20 submitted for review: a left breast stereotactic biopsy has been requested. Comparison to bilateral screening mammogram dated 03/09. Suspicious cluster of heterogeneous calcifications in the upper outer quadrant of the left breast. Agree with recommendation of left breast stereotactic biopsy. Order placed in [facility]. Images from the 04/20 mammogram are annotated. Case reviewed with Attending Radiologist, Dr. Swan. Wilbert Maldonado, documented in this encounterGreen Cross Hospital11-11-2024 Nurse Note* Selene Rush RN - 05/02/2024 1:58 PM EST REVIEW OF SYSTEMS: General: The patient denies fatigue, denies weight loss, denies weight gain, denies feeling hot, and denies feelings of cold. Eyes: The patient denies glaucoma, denies eye injury/surgery, wears glasses or contacts. Ear/Nose/Throat: The patient NOTES allergies, denies hayfever, denies ear infections, and denies bloody noses. Cardiovascular: The patient denies chest pain, denies heart disease, denies high blood pressure,denies cardiac stent, denies prior heart attack, denies irregular heart beat, denies high cholesterol, denies poor circulation, denies heart failure, other cardiac issues, denies claudication, denies cold feet, denies peripheral arterial stent. Respiratory: The patient denies tuberculosis, denies pneumonia, denies frequent cough, denies pulmonary embolism, denies shortness of breath, and denies coughing up blood. Gastrointestinal: The patient denies difficulty swallowing, NOTES acid reflux, denies ulcers, denies vomiting, denies jaundice/hepatitis, denies gallbladder problems, denies black or tarry stools, denies hemorrhoids, denies bleeding from rectum, denies diverticulitis, denies constipation, denies diarrhea, denies loss of stool control, and denies hernias. Kidney/Bladder: The patient denies kidney stones, denies urine infections, and denies bloody urine. Skin: The patient denies a history of skin cancer, denies bleeding/changing moles, and denies a history of skin rash. Neurologic: The patient denies a history of epilepsy/convulsions, denies headaches, denies head/spinal injuries, and denies stroke/TIA. Psychiatric: The patient denies psychiatric medications, denies depression, and denies voices, denies substance abuse. Endocrine: The patient denies thyroid disorders, denies diabetes, and denies hormonal problems. Hematologic: The patient denies a history of bruising, denies bleeding, and denies anemia, denies blood clots. Infections: The patient denies a history of measles and mumps, denies rheumatic fever, and denies sexually transmitted diseases. Musculoskeletal: The patient denies back pain/injury, denies back problems, denies sciatica, NOTES knee/foot trouble, NOTES arthritis, or denies gout. When was patient's last Mammogram screening? 03/09/2024, 04/20/2024 Last Colonoscopy: 03/01/2018 Selene Rush RN [facility]11-11-[facility] Nurse Note* Selene Rush RN - 05/02/2024 1:58 PM EST REVIEW OF SYSTEMS: General: The patient denies fatigue, denies weight loss, denies weight gain, denies feeling hot, and denies feelings of cold. Eyes: The patient denies glaucoma, denies eye injury/surgery, wears glasses or contacts. Ear/Nose/Throat: The patient NOTES allergies, denies hayfever, denies ear infections, and denies bloody noses. Cardiovascular: The patient denies chest pain, denies heart disease, denies high blood pressure,denies cardiac stent, denies prior heart attack, denies irregular heart beat, denies high cholesterol, denies poor circulation, denies heart failure, other cardiac issues, denies claudication, denies cold feet, denies peripheral arterial stent. Respiratory: The patient denies tuberculosis, denies pneumonia, denies frequent cough, denies pulmonary embolism, denies shortness of breath, and denies coughing up blood. Gastrointestinal: The patient denies difficulty swallowing, NOTES acid reflux, denies ulcers, denies vomiting, denies jaundice/hepatitis, denies gallbladder problems, denies black or tarry stools, denies hemorrhoids, denies bleeding from rectum, denies diverticulitis, denies constipation, denies diarrhea, denies loss of stool control, and denies hernias. Kidney/Bladder: The patient denies kidney stones, denies urine infections, and denies bloody urine. Skin: The patient denies a history of skin cancer, denies bleeding/changing moles, and denies a history of skin rash. Neurologic: The patient denies a history of epilepsy/convulsions, denies headaches, denies head/spinal injuries, and denies stroke/TIA. Psychiatric: The patient denies psychiatric medications, denies depression, and denies voices, denies substance abuse. Endocrine: The patient denies thyroid disorders, denies diabetes, and denies hormonal problems. Hematologic: The patient denies a history of bruising, denies bleeding, and denies anemia, denies blood clots. Infections: The patient denies a history of measles and mumps, denies rheumatic fever, and denies sexually transmitted diseases. Musculoskeletal: The patient denies back pain/injury, denies back problems, denies sciatica, NOTES knee/foot trouble, NOTES arthritis, or denies gout. When was patient's last Mammogram screening? 03/09/2024, 04/20/2024 Last Colonoscopy: 03/01/2018 Selene Rush RN documented in this encounterGreen Cross Hospital10-30-2024 History of Present illness Narrative* Erika Barcenas, RT(R) - 04/20/2024 11:00 AM EDT Radiology Service Progress Note PATIENT NAME: Lizzeth Berry DATE OF SERVICE: April 20, 2024 TIME: 10:44 AM PATIENT IDENTITY VERIFICATION COMPLETED USING TWO (2) IDENTIFIERS: Name and Date of confirmedby patient verbally. FALL SCREENING: Has the patient had 2 falls in the last year or 1 fall with injury or currently using an Ambulatory Assistive Device (Walker, Cane, Wheelchair, Crutches, etc.)? No PATIENT GENDER DATA: Female. status: : No status: NO. PATIENT RELEVANT IMPLANT DATA REVIEWED: Not Applicable PATIENT PRESENTS WITH AN IMPLANTABLE OR ATTACHED PHOTO TECH: No RADIOLOGY DEPARTMENT: Mammography PERIPHERAL IV DATA: Not applicable SIGNED BY: RT Magdalena(R) April 20, 2024 10:44 AM documented in this encounterGreen Cross Hospital10-30-2024 NoteHNO ID: [id number] Author: ERIKA BARCENAS RT(R) Service: ? Author Type: Technologist Type: Progress Notes Filed: 04/20/2024 10:44 Note Text: Radiology Service Progress Note PATIENT NAME: Lizzeth Berry DATE OF SERVICE: April 20, 2024 TIME: 10:44 AM PATIENT IDENTITY VERIFICATION COMPLETED USING TWO (2) IDENTIFIERS: Name and Date of confirmed by patient verbally. FALL SCREENING: Has the patient had 2 falls in the last year or 1 fall with injury or currently using an Ambulatory Assistive Device (Walker, Cane, Wheelchair, Crutches, etc.)? No PATIENT GENDER DATA: Female. status: : No status: NO. PATIENT RELEVANT IMPLANT DATA REVIEWED: Not Applicable PATIENT PRESENTS WITH AN IMPLANTABLE OR ATTACHED PHOTO TECH: No RADIOLOGY DEPARTMENT: Mammography PERIPHERAL IV DATA: Not applicable SIGNED BY: RT Magdalena(R) April 20, 2024 10:44 [facility]09-20-2024 Telephone encounter Note* Telephone Encounter - Margaret Torre RN - 03/11/2024 8:54 AM EDT Patient notified and voiced understanding. Transferred to schedule diagnostic mammogram. Margaret Torre RN [facility]09-20-[facility] Miscellaneous Notes* Telephone Encounter - Margaret Torre RN - 03/11/2024 8:54 AM EDT Patient notified and voiced understanding. Transferred to schedule diagnostic mammogram. Margaret Torre RN * Telephone Encounter - Keri Fuller RN - 03/11/2024 8:27 AM EDT Left message for patient to call office. Keri Fuller RN * Telephone Encounter - Robe Garcia MD - 03/10/2024 5:04 PM EDT Orders filed Robe Garcia MD * Telephone Encounter - Eunice Santa RN - 03/10/2024 4:58 PM EDT Please file orders. Eunice Santa RN * Telephone Encounter - Eunice Santa RN - 03/10/2024 4:58 PM EDT ----- Message from Robe Garcia MD sent at 03/10/2024 4:41 PM EDT ----- Needs additional imaging Robe Garcia MD documented in this encounterGreen [facility] Hospital09-20-2024 Telephone encounter Note * Telephone Encounter - Keri Fuller RN - 03/11/2024 8:27 AM EDT Left message for patient to call office. Keri Fuller RN [facility]09-19-2024 Telephone encounter Note* Telephone Encounter - Robe Garcia MD - 03/10/2024 5:04 PM EDT Orders filed Robe Garcia MD [facility]09-19-2024 Telephone encounter Note* Telephone Encounter - Eunice Santa RN - 03/10/2024 4:58 PM EDT Please file orders. Eunice Santa RN [facility]09-19-2024 Telephone encounter Note* Telephone Encounter - Eunice Santa RN - 03/10/2024 4:58 PM EDT ----- Message from Robe Garcai MD sent at 03/10/2024 4:41 PM EDT ----- Needs additional imaging Robe Garcia MD [facility]09-19-2024 Note* Letter - Coordinator, Mammography - 03/10/2024 4:04 PM EDT March 10, 2024 PID: [id number] Lizzeth Berry [address] [facility] [address] [place] [address] Dear Ms. Berry, Your recent breast imaging exam on 03/09/2024 showed a possible finding that requires additional imaging studies for a complete evaluation. Most such findings are probably benign (not cancer). Breast tissue can be either dense or not dense. Dense tissue makes it harder to find breast cancer on a mammogram and also raises the risk of developing breast cancer. Your breast tissue is not dense. Talk to your healthcare provider about breast density, risks for breast cancer, and your individual situation. If you have a healthcare provider who ordered/prescribed your screening mammogram: Please call [phone] or EXT: [phone] to schedule an appointment for your additional imaging (if youhave not already done so). If you DO NOT have a healthcare provider (ie you did not have an order/prescription for your screening mammogram): Please call to schedule an appointment for your additional imaging (if you have not already done so). You must have an order/prescription from your physician when calling to schedule your appointment. If your order/prescription is not electronic, you must bring the hard copy with you on the day of your exam to avoid delays. Your imaging studies and reports are kept on file at [facility] as part of your permanent medical record, and are available for your continuing care. Thank you for allowing us to help in meeting your health care needs. Sincerely, Dr. Henao Interpreting Radiologist [facility] (Additional imaging) [facility]09-19-2024 Miscellaneous Notes* Letter - Coordinator, Mammography - 03/10/2024 4:04 PM EDT March 10, 2024 PID: [id number] Lizzeth Funggand [address] [place] [address] Dear Ms. Berry, Your recent breast imaging exam on 03/09/2024 showed a possible finding that requires additional imaging studies for a complete evaluation. Most such findings are probably benign (not cancer). Breast tissue can be either dense or not dense. Dense tissue makes it harder to find breast cancer on a mammogram and also raises the risk of developing breast cancer. Your breast tissue is not dense. Talk to your healthcare provider about breast density, risks for breast cancer, and your individual situation. If you have a healthcare provider who ordered/prescribed your screening mammogram: Please call [phone] or EXT: [phone] to schedule an appointment for your additional imaging (if youhave not already done so). If you DO NOT have a healthcare provider (ie you did not have an order/prescription for your screening mammogram): Please call to schedule an appointment for your additional imaging (if you have not already done so). You must have an order/prescription from your physician when calling to schedule your appointment. If your order/prescription is not electronic, you must bring the hard copy with you on the day of your exam to avoid delays. Your imaging studies and reports are kept on file at [facility] as part of your permanent medical record, and are available for your continuing care. Thank you for allowing us to help in meeting your health care needs. Sincerely, Dr. Henao Interpreting Radiologist [facility] (Additional imaging) documented in this encounterGreen [facility]24 NoteIMPRESSION: INCOMPLETE: NEED ADDITIONAL IMAGING EVALUATION The possible cluster of calcifications in the left breast is indeterminate. Additional views are recommended. Olimpia Henao M.D., jr/yung:03/10/2024 16:04:08 Double Back Operator(s): RT Jermaine(R)(M), [facility] letter sent: Additional Imaging Needed Mammogram BI-RADS: Category 0: Incomplete: Need Additional Imaging Evaluation If this report indicates you need additional imaging, and it has NOT yet been performed, please call , to schedule. We sincerely thank you for choosing the [facility] for your breast imaging needs. Multiple national specialty organizations have released breast cancer screening guidelines for women at average risk for developing breast cancer - guidelines that are based on both evidence and opinion, yet differ on when to start and how often to screen for breast cancer. With representation from Breast Imaging, Internal Medicine, Women's Health, Family Medicine, and Medical/Surgical Oncology, the [facility] has carefully reviewed the data and reached the following consensus: 1) All women should engage in shared decision-making with their providers to decide when to start and how often to screen; 2) All women should have the opportunity to start screening mammography at age 40; 3) For women ages 45-55, we recommend annual screening mammograms; 4) For women ages 55 and over, we support both the transition from an annual to a biennial interval if this aligns more with patient's values and preferences, or continuation with annual screening; 5) All women should discuss with their providers when to stop screening mammograms. Cuff Presser: Yung Transcribe Date/Time: Mar 09 2024 11:17A Dictated by: OLIMPIA HENAO MD This examination was interpreted and the report reviewed and electronically signed by: OLIMPIA HENAO MD on Mar 10 2024 4:04PM [facility] [id number] History of Present illness Narrative* Ashli Leon Mammo Tech - 03/09/2024 11:30 AM EDT Radiology Service Progress Note PATIENT NAME: Lizzeth Berry DATE OF SERVICE: March 09, 2024 TIME: 11:27 AM PATIENT IDENTITY VERIFICATION COMPLETED USING TWO (2) IDENTIFIERS: Name and Date of confirmedby patient verbally. FALL SCREENING: Has the patient had 2 falls in the last year or 1 fall with injury or currently using an Ambulatory Assistive Device (Walker, Cane, Wheelchair, Crutches, etc.)? No PATIENT GENDER DATA: Female. status: : No status: NO. PATIENT RELEVANT IMPLANT DATA REVIEWED: Not Applicable PATIENT PRESENTS WITH AN IMPLANTABLE OR ATTACHED PHOTO TECH: No RADIOLOGY DEPARTMENT: Mammography PERIPHERAL IV DATA: Not applicable SIGNED BY: Kurt Dean March 09, 2024 11:27 AM documented in this encounterGreen [facility]24 NoteHNO ID: [id number] Author: ASHLI LEON Mammo Tech Service: ? Author Type: Mixing Machine Tender Cork Gasket Type: Progress Notes Filed: 03/09/2024 11:28 Note Text: Radiology Service Progress Note PATIENT NAME: Lizzeth Berry DATE OF SERVICE: March 09, 2024 TIME: 11:27 AM PATIENT IDENTITY VERIFICATION COMPLETED USING TWO (2) IDENTIFIERS: Name and Date of confirmed by patient verbally. FALL SCREENING: Has the patient had 2 falls in the last year or 1 fall with injury or currently using an Ambulatory Assistive Device (Walker, Cane, Wheelchair, Crutches, etc.)? No PATIENT GENDER DATA: Female. status: : No status: NO. PATIENT RELEVANT IMPLANT DATA REVIEWED: Not Applicable PATIENT PRESENTS WITH AN IMPLANTABLE OR ATTACHED PHOTO TECH: No RADIOLOGY DEPARTMENT: Mammography PERIPHERAL IV DATA: Not applicable SIGNED BY: Kurt Dean March 09, 2024 11:27 [facility]09-12-2024 Telephone encounter Note* Telephone Encounter - Robe Garcia MD - 03/03/2024 3:01 PM EDT Filed Robe Garcia MD [facility]09-12-2024 Miscellaneous Notes* Telephone Encounter - Robe Garcia MD - 03/03/2024 3:01 PM EDT Filed Robe Garcia MD * Telephone Encounter - Keri Fuller RN - 03/03/2024 2:35 PM EDT Patient requesting order for Mammogram. Order pending. Has upcoming Mamm appt on 03/09/24. Keri Fuller RN documented in this encounterGreen [facility]09-[facility]-2024 Telephone encounter Note * Telephone Encounter - Keri Fuller RN - 03/03/2024 2:35 PM EDT Patient requesting order for Mammogram. Order pending. Has upcoming Mamm appt on 03/09/24. Keri Fuller RN [facility]07-10-2024 Telephone encounter Note* Telephone Encounter - Nilesh Anderson MA - 12/30/2023 12:23 PM EDT Spoke with patient - states that she does not want to schedule an appointment at this time and to remove Dr. Rivas as PCP. [facility]07-10-2024 Miscellaneous Notes* Telephone Encounter - Nilesh Anderson MA - 12/30/2023 12:23 PM EDT Spoke with patient - states that she does not want to schedule an appointment at this time and to remove Dr. Rivas as PCP. * Telephone Encounter - Khadra Smith RN - 12/29/2023 10:30 AM EDT Called and left a voicemail for the Patient to call back and ask for a nurse to receive the providers message. Khadra Smith RN * Telephone Encounter - Larisa Guevara APRN.CNP - 12/29/2023 9:46 AM EDT Patient has not been seen in two years. Please call and schedule Medicare Wellness visit Larisa Guevara APRN.CNP documented in this encounterGreen [facility] Hospital07-[facility]-2024 Telephone encounter Note * Telephone Encounter - Khadra Smith RN - 12/29/2023 10:30 AM EDT Called and left a voicemail for the Patient to call back and ask for a nurse to receive the providers message. Khadra Smith RN [facility]07-09-2024 Telephone encounter Note* Telephone Encounter - Larisa Guevara APRN.CNP - 12/29/2023 9:46 AM EDT Patient has not been seen in two years. Please call and schedule Medicare Wellness visit Larisa Guevara APRN.CNP [facility] Work Phone: [phone] 289-698806-14-2023 History of Present illness Narrative* Jammie Paula Ma - 12/03/2022 2:47 PM EDT POPULATION HEALTH NAVIGATION OUTREACH Action/FYI Per encounter 07/23/2022 Dr. Raúl Rivas MD Primary Care Provider, Referring Provider Active Updated PCP field. Patient Identified by Name and : NO Outreach Outcome/Action PCP field updated Did you use a PCP flex slot to schedule this appointment? N/A Reason for Outreach Attribution: Consult to Primary Care Payer: Payor: MEDICARE / Plan: MEDICARE A AND B / Product Type: Medicare / Care Gap Reviewed:: N/A Reminder: Reminder note to check Health Maintenance for items below Health Maintenance items due: LIPID SCREEN due on 02/09/2022 ADVANCE DIRECTIVE DISCUSSION Never done DEPRESSION ASSESSMENT Never done Navigation Signature: Jammie Paula Ma December 03, 2022 2:47 PM documented in this encounterGreen Cross Hospital05-10-2023 Miscellaneous Notes* Letter - Mammography Coordinator - 10/29/2022 10:28 AM EDT October 30, 2022 PID: [id number] Lizzeth Lopezd [address] [place] [id number] Dear Ms. Berry, We are pleased to inform you that the results of your recent breast imaging exam on 10/28/2022 are normal. Early detection of cancer is very important. We also understand recommendations regarding breast cancer screening are controversial. Please discuss with your primary care provider which strategy is best for you and whether a mammogram is right for you. Your imaging studies and report will be kept on file at [facility] as part of your permanent medical record and are available for your continuing care. Thank you for allowing us to help in meeting your health care needs. Sincerely, Dr. Zamora Interpreting Radiologist [facility] (Normal over 40) documented in this encounterGreen Cross Hospital08-16-2007 History of Past illness Narrative* Problem Noted Date Resolved Date Routine general medical exam ination at a health care facility 02/04/2007 01/05/2012 documented as of this encounter (statuses as of 10/31/2022) [facility]08-16-2007 History of Past illness Narrative* Problem Noted Date Resolved Date Routine general medical exam ination at a health care facility 02/04/2007 01/05/2012 documented as of this encounter (statuses as of 12/04/2022) [facility] Author Poppy Loera [facility] Note Date/Time December 21, 2024 8:27a [facility] Medical Records Department [address] [place] [address] Anesthesia Postop Eval I 12/21/24825 MR#: [id number] Acct: [id number] Name: LIZZETH BERRY Rep #:[id number] : 1955 69 From: Poppy Loera CRNA PCP: Dr. Diya George MD Status:REG [facility] Y Race: C Location: [place] [address] Anesthesia: Postop Eval I Current Vital Signs Temperature: 97.4 F Pulse Rate: 85 Blood Pressure: 88/59 Respiratory Rate: 16 Pulse Ox: 91 Oxygen Delivery Method: Room Air Assessment Airway patent: Yes Spontaneous unlabored respirations: Yes Mental status: Awake and Calm nausea: No Vomiting: No Anesthesia Complication: No Fluid Hydration Crystalloid volume administer (ml): 300 Total IV fluid infused: 300 Progress Note Anesthesia document: Postop Eval 1 completed: Yes 12/21/24826 <Electronically signed by Poppy kong REED MAN> Date _ Poppy Loera REED MAN Cosigner Signature: Date CC: ~ Signed [facility] Work Phone: Discharge summary Author Tera Clay [facility] Note Date/Time December 21, 2024 8:32a m [facility] Medical Records Department [address] [place] [address] Instructions for Home/Discharge Instructions 12/21/24 0827 MR#: [id number] Acct: [id number] Name: LIZZETH BERRY Rep #:[id number] : 1955 69 From: Tera Clay MD PCP: Dr. Diya George MD Status:REG [facility] Discharge Instructions Diet Discharge Diet: Light diet - advance as tolerated Activity Discharge Activity: Return to Normal Activity and May Shower May shower in (days): 1 Ice area for (Minutes): 30 Dressing / Incision Call your doctor if your incision/area has: Continuous Slow Oozing, Sudden Increased Bleeding, Increased Pain/ Swelling, Increased Redness, Foul Smelling Discharge and Swelling at the incision site Call your doctor if you observe: Fever of 101 or Higher Remove Dressing in: 2 days Cleanse incision/area with: Soap & Water Follow Up Care Please Follow Up With: Tera Clay MD When: as needed Test Results: Test results from this visit will be discussed in further detail at your follow- up appointment, if applicable. Discharge Plan Admission Primary Reason for Your Visit: Mediport placement Attending Provider: Tera Clay Primary Care Provider: Diya George Instructions Print Language: Lao Discharge Orders/Prescriptions Prescriptions: Continued ondansetron 4 mg tablet,disintegrating 4 mg PO Q6H PRN (Reason: nausea and vomiting) Qty: 90 0RF pantoprazole [Protonix] 40 mg tablet,delayed release (DR/EC) 40 mg PO QDAY sennosides-docusate sodium [Stool Softener-Stimulant Laxat] 8.6-50 mg tablet 1 tab PO BID PRN (Reason: constipation) oxycodone 5 mg tablet 2.5 - 5 mg PO Q6H PRN (Reason: pain) PreserVision AREDS 2,148 mcg-113 mg-45 mg-17.4mg tablet 2 tab PO BID Rx Instructions: administer with AM and PM meals prochlorperazine maleate [Compazine] 10 mg tablet 10 mg PO TID PRN (Reason: nausea and vomiting) Qty: 30 1RF Referrals / Follow Up: Diya George MD [Primary Care Provider] - Disposition Disposition (needs filled in before D/C Order can be placed): Home, Self Care 12/21/24 0832<Electronically signed by Tera Clay MD>Tera Clay MD CC: Dr. Diya George MD ~ Signed [facility] Work Phone: Evaluation note* Diagnosis Onset Date Resolution Status Primary osteoarthritis of left knee acute Primary osteoarthritis of right knee acute Primary osteoarthritis of right knee acute Status post total knee replacement not using cement acute Other acute postprocedural pain acute Status post total knee replacement not using cement acute Status post total knee replacement not using cement acute [facility] Work Phone: Evaluation note* Diagnosis Breast screening- Primary Breast screening, unspecified Encounter for screening mammogram for malignant neoplasm of breast Other screening mammogram [facility] [place]* Diagnosis Breast screening Breast screening, unspecified Encounter for screening mammogram for malignant neoplasm of breast Other screening mammogram [facility] [place] [facility]* Diagnosis Abnormal screening mammogram- Primary Abnormal mammogram, unspecified [facility] [place] [facility]* Diagnosis Abnormal screening mammogram Abnormal mammogram, unspecified [facility] [place] [facility]* Diagnosis Abnormal screening mammogram Abnormal mammogram, unspecified [facility] [place] [facility]* Diagnosis Breast disorder- Primary Unspecified breast disorder [facility] [place] [facility]* Diagnosis Microcalcification of left breast on mammogram- Primary [facility] [place] [facility]* Diagnosis Breast disorder Unspecified breast disorder [facility]* Gastroenterology Location: None Selected [facility] Work Phone: Hospital Discharge instructionsAmbulatory Orders* Palliative Medicine Location: None Selected [facility] Work Phone: Progress note Author Ramona Funez [facility] Note Date/Time December 28, 2024 9:50a m [address] [address] OFFICE VISIT Date of Service: 12/28/24 0910 MR#: [id number] Acct: [id number] Name: LIZZETH BERRY Rep #: [id number] : 1955 From: Ramona tineo MD Age/Sex: 69/F Location: [facility] Status: Signed HPI Subjective Date of Service 12/28/24 Chief Complaint Metastatic cancer History of Present Illness 69-year-old female who presents with a few months history of anorexia, 20+ poundweight loss, and increasing fatigue. 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 Patient reports that in 2023 she had an abnormal screening mammogram on the leftbreast, had a biopsy at [facility] and was told was negative for malignancy. November 04, [address] Madsen: Impression colitis like picture Pathology: Ascending colon active colitis. Descending colon colonic mucosa no significant pathologic changes. Rectum biopsy rectal mucosa no significant histopathologic changes. November 11, 2024 CT abdomen and pelvis: FINDINGS: Bilateral multifocal varying size pulmonary nodules, largest on the left is partially seen at the lingula measuring 9 mm and largest on the right just above the diaphragm 12 mm. 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 The liver is enlarged containing innumerable varying size liver lesions concerning for metastatic disease. Liver mass in the posterior right lobe appears associated with calcification measuring around 4.8 cm. The gallbladder appears distended without wall thickening or surrounding inflammatory change and may contain a small amount of sludge. No biliary ductal dilation identified. 1.8 cm cystic focus within the head of the pancreas may represent pseudocyst or cystic neoplasm. No pancreatic ductal dilation identified. The adrenal glands, kidneys appear within limits. Small left renal cyst noted. The spleen appears diffusely heterogeneous and may represent differences in splenic pulp with possibility of numerous lesions, metastatic disease not excluded. Enlarged vipin hepatis node measuring 3.4 by 2.5 cm. Abdominal aorta appears within limits. Adjacent to the right common iliac vessels and right psoas muscle is a soft tissue mass measuring 4.5 by 2.7 cm with the right common iliac vein draped across and difficult to distinguish. Adjacent along the presacral soft tissues upper right sacrum is a heterogeneous mass with mixed cystic and solid appearance and areas of suggested calcification measures 4.2 x 3.7 cm. Possibility includes metastatic lymphadenopathy, possibility of lymphoma not excluded. No bowel dilation or free air. No evidence of colonic wall thickening or pericolonic inflammatory change. Overall there does appear to be soft tissue fullness at the perineum about the vaginal introitus and rectum/perianal soft tissues for example axial 117 and sagittal 97. Recommend further clinical correlation. Very small amount of perihepatic free fluid noted. Status post hysterectomy. Bilateral fallopian tube clips are seen with what appears to be adjacent bilateral ovarian tissue which appears within limits. The bladder appears within limits. There are multifocal areas of osseous sclerotic lesions mostly involving the sacrum although also involving the right ilium, posterior thoracic spine and the anterior right 6th rib. No pathologic fractureidentified. Lower lumbar spondylosis/discogenic change and facet degenerative changes. IMPRESSION: Multifocal partially imaged noncalcified pulmonary nodules, hepatomegaly filled with numerous lesions, vipin hepatis lymphadenopathy, possible splenic lesions, lower right retroperitoneal presacralmasses and sclerotic multifocal osseous lesions consistent with metastatic disease with possible lymphoma not entirely excluded as described in detail above. Requires further clinical correlation and workup. Fullness peroneal soft tissues about the vaginal introitus and rectum/anus recommend further clinical correlation. Cystic focus within the pancreatic head as above. November 22, [address] Herman: Hiatus hernia, exudate and ulceration in the prepyloric area and duodenum. Biopsy showing active inflammation and hemorrhage negative for H. pylori no malignancy. November 30, 2024 bone scan: IMPRESSION: Extensive abnormal uptake is seen throughout much of the bilateral sacrum, corresponding with sclerotic lesion seen on a recent CT scan. This is most consistent with osseous metastatic disease. November 30, 2024 CT chest: IMPRESSION: Coronary artery calcification (CAC) is is absent Multiple bilateral noncalcified pulmonary pulmonary nodules are noted in the upper lobes, right middle lobe, lingula and bilateral lower lobes ranging in size between 0.5 and 2.8 cm. Mildly enlarged mediastinal and hilar lymph nodes are noted with the largest measuring 1.7 cm. No coronary artery calcifications are noted. Hepatomegaly. Multiple hepatic nodules are noted with the largest measuring 1.7 cm. Enlarged vipin hepatis lymph nodes are noted with the largest measuring 1.6 cm November 29, 2024 MICROSCOPIC DIAGNOSIS A. Liver lesions, CT-guided core biopsy: - Well-differentiated neuroendocrine tumor, Grade 3, consistent with metastasis ? see note and Comment. o Note: IHCs were performed - o Positive: Chromogranin, Synaptophysin, Ki67 (approximately 25%), CK7 (weak focal), CK8 (weak focal), [id number] (focal). o Negative: Pancytokeratin, CK20, CDX2. 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 Wears glasses Arthritis Bladder disease Easy bruising Heartburn Non-smoker Shortness of breath on exertion History of pain when walking Surgical History S/P breast biopsy History of liver biopsy S/P endoscopy History of total right knee replacement Hx of colonoscopy History of bilateral carpal tunnel release History of appendectomy History of tubal ligation Family History Father CVA (cerebral vascular accident) Brother CVA (cerebral vascular accident) Myocardial infarction Prostate cancer Mother Bladder cancer Social History adopted: No household members: spouse number of children: 1 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[employer] pets and animals: No leisure activities: reading history of recent travel: No sexually active: Yes Smoking Status: Never smoker alcohol intake: never substance use type: does not use well-balanced diet: rarely or never caffeine: No eating out: other during the past year weight has: decreased > 10 lbs what type of physical activity do you participate in: none frequency: does not exercise ahsan/hoahaoism: NA seatbelt use: always do you feel safe at home: Yes ROS Constitutional Constitutional: Reports systems reviewed and no addt'l complaints, except as documented, anorexia, fatigue and other Details: Increasing fatigue ; Denies fever(s), night sweats or weight loss Eyes Eyes: Reports systems reviewed and no addt'l complaints, except as documented; Denies change in vision ENT HEENT: Reports systems reviewed and no addt'l complaints, except as documented and dry mouth; Denies mouth lesions Cardiovascular Cardiovascular: Reports systems reviewed and no addt'l complaints, except as documented; Denies chest pain or edema Respiratory/Chest Respiratory/Chest: Reports systems reviewed and no addt'l complaints, except as documented; Denies cough or dyspnea Gastrointestinal Gastrointestinal: Reports systems reviewed and no addt'l complaints, except as documented, abdominal pain, constipation, heartburn, nausea and vomiting; Denieshematochezia or melena Genitourinary Genitourinary: Reports systems reviewed and no addt'l complaints, except as documented Musculoskeletal Musculoskeletal: Reports systems reviewed and no addt'l complaints, except as documented; Denies back pain Integumentary Integumentary: Reports systems reviewed and no addt'l complaints, except as documented; Denies new lesions Neurologic Neurologic: Reports systems reviewed and no addt'l complaints, except as documented and weakness; Denies focal weakness or paresthesias Psychiatric Psychiatric: Reports systems reviewed and no addt'l complaints, except as documented Endocrine Endocrinology: Reports systems reviewed and no addt'l complaints, except as documented Hematologic/Lymphatic Hematologic/Lymphatic: Reports systems reviewed and no addt'l complaints, exceptas documented; Denies lymphadenopathy Allergic/Immunologic Allergic/Immunologic: Reports systems reviewed and no addt'l complaints, except as documented Intake Vital Signs 12/16/24 13:39 12/21/24 06:32 12/28/24 09:11 12/28/24 09:17 Height 5 ft 4 in 5 ft 4 in 5 ft 4 in 5 ft 4 in Weight: 78.585 kg BMI 29.7 BP 118/75 Blood Pressure Location Lt brachial Position Sitting Respiration 16 Pulse 88 Pulse Source Monitor Temp 97.8 F Temperature Source Temporal Artery Pulse Oximetry (%) 94 Oxygen Delivery Method room air Intake Is patient in pain?: No Allergies amoxicillin (From Augmentin) Allergy (Verified 12/28/24 09:15) rash clavulanic acid (From Augmentin) Allergy (Verified 12/28/24 09:15) rash Medications ?Medication ?Instructions ?Recorded ?Confirmed ?Type pantoprazole 40 mg tablet,delayed 40 mg PO QDAY 12/28/24 History release (Protonix) ondansetron 4 mg disintegrating 4 mg PO Q6H PRN nausea and 12/01/24 12/28/24 Rx tablet vomiting #90 tabs oxycodone 5 mg tablet 2.5 - 5 mg PO Q6H PRN pain 0 12/19/24 12/28/24 History sennosides 8.6 mg-docusate sodium 1 tab PO BID PRN con stipation 12/19/24 12/28/24 History 50 mg tablet (Stool Softener-Stimulant Laxative) vitamins A,C,B-lwaz-zyayjp 2,148 2 tab PO BID 12/19/24 12/28/24 History mcg-113 mg-45 mg-17.4 mg tablet (PreserVision AREDS) prochlorperazine maleate 10 mg 10 mg PO TID PRN nausea and 12/20/24 12/28/24 Rx tablet (Compazine) vomiting #30 tabs lidocaine-prilocaine 2.5 %-2.5 % 1 applic topical ONCE PRN port 12/26/24 12/28/24 Rx topical cream access 30 days #30 grams Have you fallen in the past year?: No Central Venous Access Central Venous Access: Yes Port/PICC: Port CBC, CMP December 28, 2024 reviewed Exam Physical Exam Narrative ECOG 1-2 Const alert, oriented x3 and no apparent distress General Appearance: ill appearing Positive for chronically HEENT Face and Sinus: normal facial exam Eyes General Eye: normal appearance of both eyes Neck no lymphadenopathy and no JVD Chest Chest: vascular access Resp clear to auscultation bilaterally Cardio regular rate and regular rhythm Jugular Venous Distention: Negative for JVD GI soft to palpation and non-tender Palpation: hepatomegaly; Negative for ascites Back/Spine no thoracic nor lumbar tenderness Extremity no clubbing, cyanosis or edema Skin no rashes or lesions noted Neuro oriented x3, CN's II-XII intact bilaterally, moves all extremities and no focal motor deficits Coordination / Balance: ppymam-xd-aksk test normal Speech: speech normal Gait (Neuro): normal gait Psych mental status grossly normal Coding Level of Care Code Off vis,est,level 4 Exam Problem Focused Diagnoses 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 C78.01; C78.02 Laterality: bilateral Metastasis to liver C78.7 Cancer, metastatic to bone C79.51 Assessment and Plan Assessment and Plan (1) Neuroendocrine carcinoma: Status: Acute (2) Pancreatobiliary-type carcinoma: Status: Acute (3) Metastasis to lung: Status: Acute Qualifiers: Laterality: bilateral Qualified Code(s): C78.01 - Secondary malignant neoplasm of right lung; C78.02 - Secondary malignant neoplasm of left lung (4) Metastasis to liver: Status: Acute (5) Cancer, metastatic to bone: Status: Acute Plan 69-year-old female, never smoker presents with a few months increasing fatigue, anorexia and unexplained weight loss. CT and bone scan imaging revealed high-volume widely metastatic malignancy most likely pancreaticobiliary with metastasis to lungs liver and bones. EGD and colonoscopy showed no primary lesions CT-guided liver biopsy confirmed a well-differentiated high-grade G3 neuroendocrine tumor. Plan: Based on up-to-date review of Well-differentiated high-grade (G3) gastroentero pancreatic (GEP) neuroendocrine tumors (NETs) and NCCN guidelines systemic chemotherapy with FOLFOX because tumor is symptomatic with major burden. The goal of treatment is palliative plus or minus modest survival benefit. Start December 28, 2024 with toxicity check in 1 week 2. On palliative care for symptom management. Ramona Funez MD Early Morning, [facility] Divisions of Medical Oncology & Hematology Department of Internal Medicine [place] [id number] This note was generated using a voice recognition system software. Although itwas reviewed by the author prior to finalization, it may still contain incorrectwords, spelling, and punctuation that were not noted when reviewing prior to saving. If a clinically significant typo or inaccurately typed phrase is noted, please notify the author. Clinical Quality Measures Falls Risk Screening/Assistive Devices Have you fallen in the past year?: No 12/28/24 0950 <Electronically signed by Ramona valenzuela MD> Date _ Ramona Funez MD Cosigner Signature: Date (if applicable) CC: Dr. Diya George MD ~ [place] [employer] Work Phone: [facility] for referral (narrative)* Diagnostic Procedure Only (Routine) - Authorized Specialty Diagnoses / Procedures Referred By Coleen t Referred To Contact [facility] Diagnoses Breast screening Encounter for screening mammogram for malignant neoplasm of breast Procedures RYLEE SCREENING SCREENING MAMMOGRAPHY BI 2-VIEW BREAST INC Robe Pepe MD [address] [place] [address] [facility] [address] [place] [address] Referral ID Status Reason Start Date Expiration Date Visits Requested Visits Authorized [id number] Authorized Auto-Generat ed Referral 03/03/2024 04/02/2025 1 1 [facility] for referral (narrative)* Diagnostic Procedure Only (Routine) - Closed Specialty Diagnoses / Procedures Referred By Coleen taylor Referred To Contact [facility] Diagnoses Breast screening Encounter for screening mammogram for malignant neoplasm of breast Procedures RYLEE SCREENING SCREENING MAMMOGRAPHY BI 2-VIEW BREAST INC Robe Pepe MD [address] [place] [address] [facility] [address] [place] [address] Referral ID Status Reason Start Date Expiration Date V isits Requested Visits Authorized [id number] Closed Auto-Generate d Referral 03/03/2024 04/02/2025 1 1 [facility] for referral (narrative)* Diagnostic Procedure Only (Routine) - Authorized Specialty Diagnoses / Procedures [facility] To [facility] Diagnoses Abnormal screening mammogram Procedures RYLEE DIAGNOSTIC LEFT DIAGNOSTIC MAMMOGRAPHY COMPUTER-AIDED DETCJ UNI Robe Garcia MD [address] [place] [address] [facility] [address] [place] [address] Referral ID Status Reason Start Date Expiration Date Visits Requested Visits Authorized [id number] Authorized Auto-Generat ed Referral 03/10/2024 2025 1 1 * Diagnostic Procedure Only (Routine) - Authorized Specialty Diagnoses / Procedures Referred By Contac t Referred To Contact [facility] Diagnoses Abnormal screening mammogram Procedures US BREAST LTD LEFT US BREAST UNI REAL TIME WITH IMAGE LIMITED Robe Garcia MD [address] [place] [address] [facility] [address] [place] [address] Referral ID Status Reason Start Date Expiration Date Visits Requested Visits Authorized [id number] Authorized Auto-Generat ed Referral 03/10/2024 2025 1 1 [facility] for referral (narrative)* Diagnostic Procedure Only (Routine) - New Request Specialty Diagnoses / Procedures Referred By Contac t Referred To Contact [facility] Diagnoses Breast disorder Procedures RYLEE STEREO BX BREAST LEFT BX BREAST W/DEVICE 1ST LESION STEREOTACTIC Wilbert Smith DO [address] [place] [address] [facility] [address] [place] [address] Referral ID Status Reason Start Date Expiration Date Visits Requested Visits Authorized [id number] New Request Auto-Generat ed Referral 06/03/2025 1 1 [facility] for referral (narrative)* Diagnostic Procedure Only (Routine) - New Request Specialty Diagnoses / Procedures [facility] To [facility] Diagnoses Microcalcification of left breast on mammogram Procedures RYLEE STEREO BX BREAST LEFT BX BREAST W/DEVICE 1ST [facility] STEREOT[facility] Ramone Newman MD [address] [place] [address] [facility] [address] [place] [address] Referral ID Status Reason Start Date Expiration Date Visits Requested Visits Authorized [id number] New Request Auto-Generat ed Referral 06/01/2025 1 1 [facility] for referral (narrative)* Diagnostic Procedure Only (Routine) - Closed Specialty Diagnoses / Procedures Referred By Contac t Referred To Contact [facility] Diagnoses Breast disorder Procedures RYLEE STEREO BX BREAST LEFT BX BREAST W/DEVICE 1ST LESION STEREOTACTIC GUID Wilbert Maldonado DO [address] [place] [address] [facility] [address] [place] [phone] Referral ID Status Reason Start Date Expiration Date V isits Requested Visits Authorized [id number] Closed Auto-Generate d Referral 05/04/2024 06/03/2025 1 1 [facility] for visit Narrative* Diagnostic Procedure Only (Routine) - Closed Specialty Diagnoses / Procedures Referred By Contac t Referred To Contact [facility] Diagnoses Breast screening Encounter for screening mammogram for malignant neoplasm of breast Procedures RYLEE SCREENING SCREENING MAMMOGRAPHY BI 2-VIEW BREAST INC CAD Robe Garcia MD [address] [place] [address] [facility] [address] [place] [phone] Referral ID Status Reason Start Date Expiration Date V isits Requested Visits Authorized [id number] Closed Auto-Generate d Referral 03/03/2024 04/02/2025 1 1 [facility] for visit Narrative* Diagnostic Procedure Only (Routine) - Closed Specialty Diagnoses / Procedures Referred By Contac t Referred To Contact [facility] Diagnoses Abnormal screening mammogram Procedures RYLEE DIAGNOSTIC LEFT DIAGNOSTIC MAMMOGRAPHY COMPUTER-AIDED DETCJ UNI Robe Garcia MD [address] [place] [address] [facility] [address] [place] [phone] Referral ID Status Reason Start Date Expiration Date V isits Requested Visits Authorized [id number] Closed Auto-Generate d Referral 03/10/2024 2025 1 1 [facility] for visit Narrative* Diagnostic Procedure Only (Routine) - Authorized Specialty Diagnoses / Procedures Referred By Contdat t Referred To Contact [facility] Diagnoses Abnormal screening mammogram Procedures US BREAST LTD LEFT US BREAST UNI REAL TIME WITH IMAGE LIMITED Robe Garcia MD [address] [place] [address] [facility] [address] [place] [phone] Referral ID Status Reason Start Date Expiration Date Visits Requested Visits Authorized [id number] Authorized Auto-Generat ed Referral 03/10/2024 2025 1 1 [facility] for visit Narrative* Diagnostic Procedure Only (Routine) - Closed Specialty Diagnoses / Procedures Referred By Coleen taylor Referred To Contact [facility] Diagnoses Breast disorder Procedures RYLEE STEREO BX BREAST LEFT BX BREAST W/DEVICE 1ST LESION [place] [address] [place] [address] [facility] [address] [place] [phone] Referral ID Status Reason Start Date Expiration Date V isits Requested Visits Authorized [id number] Closed Auto-Generate d Referral 05/04/2024 06/03/2025 1 1 [facility] Summary Purpose Family History No Family History Records Found Relationship Condition Age at Onset Recorded Date/T angel father Cerebrovascular accident (CVA) Unknown brother Cerebrovascular accident (CVA) Unknown Myocardial infarction Unknown mother Malignant neoplasm of urinary bladder Unk nown Relationship Condition Age at Onset Recorded Date/T angel father Cerebrovascular accident (CVA) Unknown brother Cerebrovascular accident (CVA) Unknown Myocardial infarction Unknown Malignant neoplasm of prostate Unknown mother Malignant neoplasm of urinary bladder Unk nown Advance Directives No Advanced Directives Records Found Advance Directive Response Recorded Date/ Time Living Will Yes August 06 12:54pm Power of Emergency Manager Yes August 06, 2021 12:54pm Advance Directive Response Recorded Date/ Time Do you have a Healthcare Power of Emergency Manager? Yes December 19, 2024 2:27pm Chief Complaint and Reason for Visit Chief Complaint Bilat knee OSTEO RIGHT KNEE RT TOTAL KNEE ROBOTIC right knee RT TOTAL KNEE ROBOTIC RT TOTAL KNEE ROBOTIC RT TOTAL KNEE ROBOTIC right knee right knee xray OA OF BL KNEES/RX WITH PT Reason for Visit Primary osteoarthrit is of left knee Primary osteoarthritis of right knee Primary osteoarthritis of right knee Status post total knee replacement not using cement Other acute postprocedural pain Status post total knee replacement not using cement Status post total knee replacement not using cement Additional Source Comments INFORMATION SOURCE (unrecogn ized section and content) DATE CREATED AUTHOR [facility] DATE CREATED AUTHOR AUTHOR'S ORGANIZ ATION 05/23/2024 [facility] DATE CREATED AUTHOR AUTHOR'S ORGANIZ ATION 05/25/2024 [facility] DATE CREATED AUTHOR AUTHOR'S ORGANIZ ATION 01/01/2025 [facility] Goals (unrecognized section and content) Goals may be documented in a n alternate sectionGoals may be documented in an alternate sectionGoals may be documented in an alternate sectionGoals may be documented in an alternate sectionGoals may be documented in an alternate sectionGoals may be documented in an alternate sectionGoals may be documented in an alternate sectionGoals may be documented in an alternate sectionGoals may be documented in an alternate sectionGoals may be documented in an alternate sectionGoals may be documented in an alternate sectionGoals may be documented in an alternate section Source Comments (unrecognize d section and content) In the event this informatio n is protected by the Federal Confidentiality of Alcohol and Drug Abuse Patient Records regulations: The Federal rules restrict any use of the information to criminally investigate or prosecute any alcohol or drug abuse patient.[facility] the event this information is protected by the Federal Confidentiality of Alcohol and Drug Abuse Patient Records regulations: The Federal rules restrict any use of the information to criminally investigate or prosecute any alcohol or drug abuse patient.[facility] the event this information is protected by the Federal Confidentiality of Alcohol and Drug Abuse Patient Records regulations: The Federal rules restrict any use of the information to criminally investigate or prosecute any alcohol or drug abuse patient.[facility] the event this information is protected by the Federal Confidentiality of Alcohol and Drug Abuse Patient Records regulations: The Federal rules restrict any use of the information to criminally investigate or prosecute any alcohol or drug abuse patient.[facility] the event this information is protected by the Federal Confidentiality of Alcohol and Drug Abuse Patient Records regulations: The Federal rules restrict any use of the information to criminally investigate or prosecute any alcohol or drug abuse patient.[facility] the event this information is protected by the Federal Confidentiality of Alcohol and Drug Abuse Patient Records regulations: The Federal rules restrict any use of the information to criminally investigate or prosecute any alcohol or drug abuse patient.[facility] the event this information is protected by the Federal Confidentiality of Alcohol and Drug Abuse Patient Records regulations: The Federal rules restrict any use of the information to criminally investigate or prosecute any alcohol or drug abuse patient.[facility] the event this information is protected by the Federal Confidentiality of Alcohol and Drug Abuse Patient Records regulations: The Federal rules restrict any use of the information to criminally investigate or prosecute any alcohol or drug abuse patient.[facility] the event this information is protected by the Federal Confidentiality of Alcohol and Drug Abuse Patient Records regulations: The Federal rules restrict any use of the information to criminally investigate or prosecute any alcohol or drug abuse patient.[facility] the event this information is protected by the Federal Confidentiality of Alcohol and Drug Abuse Patient Records regulations: The Federal rules restrict any use of the information to criminally investigate or prosecute any alcohol or drug abuse patient.[facility] the event this information is protected by the Federal Confidentiality of Alcohol and Drug Abuse Patient Records regulations: The Federal rules restrict any use of the information to criminally investigate or prosecute any alcohol or drug abuse patient.[facility] the event this information is protected by the Federal Confidentiality of Alcohol and Drug Abuse Patient Records regulations: The Federal rules restrict any use of the information to criminally investigate or prosecute any alcohol or drug abuse patient.[facility] the event this information is protected by the Federal Confidentiality of Alcohol and Drug Abuse Patient Records regulations: The Federal rules restrict any use of the information to criminally investigate or prosecute any alcohol or drug abuse patient.[facility] the event this information is protected by the Federal Confidentiality of Alcohol and Drug Abuse Patient Records regulations: The Federal rules restrict any use of the information to criminally investigate or prosecute any alcohol or drug abuse patient.[facility] the event this information is protected by the Federal Confidentiality of Alcohol and Drug Abuse Patient Records regulations: The Federal rules restrict any use of the information to criminally investigate or prosecute any alcohol or drug abuse patient.[facility] Reason for Visit (unrecogniz ed section and content) Reason Onset Date Comments Population Health Navigation Outreach 12/03/2022 ACO No PCP list Reason Comments Appointment Reason Comments Orders Reason Comments Mammogram Result Call Back Reason Comments Results Reason Comments breast disorder Reason Comments Consult Abnormal left breast mammogram. 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 Miles Villaseñor III, MD Family Provider Active Dr. Diya George MD Primary Care Provider Active Team Status: Inactive Member Role Status Dates Dr. Raúl Rivas MD Primary Care Provider Active Start: September 23, 2024 End: September 23, 2024 Dr. Raúl Rivas MD Referring Provider Active Start: September 23, 2024 End: September 23, 2024 Adria MADISON PA Attending Provider Active St art: September 23, 2024 End: September 23, 2024 Team Status: Inactive Member Role Status Dates Dr. Diya George MD Primary Care Provider Active Start: September 23, 2024 End: September 23, 2024 Adria MADISON PA Attending Provider Active St art: September 23, 2024 End: September 23, 2024 Adria Orosco PA, PA Referring Provider Active St art: September 23, 2024 End: September 23, 2024 Team Status: Active Member Role Status Dates Dr. Diya George MD Primary Care Provider Active Start: September 26, 2024 Adria MADISON PA Attending Provider Active St art: September 26, 2024 Adria MADISON PA Referring Provider Active St art: September 26, 2024 Team Status: Active Member Role Status Dates Dr. Diya George MD Primary Care Provider Active Start: September 26, 2024 Dr. Diya George MD Attending Provider Active Start: September 26, 2024 Team Status: Inactive Member Role Status Dates Dr. Diya George MD Primary Care Provider Active Start: September 26, 2024 End: September 26, 2024 Adria MADISON PA Attending Provider Active St art: September 26, 2024 End: September 26, 2024 Adria MADISON, PA Referring Provider Active St art: September 26, 2024 End: September 26, 2024 Team Status: Inactive Member Role Status Dates Dr. Diya George MD Primary Care Provider Active Start: October 11, 2024 End: October 11, 2024 Dr. Diya George MD Attending Provider Active Start: October 11, 2024 End: October 11, 2024 Dr. Diya George MD Referring Provider Active Start: October 11, 2024 End: October 11, 2024 Team Status: Inactive Member Role Status Dates Dr. Diya George MD Primary Care Provider Active Start: October 26, 2024 End: October 26, 2024 Dr. Diya George MD Attending Provider Active Start: October 26, 2024 End: October 26, 2024 Dr. Diya George MD Referring Provider Active Start: October 26, 2024 End: October 26, 2024 Team Status: Active Member Role Status Dates Dr. Diya George MD Primary Care Provider Active Team Status: Inactive Member Role Status Dates Dr. Diya Georeg MD Primary Care Provider Active Start: November 11, 2024 End: November 11, 2024 Dr. Dawson Herman MD Attending Provider Active Start: November 11, 2024 End: November 11, 2024 Dr. Dawson Herman MD Referring Provider Active Start: November 11, 2024 End: November 11, 2024 Team Status: Active Member Role Status Dates Dr. Diya George MD Primary Care Provider Active Start: November 17, 2024 Dr. Ramona Funez MD Attending Provider Active Start: November 17, 2024 Dr. Ramona Funez MD Referring Provider Active Start: November 17, 2024 Team Status: Inactive Member Role Status Dates Dr. Diya George MD Primary Care Provider Active Start: November 17, 2024 End: November 17, 2024 Adria MADISON PA Referring Provider Active St art: November 17, 2024 End: November 17, 2024 Dr. Ramona Funez MD Attending Provider Active Start: November 17, 2024 End: November 17, 2024 Team Status: Active Member Role Status Dates Dr. Diya George MD Primary Care Provider Active Start: November 23, 2024 Evelyn Angela Attending Provider Active Start: November 23, 2024 Team Status: Active Member Role Status Dates Dr. Diya George MD Primary Care Provider Active Start: November 29, 2024 Dr. Ramona Funez MD Attending Provider Active Start: November 29, 2024 Dr. Ramona Funez MD Referring Provider Active Start: November 29, 2024 Team Status: Active Member Role Status Dates Dr. Diya George MD Primary Care Provider Active Start: November 30, 2024 Dr. Ramona Funez MD Attending Provider Active Start: November 30, 2024 Dr. Ramona Funez MD Referring Provider Active Start: November 30, 2024 Team Status: Inactive Member Role Status Dates Dr. Raúl Rivas MD Referring Provider Active Start: December 01, 2024 End: December 01, 2024 Dr. Diya George MD Primary Care Provider Active Start: December 01, 2024 End: December 01, 2024 Dr. Diya George MD Attending Provider Active Start: December 01, 2024 End: December 01, 2024 Team Status: Inactive Member Role Status Dates Dr. Diya George MD Primary Care Provider Active Start: November 29, 2024 End: November 29, 2024 Dr. Ramona Funez MD Attending Provider Active Start: November 29, 2024 End: November 29, 2024 Dr. Ramona Funez MD Referring Provider Active Start: November 29, 2024 End: November 29, 2024 Team Status: Inactive Member Role Status Dates Dr. Diya George MD Primary Care Provider Active Start: November 30, 2024 End: November 30, 2024 Dr. Ramona Funez MD Attending Provider Active Start: November 30, 2024 End: November 30, 2024 Dr. Ramona Funez MD Referring Provider Active Start: November 30, 2024 End: November 30, 2024 Team Status: Inactive Member Role Status Dates Dr. Diya George MD Primary Care Provider Active Start: December 07, 2024 End: December 07, 2024 Dr. Diya George MD Referring Provider Active Start: December 07, 2024 End: December 07, 2024 Dr. Ramona Funez MD Attending Provider Active Start: December 07, 2024 End: December 07, 2024 Team Status: Inactive Member Role Status Dates Dr. Diya George MD Primary Care Provider Active Start: December 08, 2024 End: December 08, 2024 Dr. Diya George MD Referring Provider Active Start: December 08, 2024 End: December 08, 2024 Magalie Pinto DIRECT[employer], [employer] Attending Provider Active Start: December 08, 2024 End: December 08, 2024 Team Status: Active Member Role/Relationship Status Dates Dr. Diya George MD Primary Care Provider Active Team Status: Inactive Member Role/Relationship Status Dates Dr. Raúl Rivas MD Primary Care Provider Active Start: September 23, 2024 End: September 23, 2024 Dr. Raúl Rivas MD Referring Provider Active Start: September 23, 2024 End: September 23, 2024 Adria MADISON PA Attending Provider Active St art: September 23, 2024 End: September 23, 2024 Team Status: Inactive Member Role/Relationship Status Dates Dr. Diya George MD Primary Care Provider Active Start: September 23, 2024 End: September 23, 2024 Adria MADISON PA Attending Provider Active St art: September 23, 2024 End: September 23, 2024 Adria MADISON PA Referring Provider Active St art: September 23, 2024 End: September 23, 2024 Team Status: Inactive Member Role/Relationship Status Dates Dr. Diya George MD Primary Care Provider Active Start: September 26, 2024 End: September 26, 2024 Adria MADISON PA Attending Provider Active St art: September 26, 2024 End: September 26, 2024 Adria MADISON PA Referring Provider Active St art: September 26, 2024 End: September 26, 2024 Team Status: Active Member Role/Relationship Status Dates Dr. Diya George MD Primary Care Provider Active Start: September 26, 2024 Dr. Diya George MD Attending Provider Active Start: September 26, 2024 Team Status: Inactive Member Role/Relationship Status Dates Dr. Diya George MD Primary Care Provider Active Start: October 11, 2024 End: October 11, 2024 Dr. Diya George MD Attending Provider Active Start: October 11, 2024 End: October 11, 2024 Dr. Diya George MD Referring Provider Active Start: October 11, 2024 End: October 11, 2024 Team Status: Inactive Member Role/Relationship Status Dates Dr. Diya George MD Primary Care Provider Active Start: October 26, 2024 End: October 26, 2024 Dr. Diya George MD Attending Provider Active Start: October 26, 2024 End: October 26, 2024 Dr. Diya George MD Referring Provider Active Start: October 26, 2024 End: October 26, 2024 Team Status: Inactive Member Role/Relationship Status Dates Dr. Diya George MD Primary Care Provider Active Start: November 11, 2024 End: November 11, 2024 Dr. Dawson Herman MD Attending Provider Active Start: November 11, 2024 End: November 11, 2024 Dr. Dawson Herman MD Referring Provider Active Start: November 11, 2024 End: November 11, 2024 Team Status: Active Member Role/Relationship Status Dates Dr. Diya George MD Primary Care Provider Active Start: November 17, 2024 Dr. Ramona Funez MD Attending Provider Active Start: November 17, 2024 Dr. Ramona Funez MD Referring Provider Active Start: November 17, 2024 Team Status: Inactive Member Role/Relationship Status Dates Dr. Diya George MD Primary Care Provider Active Start: November 17, 2024 End: November 17, 2024 LOS Garzon Referring Provider Active St art: November 17, 2024 End: November 17, 2024 Dr. Ramona Funez MD Attending Provider Active Start: November 17, 2024 End: November 17, 2024 Team Status: Active Member Role/Relationship Status Dates Dr. Diya George MD Primary Care Provider Active Start: November 23, 2024 Evelyn Angela Attending Provider Active Start: November 23, 2024 Team Status: Inactive Member Role/Relationship Status Dates Dr. Diya George MD Primary Care Provider Active Start: November 29, 2024 End: November 29, 2024 Dr. Ramona Funez MD Attending Provider Active Start: November 29, 2024 End: November 29, 2024 Dr. Ramona Funez MD Referring Provider Active Start: November 29, 2024 End: November 29, 2024 Team Status: Inactive Member Role/Relationship Status Dates Dr. Diya George MD Primary Care Provider Active Start: November 30, 2024 End: November 30, 2024 Dr. Ramona Funez MD Attending Provider Active Start: November 30, 2024 End: November 30, 2024 Dr. Ramona Funez MD Referring Provider Active Start: November 30, 2024 End: November 30, 2024 Team Status: Inactive Member Role/Relationship Status Dates Dr. Raúl Rivas MD Referring Provider Active Start: December 01, 2024 End: December 01, 2024 Dr. Diya George MD Primary Care Provider Active Start: December 01, 2024 End: December 01, 2024 Dr. Diya George MD Attending Provider Active Start: December 01, 2024 End: December 01, 2024 Team Status: Inactive Member Role/Relationship Status Dates Dr. Diya George MD Primary Care Provider Active Start: December 07, 2024 End: December 07, 2024 Dr. Diya George MD Referring Provider Active Start: December 07, 2024 End: December 07, 2024 Dr. Ramona Funez MD Attending Provider Active Start: December 07, 2024 End: December 07, 2024 Team Status: Inactive Member Role/Relationship Status Dates Dr. Diya George MD Primary Care Provider Active Start: December 08, 2024 End: December 08, 2024 Dr. Diya George MD Referring Provider Active Start: December 08, 2024 End: December 08, 2024 Magalie Pinto [employer], [employer] Attending Provider Active Start: December 08, 2024 End: December 08, 2024 Team Status: Inactive Member Role/Relationship Status Dates Dr. Diya George MD Primary Care Provider Active Start: December 16, 2024 End: December 16, 2024 Dr. Tera Clay MD Attending Provider Active Start: December 16, 2024 End: December 16, 2024 Dr. Ramona Funez MD Referring Provider Active Start: December 16, 2024 End: December 16, 2024 Team Status: Inactive Member Role/Relationship Status Dates Dr. Diya George MD Primary Care Provider Active Start: December 21, 2024 End: December 21, 2024 Dr. Diya George MD Referring Provider Active Start: December 21, 2024 End: December 21, 2024 Dr. Tera Clay MD Attending Provider Active Start: December 21, 2024 End: December 21, 2024 Team Status: Active Member Role/Relationship Status Dates Dr. Diya George MD Primary Care Provider Active Start: December 21, 2024 Dr. Diya George MD Referring Provider Active Start: December 21, 2024 Dr. Tera Clay MD Attending Provider Active Start: December 21, 2024 Dr. Tera Clay MD Other Provider Active St art: December 21, 2024 Team Status: Inactive Member Role/Relationship Status Dates Dr. Diya George MD Primary Care Provider Active Start: November 17, 2024 End: November 17, 2024 Adria MADISON PA Referring Provider Active St art: November 17, 2024 End: November 17, 2024 Dr. Ramona Funez MD Attending Provider Active Start: November 17, 2024 End: November 17, 2024 Team Status: Active Member Role/Relationship Status Dates Dr. Diya George MD Primary Care Provider Active Start: November 23, 2024 Evelyn Angela Attending Provider Active Start: November 23, 2024 Team Status: Inactive Member Role/Relationship Status Dates Dr. Diya George MD Primary Care Provider Active Start: November 29, 2024 End: November 29, 2024 Dr. Ramona Funez MD Attending Provider Active Start: November 29, 2024 End: November 29, 2024 Dr. Ramona Funez MD Referring Provider Active Start: November 29, 2024 End: November 29, 2024 Team Status: Inactive Member Role/Relationship Status Dates Dr. Diya George MD Primary Care Provider Active Start: November 30, 2024 End: November 30, 2024 Dr. Ramona Funez MD Attending Provider Active Start: November 30, 2024 End: November 30, 2024 Dr. Ramona Funez MD Referring Provider Active Start: November 30, 2024 End: November 30, 2024 Team Status: Inactive Member Role/Relationship Status Dates Dr. Raúl Rivas MD Referring Provider Active Start: December 01, 2024 End: December 01, 2024 Dr. Diya George MD Primary Care Provider Active Start: December 01, 2024 End: December 01, 2024 Dr. Diya George MD Attending Provider Active Start: December 01, 2024 End: December 01, 2024 Team Status: Inactive Member Role/Relationship Status Dates Dr. Diya George MD Primary Care Provider Active Start: December 07, 2024 End: December 07, 2024 Dr. Diya George MD Referring Provider Active Start: December 07, 2024 End: December 07, 2024 Dr. Ramona Funez MD Attending Provider Active Start: December 07, 2024 End: December 07, 2024 Team Status: Inactive Member Role/Relationship Status Dates Dr. Diya George MD Primary Care Provider Active Start: December 08, 2024 End: December 08, 2024 Dr. Diya George MD Referring Provider Active Start: December 08, 2024 End: December 08, 2024 Magalie Pinto DIRECT[employer], DIRECT[employer] Attending Provider Active Start: December 08, 2024 End: December 08, 2024 Team Status: Inactive Member Role/Relationship Status Dates Dr. Diya George MD Primary Care Provider Active Start: December 16, 2024 End: December 16, 2024 Dr. Tera Clay MD Attending Provider Active Start: December 16, 2024 End: December 16, 2024 Dr. Ramona Funez MD Referring Provider Active Start: December 16, 2024 End: December 16, 2024 Team Status: Inactive Member Role/Relationship Status Dates Dr. Diya George MD Primary Care Provider Active Start: December 21, 2024 End: December 21, 2024 Dr. Diya George MD Referring Provider Active Start: December 21, 2024 End: December 21, 2024 Dr. Tera Clay MD Attending Provider Active Start: December 21, 2024 End: December 21, 2024 Team Status: Active Member Role/Relationship Status Dates Dr. Diya George MD Primary Care Provider Active Start: December 21, 2024 Dr. Diya George MD Referring Provider Active Start: December 21, 2024 Dr. Tera Clay MD Attending Provider Active Start: December 21, 2024 Dr. Tera Clay MD Other Provider Active St art: December 21, 2024 Team Status: Active Member Role/Relationship Status Dates Dr. Diya George MD Primary Care Provider Active Start: December 28, 2024 Dr. Ramona Funez MD Attending Provider Active Start: December 28, 2024 Dr. Ramona Funez MD Referring Provider Active Start: December 28, 2024 Team Status: Inactive Member Role/Relationship Status Dates Dr. Diya George MD Primary Care Provider Active Start: December 28, 2024 End: December 28, 2024 Dr. Diya George MD Referring Provider Active Start: December 28, 2024 End: December 28, 2024 Dr. Rmaona Funez MD Attending Provider Active Start: December 28, 2024 End: December 28, 2024 FOR RECORDS PERTAINING TO PATIENTS WHO ARE OR HAVE BEEN ENROLLED IN A CHEMICAL DEPENDENCY/SUBSTANCEABUSE PROGRAM, SOME INFORMATION MAY BE OMITTED. This clinical summary was aggregated from multiple sources. Caution should be exercised in using it in the provision of clinical care. This summary normalizes information from multiple sources, and as a consequence, information in this document may materially change the coding, format and clinical context of patient data. In addition, data may be omitted in some cases. CLINICAL DECISIONS SHOULD BE BASED ON THE PRIMARY CLINICAL RECORDS. [facility]. provides no warranty or guarantee of the accuracy or completeness of information in this document.
[2025-01-01 15:20] LABS: Hematocrit 40.6 % (37-47); Hemoglobin 13.1 g/dL (12.0-15.0); Immature Granulocytes Count 0.190 X10^3/uL (0.0-0.0); Mean Corp Hgb Conc 32.3 g/dL (32-36); Mean Corpuscular Volume 77.0 fL (81-99); Mean Platelet Vol. 9.3 fl (6.2-12.0); NRBC Flagged by Analyzer 0 % (0-5); POSITIVE DIFFERENTIAL YES; POSITIVE MORPHOLOGY YES; Platelet Count 684 K/mm3 (150-450); RBC Distribution Width CV 21.2 % (11.6-14.6); RBC Distribution Width SD 57.1 fl (35.1-43.9); Red Blood Count 5.27 M/mm3 (4.2-5.4); White Blood Count 22.1 K/mm3 (4.4-11.0)
[2025-01-01 15:23] LABS: Differential Indicated SCAN CRITERIA MET
[2025-01-01 15:34] VITALS: BP 134/83; PULSE 91; RESP 28; O2SAT 93
--- NOTE | 2025-01-01 15:35 | CT_ITS ---
PROCEDURE: ABDOMEN/PELVIS W IV CONT ONLY 01/01/2025 REASON FOR EXAM: ABDOMINAL PAIN TECHNIQUE: ABDOMEN/PELVIS W IV CONT ONLY Coronal and Sagittal reconstruction series were provided. CONTRAST: Isovue 370 VOLUME: 75 mL One or more dose reduction techniques were used (e.g., Automated exposure control, adjustment of the mA and/or kV according to patient size, use of iterative reconstruction technique. RADIATION DOSE SUMMARY: CTDlvol: 19.1 mGy DLP: 1110 mGycm COMPARISON: CT abdomen and pelvis 11/11/2024 FINDINGS: Lung bases: There are innumerable pulmonary nodules throughout the lung bases, the largest measuring 2.3 cm, and which are overall increased in size and number compared to CT on 11/11/2024. Liver: Unchanged hepatomegaly. Nodular contour. Innumerable hypodense lesions throughout the liver. There is calcification in the right hepatic lobe which is similar to prior. Gallbladder: Hydropic containing round densities within. No significant wall thickening or pericholecystic fluid. Spleen: Unremarkable Pancreas: Hypodensity at the pancreatic head is unchanged, in keeping with known malignancy. Adrenals: Unremarkable Kidneys: No radiodense stones or hydronephrosis. Subcentimeter hypodensity in the left kidney is too small to characterize. Bladder: Unremarkable Reproductive Organs: Increased soft tissue density near the vaginal introitus, unchanged. Tubal ligation clips. Bowel: Hiatal hernia. Large colonic stool burden, also with scattered fluid contents. Mild wall thickening of the descending and sigmoid colon. Appendix: Surgically absent. Lymph nodes: Mass in the right aspect of the retroperitoneum deep to the psoas, and partially calcified mass adjacent to the sacrum, are unchanged. Unchanged enlarged vipin hepatis node. Vasculature: Mild atherosclerotic aortic calcifications are noted. Peritoneum / Retroperitoneum: There is a [id number] amount of free fluid adjacent to the liver, in the right pericolic gutter, and pelvis. Bones: Sclerotic lesions in the sacrum and a right-sided rib are unchanged. Soft tissues: Unremarkable CT/Abdomen/Pelvis W IV Cont ONLY IMPRESSION: 1. Mild wall thickening involving the descending and sigmoid colon, which may represent colitis (of infectious, inflammatory, or ischemic etiology). Portal colopathy could also appear similar. 2. Small to moderate volume of ascites. 3. Hydropic gallbladder containing subtle densities within, possibly stones. No significant wall thickening or pericholecystic fluid. Consider ultrasound if there is concern for acute cholecystitis. 4. Interval worsening of pulmonary metastatic disease compared to CT on 2024. Persistence of hepatic and osseous metastases, in addition to multiple soft tissue masses throughout the abdomen a nd pelvis which are also likely metastatic deposits. Reading Location: [id number]
[2025-01-01 15:47] LABS: Lipase 24 U/L (13-75)
[2025-01-01 16:16] LABS: AST(SGOT) 16 U/L (<=31); Alanine Aminotransfer ALT/SGPT 15 U/L (<=34); Albumin, Serum 3.0 g/dL (3.4-4.8); Alkaline Phosphatase 297 U/L (35-104); Anion Gap 17 (5-15); BUN 29 mg/dL (4-19); BUN/Creat Ratio 38.1 RATIO (10-20); Calcium,Total 8.4 mg/dL (7.6-11.0); Carbon Dioxide 20.8 mmol/L (21.0-32.0); Chloride 97 mmol/L (98-108); Estimated Creatinine Clearance 65.35 ml/min (50-250); Globulin 3.2 g/dL (2.2-4.2); Glucose 112 mg/dL (70-99); Potassium 4.3 mmol/L (3.3-5.1)
[2025-01-01 16:33] LABS: Differential Comment SCANNED
[2025-01-01 16:34] LABS: Anisocytosis 2+
[2025-01-01 17:00] VITALS: PULSE 86; RESP 23; O2SAT 93
[2025-01-01 19:28] VITALS: BP 112/61; PULSE 80; RESP 18; TEMP 36.7; O2SAT 97
== END 2025-01-01 19:29 | disposition home or self-care (01) ==
PROVIDERS: Emergency Provider Emergency Medicine; PCP Internal Medicine; Visit Provider Emergency Medicine
DX: R11.2 Nausea with vomiting, unspecified (principal); C79.89 Secondary malignant neoplasm of other specified sites; R12 Heartburn; Z79.899 Other long term (current) drug therapy; Z96.651 Presence of right artificial knee joint; Z90.49 Acquired absence of other specified parts of digestive tract; Z98.51 Tubal ligation status
CPT/HCPCS: 74177; 80053; 83690; 85025; 93005; 96374; 96375; 99285; Q9967; J2405

== ENCOUNTER → 2025-01-02 | Outpatient (CLI) | payer MEDICARE, BC, SELFPAY ==
--- NOTE | 2025-01-02 12:48 | VDUE_ITS ---
Reason For Study Reason For Study: Left arm swelling Right Proximal Left Proximal Right subclavian vein is spontaneous, widely patent, Acute deep vein thrombosis is noted in the left IJV, phasic, with no intraluminal echogenicity noted. Subclavian V, Axillary V, and Brachial V. It is NONCOMPRESSIBLE and dilated. Port noted in the subclavian vein. Left Arm Acute superficial vein thrombosis is noted in the left Cephlic V at origin and Basilic V origin to antecube. Left Lower Arm Left radial vein is compressible. Left ulnar vein is compressible. Procedure This was a unilateral left upper extremity venous doppler examination. Exam performed in department. A preliminary report was called and/or faxed to [facility]. VL/Venous Duplex US, Unilateral Interpretation Summary Acute deep vein thrombosis noted in the left internal jugular vein, subclavian vein, axillary vein, brachial vein. Acute superficial vein thrombosis noted in the left cephalic vein, basilic vein . Ordering Physician: Kumar Sanches Referring Physician: Diya George Performed By: Fiona Nelson RVT ???
--- OUTSIDE RECORDS SUMMARY | 2025-01-02 22:10 | XMS RPT_ITS | CCD ---
Author Organization [facility] Care Team Providers Care Marine Steward Name Role Phone MARLINE LARA DPJosh Attending Unavailable MARLINE LARA DPM Primary Care Unavailable MARLINE LARA DPM Admitting Unavailable Dr. Aly Lujan Attending Provider Dr. Raúl Rivas Primary Care Provider Dr. Nj Miles Attending Provider Dr. Aly Lujan Referring Provider Care Physician, No Primary Primary Care Provider Unavailable Care Physician, No Primary Referring Provider Un available LOS Gallegos Attending Provider Dr. Aly Lujan Other Provider [phone] Aly Lujan Admit Provider [phone] Unavailable Primary Care Provider UnavailRaúl Moeller MD [...] Dr. Diya George MD Primary Care Provider Adria Gallegos Referring Provider Dr. Diya George MD Attending Provider Dr. Diya Geroge MD Referring Provider Batsheva COTTO, Dr. Osman Attending Provider Batsheva COTTO, Dr. Osman Referring Provider Dee Dee COTTO, Dr. Greene Attending Provider Dee Dee COTTO, Dr. Greene Referring Provider Evelyn Angela Attending Provider Unavailable Millie PODIATRY PROFESSOR-C, Magalie Attending Provider Danna COTTO, Dr. Tera Le Attending Provider Danna COTTO, Dr. Tera Le Other Provider Dee Dee COTTO, Dr. Greene Attending Provider Dee Dee COTTO, Dr. Greene Referring Provider Ariel, Diya Primary Care Unavailable Ariel, Diya Referring Unavailable Isckar, Ramona Attending Unavailable Rivas, Raúl Referring Unavailable Rivas, Raúl Primary Care Unavailable WaytAdria Attending Unavailable Ariel, Diya Primary Care Unavailable Isckarus, Ramona Attending Unavailable WayAdria taylor Referring Unavailable Tera Clay Attending Unavailable Tera Clay Consulting Unavailable Ariel, Diya Primary Care Unavailable Ariel, Diya Referring Unavailable Hollywood, Diya Primary Care Unavailable Ariel, Diya Attending Unavailable Rivas, Raúl Referring Unavailable Ariel, Diya Primary Care Unavailable Ariel, Diya Referring Unavailable Isckarus, Sherrieour Attending Unavailable Millie PODIATRY PROFESSOR, Magalie Attending Unavailable Ariel, Diya Primary Care Unavailable Hollywood, Diya Referring Unavailable Tera Clay Attending Unavailable Hollywood, Diya Primary Care Unavailable Isckarus, Mansour Referring Unavailable Hollywood, Diya Attending Unavailable Ariel, Diya Primary Care Unavailable Swanger, Velvet Attending Unavailable Ariel, Diya Primary Care Unavailable WaytBishnuew Attending Unavailable Ariel, Diya Primary Care Unavailable Wayt, Adria Referring Unavailable Ariel, Diya Primary Care Unavailable Isckarus, Mansour Referring Unavailable Isckarus, Mansour Attending Unavailable Ariel, Diya Attending Unavailable Ariel, Diya Primary Care Unavailable Ariel, Diya Referring Unavailable Ariel, Diya Primary Care Unavailable Isckarus, Mansour Attending Unavailable Isckarus, Mansour Referring Unavailable Ariel, Diya Primary Care Unavailable Jabour, Dyanaent Attending Unavailable Jigneshbour, Dawson Referring Unavailable Tera Clay Attending Unavailable Hollywood, Diya Primary Care Unavailable Hollywood, Diya Referring Unavailable Hollywood, Diya Attending Unavailable Hollywood, Diya Primary Care Unavailable Ariel, Diya Referring Unavailable Ariel, Diya Primary Care Unavailable Isckarus, Mansour Attending Unavailable Isckarus, Mansour Referring Unavailable Wayt, Adria Attending Unavailable Hollywood, Diya Primary Care Unavailable Wayt, Adria Referring Unavailable Dr. Kumar Sanches DO Emergency Provider Dr. Kumar Sanches DO Attending Provider Dr. Kumar Sanches DO Referring Provider [phone] Allergies Allergy Classification Reported Allergen(s) Allergy Type Date of Onset Reaction(s) Facility (16 sources) Amoxicillin Drug Allergy 08-19-2021 [facility] (16 sources) Clavulanate Drug Allergy 08-19-2021 [facility] (17 sources) Amoxicillin / Clavulanate; Translations: [AMOXICILLIN-POT CLAVULANATE] Drug Allergy 07-03-2006 [facility] Work Phone: (1 source) Amoxicillin Drug Allergy 12-28-2024 [facility] (1 source) Clavulanate Drug Allergy 12-28-2024 [facility] Medications Current Medications Medication Drug Class(es) Dates Sig (Normalized) Sig (Original) acetaminophen 500 mg oral tablet (16 sources) Start: 08-07-2021 take 1000 mg by [...] / zinc oxide 17.4 mg oral tablet (4 sources) Vitamin C Start: 12-19-2024 Vitamins A,C,D-Euhi-Dzfxvu (Preservision Areds) 2,148 mcg-113 mg-45 mg-17.4mg tablet Active 2 {tbl} PO TWICE A DAY December 19, 2024 12:00am administer with AM and PM meals docusate sodium 50 mg / sennosides, care home 8.6 mg oral tablet (4 sources) Start: 12-19-2024 Sennosides-Docusate Sodium (Stool Softener-Stimulant Laxat) 8.6-50 mg tablet Active 1 {tbl} PO TWICE A DAY as needed for constipation December 19, 2024 12:00am Lidocaine / Prilocaine (3 sources) Antiarrhythmic, Amide Local Anesthetic Start: 12-26-2024 Lidocaine-Prilocaine 2.5-2.5 % cream Active 1 NMA TOPICAL ONCE as needed for port access 30 2 December 26, 2024 12:00am 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 Malignant neoplasm metastatic to lung Other malignant neuroendocrine tumors 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 Active ondansetron 4 mg disintegrating oral tablet (9 sources) Serotonin-3 Receptor Antagonist Start: 12-01-2024 take [...] pantoprazole 40 mg delayed release oral tablet (10 sources) Proton Pump Inhibitor Start: 11-23-2024 take 1 tablet by mouth once daily Pantoprazole (Protonix) 40 mg tablet,delayed release (DR/EC) Active 40 mg PO daily November 23, 2024 12:00am prochlorperazine 10 mg oral tablet (4 sources) Phenothiazine Start: 12-20-2024 take 1 tablet by mouth three times daily as needed for nausea and vomiting Prochlorperazine Maleate (Compazine) 10 mg tablet Active 10 mg PO THREE TIMES A DAY as needed for nausea and vomiting 30 December 20, 2024 12:00am Nausea Pancreatobiliary-typ e [...] Comment on above: Take by mouth. Vitamins A,C,B-Rioz-Itqqfg (Preservision Areds) 14,320-226-200 gxvw-nh-qgta capsule (16 sources) Start: 08-10-2020 take 1 capsule by mouth twice daily Vitamins A,C,N-Recv-Chwpmo (Preservision Areds) 14,320-226-200 ptey-de-zjrt capsule Active 1 CAP PO TWICE A DAY August 10, 2020 10:43am Start: 08-10-2020 End: 12-07-2024 Vitamins A,C,Q-Vnfm-Orltyc ( Preservision Areds) 14,320-226-200 qmtp-ic-qwba capsule Discontinued 1 NMA PO TWICE A DAY August 10, 2020 1:00am December 07, 2024 3:50pm Start: 08-10-2020 Vitamins A,C,E -Zinc-Copper (Preservision Areds) 14,320-226-200 wllr-fg-olov capsule Active 1 NMA PO TWICE A DAY August 10, 2020 1:00am Completed/Discontinued Medications Medication Drug Class(es) Dates Sig (Normalized) Sig (Original) apixaban 2.5 mg oral tablet (16 sources) Factor Xa Inhibitor Start: 08-07-2021 End: [...] dental procedure. clindamycin 300 mg oral capsule (15 sources) Lincosamide Antibacterial Start: 03-28-2024 End: 09-23-2024 take 2 capsules by mouth once Clindamycin Hcl 300 mg capsule Discontinued 600 mg PO ONCE 2 0 March 28, 2024 12:00am September 23, 2024 [...] 1108, Intraprocedure linaclotide 0.072 mg oral capsule (11 sources) Guanylate Cyclase-C Agonist Start: 11-17-2024 End: 11-29-2024 take 1 capsule by mouth once daily in the morning Linaclotide (Linzess) 72 mcg capsule Discontinued 72 ug PO EVERY MORNING November 17, 2024 12:00am November 29, 2024 9:26am mesalamine 1200 mg delayed release oral tablet (11 sources) Aminosalicylate Start: 11-17-2024 End: 11-29-2024 take [...] 15, 2020 10:29am August 15, 2020 11:14am Thefztgs-Jra-Vphd-Fa-V it K-Lut (Centrum Minis Women 50 Plus) 4 mg iron-200 mcg-25 mcg tablet (15 sources) Start: 09-23-2024 End: 11-29-2024 take 1 tablet by mouth once Vikryxwl-Nzd-Wibi- Fa-Vit K-Lut (Centrum Minis Women 50 Plus) 4 mg iron-200 mcg-25 mcg tablet Discontinued {tbl} PO September 23, 2024 12:00am November 29, 2024 9:26am Start: 09-23-2024 take 1 tablet by maryanne th once Plzgybew-Wna-Mgye-Fa-Vit K-Lut (Centrum Minis Women 50 Plus) 4 mg iron-200 mcg-25 mcg tablet Active {tbl} PO September 23, 2024 12:00am sucralfate 1000 mg oral tablet (12 sources) Aluminum Complex Start: 11-09-2024 End: 11-23-2024 take 1 tablet by mouth twice daily Sucralfate (Carafate) 1 gram tablet Discontinued 1 g PO TWICE A DAY 30 November 09, 2024 12:00am November 23, 2024 2:24pm triamcinolone acetonide 40 mg/ml injectable suspension (1 source) Corticosteroid Start: 06-26-2021 End: 06-26-2021 Kenalog (triamcinolone acetonide) 40 mg/mL suspension for injection Discontinued 60 MG INTRAARTIC ONCE 1.5 June 26, 2021 9:55am June 26, 2021 10:40am Problems Active Problems Problem Classification Problem Date Documented Da te Episodic/Chronic Administrative/social admission (11 sources) First encounter by subject; Translations: [Persons [...] Onset: 12-28-2024 12-07-2024 Chronic Nausea and vomiting (13 sources) Nausea and vomiting; Translations: [Nausea with vomiting, unspecified] 12-01-2024 Episodic Nonmalignant breast conditions (4 sources) Breast problem; Translations: [Disorder of breast, unspecified] Onset: 05-18-2024 05-04-2024 Episodic Nutritional deficiencies (1 source) Vitamin D deficiency, unspecified; Translations: [Vitamin D deficiency, unspecified] Onset: 09-23-2024 Chronic Osteoarthritis (20 sources) Osteoarthritis of left knee joint; Translations: [Unilateral primary osteoarthritis, left knee] Chronic Other aftercare (15 sources) Follow-up status; Translations: [Encounter for other orthopedic aftercare] 10-28-2021 Episodic Other aftercare (2 sources) Encounter for adjustment and management of vascular access device; Translations: [Encounter for adjustment and management of vascular access device] Onset: 12-29-2024 Episodic Other connective tissue disease (16 sources) History of total knee arthroplasty; Translations: [...] 01-03-2013 01-03-2013 Chronic Other nervous system disorders (16 sources) Acute postoperative pain; Translations: [Other acute [...] of unspecified site] 11-17-2024 Chronic Secondary malignancies (20 sources) Secondary malignant neoplasm of lung; Translations: [Secondary malignant neoplasm of unspecified lung] 12-07-2024 Chronic Secondary malignancies (20 sources) Secondary malignant neoplasm of liver; Translations: [...] duct] Onset: 12-28-2024 Chronic Sprains and strains (16 sources) Strain of knee; Translations: [Strain of unspecified muscle(s) and tendon(s) at lower leg level, right leg, initial encounter] 08-10-2020 Episodic Unclassified (15 sources) R19.5 - Other fecal abnormalities Unclassified (11 sources) C79.9 - Secondary malignant neoplasm of unspecified site,C79.51 - Secondary malignant neoplasm of bone Unclassified (5 sources) Metastasis of unknown origin Unclassified (5 sources) Malignant neoplasm metastatic to bone Unclassified (5 sources) Metastatic malignant neoplasm Past or Other Problems Problem Classification Problem Date Documented Da te Episodic/Chronic Residual codes; unclassified (15 sources) Family history of cardiac disorder; Translations: [Family history of ischemic heart disease and other diseases of the circulatory system] Onset: 08-12-2012 08-12-2012 Episodic Results Test Name Value Interpretation Reference Range Facility Absolute lymphocyte countOrd ered By: Kumar Sanches on 01-01-2025 Lymphocytes Auto (Unsp spec) [#/Vol] 1.12 10*3/uL 0.83-4.51 [facility] Absolute neutrophil countOrd ered By: Kumar Sanches on 01-01-2025 Neutrophils (Bld) [#/Vol] 20.4 10*3/uL High 2.0-7.7 [facility] Anion gap in Serum or Plasma Ordered By: Kumar Sanches on 01-01-2025 Anion gap [Moles/Vol] 17 mmol/L High 5-15 [facility] Automated lymphocyte count a s percentage of total leukocytesOrdered By: Kumar Sanches on 01-01-2025 Lymphocytes/100 WBC Auto (Unsp spec) 5.1 % Low 19-41 [facility] BUN/creatinine ratioOrdered By: Kumar Sanches on 01-01-2025 Urea nitrogen/Creatinine [Mass ratio] 38.1 mg/mg High 10-20 [facility] Basophil percentageOrdered B y: Kumar Sanches on 01-01-2025 Basophils/100 WBC (Bld) 0.2 % 0-1 [facility] Bilirubin, totalOrdered By: Kumar Sanches on 01-01-2025 Bilirubin [Mass/Vol] 0.59 mg/dL 0.00-1.30 [facility] Blood manual differential co mment interpretation (narrative result)Ordered By: Kumar Sanches on 01-01-2025 Manual differential comment Earnest (Bld) [Interp] SCANNED [facility] Carbon dioxide, total [Moles /volume] in Central venous bloodOrdered By: Kumar Sanches on 01-01-2025 CO2 [Moles/Vol] 20.8 mmol/L Low 21.0-32.0 [facility] Chloride assayOrdered By: osman Sanches on 01-01-2025 Chloride [Moles/Vol] 97 mmol/L Low 98-108 [facility] Eosinophil percentageOrdered By: Kumar Sanches on 01-01-2025 Eosinophils/100 WBC (Bld) 0.1 % 0-5 [facility] Erythrocyte distribution wid th ratioOrdered By: Kumar Sanches on 01-01-2025 Erythrocyte distribution width (RBC) [Ratio] 21.2 % High 11.6-14.6 [facility] Erythrocyte distribution wid th standard deviationOrdered By: Kumar Sanches on 01-01-2025 Erythrocyte distribution width (RBC) [Ratio] 57.1 fl High 35.1-43.9 [facility] Glomerular filtration rate ( GFR) estimation/1.73 sq m using serum, plasma, or whole bOrdered By: Kumar Sanches on 01-01-2025 GFR/1.73 sq M.predicted among non-blacks MDRD (S/P/Bld) [Vol rate/Area] 84 mL/min/{1.73_m2} >60 [facility] Comment on above: mL/min/1.73m2 CKD-EP I Creatinine Equation (2020) Hematocrit Auto (Bld) [Volum e fraction]Ordered By: Kumar Sanches on 01-01-2025 Hematocrit (Bld) [Volume fraction] 40.6 % 37-47 [facility] Hemoglobin measurementOrdere d By: Kumar Sanches on 01-01-2025 Hemoglobin (Bld) [Mass/Vol] 13.1 g/dL 12.0-15.0 [facility] Immature granulocytes/100 WB C Auto (Bld)Ordered By: Kumar Sanches on 01-01-2025 Immature granulocytes/100 WBC (Bld) 0.900 % 0.0-0.9 [facility] Comment on above: IG% - Immature Granu locytes (promyelocytes, myelocytes and metamyelocytes) > 1% indicates that a LEFT SHIFT is Present. Laboratory - Chemistry and C hemistry - challengeOrdered By: Kumar Sanches on 01-01-2025 AST [Catalytic activity/Vol] 16 U/L <32 [facility] Laboratory - Hematology and Cell countsOrdered By: Kumar Sanches on 01-01-2025 Anisocytosis Ql (Bld) 2+ [facility] Lipase measurementOrdered By : Kumar Sanches on 01-01-2025 Lipase [Catalytic activity/Vol] 24 U/L 13-75 [facility] Comment on above: Please note:LIPASE r evised reference range effective 22. New Lipase methodology. Expected to produce lower values than the previous assay method. NEW Reference Range: 13 - 75 U/L MCV (mean corpuscular volume ) determinationOrdered By: Kumar Sanches on 01-01-2025 MCV (RBC) [Entitic vol] 77.0 fL Low 81-99 [facility] Mean corpuscular hemoglobin (MCH) determinationOrdered By: Kumar Sanches on 01-01-2025 MCH (RBC) [Entitic mass] 24.9 pg Low 27.0-32.0 [facility] Mean corpuscular hemoglobin concentration (MCHC) determinationOrdered By: Kumar Sanches on 01-01-2025 MCHC (RBC) [Mass/Vol] 32.3 g/dL 32-36 [facility] Mean platelet volume determi nationOrdered By: Kumar Sanches on 01-01-2025 Platelet mean volume (Bld) [Entitic vol] 9.3 fL 6.2-12.0 [facility] Monocyte percentageOrdered B y: Kumar Sanches on 01-01-2025 Monocytes/100 WBC (Bld) 1.3 % 0-10 [facility] Neutrophil percentageOrdered By: Kumar Sanches on 01-01-2025 Neutrophils/100 WBC (Bld) 92.4 % High 47-70 [facility] Nucleated red blood cell per centageOrdered By: Kumar Sanches on 01-01-2025 Nucleated RBC/100 WBC (Bld) [Ratio] 0 % 0-5 [facility] Platelet countOrdered By: osman Sanches on 01-01-2025 Platelets (Bld) [#/Vol] 684 10*3/uL High 150-450 [facility] Platelet estimateOrdered By: Kumar Sanches on 01-01-2025 Platelets LM Ql (Bld) MKD INC ADEQ [facility] Potassium measurement (mass/ volume)Ordered By: Kumar Sanches on 01-01-2025 Potassium (Unsp spec) [Mass/Vol] 4.3 mmol/L 3.3-5.1 [facility] RBC Auto (Bld) [#/Vol]Ordere d By: Kumar Sanches on 01-01-2025 RBC (Bld) [#/Vol] 5.27 10*6/uL 4.2-5.4 [facility] Serum creatinine measurement (mass/volume)Ordered By: Kumar Sanches on 01-01-2025 Creatinine [Mass/Vol] 0.76 mg/dL 0.70-1.20 [facility] Serum globulin measurementOr dered By: Kumar Sanches on 01-01-2025 Globulin (S) [Mass/Vol] 3.2 g/dL 2.2-4.2 [facility] Serum glucose measurement (m ass/volume)Ordered By: Kuamr Sanches on 01-01-2025 Glucose [Mass/Vol] 112 mg/dL High 70-99 [facility] Serum or plasma alanine wright otransferase (ALT) measurementOrdered By: Kumar Sanches on 01-01-2025 ALT [Catalytic activity/Vol] 15 U/L <35 [facility] Serum or plasma albumin raúl urement (mass/volume)Ordered By: Kumar Sanches on 01-01-2025 Albumin [Mass/Vol] 3.0 g/dL Low 3.4-4.8 [facility] Serum or plasma albumin/glob ulin mass ratioOrdered By: Kumar Sanches on 01-01-2025 Albumin/Globulin [Mass ratio] 0.9 {ratio} 0.9-2.4 [facility] Serum or plasma alkaline lesli sphatase measurementOrdered By: Kumar Sanches on 01-01-2025 ALP [Catalytic activity/Vol] 297 U/L High 35-104 [facility] Serum or plasma calcium raúl urement (mass/volume)Ordered By: Kumar Sanches on 01-01-2025 Calcium [Mass/Vol] 8.4 mg/dL 7.6-11.0 [facility] Serum or plasma urea nitroge n measurement (mass/volume)Ordered By: Kumar Sanches on 01-01-2025 Urea nitrogen [Mass/Vol] 29 mg/dL High 4-19 [facility] Sodium levelOrdered By: Erik Sanches on 01-01-2025 Sodium [Moles/Vol] 135 mmol/L 133-145 [facility] Total proteinOrdered By: Grey Sanches on 01-01-2025 Protein [Mass/Vol] 6.2 g/dL 5.9-8.4 [facility] White blood cell (WBC) count Ordered By: Kumar Sanches on 01-01-2025 WBC (Bld) [#/Vol] 22.1 10*3/uL High 4.4-11.0 [facility] Absolute lymphocyte countOrd ered By: Sherrieleif Funez on 12-28-2024 Lymphocytes Auto (Unsp spec) [#/Vol] 1.06 10*3/uL 0.83-4.51 [facility] Absolute neutrophil countOrd ered By: [facility] on 12-28-2024 Neutrophils (Bld) [#/Vol] 16.3 10*3/uL High 2.0-7.7 [facility] Anion gap in Serum or Plasma Ordered By: Ramona Funez on 12-28-2024 Anion gap [Moles/Vol] 12 mmol/L 5-15 [facility] Automated lymphocyte count a s percentage of total leukocytesOrdered By: Ramona Funez on 12-28-2024 Lymphocytes/100 WBC Auto (Unsp spec) 5.6 % Low 19-41 [facility] BUN/creatinine ratioOrdered By: [facility] on 12-28-2024 Urea nitrogen/Creatinine [Mass ratio] 29.5 mg/mg High 10-20 [facility] Basophil percentageOrdered B y: Ramona Funez on 12-28-2024 Basophils/100 WBC (Bld) 0.4 % 0-1 [facility] Bilirubin, totalOrdered By: Ramona Funez on 12-28-2024 Bilirubin [Mass/Vol] 0.46 mg/dL 0.00-1.30 [facility] CBC W/Diff, Automatedon 070 Anisocytosis Ql (Bld) 1+ Normal [facility] Comment on above: Performed By: #### L 501.5200, L500.4050, L100.0100 #### [facility] [place], [address] Carbon dioxide, total [Moles /volume] in Central venous bloodOrdered By: Ramona Funez on 12-28-2024 CO2 [Moles/Vol] 23.8 mmol/L 21.0-32.0 [facility] Chloride assayOrdered By: Diana Funez on 12-28-2024 Chloride [Moles/Vol] 96 mmol/L Low 98-108 [facility] Comprehensive Metabolic Prof ilon 12-28-2024 Albumin [Mass/Vol] 2.7 g/dL Low 3.4-4.8 [facility] Comment on above: Performed By: #### L 501.5200, [id number], L100.0100 #### [facility] [address] [place], [address] Albumin/Globulin [Mass ratio] 0.8 {ratio} Low 0.9-2.4 [facility] Comment on above: Performed By: #### L 501.5200, [id number], L100.0100 #### [facility] [address] [place], [address] ALK PHOS 361 U/L High 35-104 [facility] Comment on above: Performed By: #### L [id number], [id number], L100.0100 #### [facility] [address] [place], [address] ALT [Catalytic activity/Vol] 12 U/L Normal <=34 [facility] Comment on above: Performed By: #### L 501.5200, [id number], L100.0100 #### [facility] [address] [place], [address] AST [Catalytic activity/Vol] 23 U/L Normal <=31 [facility] Comment on above: Performed By: #### L 501.5200, [id number], L100.0100 #### [facility] [address] [place], [address] Bilirubin [Mass/Vol] 0.46 mg/dL Normal 0.00-1.30 [facility] Comment on above: Performed By: #### L 501.5200, [id number], L100.0100 #### [facility] [address] [place], [address] BUN/CRE 29.5 RATIO High 10-20 [facility] Comment on above: Performed By: #### L 501.5200, [id number], L100.0100 #### [facility] [address] [place], [address] Calcium [Mass/Vol] 8.6 mg/dL Normal 7.6-11.0 [facility] Comment on above: Performed By: #### L 501.5200, [id number], L100.0100 #### [facility] [address] [place], [address] Chloride [Moles/Vol] 96 mmol/L Low 98-108 [facility] Comment on above: Performed By: #### L 501.5200, [id number], L100.0100 #### [facility] [address] [place], [address] CO2 [Moles/Vol] 23.8 mmol/L Normal 21.0-32.0 [facility] Comment on above: Performed By: #### L 501.5200, [id number], L100.0100 #### [facility] [address] [place], [address] Creatinine [Mass/Vol] 0.57 mg/dL Low 0.70-1.20 [facility] Comment on above: Performed By: #### L 501.5200, [id number], L100.0100 #### [facility] [address] [place], [address] ECRCL 65.43 ml/min Normal 50-250 [facility] Comment on above: Performed By: #### L 501.5200, [id number], L100.0100 #### [facility] [address] [place], [address] GAP 12 Normal 5-15 [facility] Comment on above: Performed By: #### L 501.5200, [id number], L100.0100 #### [facility] [address] [place], [address] GFR/1.73 sq M.predicted among non-blacks MDRD (S/P/Bld) [Vol rate/Area] 97 mL/min/{1.73_m2} Normal >60 [facility] Comment on above: Result Comment: mL/m in/1.73m2 CKD-EPI Creatinine Equation (2020) Performed By: #### L 501.5200, [id number], L100.0100 #### [facility] [address] [place], [address] Globulin (S) [Mass/Vol] 3.4 g/dL Normal 2.2-4.2 [facility] Comment on above: Performed By: #### L 501.5200, [id number], L100.0100 #### [facility] [address] [place], [address] Glucose [Mass/Vol] 102 mg/dL High 70-99 [facility] Comment on above: Performed By: #### L 501.5200, [id number], L100.0100 #### [facility] [address] [place], [address] Potassium [Moles/Vol] 3.9 mmol/L Normal 3.3-5.1 [facility] Comment on above: Performed By: #### L 501.5200, L500.4050, L100.0100 #### [facility] [address] [place], [address] Sodium [Moles/Vol] 131 mmol/L Low 133-145 [facility] Comment on above: Performed By: #### L 501.5200, L500.4050, L100.0100 #### [facility] [address] [place], [address] T PROT 6.2 g/dL Normal 5.9-8.4 [facility] Comment on above: Performed By: #### L 501.5200, L500.4050, L100.0100 #### [facility] [address] [place], [address] Urea nitrogen [Mass/Vol] 17 mg/dL Normal 4-19 [facility] Comment on above: Performed By: #### L 501.5200, L500.4050, L100.0100 #### [facility] [address] [place], [place], [address] Eosinophil percentageOrdered By: Ramona Funez on 12-28-2024 Eosinophils/100 WBC (Bld) 0.8 % 0-5 [facility] Erythrocyte distribution wid th ratioOrdered By: Ramona Funez on 12-28-2024 Erythrocyte distribution width (RBC) [Ratio] 20.1 % High 11.6-14.6 [facility] Erythrocyte distribution wid th standard deviationOrdered By: Ramona Funez on 12-28-2024 Erythrocyte distribution width (RBC) [Ratio] 55.8 fl High 35.1-43.9 [facility] Glomerular filtration rate ( GFR) estimation/1.73 sq m using serum, plasma, or whole bOrdered By: Ramona Funez on 12-28-2024 GFR/1.73 sq M.predicted among non-blacks MDRD (S/P/Bld) [Vol rate/Area] 97 mL/min/{1.73_m2} >60 [facility] Comment on above: mL/min/1.73m2 CKD-EP I Creatinine Equation (2020) Hematocrit Auto (Bld) [Volum e fraction]Ordered By: Ramona Funez on 12-28-2024 Hematocrit (Bld) [Volume fraction] 34.1 % Low 37-47 [facility] Hemoglobin measurementOrdere d By: Ramona Funez on 12-28-2024 Hemoglobin (Bld) [Mass/Vol] 11.3 g/dL Low 12.0-15.0 [facility] Immature granulocytes/100 WB C Auto (Bld)Ordered By: Ramona Funez on 12-28-2024 Immature granulocytes/100 WBC (Bld) 0.600 % 0.0-0.9 [facility] Comment on above: IG% - Immature Granu locytes (promyelocytes, myelocytes and metamyelocytes) > 1% indicates that a LEFT SHIFT is Present. Laboratory - Chemistry and C hemistry - challengeOrdered By: Ramona Funez on 12-28-2024 AST [Catalytic activity/Vol] 23 U/L <32 [facility] - Hematology and Cell countsOrdered By: Ramona Funez on 12-28-2024 Anisocytosis Ql (Bld) 1+ [facility] MCV (mean corpuscular volume ) determinationOrdered By: Ramona Funez on 12-28-2024 MCV (RBC) [Entitic vol] 76.5 fL Low 81-99 [facility] Magnesiumon 12-28-2024 Magnesium [Mass/Vol] 2.1 mg/dL Normal 1.5-2.2 [facility] Comment on above: Performed By: #### L 501.5200, L500.4050, L100.0100 #### [facility] [address] [place], [address] Magnesium measurement (mass/ volume)Ordered By: Ramona Funez on 12-28-2024 Magnesium (Unsp spec) [Mass/Vol] 2.1 mg/dL 1.5-2.2 [facility] Mean corpuscular hemoglobin (MCH) determinationOrdered By: Ramona Funez on 12-28-2024 MCH (RBC) [Entitic mass] 25.3 pg Low 27.0-32.0 [facility] Mean corpuscular hemoglobin concentration (MCHC) determinationOrdered By: Ramona Funez on 12-28-2024 MCHC (RBC) [Mass/Vol] 33.1 g/dL 32-36 [facility] Mean platelet volume determi nationOrdered By: Ramona Funez on 12-28-2024 Platelet mean volume (Bld) [Entitic vol] 9.0 fL 6.2-12.0 [facility] Monocyte percentageOrdered B y: Ramona Funez on 12-28-2024 Monocytes/100 WBC (Bld) 7.2 % 0-10 [facility] Neutrophil percentageOrdered By: Ramona Funez on 12-28-2024 Neutrophils/100 WBC (Bld) 85.4 % High 47-70 [facility] Nucleated red blood cell per centageOrdered By: Ramona Funez on 12-28-2024 Nucleated RBC/100 WBC (Bld) [Ratio] 0 % 0-5 [facility] Oncology Visit Reporton Oncology Visit Report [facility] [address] [place] [address] OFFICE VISIT Date of Service: 12/28/24909 MR#: [id number] Acct: [id number] Name: LIZZETH BERRY Rep #: [id number] : 1955 From: Ramona Funez MD Age/Sex: 69/F [place] [facility] Status: Signed HPI Subjective Date of Service [...] the left breast, had a biopsy at [facility] and was told was negative for [...] right just above the diaphragm 12 mm. 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 Normal [facility] Platelet countOrdered By: Diana Funez on 12-28-2024 Platelets (Bld) [#/Vol] 488 10*3/uL High 150-450 [facility] Potassium measurement (mass/ volume)Ordered By: Ramona Funez on 12-28-2024 Potassium (Unsp spec) [Mass/Vol] 3.9 mmol/L 3.3-5.1 [facility] RBC Auto (Bld) [#/Vol]Ordere d By: Ramona Funez on 12-28-2024 RBC (Bld) [#/Vol] 4.46 10*6/uL 4.2-5.4 [facility] Serum creatinine measurement (mass/volume)Ordered By: Ramona Funez on 12-28-2024 Creatinine [Mass/Vol] 0.57 mg/dL Low 0.70-1.20 [facility] Serum globulin measurementOr dered By: Ramona Funez on 12-28-2024 Globulin (S) [Mass/Vol] 3.4 g/dL 2.2-4.2 [facility] Serum glucose measurement (m ass/volume)Ordered By: Ramona Funez on 12-28-2024 Glucose [Mass/Vol] 102 mg/dL High 70-99 [facility] Serum or plasma alanine wright otransferase (ALT) measurementOrdered By: Ramona Funez on 12-28-2024 ALT [Catalytic activity/Vol] 12 U/L <35 [facility] Serum or plasma albumin raúl urement (mass/volume)Ordered By: Ramona Funez on 12-28-2024 Albumin [Mass/Vol] 2.7 g/dL Low 3.4-4.8 [facility] Serum or plasma albumin/glob ulin mass ratioOrdered By: Ramona Funez on 12-28-2024 Albumin/Globulin [Mass ratio] 0.8 {ratio} Low 0.9-2.4 [facility] Serum or plasma alkaline lesli sphatase measurementOrdered By: Ramona Warrendanilo on 12-28-2024 ALP [Catalytic activity/Vol] 361 U/L High 35-104 [facility] Serum or plasma calcium raúl urement (mass/volume)Ordered By: Ramona Warrendanilo on 12-28-2024 Calcium [Mass/Vol] 8.6 mg/dL 7.6-11.0 [facility] Serum or plasma urea nitroge n measurement (mass/volume)Ordered By: Ramona Warrendomi on 12-28-2024 Urea nitrogen [Mass/Vol] 17 mg/dL 4-19 [facility] Sodium levelOrdered By: Sherrie Warrendanilo on 12-28-2024 Sodium [Moles/Vol] 131 mmol/L Low 133-145 [facility] Total proteinOrdered By: Dante Funez on 12-28-2024 Protein [Mass/Vol] 6.2 g/dL 5.9-8.4 [facility] White blood cell (WBC) count Ordered By: Ramona Warrendomi on 12-28-2024 WBC (Bld) [#/Vol] 19.1 10*3/uL High 4.4-11.0 [facility] CXR for Line Placementon CXR for Line Placement [facility] Imaging Services [address] [place], [place] [address] CXR for Line Placement MR#: [id number] Acct: [id number] Name: LIZZETH BERRY Rep #: [id number] : 1955 F 69 From: Ricardo Beard MD PCP: Dr. Diya George MD Status: [facility] Study: CXR for Line Placement Date of Exam: 12/21/24 Exam# [id number] Ordering Dr: Tera Clay MD PROCEDURE: CXR [...] Diya George MD; Dr. Tera Clay MD Day Treatment Clinician/Art Therapist: Signed Normal [facility] Discharge Instructionon Discharge Instruction [facility] Medical Records Department [address] [place] [address] Instructions for Home/Discharge Instructions 12/21/24826 MR#: [id number] Acct: [id number] Name: LIZZETH BERRY Rep #: [id number] : 1955 69 From: Tera Clay MD PCP: Dr. Diya George MD [place] [facility] [place] Instructions Diet Discharge Diet: Light diet [...] Attending Provider: Tera Clay Primary Care Provider: Dyia George Instructions Print Language: Angolan Discharge Orders/Prescriptions Prescriptions: Continued ondansetron 4 mg [...] Order can be placed): Home, Self Care 12/21/24831 Tera Clay MD CC: Dr. Diya George MD Signed [facility] MR/POSTOP.[facility] 12-21-2024 MR/POSTOP.[facility] Medical Records Department [address] [place] [address] Anesthesia Postop Eval I 12/21/24825 MR#: [id number] Acct: [id number] Name: LIZZETH BERRY Rep #: [id number] : 1955 69 From: Poppy Loera CRNA PCP: Dr. Diya George MD Status:REG SDC Y Race: C Location: [place] [address] Anesthesia: Postop Eval I Current Vital Signs [...] 1 completed: Yes 12/21/24826 Date Poppy Loera POWDER COMPOUNDER Cosigner Signature: Date CC: Signed Normal [facility] MR/[id number] 12-21-2024 MR/POSTOPAN2 [facility] Medical Records Department [address] [place] [address] Anesthesia Postop Eval II 12/21/24 145 MR#: [id number] Acct: [id number] Name: LIZZETH BERRY Rep #: [id number] : 1955 69 From: Al Otto CRNA PCP: Dr. Diya George MD Status:[facility] Y Race: C [place] [facility] Anesthesia Postop Eval I Sum Postop Eval Completion status Anesthesia document: Postop Eval 1 completed: Yes Anesthesia Postop Eval I Summary Anesthesia Postop Eval I Summary: Anesthesia Postop Eval I: Assessment Summary Airway patent Yes 12/21/24 08:27 POWDER COMPOUNDER.JDEF Spontaneous unlabored Yes 12/21/24 08:27 POWDER COMPOUNDER.JDEF respirations Mental status Awake,Calm 12/21/24 08:27 POWDER COMPOUNDER.JDEF nausea No 12/21/24 08:27 POWDER COMPOUNDER.JDEF Vomiting No 12/21/24 08:27 POWDER COMPOUNDER.JDEF Anesthesia Postop Eval I: Fluid Summary Crystalloid volume administer 300 12/21/24 08:27 POWDER COMPOUNDER.JDEF (ml) Colloids volume administered ( ml) Blood Product volume administered (ml) Total IV fluid infused 300 12/21/24 08:27 POWDER COMPOUNDER.JDEF Anesthesia Postop Eval I: Summary Notes Anesthesia Complication No 12/21/24 08:27 POWDER COMPOUNDER.JDEF Anesthesia Complication Comment: Post-operative progress note Anesthesia: Postop Eval II Evaluation Mental status: Awake Pain Level: 1 nausea: No Vomiting: No 12/21/241452 Date Al Otto POWDER COMPOUNDER Cosigner Signature: Date CC: Signed Normal [facility] Operative Reporton [address] [facility] Medical Records Department [address] [place] [address] Operative Report 12/21/24 0832 MR#: [id number] Acct: [id number] Name: LIZZETH BERRY Rep #: [id number] : 1955 69 From: Tera Clay MD PCP: Dr. Diya George MD Status:[facility] Location: [place] [address] Problems Associated Problem List Diagnoses (1) Cancer, metastatic to bone: Procedures Cardiovascular CF Procedures 33xxx-39xxx: 02630 Insert tunneled cv cath Operative Report (Standard) Operative Information Date of Procedure: 12/21/24 Pre-Operative Diagnosis: Metastatic cancer Post-Operative Diagnosis: Same Surgery/Procedure Performed: Left-sided Mediport placement with CM radiology scheduler: No Type of Anesthesia: Local and MAC [...] MD; Dr. Tera Clay MD Signed Normal [facility] Surgery Visit Reporton 12-16 Surgery Visit Report [facility] [address] [place] [address] OFFICE VISIT Date of Service: 12/16/24 MR#: [id number] Acct: [id number] Name: LIZZETH BERRY Rep #: [id number] : 1955 Provider: Dr. 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 Normal [facility] Oncology Visit Reporton 11-20 Oncology Visit Report [facility] [address] [facility] [place] [address] OFFICE VISIT Date of Service: 12/08/241457 MR#: [id number] Acct: [id number] Name: LIZZETH BERRY Rep #: [id number] : 1955 From: Magalie Pinto NP PODIATRY PROFESSOR -C Age/Sex: 69/F [place] [facility] Status: Signed HPI Subjective Date of Service [...] the left breast, had a biopsy at [facility] and was told was negative for [...] right just above the diaphragm 12 mm. 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 Normal [facility] Oncology Visit Reporton 11-20 Oncology Visit Report [facility] [address] [place] [address]. [place] [address] OFFICE VISIT Date of Service: 12/07/24 1547 MR#: [id number] Acct: [id number] Name: LIZZETH BERRY Rep #: [id number] : 1955 From: Ramona Funez MD Age/Sex: 69/F Location[facility] Status: Signed HPI Subjective Date of Service [...] the left breast, had a biopsy at [facility] and was told was negative for [...] right just above the diaphragm 12 mm. 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 Normal [facility] Bone Scan Whole Bodyon 11-30 Bone Scan Whole Body [facility] Imaging Services [address] [place] [address] Bone Scan Whole Body MR#: [id number] Acct: [id number] Name: LIZZETH BERRY Rep #: [id number] : 1955 F 69 From: Erik Bland PCP: Dr. Diya George MD Status: REG CLI Study: Bone Scan Whole Body Date of Exam: 11/30/24 Exam# [id number] Ordering Dr: Ramona Funez MD PROCEDURE: BONE [...] consistent with osseous metastatic disease. Reading Location: [address] CC: Dr. Diya George MD; Dr. Ramona Funez MD Day Treatment Clinician/Art Therapist: Signed Normal [facility] Chest WITH Contraston 2024 Chest WITH Contrast [facility] Imaging Services [address] [place] [address] Chest WITH Contrast MR#: [id number] Acct: [id number] Name: LIZZETH BERRY Rep #: [id number] : 1955 F 69 From: Myrna richter MD PCP: Dr. Diya George MD Status: REG CLI Study: Chest WITH Contrast Date of Exam: 11/30/24 Exam# [id number] Ordering Dr: Ramona Funez MD PROCEDURE: CHEST [...] the largest measuring 1.6 cm. Reading Location: [place] [address] CC: Dr. Diya George MD; Dr. Ramona Funez MD Day Treatment Clinician/Art Therapist: Signed Normal [facility] Internal Medicine Office Vis [facility] 11-30-2024 Internal Medicine Office Visit [facility] [address] [place] [address] [place] [address] OFFICE VISIT Date of Service: 12/01/24 MR#: [id number] Acct: [id number] Name: LIZZETH BERRY Rep #: [id number] : 1955 Provider: Dr. 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 Junaid Ramirez, Joanna Hughes, All Dunn and colleagues, with an educational jasvir from [employer]. HPI HPI Details: LIZZETH BERRY, is a 69 F who presents to the office today to establish care. She was seeing Dr. Villaseñor and last saw them several years ago. She is not due for any routine blood work or screening. She isn't due for any immunizations. She doesn't smoke and doesn't need any (more content not included)... Normal [facility] Absolute lymphocyte countOrd ered By: Trent Arreguin on 11-29-2024 Lymphocytes Auto (Unsp spec) [#/Vol] 2.05 10*3/uL 0.83-4.51 [facility] Absolute neutrophil countOrd ered By: Trent Arreguin on 11-29-2024 Neutrophils (Bld) [#/Vol] 18.2 10*3/uL High 2.0-7.7 [facility] Activated partial thrombopla stin time (aPTT) in platelet poor plasma by coagulation aOrdered By: Trent Rellrafal on 11-29-2024 aPTT Coag (PPP) [Time] 30.9 s 24.1-36.2 [facility] Automated lymphocyte count a s percentage of total leukocytesOrdered By: Trent Zacariasrafal on 11-29-2024 Lymphocytes/100 WBC Auto (Unsp spec) 9.2 % Low 19-41 [facility] Basophil percentageOrdered B y: Trent Cuevasjonnathan on 11-29-2024 Basophils/100 WBC (Bld) 0.7 % 0-1 [facility] Biopsy/Inj or Needle Placeme nton 11-29-2024 Biopsy/Inj or Needle Placement [facility] Imaging Services [address] [place], [place] [address] Biopsy/Inj or Needle Placement MR#: [id number] Acct: [id number] Name: LIZZETH BERRY Rep #: [id number] : 1955 F 69 From: Trent de santiago MD PCP: Dr. Diya George MD Status: REG CLI Study: Biopsy/Inj or Needle Placement Date of Exam: 0 11/29/24 Exam# [id number] Ordering Dr: Ramona Funez MD PROCEDURE: BIOPSY/INJ [...] No immediate complication was noted. Reading Location: [place] [address] CC: Dr. Diya George MD; Dr. Ramona Funez MD Day Treatment Clinician/Art Therapist: Signed Normal [facility] CBC W/Diff, Automatedon 11-20 PLT EST MKD DEC Normal ADEQ [facility] Comment on above: Performed By: #### P IMHI #### [facility] [address] [place], [place], [address] TARGET CELLS 1+ Normal [facility] Comment on above: Performed By: #### P IMHI #### [facility] [address] [place], [place], [address] Eosinophil percentageOrdered By: Trent Arreguin on 11-29-2024 Eosinophils/100 WBC (Bld) 1.2 % 0-5 [facility] Erythrocyte distribution wid th ratioOrdered By: Trent Arreguin on 11-29-2024 Erythrocyte distribution width (RBC) [Ratio] 21.2 % High 11.6-14.6 [facility] Erythrocyte distribution wid th standard deviationOrdered By: Trent Arreguin on 11-29-2024 Erythrocyte distribution width (RBC) [Ratio] 57.2 fl High 35.1-43.9 [facility] Hematocrit Auto (Bld) [Volum e fraction]Ordered By: Trent Arreguin on 11-29-2024 Hematocrit (Bld) [Volume fraction] 36.5 % Low 37-47 [facility] Hemoglobin measurementOrdere d By: Trent Arreguin on 11-29-2024 Hemoglobin (Bld) [Mass/Vol] 11.9 g/dL Low 12.0-15.0 [facility] Immature granulocytes/100 WB C Auto (Bld)Ordered By: Trent Arreguin on 11-29-2024 Immature granulocytes/100 WBC (Bld) 1.200 % High 0.0-0.9 [facility] Comment on above: IG% - Immature Granu locytes (promyelocytes, myelocytes and metamyelocytes) > 1% indicates that a LEFT SHIFT is Present. Immunohistochemical Stainson 11-29-2024 Immunohistochemical Stains ---- Patient Age/Sex Location Account Attending Physician ---- LIZZETH BERRY 69/F CT [id number] Dr. Ramona Funez MD ---- Specimen: [id number] Received: 11/29/24 Status: KATERIN Javier Num: [id number] Spec Type: ASP RAD Subm Dr: Dr. [...] by Dr Cuong Pinedo (GI pathology division, [facility]). MICROSCOPIC DESCRIPTION Slides are reviewed. All matched controls reacted appropriately. These tests were developed and their performance characteristics determined by [facility]. They may not have been cleared [...] of touch prep at time of biopsy. [facility] 11/29/2024 ---- Patient Age/Sex Location Account Attending Physician ---- LIZZETH BERRY 69/F [place] [id number] Dr. Ramona Funez MD ---- CPT:30614,[id number], [id number] ---- ADDENDUM Addendum 1 Entered: 12/09/24-1431 This addendum is to report the result of the IHC for CK19: The tumor cells are negative for CK19. Addendum Signed (signature on file) Dr. Tiffany Blandon MD 12/09/24 1431 ---- ---- Patient Age/Sex Location Account Attending Physician ---- LIZZETH BERRY 69/F CT [id number] Dr. Ramona Funez MD ---- Signed (signature on file) Dr. Tiffany Blandon MD 12/07/24 1448 ---- Normal [facility] Comment on above: Performed By: #### P HERMINIA #### [facility] [place], [address] International normalized rat io (INR) calculationOrdered By: Trent Arreguin on 11-29-2024 INR Coag (Bld) [Relative time] 1.2 {INR} [facility] MCV (mean corpuscular volume ) determinationOrdered By: Trent Arreguin on 11-29-2024 MCV (RBC) [Entitic vol] 76.2 fL Low 81-99 [facility] Mean corpuscular hemoglobin (MCH) determinationOrdered By: Trent Arreguin on 11-29-2024 MCH (RBC) [Entitic mass] 24.8 pg Low 27.0-32.0 [facility] Mean corpuscular hemoglobin concentration (MCHC) determinationOrdered By: Trent Arreguin on 11-29-2024 MCHC (RBC) [Mass/Vol] 32.6 g/dL 32-36 [facility] Mean platelet volume determi nationOrdered By: Trent Arreguin on 11-29-2024 Platelet mean volume (Bld) [Entitic vol] 8.6 fL 6.2-12.0 [facility] Monocyte percentageOrdered B y: Trent Arreguin on 11-29-2024 Monocytes/100 WBC (Bld) 5.6 % 0-10 [facility] Neutrophil percentageOrdered By: Trent Arreguin on 11-29-2024 Neutrophils/100 WBC (Bld) 82.1 % High 47-70 [facility] Nucleated red blood cell per centageOrdered By: Trent Arreguin on 11-29-2024 Nucleated RBC/100 WBC (Bld) [Ratio] 0 % 0-5 [facility] Partial Thromboplast Timeon 11-29-2024 aPTT Coag (Bld) [Time] 30.9 s Normal 24.1-36.2 [facility] Comment on above: Performed By: #### P [facility] #### [facility] [address] [place], [place], [id number] Platelet countOrdered By: Dimitri Arreguin on 11-29-2024 Platelets (Bld) [#/Vol] 715 10*3/uL High 150-450 [facility] Platelet estimateOrdered By: Trent Arreguin on 11-29-2024 Platelets LM Ql (Bld) MKD DEC ADEQ [facility] Prothrombin Time w/INRon INR Coag (PPP) [Relative time] 1.2 {INR} Normal [facility] Comment on above: Performed By: #### P IMHI #### [facility] [address] [place], [address] PT Coag (PPP) [Time] 15.1 s High 11.7-14.9 [facility] Comment on above: Performed By: #### P IMHI #### [facility] [address] [place], [place], [address] Prothrombin timeOrdered By: Trent Arreguin on 11-29-2024 PT Coag (PPP) [Time] 15.1 s High 11.7-14.9 [facility] RBC Auto (Bld) [#/Vol]Ordere d By: Trent Arreguin on 11-29-2024 RBC (Bld) [#/Vol] 4.79 10*6/uL 4.2-5.4 [facility] Target cell detectionOrdered By: Trent Arreguin on 11-29-2024 Target cells LM Ql (Bld) 1+ [facility] White blood cell (WBC) count Ordered By: Trent Arreguin on 11-29-2024 WBC (Bld) [#/Vol] 22.2 10*3/uL High 4.4-11.0 [facility] Absolute lymphocyte countOrd ered By: Ramona Funez on 11-17-2024 Lymphocytes Auto (Unsp spec) [#/Vol] 2.10 10*3/uL 0.83-4.51 [facility] Absolute neutrophil countOrd ered By: Ramona Funez on 11-17-2024 Neutrophils (Bld) [#/Vol] 17.6 10*3/uL High 2.0-7.7 [facility] Anion gap in Serum or Plasma Ordered By: Ramona Funez on 11-17-2024 Anion gap [Moles/Vol] 14 mmol/L 5-15 [facility] Automated lymphocyte count a s percentage of total leukocytesOrdered By: Ramona Funez on 11-17-2024 Lymphocytes/100 WBC Auto (Unsp spec) 9.7 % Low 19-41 [facility] BUN/creatinine ratioOrdered By: Ramona Funez on 11-17-2024 Urea nitrogen/Creatinine [Mass ratio] 18.5 mg/mg 10-20 [facility] Basophil percentageOrdered B y: Ramona Funez on 11-17-2024 Basophils/100 WBC (Bld) 0.8 % 0-1 [facility] Bilirubin, totalOrdered By: Ramona Funez on 11-17-2024 Bilirubin [Mass/Vol] 0.42 mg/dL 0.00-1.30 [facility] Blood manual differential co mment interpretation (narrative result)Ordered By: Ramona Funez on 11-17-2024 Manual differential comment Earnest (Bld) [Interp] SCANNED [facility] CBC W/Diff, Automatedon 10-21 Anisocytosis Ql (Bld) 2+ Normal [facility] Comment on above: Performed By: #### P IMHI #### [facility] [address] [place], [address] SMEAR COMMENT SCANNED Normal [facility] Comment on above: Performed By: #### P IMHI #### [facility] [address] [place], [place], [id number] Carbon dioxide, total [Moles /volume] in Central venous bloodOrdered By: Ramona Funez on 11-17-2024 CO2 [Moles/Vol] 22.0 mmol/L 21.0-32.0 [facility] Chloride assayOrdered By: Diana Funez on 11-17-2024 Chloride [Moles/Vol] 100 mmol/L 98-108 [facility] Comprehensive Metabolic Prof ilon 11-17-2024 Albumin [Mass/Vol] 3.9 g/dL Normal 3.4-4.8 [facility] Comment on above: Performed By: #### P IMHI #### [facility] [address] [place], [address] Albumin/Globulin [Mass ratio] 1.1 {ratio} Normal 0.9-2.4 [facility] Comment on above: Performed By: #### P IMHI #### [facility] [address] [place], [address] ALK PHOS 284 U/L High 35-104 [facility] Comment on above: Performed By: #### P IMHI #### [facility] [address] [place], [address] ALT [Catalytic activity/Vol] 24 U/L Normal <=34 [facility] Comment on above: Performed By: #### P IMHI #### [facility] [address] [place], [address] AST [Catalytic activity/Vol] 34 U/L High <=31 [facility] Comment on above: Performed By: #### P IMHI #### [facility] [address] [place], [address] Bilirubin [Mass/Vol] 0.42 mg/dL Normal 0.00-1.30 [facility] Comment on above: Performed By: #### P IMHI #### [facility] [address] [place], [address] BUN/CRE 18.5 RATIO Normal 10-20 [facility] Comment on above: Performed By: #### P IMHI #### [facility] [address] [place], [address] Calcium [Mass/Vol] 9.9 mg/dL Normal 7.6-11.0 [facility] Comment on above: Performed By: #### P IMHI #### [facility] [address] [place], [address] Chloride [Moles/Vol] 100 mmol/L Normal 98-108 [facility] Comment on above: Performed By: #### P IMHI #### [facility] [address] [place], [address] CO2 [Moles/Vol] 22.0 mmol/L Normal 21.0-32.0 [facility] Comment on above: Performed By: #### P IMHI #### [facility] [address] [place], [address] Creatinine [Mass/Vol] 0.97 mg/dL Normal 0.70-1.20 [facility] Comment on above: Performed By: #### P IMHI #### [facility] [address] [place], [address] ECRCL 54.59 ml/min Normal 50-250 [facility] Comment on above: Performed By: #### P IMHI #### [facility] [address] [place], [address] GAP 14 Normal 5-15 [facility] Comment on above: Performed By: #### P IMHI #### [facility] [address] [place], [address] GFR/1.73 sq M.predicted among non-blacks MDRD (S/P/Bld) [Vol rate/Area] 62 mL/min/{1.73_m2} Normal >60 [facility] Comment on above: Result Comment: mL/m in/1.73m2 CKD-EPI Creatinine Equation (2020) Performed By: #### P IMHI #### [facility] [address] [place], [address] Globulin (S) [Mass/Vol] 3.7 g/dL Normal 2.2-4.2 [facility] Comment on above: Performed By: #### P IMHI #### [facility] [address] [place], [address] Glucose [Mass/Vol] 107 mg/dL High 70-99 [facility] Comment on above: Performed By: #### P IMHI #### [facility] [address] [place], [address] Potassium [Moles/Vol] 4.4 mmol/L Normal 3.3-5.1 [facility] Comment on above: Performed By: #### P IMHI #### [facility] [address] [place], [address] Sodium [Moles/Vol] 136 mmol/L Normal 133-145 [facility] Comment on above: Performed By: #### P IMHI #### [facility] [address] [place], [address] T PROT 7.5 g/dL Normal 5.9-8.4 [facility] Comment on above: Performed By: #### P IMHI #### [facility] [address] [place], [address] Urea nitrogen [Mass/Vol] 18 mg/dL Normal 4-19 [facility] Comment on above: Performed By: #### P IMHI #### [facility] [address] [place], [address] Eosinophil percentageOrdered By: Ramona Funez on 11-17-2024 Eosinophils/100 WBC (Bld) 0.8 % 0-5 [facility] Erythrocyte distribution wid th ratioOrdered By: Ramona Funez on 11-17-2024 Erythrocyte distribution width (RBC) [Ratio] 21.8 % High 11.6-14.6 [facility] Erythrocyte distribution wid th standard deviationOrdered By: Ramona Funez on 11-17-2024 Erythrocyte distribution width (RBC) [Ratio] 59.0 fl High 35.1-43.9 [facility] Glomerular filtration rate ( GFR) estimation/1.73 sq m using serum, plasma, or whole bOrdered By: Ramona Funez on 05-29-2025 GFR/1.73 sq M.predicted among non-blacks MDRD (S/P/Bld) [Vol rate/Area] 62 mL/min/{1.73_m2} >60 [facility] Comment on above: mL/min/1.73m2 CKD-EP I Creatinine Equation (2020) Hematocrit Auto (Bld) [Volum e fraction]Ordered By: Ramona Funez on 11-17-2024 Hematocrit (Bld) [Volume fraction] 42.3 % 37-47 [facility] Hemoglobin measurementOrdere d By: Ramona Funez on 11-17-2024 Hemoglobin (Bld) [Mass/Vol] 13.7 g/dL 12.0-15.0 [facility] Immature granulocytes/100 WB C Auto (Bld)Ordered By: [facility] on 11-17-2024 Immature granulocytes/100 WBC (Bld) 0.400 % 0.0-0.9 [facility] Comment on above: IG% - Immature Granu locytes (promyelocytes, myelocytes and metamyelocytes) > 1% indicates that a LEFT SHIFT is Present. LDHon 11-17-2024 LDH 152 U/L Normal 84-246 [facility] Comment on above: Order Comment: ADD O N FROM EARLIER, THANKS1 Performed By: #### P IMWI #### [facility] [address] [place], [address] Laboratory - Chemistry and C hemistry - challengeOrdered By: Ramona Funez on 11-17-2024 AST [Catalytic activity/Vol] 34 U/L High <32 [facility] - Hematology and Cell countsOrdered By: Ramona Funez on 11-17-2024 Anisocytosis Ql (Bld) 2+ [facility] Lactate dehydrogenase (LDH) measurementOrdered By: Ramona Funez on 11-17-2024 LDH [Catalytic activity/Vol] 152 U/L 84-246 [facility] MCV (mean corpuscular volume ) determinationOrdered By: Ramona Funez on 11-17-2024 MCV (RBC) [Entitic vol] 77.6 fL Low 81-99 [facility] Mean corpuscular hemoglobin (MCH) determinationOrdered By: Ramona Funez on 11-17-2024 MCH (RBC) [Entitic mass] 25.1 pg Low 27.0-32.0 [facility] Mean corpuscular hemoglobin concentration (MCHC) determinationOrdered By: Ramona Funez on 11-17-2024 MCHC (RBC) [Mass/Vol] 32.4 g/dL 32-36 [facility] Mean platelet volume determi nationOrdered By: Ramona Funez on 11-17-2024 Platelet mean volume (Bld) [Entitic vol] 9.9 fL 6.2-12.0 [facility] Monocyte percentageOrdered B y: Ramona Funez on 11-17-2024 Monocytes/100 WBC (Bld) 7.3 % 0-10 [facility] Neutrophil percentageOrdered By: Ramona Funez on 11-17-2024 Neutrophils/100 WBC (Bld) 81.0 % High 47-70 [facility] Nucleated red blood cell per centageOrdered By: Ramona Funez on 11-17-2024 Nucleated RBC/100 WBC (Bld) [Ratio] 0 % 0-5 [facility] Oncology Visit Reporton 10-21 Oncology Visit Report [facility] [address] [place] [address] OFFICE VISIT Date of Service: 11/17/24 1455 MR#: [id number] Acct: [id number] Name: LIZZETH BERRY Rep #: [id number] : 1955 From: Ramona Funez MD Age/Sex: 69/F Location[place] [facility] [place] Status: Signed HPI Subjective Date of Service [...] the left breast, had a biopsy at [facility] and was told was negative for [...] right just above the diaphragm 12 mm. [employer] image with appearance of larger appearing pulmonary [...] focus within the pancreatic head as above. [facility] Medical History (Updated 11/17/24 @ 08:12 by [...] cancer So (more content not included)... Normal [facility] Platelet countOrdered By: Diana Funez on 11-17-2024 Platelets (Bld) [#/Vol] 535 10*3/uL High 150-450 [facility] Potassium measurement (mass/ volume)Ordered By: Ramona Funez on 11-17-2024 Potassium (Unsp spec) [Mass/Vol] 4.4 mmol/L 3.3-5.1 [facility] RBC Auto (Bld) [#/Vol]Ordere d By: Ramona Funez on 11-17-2024 RBC (Bld) [#/Vol] 5.45 10*6/uL High 4.2-5.4 [facility] Serum creatinine measurement (mass/volume)Ordered By: Ramona Funez on 11-17-2024 Creatinine [Mass/Vol] 0.97 mg/dL 0.70-1.20 [facility] Serum globulin measurementOr dered By: Ramona Funez on 11-17-2024 Globulin (S) [Mass/Vol] 3.7 g/dL 2.2-4.2 [facility] Serum glucose measurement (m ass/volume)Ordered By: Ramona Funez on 11-17-2024 Glucose [Mass/Vol] 107 mg/dL High 70-99 [facility] Serum or plasma alanine wright otransferase (ALT) measurementOrdered By: Ramona Funez on 11-17-2024 ALT [Catalytic activity/Vol] 24 U/L <35 [facility] Serum or plasma albumin raúl urement (mass/volume)Ordered By: Ramona Funez on 11-17-2024 Albumin [Mass/Vol] 3.9 g/dL 3.4-4.8 [facility] Serum or plasma albumin/glob ulin mass ratioOrdered By: Ramona Funez on 11-17-2024 Albumin/Globulin [Mass ratio] 1.1 {ratio} 0.9-2.4 [facility] Serum or plasma alkaline lesli sphatase measurementOrdered By: Ramona Funez on 11-17-2024 ALP [Catalytic activity/Vol] 284 U/L High 35-104 [facility] Serum or plasma calcium raúl urement (mass/volume)Ordered By: Ramona Funez on 11-17-2024 Calcium [Mass/Vol] 9.9 mg/dL 7.6-11.0 [facility] Serum or plasma urea nitroge n measurement (mass/volume)Ordered By: Ramona Funez on 11-17-2024 Urea nitrogen [Mass/Vol] 18 mg/dL 4-19 [facility] Sodium levelOrdered By: Sherrie Funez on 11-17-2024 Sodium [Moles/Vol] 136 mmol/L 133-145 [facility] Total proteinOrdered By: Dante Funez on 11-17-2024 Protein [Mass/Vol] 7.5 g/dL 5.9-8.4 [facility] White blood cell (WBC) count Ordered By: Ramona Funez on 11-17-2024 WBC (Bld) [#/Vol] 21.7 10*3/uL High 4.4-11.0 [facility] Abdomen/Pelvis WITH Contrast on 11-11-2024 Abdomen/Pelvis WITH Contrast [facility] Imaging Services [facility] [place] [address] Abdomen/Pelvis WITH Contrast MR#: [id number] Acct: [id number] Name: LIZZETH BERRY Rep #: [id number] : 1955 F 69 From: Junaid Esparza MD PCP: Dr. Diya George MD Status: REG CLI Study: Abdomen/Pelvis WITH Contrast Date of Exam: Exam# [id number] Ordering Dr: Dawson Herman MD PROCEDURE: ABDOMEN/PELVIS [...] right just above the diaphragm 12 mm. [employer] image with appearance of larger appearing pulmonary [...] the pancreatic head as above. Reading Location: [facility] CC: Dr. Diya George MD; Dr. Dawson Herman MD Day Treatment Clinician/Art Therapist: Signed Normal [facility] TSH DL <= 0.005 mIU/L QnOrde red By: Diya George on 10-26-2024 TSH Qn 5.270 uIU/mL High 0.300-4.200 [facility] Thyroid Stim Hormone (TSH)on 10-26-2024 TSH 5.270 uIU/mL High 0.300-4.200 [facility] Comment on above: Performed By: #### P IMWI #### [facility] [address] [place], [address] Absolute lymphocyte countOrd ered By: Diya George on 10-11-2024 Lymphocytes Auto (Unsp spec) [#/Vol] 1.52 10*3/uL 0.83-4.51 [facility] Absolute neutrophil countOrd ered By: Diya George on 10-11-2024 Neutrophils (Bld) [#/Vol] 12.2 10*3/uL High 2.0-7.7 [facility] Automated lymphocyte count a s percentage of total leukocytesOrdered By: Diya George on 10-11-2024 Lymphocytes/100 WBC Auto (Unsp spec) 10.0 % Low 19-41 [facility] Basophil percentageOrdered B y: Diya George on 10-11-2024 Basophils/100 WBC (Bld) 0.7 % 0-1 [facility] Blood manual differential co mment interpretation (narrative result)Ordered By: Diya George on 10-11-2024 Manual differential comment Earnest (Bld) [Interp] SCANNED [facility] CBC W/Diff, Automatedon 09-21 Absolute Lymph 1.52 X10 3/uL Normal 0.83-4.51 [facility] Comment on above: Performed By: #### P IMHI #### [facility] [address] [place], [address] Absolute Neut 12.2 X10 3/uL High 2.0-7.7 [facility] Comment on above: Performed By: #### P IMHI #### [facility] [address] [place], [address] Basophils/100 WBC (Bld) 0.7 % Normal 0-1 [facility] Comment on above: Performed By: #### P IMHI #### [facility] [address] [place], [address] Eosinophils/100 WBC (Bld) 1.0 % Normal 0-5 [facility] Comment on above: Performed By: #### P IMHI #### [facility] [address] [place], [address] Erythrocyte distribution width (RBC) [Ratio] 22.6 % High 11.6-14.6 [facility] Comment on above: Performed By: #### P IMHI #### [facility] [address] [place], [address] Hematocrit (Bld) [Volume fraction] 39.3 % Normal 37-47 [facility] Comment on above: Performed By: #### P IMHI #### [facility] [address] [place], [address] Hemoglobin (Bld) [Mass/Vol] 12.3 g/dL Normal 12.0-15.0 [facility] Comment on above: Performed By: #### P IMHI #### [facility] [address] [place], [address] IG% 0.400 Normal 0.0-0.9 [facility] Comment on above: Result Comment: IG% - Immature Granulocytes (promyelocytes, myelocytes and metamyelocytes) > 1% indicates that a LEFT SHIFT is Present. Performed By: #### P IMHI #### [facility] [address] [place], [address] Lymphocytes/100 WBC (Bld) 10.0 % Low 19-41 [facility] Comment on above: Performed By: #### P IMHI #### [facility] [address] [place], [address] MCH (RBC) [Entitic mass] 24.1 pg Low 27.0-32.0 [facility] Comment on above: Performed By: #### P IMHI #### [facility] [address] [place], [address] MCHC (RBC) [Mass/Vol] 31.3 g/dL Low 32-36 [facility] Comment on above: Performed By: #### P IMHI #### [facility] [address] [place], [address] MCV (RBC) [Entitic vol] 77.1 fL Low 81-99 [facility] Comment on above: Performed By: #### P IMHI #### [facility] [address] [place], [address] Monocytes/100 WBC (Bld) 7.6 % Normal 0-10 [facility] Comment on above: Performed By: #### P IMHI #### [facility] [address] [place], [address] Neutrophils/100 WBC (Bld) 80.3 % High 47-70 [facility] Comment on above: Performed By: #### P IMHI #### [facility] [address] [place], [address] Nucleated RBC (Bld) [#/Vol] 0 10*3/uL Normal 0-5 [facility] Comment on above: Performed By: #### P IMHI #### [facility] [address] [place], [address] Platelet mean volume (Bld) [Entitic vol] 10.1 fL Normal 6.2-12.0 [facility] Comment on above: Performed By: #### P IMHI #### [facility] [address] [place], [address] Platelets (Bld) [#/Vol] 384 10*3/uL Normal 150-450 [facility] Comment on above: Performed By: #### P IMHI #### [facility] [address] [place], [address] RBC (Bld) [#/Vol] 5.10 10*6/uL Normal 4.2-5.4 [facility] Comment on above: Performed By: #### P IMHI #### [facility] [address] [place], [address] RDW SD 61.7 fl High 35.1-43.9 [facility] Comment on above: Performed By: #### P IMHI #### [facility] [address] [place], [place], [address] WBC (Bld) [#/Vol] 15.2 10*3/uL High 4.4-11.0 [facility] Comment on above: Performed By: #### P IMHI #### [facility] [address] [place], [place], [address] Eosinophil percentageOrdered By: Diya George on 10-11-2024 Eosinophils/100 WBC (Bld) 1.0 % 0-5 [facility] Erythrocyte distribution wid th ratioOrdered By: Diya George on 10-11-2024 Erythrocyte distribution width (RBC) [Ratio] 22.6 % High 11.6-14.6 [facility] Erythrocyte distribution wid th standard deviationOrdered By: Diya George on 10-11-2024 Erythrocyte distribution width (RBC) [Ratio] 61.7 fl High 35.1-43.9 [facility] Hematocrit Auto (Bld) [Volum e fraction]Ordered By: Diya George on 10-11-2024 Hematocrit (Bld) [Volume fraction] 39.3 % 37-47 [facility] Hemoglobin measurementOrdere d By: Diya George on 10-11-2024 Hemoglobin (Bld) [Mass/Vol] 12.3 g/dL 12.0-15.0 [facility] Immature granulocytes/100 WB C Auto (Bld)Ordered By: Diya George on 10-11-2024 Immature granulocytes/100 WBC (Bld) 0.400 % 0.0-0.9 [facility] Comment on above: IG% - Immature Granu locytes (promyelocytes, myelocytes and metamyelocytes) > 1% indicates that a LEFT SHIFT is Present. Laboratory - Hematology and Cell countsOrdered By: Diya George on 10-11-2024 Anisocytosis Ql (Bld) 2+ [facility] MCV (mean corpuscular volume ) determinationOrdered By: Diya George on 10-11-2024 MCV (RBC) [Entitic vol] 77.1 fL Low 81-99 [facility] Mean corpuscular hemoglobin (MCH) determinationOrdered By: Diya George on 10-11-2024 MCH (RBC) [Entitic mass] 24.1 pg Low 27.0-32.0 [facility] Mean corpuscular hemoglobin concentration (MCHC) determinationOrdered By: Diya George on 10-11-2024 MCHC (RBC) [Mass/Vol] 31.3 g/dL Low 32-36 [facility] Mean platelet volume determi nationOrdered By: Diya George on 10-11-2024 Platelet mean volume (Bld) [Entitic vol] 10.1 fL 6.2-12.0 [facility] Monocyte percentageOrdered B y: Diya George on 10-11-2024 Monocytes/100 WBC (Bld) 7.6 % 0-10 [facility] Neutrophil percentageOrdered By: Diya George on 10-11-2024 Neutrophils/100 WBC (Bld) 80.3 % High 47-70 [facility] Nucleated red blood cell per centageOrdered By: Diya George on 10-11-2024 Nucleated RBC/100 WBC (Bld) [Ratio] 0 % 0-5 [facility] Platelet countOrdered By: Al ycera George on 10-11-2024 Platelets (Bld) [#/Vol] 384 10*3/uL 150-450 [facility] RBC Auto (Bld) [#/Vol]Ordere d By: Diya George on 10-11-2024 RBC (Bld) [#/Vol] 5.10 10*6/uL 4.2-5.4 [facility] White blood cell (WBC) count Ordered By: Diya George on 10-11-2024 WBC (Bld) [#/Vol] 15.2 10*3/uL High 4.4-11.0 [facility] Lower GI hemoglobin IA Ql (S tl)Ordered By: Adria Orosco on 09-26-2024 Stool Occult Blood (ZACK) Positive Abnormal [facility] Stool Occult Blood iFOBon STOB Positive Normal [facility] Comment on above: Performed By: #### L 501.5200, L500.4050, L100.0100 #### [facility] [place], [address] Stool gastrointestinal hemog lobin detection by immunologic methodOrdered By: Adria Orosco on 09-26-2024 Lower GI hemoglobin IA Ql (Stl) Positive Abnormal [facility] Lower GI hemoglobin IA Ql (S tl)Ordered By: Adria Orosco on 09-25-2024 Stool Occult Blood (ZACK) Positive Abnormal [facility] Stool gastrointestinal hemog lobin detection by immunologic methodOrdered By: Adria Orosco on 09-25-2024 Lower GI hemoglobin IA Ql (Stl) Positive Abnormal [facility] Lower GI hemoglobin IA Ql (S tl)Ordered By: Adria Orosco on 09-24-2024 Stool Occult Blood (ZACK) Positive Abnormal [facility] Stool gastrointestinal hemog lobin detection by immunologic methodOrdered By: Adria Orosco on 09-24-2024 Lower GI hemoglobin IA Ql (Stl) Positive Abnormal [facility] Absolute lymphocyte countOrd ered By: Adria Orosco on 09-23-2024 Lymphocytes Auto (Unsp spec) [#/Vol] 1.72 10*3/uL 0.83-4.51 [facility] Absolute neutrophil countOrd ered By: Adria Orosco on 09-23-2024 Neutrophils (Bld) [#/Vol] 11.5 10*3/uL High 2.0-7.7 [facility] Anion gap in Serum or Plasma Ordered By: Adria Orosco on 09-23-2024 Anion gap [Moles/Vol] 12 mmol/L 5-15 [facility] Automated lymphocyte count a s percentage of total leukocytesOrdered By: Adria Orosco on 09-23-2024 Lymphocytes/100 WBC Auto (Unsp spec) 11.7 % Low 19-41 [facility] BUN/creatinine ratioOrdered By: Adria Orosco on 09-23-2024 Urea nitrogen/Creatinine [Mass ratio] 20.7 mg/mg High 10-20 [facility] Basophil percentageOrdered B y: Adria Orosco on 09-23-2024 Basophils/100 WBC (Bld) 0.8 % 0-1 [facility] Bilirubin, totalOrdered By: Adria Orosco on 09-23-2024 Bilirubin [Mass/Vol] 0.29 mg/dL 0.00-1.30 [facility] Blood polychromasia detectio n by light microscopyOrdered By: Adria Orosco on 09-23-2024 Polychromasia LM Ql (Bld) 1+ [facility] CBC W/Diff, Automatedon Anisocytosis Ql (Bld) 1+ Normal [facility] Comment on above: Performed By: #### L 501.5200, L500.4050, L100.0100 #### [facility] [address] [place], [address] PLT EST MKD INC Normal ADEQ [facility] Comment on above: Performed By: #### L 501.5200, L500.4050, L100.0100 #### [facility] [address] [place], [address] POLYCHROMASIA 1+ Normal [facility] Comment on above: Performed By: #### L 501.5200, L500.4050, L100.0100 #### [facility] [address] [place], [address] Calculated very low density lipoprotein (VLDL) cholesterol measurementOrdered By: Adria Orosco on 09-23-2024 Calculated very low density lipoprotein (VLDL) cholesterol measurement 15 mg/dL 5-40 [facility] VLDL Cholesterol 15 mg/dL -40 [facility] Carbon dioxide, total [Moles /volume] in Central venous bloodOrdered By: Adria Orosco on 09-23-2024 CO2 [Moles/Vol] 21.7 mmol/L 21.0-32.0 [facility] Chloride assayOrdered By: Diana Orosco on 09-23-2024 Chloride [Moles/Vol] 104 mmol/L 98-108 [facility] Comprehensive Metabolic Prof ilon 09-23-2024 Albumin [Mass/Vol] 3.5 g/dL Normal 3.4-4.8 [facility] Comment on above: Performed By: #### L 501.5200, L500.4050, L100.0100 #### [facility] [address] [place], [address] Albumin/Globulin [Mass ratio] 0.9 {ratio} Normal 0.9-2.4 [facility] Comment on above: Performed By: #### L 501.5200, L500.4050, L100.0100 #### [facility] [address] [place], [address] ALK PHOS 253 U/L High 35-104 [facility] Comment on above: Performed By: #### L 501.5200, L500.4050, L100.0100 #### [facility] [address] [place], [address] ALT [Catalytic activity/Vol] 36 U/L High <=34 [facility] Comment on above: Performed By: #### L 501.5200, L500.4050, L100.0100 #### [facility] [address] [place], [address] AST [Catalytic activity/Vol] 26 U/L Normal <=31 [facility] Comment on above: Performed By: #### L 501.5200, L500.4050, L100.0100 #### [facility] [address] [place], [address] Bilirubin [Mass/Vol] 0.29 mg/dL Normal 0.00-1.30 [facility] Comment on above: Performed By: #### L 501.5200, L500.4050, L100.0100 #### [facility] [address] [place], [address] BUN/CRE 20.7 RATIO High 10-20 [facility] Comment on above: Performed By: #### L 501.5200, L500.4050, L100.0100 #### [facility] [address] [place], [address] Calcium [Mass/Vol] 9.5 mg/dL Normal 7.6-11.0 [facility] Comment on above: Performed By: #### L 501.5200, L500.4050, L100.0100 #### [facility] [address] [place], [address] Chloride [Moles/Vol] 104 mmol/L Normal 98-108 [facility] Comment on above: Performed By: #### L 501.5200, L500.4050, L100.0100 #### [facility] [address] [place], [address] CO2 [Moles/Vol] 21.7 mmol/L Normal 21.0-32.0 [facility] Comment on above: Performed By: #### L 501.5200, L500.4050, L100.0100 #### [facility] [address] [place], [address] Creatinine [Mass/Vol] 0.88 mg/dL Normal 0.70-1.20 [facility] Comment on above: Performed By: #### L 501.5200, L500.4050, L100.0100 #### [facility] [address] [place], [address] GAP 12 Normal 5-15 [facility] Comment on above: Performed By: #### L 501.5200, L500.4050, L100.0100 #### [facility] [address] [place], [address] GFR/1.73 sq M.predicted among non-blacks MDRD (S/P/Bld) [Vol rate/Area] 70 mL/min/{1.73_m2} Normal >60 [facility] Comment on above: Result Comment: mL/m in/1.73m2 CKD-EPI Creatinine Equation (2020) Performed By: #### L 501.5200, L500.4050, L100.0100 #### [facility] [address] [place], [address] Globulin (S) [Mass/Vol] 4.0 g/dL Normal 2.2-4.2 [facility] Comment on above: Performed By: #### L 501.5200, L500.4050, L100.0100 #### [facility] [address] [place], [address] Glucose [Mass/Vol] 94 mg/dL Normal 70-99 [facility] Comment on above: Performed By: #### L 501.5200, L500.4050, L100.0100 #### [facility] [address] [place], [address] Potassium [Moles/Vol] 4.6 mmol/L Normal 3.3-5.1 [facility] Comment on above: Performed By: #### L 501.5200, L500.4050, L100.0100 #### [facility] [address] [place], [address] Sodium [Moles/Vol] 138 mmol/L Normal 133-145 [facility] Comment on above: Performed By: #### L 501.5200, L500.4050, L100.0100 #### [facility] [address] [place], [address] T PROT 7.6 g/dL Normal 5.9-8.4 [facility] Comment on above: Performed By: #### L 501.5200, L500.4050, L100.0100 #### [facility] [address] [place], [address] Urea nitrogen [Mass/Vol] 18 mg/dL Normal 4-19 [facility] Comment on above: Performed By: #### L 501.5200, L500.4050, L100.0100 #### [facility] [address] [place], [address] Eosinophil percentageOrdered By: Adria Orosco on 09-23-2024 Eosinophils/100 WBC (Bld) 1.7 % 0-5 [facility] Erythrocyte distribution wid th (RBC) [Ratio]Ordered By: Adria Orosco on 09-23-2024 Erythrocyte distribution width (RBC) [Entitic vol] 53.8 fL High 35.1-43.9 [facility] Erythrocyte distribution wid th ratioOrdered By: Adria Orosco on 09-23-2024 Erythrocyte distribution width (RBC) [Ratio] 20.2 % High 11.6-14.6 [facility] Erythrocyte distribution wid th standard deviationOrdered By: Adria Orosco on 09-23-2024 Erythrocyte distribution width (RBC) [Ratio] 53.8 fl High 35.1-43.9 [facility] Ferritinon 09-23-2024 Ferritin [Mass/Vol] 214 ng/mL Normal 22-378 [facility] Comment on above: Performed By: #### L 501.5200, L500.4050, L100.0100 #### [facility] [address] [place], [place], [id number] GFR/1.73 sq M.predicted richard g non-blacks MDRD (S/P/Bld) [Vol rate/Area]Ordered By: Adria Orosco on 09-23-2024 Estimated GFR (MDRD) Non-Af Amer 70 >60 [facility] Comment on above: mL/min/1.73m2 CKD-EP I Creatinine Equation (2020) Glomerular filtration rate ( GFR) estimation/1.73 sq m using serum, plasma, or whole bOrdered By: Adria Orosco on 09-23-2024 GFR/1.73 sq M.predicted among non-blacks MDRD (S/P/Bld) [Vol rate/Area] 70 mL/min/{1.73_m2} >60 [facility] Comment on above: mL/min/1.73m2 CKD-EP I Creatinine Equation (2020) Hematocrit Auto (Bld) [Volum e fraction]Ordered By: Adria Orosco on 09-23-2024 Hematocrit (Bld) [Volume fraction] 35.7 % Low 37-47 [facility] Hemoglobin measurementOrdere d By: Adria Orosco on 09-23-2024 Hemoglobin (Bld) [Mass/Vol] 11.2 g/dL Low 12.0-15.0 [facility] Immature granulocytes/100 WB C Auto (Bld)Ordered By: Adria Orosco on 09-23-2024 Immature granulocytes/100 WBC (Bld) 0.700 % 0.0-0.9 [facility] Comment on above: IG% - Immature Granu locytes (promyelocytes, myelocytes and metamyelocytes) > 1% indicates that a LEFT SHIFT is Present. 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 Normal [facility] Ironon 09-23-2024 Iron [Mass/Vol] 27 ug/dL Low 50-170 [facility] Comment on above: Performed By: #### L 501.5200, L500.4050, L100.0100 #### [facility] [address] [place], [place], [address] Iron (Unsp spec) [Mass/Mass] Ordered By: Adria Orosco on 09-23-2024 Iron [Mass/Vol] 27 ug/dL Low 50-170 [facility] Iron measurement (mass/mass) Ordered By: Adria Orosco on 09-23-2024 Iron (Unsp spec) [Mass/Mass] 27 ug/dL Low 50-170 [facility] LDL calc ser/plasOrdered By: Adria Orosco on 09-23-2024 Cholesterol in LDL [Mass/Vol] 112 mg/dL [facility] Comment on above: Gctigfvdeg=374-094 m g/dL & Higher Kbif=451 mg/dL or greater LDL Cholesterol, Calculated 112 mg/dL [facility] Comment on above: Qwdtjoaocy=880-502 m g/dL & Higher Ezit=646 mg/dL or greater Laboratory - Chemistry and C hemistry - challengeOrdered By: Adria Orosco on 09-23-2024 AST [Catalytic activity/Vol] 26 U/L <32 [facility] - Hematology and Cell countsOrdered By: Adria Orosco on 09-23-2024 Anisocytosis Ql (Bld) 1+ [facility] Lipid Profileon 09-23-2024 CHOL:HDL 3.81 Normal [facility] Comment on above: Performed By: #### L 501.5200, L500.4050, L100.0100 #### [facility] [address] [place], [address] Cholesterol [Mass/Vol] 172 mg/dL Normal <=200 [facility] Comment on above: Result Comment: Chol esterol level, Desirable <200 mg/dL Borderline high cholesterol 200-239 mg/dL High cholesterol >=240 mg/dL Recommendations of the NCEP Adult Treatment Panel for the following risk-cutoff thresholds for the [place] population. Performed By: #### L 501.5200, L500.4050, L100.0100 #### [facility] [address] [place], [address] Cholesterol in HDL [Mass/Vol] 45 mg/dL Normal [facility] Comment on above: Result Comment: Kayy onal Cholesterol Education Program (NCEP) guidelines: <40 mg/dL: Low HDL-cholesterol (major risk factor for CHD) >= 60 mg/dL: High HDL-cholesterol (negative risk factor for CHD) HDL-cholesterol is affected by a number of factors, e.g. smoking, exercise, hormones, sex and age. Performed By: #### L 501.5200, L500.4050, L100.0100 #### [facility] [address] [place], [address] Cholesterol in LDL [Mass/Vol] 112 mg/dL Normal [facility] Comment on above: Result Comment: Bord odtrhz=160-633 mg/dL Higher Syqt=928 mg/dL or greater Performed By: #### L 501.5200, L500.4050, L100.0100 #### [facility] [address] [place], [address] Cholesterol in VLDL [Mass/Vol] 15 mg/dL Normal 5-40 [facility] Comment on above: Performed By: #### L 501.5200, L500.4050, L100.0100 #### [facility] [address] [place], [address] Triglyceride [Mass/Vol] 74 mg/dL Normal [facility] Comment on above: Result Comment: The drugs N-Acetylcysteine and Metamizole may falsely depress this assay. Normal range: <150 mg/dL Borderline High: 150-199 mg/dL High: 200-499 mg/dL Very High: >500 mg/dL Performed By: #### L 501.5200, L500.4050, L100.0100 #### [facility] [address] [place], [address] Lymphocytes Auto (Unsp spec) [#/Vol]Ordered By: Adria Orosco on 09-23-2024 Lymphocytes (Bld) [#/Vol] 1.72 10*3/uL 0.83-4.51 [facility] Lymphocytes/100 WBC Auto (Un sp spec)Ordered By: Adria Orosco on 09-23-2024 Lymphocytes/100 WBC (Bld) 11.7 % Low 19-41 [facility] MCV (mean corpuscular volume ) determinationOrdered By: Adria Orosco on 09-23-2024 MCV (RBC) [Entitic vol] 74.8 fL Low 81-99 [facility] Mean corpuscular hemoglobin (MCH) determinationOrdered By: Adria Orosco on 09-23-2024 MCH (RBC) [Entitic mass] 23.5 pg Low 27.0-32.0 [facility] Mean corpuscular hemoglobin concentration (MCHC) determinationOrdered By: Adria Orosco on 09-23-2024 MCHC (RBC) [Mass/Vol] 31.4 g/dL Low 32-36 [facility] Mean platelet volume determi nationOrdered By: Adria Orosco on 09-23-2024 Platelet mean volume (Bld) [Entitic vol] 9.2 fL 6.2-12.0 [facility] Monocyte percentageOrdered B y: Adria Orosco on 09-23-2024 Monocytes/100 WBC (Bld) 6.7 % 0-10 [facility] Neutrophil percentageOrdered By: Adria Orosco on 09-23-2024 Neutrophils/100 WBC (Bld) 78.4 % High 47-70 [facility] Nucleated red blood cell per centageOrdered By: Adria Orosco on 09-23-2024 Nucleated RBC/100 WBC (Bld) [Ratio] 0 % 0-5 [facility] Platelet countOrdered By: Diana Orosco on 09-23-2024 Platelets (Bld) [#/Vol] 745 10*3/uL High 150-450 [facility] Platelet estimateOrdered By: Adria Orosco on 09-23-2024 Platelets LM Ql (Bld) MKD INC [facility] Platelets LM Ql (Bld)Ordered By: Adria Orosco on 09-23-2024 Platelet Estimate MKD INC [facility] Polychromasia LM Ql (Bld)Ord ered By: Adria Orosco on 09-23-2024 Polychromasia 1+ [facility] Potassium (Unsp spec) [Mass/ Vol]Ordered By: Adria Orosco on 09-23-2024 Potassium [Moles/Vol] 4.6 mmol/L 3.3-5.1 [facility] Potassium measurement (mass/ volume)Ordered By: Adria Orosco on 09-23-2024 Potassium (Unsp spec) [Mass/Vol] 4.6 mmol/L 3.3-5.1 [facility] RBC Auto (Bld) [#/Vol]Ordere d By: Adria Orosco on 09-23-2024 RBC (Bld) [#/Vol] 4.77 10*6/uL 4.2-5.4 [facility] Screening total cholesterol/ high density lipoprotein (HDL) cholesterol ratioOrdered By: Adria Orosco on 09-23-2024 Cholesterol.total/Choles terol in HDL [Mass ratio] 3.81 {ratio} [facility] Serum creatinine measurement (mass/volume)Ordered By: Adria Orosco on 09-23-2024 Creatinine [Mass/Vol] 0.88 mg/dL 0.70-1.20 [facility] Serum globulin measurementOr dered By: Adria Orosco on 09-23-2024 Globulin (S) [Mass/Vol] 4.0 g/dL 2.2-4.2 [facility] Serum glucose measurement (m ass/volume)Ordered By: Adria Orosco on 09-23-2024 Glucose [Mass/Vol] 94 mg/dL 70-99 [facility] Serum or plasma alanine wright otransferase (ALT) measurementOrdered By: Adria Orosco on 09-23-2024 ALT [Catalytic activity/Vol] 36 U/L High <35 [facility] Serum or plasma albumin raúl urement (mass/volume)Ordered By: Adria Orosco on 09-23-2024 Albumin [Mass/Vol] 3.5 g/dL 3.4-4.8 [facility] Serum or plasma albumin/glob ulin mass ratioOrdered By: Adria Orosco on 09-23-2024 Albumin/Globulin [Mass ratio] 0.9 {ratio} 0.9-2.4 [facility] Serum or plasma alkaline lesli sphatase measurementOrdered By: Adria Orosco on 09-23-2024 ALP [Catalytic activity/Vol] 253 U/L High 35-104 [facility] Serum or plasma calcium raúl urement (mass/volume)Ordered By: Adria Orosco on 09-23-2024 Calcium [Mass/Vol] 9.5 mg/dL 7.6-11.0 [facility] Serum or plasma cholesterol in HDL measurement (mass/volume)Ordered By: Adria Orosco on 09-23-2024 Cholesterol in HDL [Mass/Vol] 45 mg/dL >40 [facility] Comment on above: National Cholesterol Education Program (NCEP) guidelines:<40 mg/dL: Low HDL-cholesterol (major risk factor for CHD)>= 60 mg/dL: High HDL-cholesterol (negative risk factor for CHD)HDL-cholesterol is affected by a number of factors, e.g. smoking, exercise, hormones, sex and age. Serum or plasma cholesterol measurement (mass/volume)Ordered By: Adria Orosco on 09-23-2024 Cholesterol [Mass/Vol] 172 mg/dL <201 [facility] Comment on above: Cholesterol level, D esirable <200 mg/dLBorderline high cholesterol 200-239 mg/dLHigh cholesterol >=240 mg/dLRecommendations of the NCEP Adult Treatment Panel for the following risk-cutoff thresholds for the [place] population. Serum or plasma ferritin aleksandra surement (mass/volume)Ordered By: Adria Orosco on 09-23-2024 Ferritin [Mass/Vol] 214 ng/mL 22-378 [facility] Serum or plasma urea nitroge n measurement (mass/volume)Ordered By: Adria Orosco on 09-23-2024 Urea nitrogen [Mass/Vol] 18 mg/dL 4-19 [facility] Sodium levelOrdered By: Subhash Orosco on 09-23-2024 Sodium [Moles/Vol] 138 mmol/L 133-145 [facility] TSH DL <= 0.005 mIU/L QnOrde red By: Adria Orosco on 09-23-2024 Thyroid Stimulating Hormone (TSH) 4.680 uIU/mL High 0.300-4.200 [facility] TSH Qn 4.680 uIU/mL High 0.300-4.200 [facility] Thyroid Stim Hormone (TSH)on 09-23-2024 TSH 4.680 uIU/mL High 0.300-4.200 [facility] Comment on above: Performed By: #### L 501.5200, L500.4050, L100.0100 #### [facility] [address] [place], [place], [id number] Total proteinOrdered By: Keny Orosco on 09-23-2024 Protein [Mass/Vol] 7.6 g/dL 5.9-8.4 [facility] Triglycerides measurementOrd ered By: Adria Orosco on 09-23-2024 Triglyceride [Mass/Vol] 74 mg/dL <199 [facility] Comment on above: The drugs N-Acetylcy steine and Metamizole may falsely depress this assay. Normal range: <150 mg/dLBorderline High: 150-199 mg/dLHigh: 200-499 mg/dLVery High: >500 mg/dL Vitamin B12on 09-23-2024 Cobalamin (Vitamin B12) [Mass/Vol] 690 pg/mL Normal 180-914 [facility] Comment on above: Performed By: #### L 501.5200, L500.4050, L100.0100 #### [facility] [address] [place], [address] Vitamin B12 ser/plasOrdered By: Adria Orosco on 09-23-2024 Cobalamin (Vitamin B12) [Mass/Vol] 690 pg/mL 180-914 [facility] Vitamin D, 25-hydroxyOrdered By: Adria Orosco on 09-23-2024 Vitamin D 25-Hydroxy 37.0 ng/mL 30-100 [facility] Comment on above: Vitamin D StatusDefi ciency: <20 ng/mL (50nmol/L)Insufficiency: 20-30 ng/mL (50-75 nmol/L)Sufficiency: 30-100 ng/mL (75-250 nmol/L)Toxicity: >100 ng/mL (>250 nmol/L) Vitamin D,25 Hydroxyon 09-23 Vitamin D 25-OH 37.0 ng/mL Normal 30-100 [facility] Comment on above: Result Comment: Priscilla min D Status Deficiency: <20 ng/mL (50nmol/L) Insufficiency: 20-30 ng/mL (50-75 nmol/L) Sufficiency: 30-100 ng/mL (75-250 nmol/L) Toxicity: >100 ng/mL (>250 nmol/L) Performed By: #### L 501.5200, L500.4050, L100.0100 #### [facility] [address] [place], [address] White blood cell (WBC) count Ordered By: Adria Orosco on 09-23-2024 WBC (Bld) [#/Vol] 14.7 10*3/uL High 4.4-11.0 [facility] 05-24-2024 CNPN Telephone (RADMN) LIZZETH BERRY ([id number]) 1955 F Date Time Provider Department 05/24/24 CAROLYN MORGAN RADMN During your visit today, we recorded the following information about you: Carolyn Morgan RN 05/24/2024 8:07 AM Signed Called patient to notify the breast pathology results are benign per Dr. Christine. Informed patient a 6 month follow up is recommended. Patient verbalized understanding. Allergies As of Date: 05/24/2024 Noted Allergy Reaction AUGMENTIN (AMOXICILLIN-POT CLAVUL*07/03/2006 2 - Rash Date Reviewed: 05/02/2024 Reviewed by: Selene Rush, RN - Fully Assessed Reason for Visit: Results [95] Prescriptions as of 05/24/2024 - multivit with minerals/lutein (MULTIVITAMIN 50 PLUS ORAL) Take 1 tablet by mouth once daily. - vit C/vit E ac/lut/copper/zinc (PRESERVISION LUTEIN ORAL) Take by mouth. Meds Comments as of 01/03/2013: Yolis on hold January 03, 2013 Problem List As Of Date 05/24/2024 Noted Resolved Routine general medical examination at [facility]*02/04/2007 01/05/2012 Family history of cardiac arrest [Z82.49] 08/12/2012 Carpal tunnel syndrome of left wrist [G56.02] 01/03/2013 Encounter Status:Closed by CAROLYN MORGAN on 05/24/24 [facility] STEREO BX BREAST LTon [facility] STEREO BX BREAST LT * * *Final Repor t* * * * * * SEE BOTTOM OF REPORT FOR ADDENDED TEXT * * * DATE OF EXAM: May 18 2024 11:45AM RYAN 0630 - RYLEE STEREO BX BREAST LT / PROCEDURE REASON: N64.9-Breast disorder * * * * Physician Interpretation * * * * [place] [id number] - - - - - - - [...] - - - - - - - #[id number] - [facility] STEREO BX BREAST LT HISTORY: 69 [...] María Christine M.D. Electronically signed on: 05/18/2024 Day Treatment Clinician/Art Therapist: CHRISTOPHER Transcribe Date/Time: May 18 2024 10:32A Dictated by : MARÍA CHRISTINE MD This examination was interpreted and the report reviewed and electronically signed by: MARÍA CHRISTINE MD on May 18 2024 11:53AM EST This document has been addended by: MARÍA CHRISTINE MD on May 23 2024 8:54PM EST [id number] [facility] stereo Guidance for biops y of Breast [...] María Christine M.D. Electronically signed on: 05/18/2024 Day Treatment Clinician/Art Therapist: CHRISTOPHER Transcribe Date/Time: May 18 2024 10:32A Dictated by : MARÍA CHRISTINE MD This examination was interpreted and the report reviewed and electronically signed by: MARÍA CHRISTINE MD on May 18 2024 11:53AM [facility] * * *Final Report* * * DATE OF EXAM: May 18 2024 11:45AM RYAN 0630 - RYLEE STEREO BX BREAST LT / PROCEDURE REASON: N64.9-Breast disorder * * * * Physician Interpretation * * * * [place] [address] #[id number] - RYLEE STEREO BX BREAST LT HISTORY: [...] There are scattered areas of fibroglandular density. [facility] Provider, Iglesia Figueroa - 05/18/2024 * * *Final Report* * * DATE OF EXAM: May 18 2024 11:45AM RYAN 0630 - RYLEE STEREO BX BREAST LT / PROCEDURE REASON: N64.9-Breast disorder * * * * Physician Interpretation * * * * [place] [address] #[id number] - [facility] STEREO BX BREAST LT HISTORY: 69 [...] María Christine M.D. Electronically signed on: 05/18/2024 Day Treatment Clinician/Art Therapist: CHRISTOPHER Transcribe Date/Time: May 18 2024 10:32A Dictated by : MARÍA CHRISTINE MD This examination was interpreted and the report reviewed and electronically signed by: MARÍA CHRISTINE MD on May 18 2024 11:53AM EST [facility] Radiology Study observation (narrative) [facility] Guidance for biops y of Breast - leftOrdered By: Ccf Provider on 05-18-2024 [facility] SURGICAL PATHOLOGYon 024 CASE REPORT Normal [facility] Comment on above: Order Comment: Speci men Type: TISSUE SPECIMEN Ordering Facility: [facility] Address: [address] [place] [address] Result Comment: Surg ica Pathology Report Case: [id number] Authorizing Provider: María Christine MD Collected: 05/18/2024 11:13 AM Ordering Location: Mammography Received: 05/18/2024 12:03 PM Pathologist: Maged Meredith MD Specimen: Breast, Left, Core Biopsy, Left uppoer outer calcifications; tophat clip Performed By: #### S #### [facility] CLIA [id number] [address] [place] [address] OF [place] FINAL DIAGNOSIS Normal [facility] Comment on above: Order Comment: Speci men Type: TISSUE SPECIMEN Ordering Facility: [facility] Address: [address] [place] [address] Result Comment: Left breast, upper outer, calcifications, core biopsy, with tophat clip placement: - Fibroadenomatoid changes. - Microcalcifications in fibroadenomatoid changes. RS/[facility] 05/23/24 Performed By: #### S #### [facility] CLIA [id number] [address] [place] [address] OF [facility] FINAL PERFORMING LAB Normal [facility] Comment on above: Order Comment: Speci men Type: TISSUE SPECIMEN Ordering Facility: [facility] Address: [address] [place] [address] Result Comment: Diag nostic interpretation performed at [facility], [address] [place] [address] CLIA# [id number] Filling Station Equipment Mechanic: Rodolfo Rodriguez M.D. Performed By: #### S #### [facility] CLIA [id number] [address] [place] [address] STATES OF [place]ZO GROSS DESCRIPTION Normal [facility] Comment on above: Order Comment: Speci men Type: TISSUE SPECIMEN Ordering Facility: [facility] Address: [address] [place] [address] Result Comment: A. B reast, Left, Core Biopsy Received in formalin labeled as left breast core are multiple segments of cylindrical tissue aggregating to 3.0 x 2.0 x 0.2 cm, yellow-white in red-brown and of a soft consistency. The specimen was removed from the patient at 11:13 05/18/2024. On the same day, the specimen was placed in formalin at 11:20. Totally submitted in formalin in two cassettes. JCDM May 18, 2024 3:40 PM Gross examination performed at [facility], [address] [place] [address] Performed By: #### S #### [facility] CLIA [id number] [address] [place] [address] [id number] CNOVon 05-02-2024 CNOV Office Visit (GENSWS ) LIZZETH BERRY ([id number]) 1955 F Date Time Provider Department 05/02/24 [...] DX W/COLLJ SPEC WHEN PFRMD 01/31/2008 Colonoscopy [facility] Dr. Herman COLONOSCOPY FLX DX W/COLLJ SPEC WHEN PFRMD 03/01/2018 Dr. Herman-next colonoscopy in 10 years-02/2028 LIG/TRNSXJ FLP TUBE ABDL/VAG APPR UNI/BI 1987 Tubal ligation NEUROPLASTY AND/TRANSPOS MEDIAN NRV CARPAL TUNNE 11/22/2012 right NEUROPLASTY AND/TRANSPOS MEDIAN NRV CARPAL TUNNE 01/17/2013 LEFT Fyber COVID-19 VACCINE, AGE 12+ YR (PURPLE TOP) [...] Tobacco Use (more content not included)... Normal [facility] DBT Breast - left diagnostic for [...] Tomasz Marmolejo M.D. Electronically signed on: 04/20/2024 Day Treatment Clinician/Art Therapist: CHRISTOPHER Transcribe Date/Time: Apr 20 2024 11:41A Dictated by: TOMASZ MARMOLEJO MD This examination was interpreted and the report reviewed and electronically signed by: TOMASZ MARMOLEJO MD on Apr 20 2024 11:54AM [facility] DIVISION OF RADIOLOGY * * *Final Report* * * DATE OF EXAM: Apr 20 2024 11:42AM [facility] 0628 - RYLEE DIAG W MARCOS / PROCEDURE REASON: Abnormal screening mammogram * * * * Physician Interpretation * * * * RESULT: [facility] [address] [place] [address] HISTORY: Patient is 69 years old and [...] the left breast. DIVISION OF RADIOLOGY Provider, [facility] - 04/20/2024 * * *Final Report* * * DATE OF EXAM: Apr 20 2024 11:42AM [facility] 0628 - RYLEE DIAG W MARCOS / PROCEDURE REASON: Abnormal screening mammogram * * * * Physician Interpretation * * * * RESULT: [facility] [address] [place] [address] HISTORY: Patient is 69 years old and [...] Tomasz Marmolejo M.D. Electronically signed on: 04/20/2024 Day Treatment Clinician/Art Therapist: HCRISTOPHER Transcribe Date/Time: Apr 20 2024 11:41A Dictated by: TOMASZ MARMOLEJO MD This examination was interpreted and the report reviewed and electronically signed by: TOMASZ MARMOLEJO MD on Apr 20 2024 11:54AM EST [facility] Radiology Study observation (narrative) [facility] DBT Breast - left diagnostic for implantOrdered By: Ccf Provider on 04-20-2024 [facility] RYLEE DIAG W MARCOS LTon 024 RYLEE DIAG W MARCOS LT * * *Final Report* * * DATE OF EXAM: Apr 20 2024 11:42AM [facility] 0628 - RYLEE DIAG W MARCOS LT / PROCEDURE REASON: Abnormal screening mammogram * * * * Physician Interpretation * * * * RESULT: [place] [id number] HISTORY: Patient is 69 years old and [...] Tomasz Marmolejo M.D. Electronically signed on: 04/20/2024 Day Treatment Clinician/Art Therapist: CHRISTOPHER Transcribe Date/Time: Apr 20 2024 11:41A Dictated by: TOMASZ MARMOLEJO MD This examination was interpreted and the report reviewed and electronically signed by: TOMASZ MARMOLEJO MD on Apr 20 2024 11:54AM EST [id number] Normal [facility] Andrew 03-11-2024 CNPN Telephone (RADMN) LIZZETH BERRY ([id number]) 1955 F Date Time Provider Department 03/11/24 OLIMPIA HENAO During your visit today, we recorded the following information about you: Allergies As of Date: 03/11/2024 Noted Allergy Reaction AUGMENTIN (AMOXICILLIN-POT CLAVUL*07/03/2006 2 - Rash Date Reviewed: 10/28/2022 Reviewed by: Robe Garcia MD - Fully Assessed Reason for Visit: Mammogram Result Call Back [0330] Prescriptions as of 03/11/2024 - vit C/vit E ac/lut/copper/zinc (PRESERVISION LUTEIN ORAL) Take by mouth. Meds Comments as of 01/03/2013: Krill on hold January 03, 2013 Problem List As Of Date 03/11/2024 Noted Resolved Routine general medical examination at [facility]*02/04/2007 01/05/2012 Family history of cardiac arrest [Z82.49] 08/12/2012 Carpal tunnel syndrome of left wrist [G56.02] 01/03/2013 Encounter Status:Closed by FÁTIMA TREVINO on 03/11/24 Normal [facility] CNCOon 03-10-2024 CNCO HNO ID: [id number] Author: COORDINATOR, MAMMOGRAPHY, ? Service: ? Author Type: Physician Type: Letter Filed: 03/10/2024 16:04 Note Text: March 10, 2024 PID: [id number] Lizzeth Dena [address] [place] [address] Dear Dipti Berry, Your recent breast imaging exam on [...] who ordered/prescribed your screening mammogram: Please call [phone] or EXT: [phone] to schedule an appointment for your additional [...] and reports are kept on file at [facility] as part of your permanent medical record, and are available for your continuing care. Thank you for allowing us to help in meeting your health care needs. Sincerely, Dr. Henao Interpreting Radiologist [facility] (Additional imaging) Normal [facility] CNPNon 03-10-2024 CNPN Telephone (OBGYWM) LIZZETH BERRY ([id number]) 1955 F Date Time Provider Department 03/10/24 ROBE GARCIA OBGYWM During your visit today, [...] screening mammogram [R92.8] Order(s):US BREAST LTD LEFT [[id number]] Order #: [id number] FUTURE RYLEE DIAGNOSTIC LEFT [[id number]] Order #: [id number] FUTURE Prescriptions as of 03/11/2024 - vit C/vit E ac/lut/copper/zinc (PRESERVISION LUTEIN ORAL) Take by mouth. Meds Comments as of 01/03/2013: Krill on hold January 03, 2013 Problem List As Of Date 03/10/2024 Noted Resolved Routine general medical examination at [facility]*02/04/2007 01/05/2012 Family history of cardiac arrest [Z82.49] 08/12/2012 Carpal tunnel syndrome of left wrist [G56.02] 01/03/2013 Encounter Status:Closed by MARGARET TORRE on 03/11/24 Normal [facility] Breast Screeningon 2023 * * *Final Report* * * DATE OF EXAM: Mar 09 2024 11:27AM [facility] 0581 - [facility] SCREENING / PROCEDURE REASON: multiple diagnoses * * * * Physician Interpretation * * * * RESULT: #[id number] - [facility] SCREENING BILATERAL DIGITAL SCREENING MAMMOGRAM WITH CAD: 03/09/2024 HISTORY: /Screening Mammogram - patient reports NO breast symptoms /priors available for comparison Multiple Diagnoses. RESULT: TECHNIQUE: The study was acquired using full field digital technology and interpreted from soft copy. Current study was also evaluated with a Computer Aided Detection (CAD). Comparison is made to exams dated: 10/28/2022 mammogram, 10/25/2020 mammogram - [facility], and 04/05/2019 mammogram - [facility]. There are scattered areas of fibroglandular density. There is a biopsy clip in the right breast. There is a possible cluster of calcifications in the left breast central to the nipple middle depth. No other significant masses, calcifications, or other findings are seen in either breast. DIVISION OF RADIOLOGY Provider, [facility] - 03/10/2024 * * *Final Report* * * DATE OF EXAM: Mar 09 2024 11:27AM [facility] 0581 - RYLEE SCREENING / PROCEDURE REASON: multiple diagnoses * * * * Physician Interpretation * * * * RESULT: #[id number] - RYLEE SCREENING BILATERAL DIGITAL SCREENING MAMMOGRAM WITH CAD: 03/09/2024 HISTORY: /Screening Mammogram - patient reports NO breast symptoms /priors available for comparison Multiple Diagnoses. RESULT: TECHNIQUE: The study was acquired using full field digital technology and interpreted from soft copy. Current study was also evaluated with a Computer Aided Detection (CAD). Comparison is made to exams dated: 10/28/2022 mammogram, 10/25/2020 mammogram - [facility], and 04/05/2019 mammogram - [facility]. There are scattered areas of fibroglandular density. [...] Additional views are recommended. Olimpia Henao M.D., jr/penzack:03/10/2024 16:04:08 Operations Officer Afloat(s): RT Jermaine(Ella)(M), [facility] letter sent: Additional Imaging Needed Mammogram BI-RADS: Category 0: Incomplete: Need Additional Imaging Evaluation If this report indicates you need additional imaging, and it has NOT yet been performed, please call , to schedule. We sincerely thank you for choosing the [facility] for your breast imaging needs. Multiple national specialty organizations have released breast cancer screening guidelines for women at average risk for developing breast cancer - guidelines that are based on both evidence and opinion, yet differ on when to start and how often to screen for breast cancer. With representation from Breast Imaging, Internal Medicine, Women's Health, Family Medicine, and Medical/Surgical Oncology, the [facility] has carefully reviewed the data and reached [...] their providers when to stop screening mammograms. Day Treatment Clinician/Art Therapist: Yung Transcribe Date/Time: Mar 09 2024 11:17A Dictated by: OLIMPIA HENAO MD This examination was interpreted and the report reviewed and electronically signed by: OLIMPIA HENAO MD on Mar 10 2024 4:04PM EST [facility] MG Breast ScreeningOrdered B y: Ccf Provider on 03-10-2024 [facility] SCREENINGon 03-09-2024 [facility] SCREENING * * *Final Report* * * DATE OF EXAM: Mar 09 2024 11:27AM [facility] 0581 - [facility] SCREENING / PROCEDURE REASON: multiple diagnoses * * * * Physician Interpretation * * * * RESULT: #[id number] - [facility] SCREENING BILATERAL DIGITAL SCREENING MAMMOGRAM WITH CAD: 03/09/2024 HISTORY: /Screening Mammogram - patient reports NO breast symptoms /priors available for comparison Multiple Diagnoses. RESULT: TECHNIQUE: The study was acquired using full field digital technology and interpreted from soft copy. Current study was also evaluated with a Computer Aided Detection (CAD). Comparison is made to exams dated: 10/28/2022 mammogram, 10/25/2020 mammogram - [facility], and 04/05/2019 mammogram - [facility]. There are scattered areas of fibroglandular density. [...] are recommended. Olimpia Henao M.D., jr/yung:03/10/2024 16:04:08 Operations Officer Afloat(s): RT Jermaine(Ella)(M), [facility] letter sent: Additional Imaging Needed Mammogram BI-RADS: Category 0: Incomplete: Need Additional Imaging Evaluation If this report indicates you need additional imaging, and it has NOT yet been performed, please call , to schedule. We sincerely thank you for choosing the [facility] for your breast imaging needs. Multiple national specialty organizations have released breast cancer screening guidelines for women at average risk for developing breast cancer - guidelines that are based on both evidence and opinion, yet differ on when to start and how often to screen for breast cancer. With representation from Breast Imaging, Internal Medicine, Women's Health, Family Medicine, and Medical/Surgical Oncology, the [facility] has carefully reviewed the data and reached [...] their providers when to stop screening mammograms. Day Treatment Clinician/Art Therapist: Yung Transcribe Date/Time: Mar 09 2024 11:17A Dictated by: OLIMPIA HENAO MD This examination was interpreted and the report reviewed and electronically signed by: OLIMPIA HENAO MD on Mar 10 2024 4:04PM EST [id number] Normal [facility] Breast Screeningon 2023 Radiology Study observation (narrative) Naila bland [facility] 03-03-2024 MIGUEL Telephone (OBGYWM) LIZZETH BERRY ([id number]) 1955 F Date Time Provider Department 03/03/24 ROBE GARCIA During your visit today, we recorded the following information about you: Keri Fuller, AME 03/03/2024 2:36 PM Signed Patient requesting order [...] malignant neoplasm of breast [Z12.31] Order(s):RYLEE SCREENING [[id number]] Order #: [id number] FUTURE Prescriptions as of 03/03/2024 - vit C/vit E ac/lut/copper/zinc (PRESERVISION LUTEIN ORAL) Take by mouth. Meds Comments as of 01/03/2013: Yolis on hold January 03, 2013 Problem List As Of Date 03/03/2024 Noted Resolved Routine general medical examination at [facility]*02/04/2007 01/05/2012 Family history of cardiac arrest [Z82.49] 08/12/2012 Carpal tunnel syndrome of left wrist [G56.02] 01/03/2013 Encounter Status:Closed by KERI FULLER on 03/03/24 [facility] 12-29-2023 CNPN Telephone (INTMWS) LIZZETH BERRY ([id number]) 1955 F Date Time Provider Department 12/29/23 LARISA GUEVARA INTMWS During your visit today, we recorded the following information about you: Larisa Guevara, 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 Meds Comments as of 01/03/2013: Yolis on hold January 03, 2013 Problem List As Of Date 12/29/2023 Noted Resolved Routine general medical examination at [facility]*02/04/2007 01/05/2012 Family history of cardiac arrest [Z82.49] 08/12/2012 Carpal tunnel syndrome of left wrist [G56.02] 01/03/2013 Encounter Status:Closed by NILESH ANDERSON on 12/30/23 Normal [facility] Basophil percentageon 2021 Chloride [Moles/Vol] 106 mmol/L 98-107 [facility] Work Phone: Glucose [Mass/Vol] 150 mg/dL 74-106 [facility] Work Phone: Comment on above: Fasting Glucose resu lt greater than or equal to 126 mg/dL suggests DIABETES MELLITUS per A.D.A. criteria. Potassium [Moles/Vol] 3.9 mmol/L 3.5-5.1 [facility] Work Phone: Sodium [Moles/Vol] 139 mmol/L 136-145 [facility] Work Phone: WBC (Bld) [#/Vol] 15.3 10*3/uL 4.4-11.0 [facility] Work Phone: [phone] Blood erythrocytes count (nu mber/volume)on 08-07-2021 RBC (Bld) [#/Vol] 3.71 10*6/uL 4.2-5.4 [facility] Work Phone: [phone] Blood hemoglobin measurement (mass/volume)on 08-07-2021 Hemoglobin (Bld) [Mass/Vol] 9.9 g/dL 12.0-15.0 [facility] Work Phone: [phone] Blood platelet mean volumeon 08-07-2021 Platelet mean volume (Bld) [Entitic vol] 10.5 fL 6.2-12.0 [facility] Work Phone: [phone] Determination of erythrocyte mean corpuscular volume (MCV)on 08-07-2021 MCV (RBC) [Entitic vol] 82.5 fL 81-99 [facility] Work Phone: [phone] Hematocrit Auto (Bld) [Volum e fraction]on 08-07-2021 Hematocrit (Bld) [Volume fraction] 30.6 % 37-47 [facility] Work Phone: [phone] Laboratory - Chemistry and C hemistry - challengeon 08-07-2021 CO2 [Moles/Vol] 26.0 mmol/L 21.0-32.0 [facility] Work Phone: [phone] Urea nitrogen/Creatinine [Mass ratio] 16.3 mg/mg 10-20 [facility] Work Phone: [phone] Laboratory - Hematology and Cell countson 08-07-2021 Erythrocyte distribution width (RBC) [Entitic vol] 48.8 fL 35.1-43.9 [facility] Work Phone: [phone] Erythrocyte distribution width (RBC) [Ratio] 16.1 % 11.6-14.6 [facility] Work Phone: [phone] MCH (RBC) [Entitic mass] 26.7 pg 27.0-32.0 [facility] Work Phone: MCHC Auto (RBC) [Mass/Vol]on 08-07-2021 MCHC (RBC) [Mass/Vol] 32.4 g/dL 32-36 [facility] Work Phone: No Panel Informationon 08-07 Estimated Creatinine Clearance Calc 52.66 ml/min [facility] Work Phone: Estimated GFR (MDRD) Amer 78 mL/min >60 [facility] Work Phone: Comment on above: GFR Calc Estimated GFR (MDRD) Non-Af Amer 65 mL/min >60 [facility] Work Phone: Comment on above: Non- GFR Calc Platelets bldon 08-07-2021 Platelets (Bld) [#/Vol] 238 10*3/uL 150-450 [facility] Work Phone: Serum or plasma calcium raúl urement (mass/volume)on 08-07-2021 Calcium [Mass/Vol] 8.5 mg/dL 8.5-10.1 [facility] Work Phone: Serum or plasma creatinine m easurement (mass/volume)on 08-07-2021 Creatinine [Mass/Vol] 0.92 mg/dL 0.55-1.02 [facility] Work Phone: Comment on above: The validity of the calculated GFR & GFRAA in patients over 70 years has not been determined. Clinical correlation is essential. Serum or plasma urea nitroge n measurement (mass/volume)on 08-07-2021 Urea nitrogen [Mass/Vol] 15 mg/dL 7-18 [facility] Work Phone: Thin prep Papanicolaou smear with manual screeningon 08-07-2021 Thin prep Papanicolaou smear with manual screening 7 5-15 [facility] Work Phone: Glucose Glucometer (BldC) [M ass/Vol]on 08-06-2021 Glucose [Mass/Vol] 100 mg/dL 70-110 [facility] Work Phone: Comment on above: MANAGEMENT OF PATIEN T CARE PER NURSING PROTOCOL Absolute lymphocyte counton 07-26-2021 Lymphocytes Auto (Unsp spec) [#/Vol] 1.72 10*3/uL 0.83-4.51 [facility] Work Phone: Basophil percentageon 2021 Basophils/100 WBC (Bld) 0.9 % 0-1 [facility] Work Phone: Bilirubin [Mass/Vol] 0.40 mg/dL 0.20-1.00 [facility] Work Phone: Comment on above: For patients on eltr ombopag therapy, use of Dimension [place] TBIL is not recommended. Eosinophils/100 WBC (Bld) 1.2 % 0-5 [facility] Work Phone: Neutrophils (Bld) [#/Vol] 7.0 10*3/uL 2.0-7.7 [facility] Work Phone: Neutrophils/100 WBC (Bld) 73.0 % 47-70 [facility] Work Phone: Protein [Mass/Vol] 7.6 g/dL 6.4-8.2 [facility] Work Phone: Blood lymphocytes/100 leukoc yteson 07-26-2021 Lymphocytes/100 WBC (Bld) 18.0 % 19-41 [facility] Work Phone: Blood monocytes/100 leukocyt eson 07-26-2021 Monocytes/100 WBC (Bld) 6.7 % 0-10 [facility] Work Phone: Direct bilirubinon 2 Bilirubin.direct [Mass/Vol] 0.07 mg/dL 0.00-0.30 [facility] Work Phone: INR in Blood by Coagulation assayon 07-26-2021 INR Coag (Bld) [Relative time] 1.1 {INR} [facility] Work Phone: Laboratory - Chemistry and C hemistry - challengeon 07-26-2021 ALP [Catalytic activity/Vol] 99 U/L 45-117 [facility] Work Phone: [phone] ALT [Catalytic activity/Vol] 19 U/L 13-56 [facility] Work Phone: [phone] Globulin (S) [Mass/Vol] 4.0 g/dL 2.2-4.2 [facility] Work Phone: [phone] Magnesium [Mass/Vol] 2.4 mg/dL [facility] Work Phone: [phone] Comment on above: Performed at: [facility] [address] [id number] Director: Dawson Dwyer PhD, Phone: [phone] Laboratory - Coagulationon 0 07-26-2021 aPTT Coag (Bld) [Time] 31.0 s 24.1-36.2 [facility] Work Phone: [phone] PT Coag (PPP) [Time] 13.7 s 11.7-14.9 [facility] Work Phone: [phone] Laboratory - Hematology and Cell countson 07-26-2021 Immature granulocytes/100 WBC (Bld) 0.200 % 0.0-0.9 [facility] Work Phone: Comment on above: IG% - Immature Granu locytes (promyelocytes, myelocytes and metamyelocytes) > 1% indicates that a LEFT SHIFT is Present. Nucleated RBC/100 WBC (Bld) [Ratio] 0 % 0-5 [facility] Work Phone: [phone] No Panel Informationon 07-26 Fructosamine 205 umol/L [facility] Work Phone: [phone] Comment on above: Published reference interval for apparently healthysubjects between age 20 and 60 is 205 - 285 umol/L and in apoorly controlled diabetic population is 228 - 563 umol/Lwith a mean of 396 umol/L.Performed at: [facility] [address] [id number] Director: Dawson Dwyer PhD, Phone: [phone] Nasal Screen MRSA/MSSA [facility] Work Phone: Serum or plasma albumin raúl urement (mass/volume)on 07-26-2021 Albumin [Mass/Vol] 3.6 g/dL 3.2-5.0 [facility] Work Phone: Thin prep Papanicolaou smear with manual screeningon 07-26-2021 Thin prep Papanicolaou smear with manual screening 8 U/L 15-37 [facility] Work Phone: FOOT COMPLETE LTon FOOT COMPLETE LT [place] [id number] [place] [address] Patient: LIZZETH BERRY Phone#: : [phone] Age: 65 Gender: F Pt. Type: Out Account: [id number] Location: Ordering: MARLINE LARA Exam Date: 10/16/2020/9:14 Family Phys: Charge Code: [id number] Physician: [place] Order #: [id number] DLP Dose#: PROCEDURE: X-RAY FOOT LT COMPLETE [...] Love MD on 10/16/2020 at 15:01 Normal [facility] Vital Signs Date Time Vital Sign Value Performing Clinician Facility 01-02-2025 14:08-0400 Body height 162.[address] Raúl Rivas MD Work Phone: [facility] 01-02-2025 14:08-0400 Body temperature 98.2 [degF] Dr. Raúl Rivas MD Work Phone: [facility] 01-02-2025 14:08-0400 Diastolic blood pressure 83 mm[Hg] Dr. Raúl Rivas MD Work Phone: [phone] [place] [address] 01-02-2025 14:08-0400 Heart rate 97 /min Dr. Raúl Rivas MD Work Phone: [phone] [place] [address] 01-02-2025 14:08-0400 Respiratory rate 16 /min Dr. Raúl Rivas MD Work Phone: [phone] [place] [address] 01-02-2025 14:08-0400 SaO2% (BldA) [Mass fraction] 96 % Dr. Raúl Rivas MD Work Phone: [phone] [place] [address] 01-02-2025 14:08-0400 Systolic blood pressure 118 mm[Hg] Dr. Raúl Rivas MD Work Phone: [phone])636-962622 [place] [address] 01-01-2025 19:28-0400 Body temperature 98 [degF] Dr. Raúl Rivas MD Work Phone: [phone] [place] [address] 01-01-2025 19:28-0400 Diastolic blood pressure 61 mm[Hg] Dr. Raúl Rivas MD Work Phone: 0(689)490-237522 [place] [address] 01-01-2025 19:28-0400 Heart rate 80 /min Dr. Raúl Rivas MD Work Phone: 1(838)053-304722 [place] [address] 01-01-2025 19:28-0400 Respiratory rate 18 /min Dr. Raúl Rivas MD Work Phone: 7(585)515-666622 [place] [address] 01-01-2025 19:28-0400 SaO2% (BldA) [Mass fraction] 97 % Dr. Raúl Rivas MD Work Phone: [phone])909-218122 [place] [address] 01-01-2025 19:28-0400 Systolic blood pressure 112 mm[Hg] Dr. Raúl Rivas MD Work Phone: 3(459)999-192622 [place] [address] 01-01-2025 14:05-0400 Body height 162.[address] Raúl Rivas MD Work Phone: [phone])227-613622 [place] [address] 01-01-2025 14:05-0400 Body mass index (BMI) [Ratio] 29.6 kg/m2 Dr. Raúl Rivas MD Work Phone: 6(588)565-928522 [place] [address] 01-01-2025 14:05-0400 Body weight 78.[address] Raúl Rivas MD Work Phone: 1(403)456-725022 [place] [address] 12-28-2024 09:17-0400 Body height 162.[address] Raúl Rivas MD Work Phone: 9(038)506-741422 [place] [address] 12-28-2024 09:17-0400 Body mass index (BMI) [Ratio] 29.7 kg/m2 Dr. Raúl Rivas MD Work Phone: 9(638)288-354222 [place] [address] 12-28-2024 09:17-0400 Body temperature 97.8 [degF] Dr. Raúl Rivas MD Work Phone: 8(033)945-994222 [place] [address] 12-28-2024 09:17-0400 Body weight 78.[address] Raúl Rivas MD Work Phone: 0(123)726-168922 [place] [address] 12-28-2024 09:17-0400 Diastolic blood pressure 75 mm[Hg] Dr. Raúl Rivas MD Work Phone: 3(803)867-852622 [place] [address] 12-28-2024 09:17-0400 Heart rate 88 /min Dr. Raúl Rivas MD Work Phone: 4(035)233-347722 [place] [address] 12-28-2024 09:17-0400 Respiratory rate 16 /min Dr. Raúl Rivas MD Work Phone: 7(267)952-535122 [place] [address] 12-28-2024 09:17-0400 SaO2% (BldA) [Mass fraction] 94 % Dr. Raúl Rivas MD Work Phone: 7(241)843-793622 [place] [address] 12-28-2024 09:17-0400 Systolic blood pressure 118 mm[Hg] Dr. Raúl Rivas MD Work Phone: 7(829)261-587222 [place] [address] 12-21-2024 09:11-0400 Body temperature 97.4 [degF] Dr. Raúl Rivas MD Work Phone: 7(119)724-971122 [place] [address] 12-21-2024 09:11-0400 Diastolic blood pressure 72 mm[Hg] Dr. Raúl Rivas MD Work Phone: 8(441)485-747122 [place] [address] 12-21-2024 09:11-0400 Heart rate 69 /min Dr. Raúl Rivas MD Work Phone: 9(939)484-825822 [place] [address] 12-21-2024 09:11-0400 Respiratory rate 18 /min Dr. Raúl Rivas MD Work Phone: 4(979)084-256122 [place] [address] 12-21-2024 09:11-0400 SaO2% (BldA) [Mass fraction] 97 % Dr. Raúl Rivas MD Work Phone: 8(505)608-899122 [place] [address] 12-21-2024 09:11-0400 Systolic blood pressure 120 mm[Hg] Dr. Raúl Rivas MD Work Phone: 8(267)917-541122 [place] [address] 12-21-2024 08:45-0400 Inhaled oxygen flow rate 2 L/min Dr. Raúl Rivas MD Work Phone: 9(871)558-367222 [place] [address] 12-21-2024 06:32-0400 Body height 162.[address] Raúl Rivas MD Work Phone: 8(347)362-462322 [place] [address] 12-21-2024 06:32-0400 Body mass index (BMI) [Ratio] 29.6 kg/m2 Dr. Raúl Rivas MD Work Phone: 8(427)497-589622 [place] [address] 12-21-2024 06:32-0400 Body weight 78.[address] Raúl Rivas MD Work Phone: 8(943)082-403122 [place] [address] 12-16-2024 13:39-0400 Body height 162.[address] Raúl Rivas MD Work Phone: 5(513)078-220822 [place] [address] 12-16-2024 13:39-0400 Body mass index (BMI) [Ratio] 29.4 kg/m2 Dr. Raúl Rivas MD Work Phone: 7(015)053-437022 [place] [address] 12-16-2024 13:39-0400 Body temperature 96.6 [degF] Dr. Raúl Rivas MD Work Phone: 7(177)608-163922 [place] [address] 12-16-2024 13:39-0400 Body weight 77.[address] Raúl Rivas MD Work Phone: 9(774)305-863522 [place] [address] 12-16-2024 13:39-0400 Diastolic blood pressure 77 mm[Hg] Dr. Raúl Rivas MD Work Phone: 5(432)872-625822 [place] [address] 12-16-2024 13:39-0400 Heart rate 88 /min Dr. Raúl Rivas MD Work Phone: 9(063)362-402222 [place] [address] 12-16-2024 13:39-0400 Respiratory rate 17 /min Dr. Raúl Rivas MD Work Phone: 9(893)580-695122 [place] [address] 12-16-2024 13:39-0400 SaO2% (BldA) [Mass fraction] 94 % Dr. Raúl Rivas MD Work Phone: 3(438)806-113022 [place] [address] 12-16-2024 13:39-0400 Systolic blood pressure 118 mm[Hg] Dr. Raúl Rivas MD Work Phone: 1(703)572-569722 [place] [address] 12-08-2024 15:00-0400 Body height 163.[address] Raúl Rivas MD Work Phone: 5(225)311-154722 [place] [address] 12-08-2024 15:00-0400 Body mass index (BMI) [Ratio] 29.4 kg/m2 Dr. Raúl Rivas MD Work Phone: 5(437)378-200322 [place] [address] 12-08-2024 15:00-0400 Body temperature 98.2 [degF] Dr. Raúl Rivas MD Work Phone: 9(026)251-137922 [place] [address] 12-08-2024 15:00-0400 Body weight 78.[address] Raúl Rivas MD Work Phone: 9(816)184-147522 [place] [address] 12-08-2024 15:00-0400 Diastolic blood pressure 75 mm[Hg] Dr. Raúl Rivas MD Work Phone: 4(819)073-795922 [place] [address] 12-08-2024 15:00-0400 Heart rate 84 /min Dr. Raúl Rivas MD Work Phone: 4(495)893-083722 [place] [address] 12-08-2024 15:00-0400 Respiratory rate 18 /min Dr. Raúl Rivas MD Work Phone: 9(752)778-041622 [place] [address] 12-08-2024 15:00-0400 SaO2% (BldA) [Mass fraction] 93 % Dr. Raúl Rivas MD Work Phone: 9(330)848-120622 [place] [address] 12-08-2024 15:00-0400 Systolic blood pressure 114 mm[Hg] Dr. Raúl Rivas MD Work Phone: 5(147)172-117522 [place] [address] 12-07-2024 15:48-0400 Body height 163.[address] Raúl Rivas MD Work Phone: 1(245)427-071622 [place] [address] 12-07-2024 15:48-0400 Body mass index (BMI) [Ratio] 29.4 kg/m2 Dr. Raúl Rivas MD Work Phone: 2(208)157-505922 [place] [address] 12-07-2024 15:48-0400 Body temperature 98 [degF] Dr. Raúl Rivas MD Work Phone: 6(041)522-700722 [place] [address] 12-07-2024 15:48-0400 Body weight 78.[address] Raúl Rivas MD Work Phone: 6(635)677-967622 [place] [address] 12-07-2024 15:48-0400 Diastolic blood pressure 81 mm[Hg] Dr. Raúl Rivas MD Work Phone: 4(242)698-467022 [place] [address] 12-07-2024 15:48-0400 Heart rate 88 /min Dr. Raúl Rivas MD Work Phone: 4(147)388-925122 [place] [address] 12-07-2024 15:48-0400 Respiratory rate 16 /min Dr. Raúl Rivas MD Work Phone: 8(271)693-041822 [place] [address] 12-07-2024 15:48-0400 SaO2% (BldA) [Mass fraction] 93 % Dr. Raúl Rivas MD Work Phone: 2(298)172-439891 [place] [address] 12-07-2024 15:48-0400 Systolic blood pressure 123 mm[Hg] Dr. Raúl Rivas MD Work Phone: 5(721)079-177222 [place] [address] 12-01-2024 11:01-0400 Body height 163.[address] Raúl Rivas MD Work Phone: 1(793)702-968622 [place] [address] 12-01-2024 11:01-0400 Body mass index (BMI) [Ratio] 29.5 kg/m2 Dr. Raúl Rivas MD Work Phone: 0(286)580-413622 [place] [address] 12-01-2024 11:01-0400 Body temperature 97.5 [degF] Dr. Raúl Rivas MD Work Phone: 6(973)221-801322 [place] [address] 12-01-2024 11:01-0400 Body weight 79.[address] Raúl Rivas MD Work Phone: 5(345)993-968122 [place] [address] 12-01-2024 11:01-0400 Diastolic blood pressure 82 mm[Hg] Dr. Raúl Rivas MD Work Phone: 9(973)659-339822 [place] [address] 12-01-2024 11:01-0400 Heart rate 110 /min Dr. Raúl Rivas MD Work Phone: 3(373)222-602522 [place] [address] 12-01-2024 11:01-0400 Respiratory rate 16 /min Dr. Raúl Rivas MD Work Phone: 1(765)590-630122 [place] [address] 12-01-2024 11:01-0400 SaO2% (BldA) [Mass fraction] 97 % Dr. Raúl Rivas MD Work Phone: 3(998)690-879322 [place] [address] 12-01-2024 11:01-0400 Systolic blood pressure 120 mm[Hg] Dr. Raúl Rivas MD Work Phone: 4(077)947-049722 [place] [address] 11-29-2024 11:20-0400 Body temperature 97.8 [degF] Dr. Raúl Rivas MD Work Phone: 2(902)824-056122 [place] [address] 11-29-2024 11:20-0400 Diastolic blood pressure 87 mm[Hg] Dr. Raúl Rivas MD Work Phone: 4(184)669-679922 [place] [address] 11-29-2024 11:20-0400 Heart rate 90 /min Dr. Raúl Rivas MD Work Phone: 5(762)337-319522 [place] [address] 11-29-2024 11:20-0400 Respiratory rate 18 /min Dr. Raúl Rivas MD Work Phone: 5(111)951-534022 [place] [address] 11-29-2024 11:20-0400 SaO2% (BldA) [Mass fraction] 94 % Dr. Raúl Rivas MD Work Phone: 6(543)157-227822 [place] [address] 11-29-2024 11:20-0400 Systolic blood pressure 129 mm[Hg] Dr. Raúl Rivas MD Work Phone: 2(439)549-238722 [place] [address] 11-29-2024 10:31-0400 Inhaled oxygen flow rate 2 L/min Dr. Raúl Rivas MD Work Phone: 0(263)387-097422 [place] [address] 11-29-2024 09:27-0400 Body mass index (BMI) [Ratio] 29.9 kg/m2 Dr. Raúl Rivas MD Work Phone: 7(616)950-713622 [place] [address] 11-29-2024 09:27-0400 Body weight 80.[address] Raúl Rivas MD Work Phone: 7(833)585-270322 [place] [address] 11-17-2024 16:26-0400 Body mass index (BMI) [Ratio] 29.9 kg/m2 Dr. Raúl Rivas MD Work Phone: 7(919)202-846822 [place] [address] 11-17-2024 15:08-0400 Body height 163.[address] Raúl Rivas MD Work Phone: 8(529)328-079822 [place] [address] 11-17-2024 15:08-0400 Body temperature 97.9 [degF] Dr. Raúl Rivas MD Work Phone: 8(285)969-080691 [place] [address] 11-17-2024 15:08-0400 Body weight 80.[address] Raúl Rivas MD Work Phone: 2(428)795-685191 [place] [address] 11-17-2024 15:08-0400 Diastolic blood pressure 85 mm[Hg] Dr. Raúl Rivas MD Work Phone: 0(209)688-129322 [place] [address] 11-17-2024 15:08-0400 Heart rate 105 /min Dr. Raúl Rivas MD Work Phone: 9(512)687-337922 [place] [address] 11-17-2024 15:08-0400 Respiratory rate 8 /min Dr. Raúl Rivas MD Work Phone: 0(221)229-276022 [place] [address] 11-17-2024 15:08-0400 SaO2% (BldA) [Mass fraction] 96 % Dr. Raúl Rivas MD Work Phone: 5(125)836-605622 [place] [address] 11-17-2024 15:08-0400 Systolic blood pressure 137 mm[Hg] Dr. Raúl Rivas MD Work Phone: 5(300)544-364822 [place] [address] 09-23-2024 08:39-0400 Body height 162.[address] Raúl Rivas MD Work Phone: 1(270)308-649822 [place] [address] 09-23-2024 08:39-0400 Body mass index (BMI) [Ratio] 32.8 kg/m2 Dr. Raúl Rivas MD Work Phone: 4(738)963-028522 [place] [address] 09-23-2024 08:39-0400 Body temperature 96.7 [degF] Dr. Raúl Rivas MD Work Phone: 7(070)155-779322 [place] [address] 09-23-2024 08:39-0400 Body weight 86.[address] Raúl Rivas MD Work Phone: 6(662)940-635222 [place] [address] 09-23-2024 08:39-0400 Diastolic blood pressure 82 mm[Hg] Dr. Raúl Rivas MD Work Phone: 8(921)275-459422 [place] [address] 09-23-2024 08:39-0400 Heart rate 94 /min Dr. Raúl Rivas MD Work Phone: 6(113)710-155122 [place] [address] 09-23-2024 08:39-0400 Respiratory rate 16 /min Dr. Raúl Rivas MD Work Phone: [facility] 09-23-2024 08:39-0400 SaO2% (BldA) [Mass fraction] 98 % Dr. Raúl Rivas MD Work Phone: [facility] 09-23-2024 08:39-0400 Systolic blood pressure 120 mm[Hg] Dr. Raúl Rivas MD Work Phone: [facility] 05-02-2024 13:51-0500 Body height 165.1 cm Ramone Mcmahon MD Work Phone: [facility] 05-02-2024 13:51-0500 Body mass index (BMI) [Ratio] 34.91 kg/m2 Ramone Mcmahon MD Work Phone: [facility] 05-02-2024 13:51-0500 Body temperature 97.11 [degF] Ramone Mcmahon MD Work Phone: [facility] 05-02-2024 13:51-0500 Body weight 95.17 kg Ramone Mcmahon MD Work Phone: [facility] 05-02-2024 13:51-0500 Diastolic blood pressure 81 mm[Hg] Ramone Mcmahon MD Work Phone: [facility] 05-02-2024 13:51-0500 Heart rate 103 /min Ramone Mcmahon MD Work Phone: [facility] 05-02-2024 13:51-0500 SaO2% (BldA) [Mass fraction] 98 % Ramone Mcmahon MD Work Phone: [facility] 05-02-2024 13:51-0500 Systolic blood pressure 118 mm[Hg] Ramone Mcmahon MD Work Phone: [facility] 08-07-2021 07:10-0500 SaO2% (BldA) [Mass fraction] 98 % Dr. Aly Lujan Work Phone: [facility] Work Phone: 08-07-2021 06:53-0500 Body temperature 97.9 [degF] Dr. Aly Lujan Work Phone: [facility] Work Phone: 08-07-2021 06:53-0500 Diastolic blood pressure 64 mm[Hg] Dr. Aly Lujan Work Phone: [facility] Work Phone: 08-07-2021 06:53-0500 Heart rate 58 /min Dr. Aly Lujan Work Phone: [facility] Work Phone: 08-07-2021 06:53-0500 Respiratory rate 14 /min Dr. Aly Lujan Work Phone: [facility] Work Phone: 08-07-2021 06:53-0500 Systolic blood pressure 115 mm[Hg] Dr. Aly Lujan Work Phone: [facility] Work Phone: 08-06-2021 10:54-0500 Body height 166.[address] Aly Lujan Work Phone: [facility] Work Phone: 08-06-2021 10:54-0500 Body mass index (BMI) [Ratio] 33.7 kg/m2 Dr. Aly Lujan Work Phone: [facility] Work Phone: 08-06-2021 10:54-0500 Body weight 93.[address] Aly Lujan Work Phone: [facility] Work Phone: 06-26-2021 08:29-0500 Body mass index (BMI) [Ratio] 34.2 kg/m2 Dr. Aly Lujan Work Phone: [facility] Work Phone: 06-26-2021 08:29-0500 Body weight 94.[address] Aly Lujan Work Phone: [facility] Work Phone: Encounters Encounter Date Encounter Type Care Provider Facility Start: 01-02-2025 End: 01-02-[address] Raúl Rivas MD Work Phone: -[facility] Start: 01-02-2025 End: 01-02-2025 Patient encounter procedure Magalie Millie PODIATRY PROFESSOR-C -[facility] Work Phone: Start: 01-01-2025 End: 01-01-2025 Emergency department patient visit Dr. Raúl Rivas MD Work Phone: -Emergency Department Work Phone: Start: 12-30-2024 ambulatory [facility] Facility :[facility] Start: 12-30-[address] Clifford Funez MD -[facility] Start: 12-28-2024 End: 12-28-[address] Ramona Funez MD -[facility] Work Phone: Start: 12-28-2024 End: 12-28-[address] Raúl Rivas MD Work Phone: -[facility] Start: 12-28-[address] Clifford Funez MD -[facility] Start: 12-21-2024 ambulatory Tera Clay Facility [facility] Start: 12-21-2024 Non-patient / Non-visit Dr. Suzy COTTO -[facility] Start: 12-21-2024 End: 12-21-2024 Admission to same day surgery center Dr. Trea Clay MD [facility] Start: 12-21-2024 End: 12-21-[address] Raúl Rivas MD Work Phone: [facility] Start: 12-16-2024 End: 12-16-[address] Tera Clay MD -[facility] Work Phone: Start: 12-16-2024 End: 12-16-[address] Raúl Rivas MD Work Phone: -[facility] Start: 12-08-2024 End: 12-08-2024 Patient encounter procedure Magalie BrooksMillie NP-C -[facility] Work Phone: Start: 12-08-2024 End: 12-08-[address] Raúl Rivas MD Work Phone: [facility] Work Phone: Start: 12-07-2024 End: 12-07-[address] Ramona Funez MD -[facility] Work Phone: Start: 12-07-2024 End: 12-07-[address] Raúl Rivas MD Work Phone: [facility] Work Phone: Start: 12-02-2024 Encounter for other preprocedural examination [facility] Start: 12-01-2024 End: 12-01-[address] Diya George MD -[facility] Work Phone: Start: 12-01-2024 End: 12-01-[address] Raúl Rivas MD Work Phone: [facility] Work Phone: Start: 11-30-2024 End: 11-30-[address] Raúl Rivas MD Work Phone: [facility] Work Phone: Start: 11-30-2024 End: 11-30-[address] Ramona Funez MD -Nuclear Medicine [facility] Work Phone: Start: 11-29-2024 End: 11-30-[address] Raúl Rivas MD Work Phone: [facility] Work Phone: Start: 11-29-2024 End: 11-29-[address] Ramona Funez MD -Cat Scan [facility] Work Phone: Start: 11-29-2024 End: 11-29-2024 ambulatory Diya Ariel Facility:[facility] Start: 11-23-2024 Non-patient / Non-visit Evelyn Vela -[facility] Work Phone: Start: 11-23-2024 [facility] Start: 11-17-2024 End: 11-17-[address] Ramona Funez MD -[facility] Work Phone: Start: 11-17-2024 End: 11-17-[address] Raúl Rivas MD Work Phone: [facility] Work Phone: Start: 11-17-[address] Clifford Funez MD -[facility] Start: 11-11-2024 End: 11-11-[address] Raúl Rivas MD Work Phone: [facility] Work Phone: Start: 11-11-2024 End: 11-11-[address] Dawson Herman MD -Cat Scan [facility] Work Phone: Start: 11-11-2024 End: 11-11-2024 ambulatory Diya Hollywood Facility:[facility] Start: 10-26-2024 End: 10-26-[address] Raúl Rivas MD Work Phone: [facility] Work Phone: Start: 10-26-2024 End: 10-26-[address] Diya George MD -Laboratory, [facility] Start: 10-26-2024 End: 10-26-2024 ambulatory Diya Hollywood Facility:[facility] Start: 10-11-2024 End: 10-11-[address] Diya George MD -Laboratory, [facility] Start: 10-11-2024 End: 10-11-2024 ambulatory Diya George Facility:[facility] Start: 09-28-2024 Encounter for genera l adult medical examination without abnormal findings Adria Orosco [facility] Start: 09-26-2024 Non-patient / Non-visit Dr. Andi COTTO -[facility] Start: 09-26-2024 ambulatory Diya George Facility :[facility] Start: 09-26-2024 End: 09-26-[address] Raúl Rivas MD Work Phone: [facility] Work Phone: Start: 09-26-2024 End: 09-26-2024 Patient encounter procedure Adria MADISON -Laboratory, Specimen Work Phone: Start: 09-26-2024 End: 09-26-2024 ambulatory Adria Orosco Facility:[facility] Start: 09-23-2024 End: 09-23-[address] Raúl Rivas MD Work Phone: [facility] Work Phone: Start: 09-23-2024 End: 09-23-2024 Patient encounter procedure Adria MADISON -Laboratory, [facility] Start: 09-23-[address] Brian Rivas MD Work Phone: [facility] Start: 09-23-2024 End: 09-23-2024 Patient encounter procedure Adria MADISON -[facility] Work Phone: Start: 09-23-2024 End: 09-23-2024 ambulatory Raúl Rivas Facility:[facility] Start: 09-23-2024 End: 09-23-2024 ambulatory Adria Orosco Facility:[facility] Start: 05-24-2024 End: 05-24-2024 Telephone encounter Carolyn Morgan RN Work Phone: Mammography Comment on above: Results Start: 05-18-2024 ambulatory UNKNOWN PROVIDER Facili ty:[facility] Start: 05-18-2024 End: 05-18-2024 Subsequent hospital [...] Start: 05-02-2024 End: 05-02-2024 ambulatory RAMONE MCMAHON Facility:[facility] Start: 05-02-2024 End: 05-02-2024 Patient encounter procedure Ramone Mcmahon MD Work Phone: General Surgery Comment on above: Microcalcification o f left breast on mammogram (Primary Dx) Start: 04-20-2024 End: 04-20-2024 [facility] Start: 04-20-2024 End: 04-20-2024 Subsequent hospital visit by physician Diagnostic Mammo [facility] Start: 03-11-2024 End: 03-11-2024 Telephone encounter Olimpia Henao MD Work Phone: Mammography Comment on above: Mammogram Result Jack l Back Start: 03-10-2024 End: 03-11-2024 Documentation procedure Mammography Coordinator [facility] Start: 03-10-2024 End: 03-11-2024 Letter encounter Mammography Coordinator [facility] Start: 03-10-2024 End: 03-11-2024 Telephone encounter Robe Garcia MD Work Phone: OB/Gynecology Comment on above: Results Start: 03-09-2024 End: 03-09-2024 ambulatory ROBE GARCIA Facility:[facility] Start: 03-09-2024 End: 03-09-2024 Subsequent hospital visit by physician Screen Mammo [facility] Comment on above: Breast screening [Z1 2.39] Start: 03-03-2024 End: 03-03-2024 Telephone encounter Robe Garcia MD Work Phone: OB/Gynecology Comment on above: Orders Start: 12-29-2023 Telephone encounter Larisa Josh kee APRN.PARATRANSIT OPERATOR Work Phone: Internal Medicine [place] Comment on above: Appointment Start: 12-03-2022 ambulatory Jammie Desouza ya [facility] Comment on above: Population Health Na vigation Outreach (ACO No PCP list) Start: 10-29-2022 Documentation procedure Mammog imelda Coordinator [facility] Start: 10-29-2022 Letter encounter Mammography Coordinator [facility] Start: 09-25-2021 End: 09-25-[address] [facility] Start: 09-16-2021 End: 09-16-[address] Aly Lujan Work Phone: [facility] Start: 08-19-2021 End: 08-19-[address] Aly Lujan Work Phone: [facility] Start: 08-07-2021 Non-patient / Non-visit Dr. Maya Lujan Work Phone: [facility] Start: 08-06-2021 End: 08-07-2021 Evaluation and management of inpatient Dr. Aly Lujan [facility] Start: 08-06-2021 Non-patient / Non-visit Dr. Maya Lujan Work Phone: [facility] Start: 07-26-2021 End: 07-26-[address] Aly Lujan Work Phone: [facility] Start: 07-26-2021 Non-patient / Non-visit Dr. Maya Lujan Work Phone: [facility] Start: 07-18-2021 End: 07-18-[address] Aly Lujan Work Phone: [facility] Start: 06-26-2021 End: 06-26-[address] Aly Lujan Work Phone: [facility] Start: 10-16-2020 End: 10-16-2020 ambulatory MARLINE DPM [facility] Start: 02-04-2007 End: 01-05-2012 Patient encounter status Larisa Guevara INBOUND SALES MANAGER.PARATRANSIT OPERATOR Work Phone: [facility] Work Phone: Procedures Date Procedure Procedure Detail Performing Clinician Start: 01-01-2025 Computed tomography of abdomen and pelvis with intravenous contrast Dr. Raúl Rivas MD Work Phone: Start: 01-01-[address] Raúl Rivas MD Work Phone: Start: 12-28-[address] Raúl [...] panel - S caterina or Plasma Larisa Guevara APRN.CNP Work Phone: Plan of Treatment Date Care Activity Detail Author Start: 04-08-2030 Urine microalbumin profile [facility] Start: 2028 RSV Vaccine (1 - 1-dose 75+ series) RSV Vaccine (1 - 1-dose 75+ series) [facility] Start: 03-01-2028 Colonoscopy COLONOSCOPY [facility] Start: 03-01-2028 COLORECTAL CANCER SCREENING COLORECTAL CANCER SCREENING [facility] Start: 03-01-2028 Screening for malignant neoplasm of colon [facility] Start: 03-09-2025 Screening for malignant neoplasm of breast Mammogram Screening [facility] Start: 01-02-2025 Basic metabolic 2008 panel with ionized calcium - Serum or Plasma [facility] Start: 01-02-2025 CBC W Auto Differential panel - Blood [facility] Start: 01-02-2025 Magnesium measurement [facility] Start: 01-02-2025 Serum inorganic phosphate measurement [facility] Start: 01-02-2025 [facility] Start: 01-01-2025 US.doppler Lower extremity vein [facility] Start: 01-01-2025 Chemotherapy care management [facility] Start: 12-28-2024 [facility] Start: 12-28-2024 Venous catheter care management [facility] Start: 12-28-2024 Vital signs measurements [facility] Start: 12-21-2024 Anesthesia access central venous circulation ANESTH VASCULAR ACCESS [facility] Start: 12-21-2024 Insj tunneled ctr vad w/subq port age 3 yr/> INSERT TUNNELED CV CATH [facility] Start: 12-21-2024 Patient discharge [facility] Start: 11-30-2024 NM Whole body Bone Views [facility] Start: 11-30-2024 Radionuclide whole body bone study Bone Scan Whole Body [facility] Start: 11-29-2024 Biopsy liver needle percutaneous NEEDLE BIOPSY OF LIVER PERQ [facility] Start: 11-29-2024 Following clinical pathway protocol [facility] Start: 11-29-2024 Catheterization of vein [facility] Start: 11-29-2024 Oxygen therapy [facility] Start: 11-29-2024 Patient discharge [facility] Start: 11-29-2024 Vital signs measurements [facility] Start: 11-17-2024 Lactate dehydrogenase measurement [facility] Start: 11-17-2024 [facility] Start: 11-17-2024 Patient referral [facility] Work Phone: Start: 09-26-2024 Patient referral [facility] Work Phone: Start: 08-01-2024 DIABETES SCREEN DIABETES SCREEN [facility] Start: 08-01-2024 Diabetes Screening Diabetes Screening [facility] Start: 05-18-2024 End: 05-18-2024 Patient encounter procedure 05/18/2024 10:00 AM EST Appointment Mammography [address], [place] [id number] lt breast stereo upright Mammography Comment on above: lt breast stereo upright Start: 05-02-2024 End: 05-02-2024 Patient encounter procedure 05/02/2024 2:00 PM EST Office Visit General Surgery [address] [place] [address] Ramone Mcmahon MD [address] [place] [address] LT STEROTACTIC BIOPSY CONSULT General Surgery Comment on above: LT STEROTACTIC BIOPSY CONSULT Start: 04-20-2024 End: 04-20-2024 Patient encounter procedure Mammogram Comment on above: RYLEE DIAGNOSTIC LEFT CB PER JR US BREAST LTD LEFT C B PER JR Start: 03-09-2024 End: 03-09-2024 Patient encounter procedure 03/09/2024 11:30 AM EDT Appointment Mammogram [address] [place] [address] mamm screening Mammogram Comment on above: mamm screening Start: 02-21-2024 Covid-19 Vaccine () Covid-19 Vaccine () [facility] Start: 02-21-2024 Covid-19 Vaccine () Covid-19 Vaccine ( season) [facility] Start: 02-21-2024 Influenza vaccination Influenza Vaccine (#1) [facility] Start: 10-29-2023 Mammography MAMMOGRAM [facility] Start: 10-29-2023 Screening for malignant neoplasm of breast Mammogram Screening [facility] Start: 06-22-2023 Advance Directive Discussion Advance Directive Discussion [facility] Start: 06-22-2023 Behavioral Health Screening Behavioral Health Screening [facility] Start: 02-20-2023 Covid-19 Vaccine () Covid-19 Vaccine () [facility] Start: 06-22-2022 ADVANCE DIRECTIVE DISCUSSION ADVANCE DIRECTIVE DISCUSSION [facility] Start: 06-22-2022 DEPRESSION ASSESSMENT DEPRESSION ASSESSMENT [facility] Start: 02-09-2022 Lipid panel Lipid Screening [facility] Start: 02-09-2022 LIPID SCREEN LIPID SCREEN [facility] Start: 08-06-2021 Anesth open/surg arthrs total knee arthroplasty ANESTH KNEE ARTHROPLASTY [facility] Work Phone: Start: 08-06-2021 Arthrp kne condyle&platu medial&lat compartments TOTAL KNEE ARTHROPLASTY [facility] Work Phone: Start: 08-06-2021 Injection aa&/strd femoral nerve NJX AA&/STRD FEMORAL NERVE [facility] Work Phone: Start: 2013 RSV Vaccine (1 - 1-dose 60+ series) RSV Vaccine (1 - 1-dose 60+ series) [facility] Start: 1998 COLOGUARD (FIT-DNA) COLOGUARD (FIT-DNA) [facility] Start: [address] COLONOGRAPHY [facility] Start: 1998 FECAL OCCULT BLOOD FECAL OCCULT BLOOD [facility] Start: 1998 Screening for malignant neoplasm of colon [facility] Start: 1998 SIGMOIDOSCOPY SIGMOIDOSCOPY [facility] Start: 1971 Anxiety Screening Anxiety Screening [facility] Start: 1971 Depression Screening Depression Screening [facility] Anion gap in Serum o r Plasma [facility] Basic metabolic 2008 panel with ionized calcium - Serum or Plasma [facility] BUN/Creatinine ratio [facility] Calcium [Mass/volume ] in Serum or Plasma [facility] Carbon dioxide, tota l [Moles/volume] in Central venous blood [facility] CBC W Auto Different ial panel - Blood [facility] Creatinine [Mass/vol ume] in Serum or Plasma [facility] CT Chest W contrast IV [facility] Erythrocyte mean corpuscular volume determination [facility] Folate [Moles/volume ] in Serum or Plasma [facility] Glucose [Mass/volume ] in Serum or Plasma [facility] Hematocrit [Volume Fraction] of Blood [facility] Hemoglobin [Mass/vol ume] in Blood [facility] Leukocytes [#/volume ] in Blood [facility] Magnesium measurement [facility] Mean corpuscular hemoglobin concentration determination [facility] Mean corpuscular hemoglobin determination [facility] Measurement of renal function [facility] End: 2025 MG Breast - left Diagnostic for implant RYLEE DIAGNOSTIC LEFT Radiology Routine Abnormal screening mammogram 1 Occurrences starting 03/10/2024 until 2025 [facility] Comment on above: 1 Occurrences starting 03/10/2024 until 2025 End: 04-02-2025 MG Breast Screening RYLEE SCREENING Radiology Routine Breast screening Encounter for screening mammogram for malignant neoplasm of breast 1 Occurrences starting 03/03/2024 until 04/02/2025 [facility] Work Phone: Comment on above: 1 Occurrences starting 03/03/2024 until 04/02/2025 End: 06-03-2025 MG stereo Guidance for biopsy of Breast - left RYLEE STEREO BX BREAST LEFT Radiology Routine Breast disorder 1 Occurrences starting 05/04/2024 until 06/03/2025 [facility] Work Phone: Comment on above: 1 Occurrences starting 05/04/2024 until 06/03/2025 End: 06-01-2025 MG stereo Guidance for biopsy of Breast - left RYLEE STEREO BX BREAST LEFT Radiology Routine Microcalcification of left breast on mammogram 1 Occurrences starting 05/02/2024 until 06/01/2025 [facility] Work Phone: Comment on above: 1 Occurrences starting 05/02/2024 until 06/01/2025 Neutrophil count [facility] Neutrophil percent differential count [facility] NM Whole body Bone Views [facility] Patient Education [facility] Work Phone: Patient referral [facility] Work Phone: Platelets [#/volume] in Blood [facility] Potassium measurement [facility] Red blood cell count [facility] Red cell distributio n width determination [facility] Serum chloride measurement [facility] Serum inorganic phosphate measurement [facility] Sodium measurement [facility] SURGICAL PATHOLOGY [facility] Work Phone: Comment on above: Release Upon Ordering for 1 Occurrences starting 05/18/2024, 1 completed Urea nitrogen [Mass/volume] in Serum or Plasma [facility] End: 2025 US Breast - left limited US BREAST LTD LEFT Radiology Routine Abnormal screening mammogram 1 Occurrences starting 03/10/2024 until 2025 [facility] Work Phone: Comment on above: 1 Occurrences starting 03/10/2024 until 2025 [facility] Immunizations Immunization Date Immunization Notes Care Provider [facility] 03-09-2024 Pfizer Covid-19 (Comirnaty) Dr. Raúl Rivas MD Work Phone: [facility] 2023 influenza, injectabl e, quadrivalent, preservative free Dr. Raúl Rivas MD Work Phone: [facility] 2023 Pfizer Covid-19 (Comirnaty) Dr. Raúl Rivas MD Work Phone: [facility] 2023 influenza virus vaccine, unspecified formulation Screen Wstr [facility] 03-27-2022 Influenza High-Dose Quadrivalent Dr. Raúl Rivas MD Work Phone: [facility] 03-27-2022 influenza, high dose seasonal, preservative-free Mammography Coordinator [facility] 03-27-2022 influenza virus vaccine, unspecified formulation Larisa Guevara APRN.CNP Work Phone: [facility] 03-23-2022 Covid Pfizer Bivalen t Booster Dr. Raúl Rivas MD Work Phone: [facility] 04-19-2021 Covid (Pfizer) Dr. Raúl tee MD Work Phone: [facility] 04-10-2021 influenza, injectabl e, quadrivalent, preservative free Dr. Raúl Rivas MD Work Phone: [facility] 09-05-2020 Covid (Pfizer) Dr. Raúl tee MD Work Phone: [facility] 08-16-2020 Covid (Pfizer) Dr. Raúl tee MD Work Phone: [facility] 04-08-2020 Influenza High-Dose Quadrivalent Dr. Raúl Rivas MD Work Phone: [facility] 04-08-2020 influenza, high dose seasonal, preservative-free Mammography Coordinator [facility] 04-08-2020 pneumococcal polysaccharide vaccine, 23 valent Mammography Coordinator [facility] 04-08-2020 tetanus toxoid, redu sebastián diphtheria toxoid, and acellular pertussis vaccine, adsorbed Mammography Coordinator [facility] 08-05-2019 zoster vaccine recombinant Mammography Coordinator [facility] 04-06-2019 influenza, high dose seasonal, preservative-free Mammography Coordinator [facility] 04-06-2019 pneumococcal conjuga te vaccine, 13 valent Mammography Coordinator [facility] 04-06-2019 zoster vaccine recombinant Mammography Coordinator [facility] 03-25-2018 influenza, injectabl e, quadrivalent, preservative free Dr. Raúl Rivas MD Work Phone: [facility] 03-25-2018 influenza, seasonal, injectable Mammography Coordinator [facility] 04-03-2017 influenza, injectabl e, quadrivalent, preservative free Dr. Raúl Rivas MD Work Phone: [facility] 04-01-2016 influenza, injectabl e, quadrivalent, contains preservative Mammography Coordinator [facility] Work Phone: 04-01-2016 influenza, injectabl e, quadrivalent, preservative free Dr. Raúl Rivas MD Work Phone: [facility] 03-24-2015 influenza, injectabl e, quadrivalent, preservative free Dr. Raúl Rivas MD Work Phone: [facility] 03-24-2015 influenza, seasonal, injectable Mammography Coordinator [facility] Work Phone: 04-03-2014 influenza, injectabl e, quadrivalent, preservative free Dr. Raúl Rivas MD Work Phone: [facility] 04-03-2014 influenza, seasonal, injectable Mammography Coordinator [facility] 04-13-2013 zoster vaccine, live Mammogr aphy Coordinator [facility] 04-16-2009 novel [id number], preservative-free, injectable Dr. Raúl Rivas MD Work Phone: [facility] Payers Date Payer Category Payer Self-pay [id number] 2018 Medicare MEDICARE MEDICAR E A AND B [id number] 2018-Present [phone] [address] [address] [place] [address] Medicare [id number] 2018 Unknown ANTHEM ANTHEM ME DICARE SUPPLEMENT [id number] 2018-Present [phone] [address] [place] [address] Indemnity [id number] 2018 Medicare [id number] 2018 Medicare [id number] 1955 Unknown [id number] Unknown UHC *DO NOT USE* [id number] Unknown UHC *DO NOT USE* [id number] Unknown [id number] [id number] Unknown [id number] 2.16.840.1.269213.3.579.2.462 Unknown [id number] 2.16.840.1.516012.3.579.2.462 Unknown [id number] 2.16.840.1.291469.3.579.2.462 Unknown [id number] 2.16.840.1.307165.3.579.2.462 Unknown [id number] 2.16.840.1.009679.3.579.2.462 Unknown [id number] 2.16.840.1.238652.3.579.2.462 Unknown [id number] 2.16.840.1.109129.3.579.2.462 Unknown [id number] 2.16.840.1.026216.3.579.2.462 Unknown [id number] 2.16.840.1.042997.3.579.2.462 Unknown [id number] 2.16.840.1.832595.3.579.2.462 Unknown [id number] 2.16.840.1.035102.3.579.2.462 Unknown [id number] 2.16.840.1.516444.3.579.2.462 Unknown [id number] 2.16.840.1.191688.3.579.2.462 Unknown [id number] 2.16.840.1.515572.3.579.2.462 Unknown [id number] 2.16.840.1.827652.3.579.2.462 Unknown [id number] 2.16.840.1.725544.3.579.2.462 Unknown [id number] 2.16.840.1.111980.3.579.2.462 Unknown [id number] 2.16.840.1.462587.3.579.2.462 Social History Date Type Detail Facility [facility] Work Phone: Start: 09-16-2021 Tobacco smoking stat us NHIS Unknown if ever smoked [facility] Work Phone: Start: 1955 Sex Assigned At Female W [facility] Start: 01-05-2012 End: 01-01-2025 Tobacco smoking status NHIS Never smoked tobacco [facility] Start: 01-05-2012 Tobacco use and exposure Smokeless tobacco non-user [facility] Start: 10-28-2022 End: 05-02-2024 Alcohol intake Current drinker of alcohol (finding) [facility] Start: 12-18-2015 Alcohol Comment [facility]ly [facility] Start: 1955 Sex Assigned At Not on file [facility] Start: 10-28-2022 End: 05-02-2024 History of Social function [facility] Start: 10-28-2022 End: 05-02-2024 Tobacco use panel [facility] National Score (1-100), lower number is lower risk 76 [facility] Start: 09-28-2024 End: 09-29-2024 Sex Female (finding) [facility] Sexual Orientation Heterosexual (finding) [facility] NEGATED: Highlighted row Not [facility] Medical Equipment Procedure Code Equipment Code Equipment Origin al Text Equipment Identifier Dates Insertion, vascular access port ([id number]) Vascular port/catheter [id number] FDA Start: 12-21-2024 ([id number]) Metal-backed patella prosthesis ()[id number] FDA Start: 08-06-2021 ([id number]) Coated knee femu r prosthesis ()[id number] FDA Start: 08-06-2021 ([id number]) Coated knee tibi a prosthesis ()[id number] [id number] FDA Start: 08-06-2021 ([id number]) Tibial insert [id number] FDA Start: 08-06-2021 Goals Date Patient Goal Desired Activity /State Functional Status Date Assessment Result Facility 08-07-2021 Functional status Chair [facility] Work Phone: Mental Status Date Assessment Result Facility 12-21-2024 Cognitive function Voice/Name [facility] Work Phone: 11-29-2024 Cognitive function Voice/Name [facility] Work Phone: 08-07-2021 Cognitive function Appropriate [facility] Work Phone: 08-07-2021 Cognitive function Arousable To Voice/Nam e [facility] Work Phone: Clinical Notes 02-04-2007 to 01-01-2025 Note Date & Type Note Facility 01-01-2025 Radiology Diagnostic study note [facility] Imaging Services [address] [place], [place] [address] Abdomen/Pelvis W IV Cont ONLY MR#: [id number] Acct: [id number] Name: LIZZETH BERRY Rep #: [id number] : 1955 F 69 From: Tiffany Abrams MD PCP: Dr. Diya George MD Status: REG ER Study:Abdomen/Pelvis W IV Cont ONLY Date of E xam: 01/01/25 Exam# [id number] Ordering Dr: Ivan Sanches DO PROCEDURE: ABDOMEN/PELVIS W IV CONT ONLY 01/01/2025 REASON FOR EXAM: ABDOMINAL PAIN TECHNIQUE: ABDOMEN/PELVIS W IV CONT ONLY Coronal and Sagittal reconstruction series were provided. CONTRAST: Isovue 370 VOLUME: 75 mL One or more dose reduction techniques were used (e.g., Automated exposure control, adjustment of the mA and/or kV according to patient size, use of iterative reconstruction technique. RADIATION DOSE SUMMARY: CTDlvol: 19.1 mGy DLP: 1110 mGycm COMPARISON: CT abdomen and pelvis 11/11/2024 FINDINGS: Lung bases: There are innumerable pulmonary nodules throughout the lung bases, the largest measuring 2.3 cm, and which are overall increased in size and number compared to CT on 11/11/2024. Liver: Unchanged hepatomegaly. Nodular contour. Innumerable hypodense lesions throughout the liver. There is calcification in the right hepatic lobe which is similar to prior. Gallbladder: Hydropic containing round densities within. No significant wall thickening or pericholecystic fluid. Spleen: Unremarkable Pancreas: Hypodensity at the pancreatic head is unchanged, in keeping with knownmalignancy. Adrenals: Unremarkable Kidneys: No radiodense stones or hydronephrosis. Subcentimeter hypodensity in the left kidney is too small to characterize. Bladder: Unremarkable Reproductive Organs: Increased soft tissue density near the vaginal introitus, unchanged. Tubal ligation clips. Bowel: Hiatal hernia. Large colonic stool burden, also with scattered fluid contents. Mild wall thickening of the descending and sigmoid colon. Appendix: Surgically absent. Lymph nodes: Mass in the right aspect of the retroperitoneum deep to the psoas, and partially calcified mass adjacent to the sacrum, are unchanged. Unchanged enlarged vipin hepatis node. Vasculature: Mild atherosclerotic aortic calcifications are noted. Peritoneum / Retroperitoneum: There is a vzxeo-yq-tqncjrif amount of free fluid adjacent to the liver, in the right pericolic gutter, and pelvis. Bones: Sclerotic lesions in the sacrum and a right-sided rib are unchanged. Soft tissues: Unremarkable CT/Abdomen/Pelvis W IV Cont ONLY IMPRESSION: 1. Mild wall thickening involving the descending and sigmoid colon, which may represent colitis (of infectious, inflammatory, or ischemic etiology). Portal colopathy could also appear similar. 2. Small to moderate volume of ascites. 3. Hydropic gallbladder containing subtle densities within, possibly stones. No significant wall thickening or pericholecystic fluid. Consider ultrasound if there is concern for acute cholecystitis. 4. Interval worsening of pulmonary metastatic disease compared to CT on 11/11/2024. Persistence of hepatic and osseous metastases, in addition to multiple soft tissue masses throughout the abdomen and pelvis which are also likely metastatic deposits. Reading Location: [id number] CC: Dr. Diya George MD; Dr. Kumar Sanches, DO ~ Day Treatment Clinician/Art Therapist: Signed [facility] 12-28-2024 Progress note [facility] 12-21-2024 History and physical note Note Date/Time December 21, 2024 7:19am [facility] Medical Records Department [address] [place] [address] History & Physical Exam 12/21/24717 MR#: [id number] Acct: [id number] Name: LIZZETH BERRY Rep #:[id number] : 1955 69 From: Tera Clay MD PCP: Dr. 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 Tera Clay MD~ Signed [facility] Work Phone: 1(803) 234-320407-02-2025 Consult note Author Elan Rushing [facility] Note Date/Time December 21, 2024 7:08a m [facility] Medical Records Department [address] [place] [address] Pre-Anesthesia Evaluation 12/21/24 0658 MR#: [id number] Acct: [id number] Name: LIZZETH BERRY Rep #:[id number] : 1955 69 From: Elan Rushing MD PCP: Dr. 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 Hx Hospitalization No 12/19/24 14:27 Any Problems [...] take am of surgery PONV PONV - automobile body repair chief: PONV - automobile body repair chief Female Yes 12/19/24 14:27 HX of Motion [...] 12/21/24 06:32 Respiratory Assessment Respiratory Assessment - automobile body repair chief: Respiratory Tract Infection Hx - automobile body repair chief Hx Respiratory Tract Infection No 12/19/24 14:27 STOP Sleep Apnea STOP Sleep Apnea - automobile body repair chief: STOP Sleep Apnea - automobile body repair chief Hx Hypertension No 12/19/24 14:27 Hx Sleep [...] Tobacco Use History Tobacco Use History - automobile body repair chief: Tobacco Use History - automobile body 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 Specify any problems Hx of Preganancy in last 3 No 12/19/24 14:27 Months Nurse Filling Out Transfusion DUSTY 12/19/24 14:27 & Questions: Date: 12/19/24 12/19/24 14:27 Time: 14:28 12/19/24 14:27 Patient unable to answer at this time (ie. 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 12/21/24 0708 <Electronically signed by Elan rios MD> Date _ Elan Rushing MD Cosigner Signature: Date CC: ~ Signed [facility] Work Phone: 1(567) 195-977207-02-2025 Radiology Diagnostic study note [facility] Imaging Services [address] [place] [address] CXR for Line Placement MR#: [id number] Acct: [id number] Name: LIZZETH BERRY Rep #: [id number] : 1955 F 69 From: Renato Beard MD PCP: Dr. Diya George MD [place] [facility] [place]:CXR for Line Placement Date of Exam: 12/21/24 Exam# [id number] Ordering Dr: St mirna Clay MD PROCEDURE: [...] George MD; Dr. Tera Clay MD ~ Day Treatment Clinician/Art Therapist: Signed [facility]07-02-2025 Procedure note [facility] Medical Records Department [address] [place] [address] Operative Report 12/21/24 0832 MR#: [id number] Acct: [id number] Name: LIZZETH BERRY Rep #:[id number] : 1955 69 From: Tera Clay MD PCP: Dr. Diya George MD Status:[facility] Location: [place] [address]1 Problems Associated Problem List Diagnoses (1) Cancer, metastatic to bone: Procedures Cardiovascular CF Procedures 33xxx-39xxx: 23900 Insert tunneled cv cath Operative Report (Standard) Operative Information Date of Procedure: 12/21/24 Pre-Operative Diagnosis: Metastatic cancer Post-Operative Diagnosis: Same Surgery/Procedure Performed: Left-sided Mediport placement with CM radiology scheduler: No Type of Anesthesia: Local and MAC [...] George MD; Dr. Tera Clay MD~ Signed [facility]07-02-2025 Discharge summary [facility] Medical Records Department [address] [place] [address] Instructions for Home/Discharge Instructions 12/21/24 0827 MR#: [id number] Acct: [id number] Name: LIZZETH BERRY Rep #:[id number] : 1955 69 From: Tera Clay MD PCP: Dr. Diya George MD Status[place] [place]charge Instructions Diet Discharge Diet: Light diet [...] Care Provider: Diya George Instructions Print Language: Angolan Discharge Orders/Prescriptions Prescriptions: Continued ondansetron 4 mg [...] CC: Dr. Diya George MD ~ Signed [facility]07-02-2025 Consult note [facility] Medical Records Department [address] [place] [address] Anesthesia Postop Eval I 12/21/24 0826 MR#: [id number] Acct: [id number] Name: LIZZETH BERRY Rep #:[id number] : 1955 69 From: Poppy Loera POWDER COMPOUNDER PCP: Dr. Diya George MD Status:[facility] [place] Race: C Location: [place] [address] Anesthesia: Postop Eval I Current Vital Signs [...] Anesthesia document: Postop Eval 1 completed: Yes 12/21/[address] POWDER COMPOUNDER> Date _ Poppy Loera POWDER COMPOUNDER Cosigner Signature: Date CC: ~ Signed [facility]07-02-[address] [facility] Medical Records Department [address] [place] [address] History & Physical Exam 12/21/24717 MR#: [id number] Acct: [id number] Name: LIZZETH BERRY Rep #:[id number] : 1955 69 From: Tera Clay MD PCP: Dr. 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 Tera Clay MD~ Signed [facility]07-02-2025 [facility] Medical Records Department [address] [place] [address] History Physical Exam 12/21/24 0718 MR#: [id number] Acct: [id number] Name: LIZZETH BERRY Rep #: [id number] : 1955 69 From: Tera Clay MD PCP: Dr. 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 Tera Clay MD [facility]07-02-2025 Consult note [facility] Medical Records Department [address] [place] [address] Pre-Anesthesia Evaluation 12/21/24 0658 MR#: [id number] Acct: [id number] Name: LIZZETH BERRY Rep #:[id number] : 1955 69 From: Elan Rushing MD PCP: Dr. 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 chief Female Yes 12/19/24 14:27 HX of Motion [...] 12/21/24 06:32 Respiratory Assessment Respiratory Assessment - automobile body repair chief: Respiratory Tract Infection Hx - automobile body repair chief Hx Respiratory Tract Infection No 12/19/24 14:27 STOP Sleep Apnea STOP Sleep Apnea - automobile body repair chief: STOP Sleep Apnea - automobile body repair chief Hx Hypertension No 12/19/24 14:27 Hx Sleep [...] Tobacco Use History Tobacco Use History - automobile body repair chief: Tobacco Use History - automobile body 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 Specify any problems Hx of Preganancy in last 3 No 12/19/24 14:27 Months Nurse Filling Out Transfusion JZOLLVIC 12/19/24 14:27 & Questions: Date: 12/19/24 12/19/24 14:27 Time: 14:28 12/19/24 14:27 Patient unable to answer at this time (ie. 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 12/21/24 0708 blanca COTTO> Date _ Elan Rushing MD [facility] Signature: Date CC: ~ Signed [facility]06-19-2025 Progress [facility] Cancer Care [address] [place] [address] OFFICE VISIT Date of Service: 12/08/24 1458 MR#: [id number] Acct: [id number] Name: LIZZETH BERRY Rep #: [id number] : 1955 From: Magalie Ledbetter ch PODIATRY PROFESSOR PODIATRY PROFESSOR-C Age/Sex: 69/F Location[facility] Status: Signed HPI Subjective Date of Service 12/08/24 Chief Complaint Metastatic cancer History of Present Illness 69-year-old female who presents with a few months history of anorexia, 20+ poundweight loss, and increasing fatigue. 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 Patient reports that in 2024 she had an abnormal screening mammogram on the leftbreast, had a biopsy at [facility] and was told was negative for [...] right just above the diaphragm 12 mm. Supervisor Dry Cleaning image with appearance of larger appearing pulmonary [...] for for a discussion about palliative [facility]. 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: No leisure activities: reading history of recent travel: No sexually active: Yes Smoking Status: Never smoker alcohol intake: never substance use type: does not use well-balanced diet: rarely or never caffeine: No eating out: other during the past year weight has: decreased > 10 lbs what type of physical activity do you participate in: none frequency: does not exercise ahsan/sikhism: NA seatbelt use: always do you feel [...] the past year?: No 12/08/24 1649 h PODIATRY PROFESSOR PODIATRY PROFESSOR-C> Date _ Magalie Pinto PODIATRY PROFESSOR PODIATRY PROFESSOR-C Cosigner Signature: Date (if applicable) CC: ~ [facility]06-19-2025 Progress note Author Magalie Pinto [facility] Note Date/Time December 08, 2024 4:49 pm [facility] [address] [place] [address]. [place] [address] OFFICE VISIT Date of Service: 12/08/24 1458 MR#: [id number] Acct: [id number] Name: LIZZETH BERRY Rep #: [id number] : 1955 From: Magalie Ledbetter PODIATRY PROFESSOR PODIATRY PROFESSOR-C Age/Sex: 69/F Location: [facility] Status: Signed HPI Subjective Date of Service [...] on the leftbreast, had a biopsy at [facility] and was told was negative for [...] right just above the diaphragm 12 mm. Supervisor Dry Cleaning image with appearance of larger appearing pulmonary [...] for for a discussion about palliative [facility]. 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: No leisure activities: reading history of recent travel: No sexually active: Yes Smoking Status: Never smoker alcohol intake: never substance use type: does not use well-balanced diet: rarely or never caffeine: No eating out: other during the past year weight has: decreased > 10 lbs what type of physical activity do you participate in: none frequency: does not exercise ahsan/sikhism: NA seatbelt use: always do you feel [...] 1649 <Electronically signed by Magalie fish NP PODIATRY PROFESSOR-C> Date _ Magalie Pinto NP PODIATRY PROFESSOR-C Cosigner Signature: Date (if applicable) CC: ~ [facility] Work Phone: 1(561) 276-374706-12-2025 Nuclear medicine Diagnostic study note [facility] Imaging Services [address] [place] [id number] Bone Scan Whole Body MR#: [id number] Acct: [id number] Name: LIZZETH BERRY Rep #: [id number] : 1955 F 69 From: Donnie Pathak MD PCP: Dr. Diya George MD Status: REG CLI Study:Bone Scan Whole Body Date of Exam: 11/30/24 Exam# [id number] Ordering Dr: Ramona Funez MD PROCEDURE: BONE [...] consistent with osseous metastatic disease. Reading Location: [address] CC: Dr. Diya George MD; Dr. Ramona Funez MD ~ Day Treatment Clinician/Art Therapist: Signed [facility]06-12-2025 Radiology Diagnostic study note [facility] Imaging Services [address] [place] [address] Chest WITH Contrast MR#: [id number] Acct: [id number] Name: LIZZETH BERRY Rep #: [id number] : 1955 F 69 From: Boni Strong MD PCP: Dr. Diya George MD Status: REG CLI Study:Chest WITH Contrast Date of Exam: 11/30/24 Exam# [id number] Ordering Dr: Ramona Funez MD PROCEDURE: CHEST [...] the largest measuring 1.6 cm. [facility] CC: Dr. Diya George MD; Dr. Ramona Funez MD ~ Day Treatment Clinician/Art Therapist: Signed [facility]06-10-2025 Radiology Diagnostic study note [facility] Imaging Services [address] [place], [place] [address] Biopsy/Inj or Needle Placement MR#: [id number] Acct: [id number] Name: LIZZETH BERRY Rep #: [id number] : 1955 F 69 From: Martinez Arreguin MD PCP: Dr. Diya George MD Status: REG CLI Study:Biopsy/Inj or Needle Placement Date of Exam: 11/29/24 Exam# [id number] Ordering Dr: Ramona Funez MD PROCEDURE: BIOPSY/INJ [...] No immediate complication was noted. Reading Location: [place] [address] CC: Dr. Diya George MD; Dr. Ramona Funez MD ~ Day Treatment Clinician/Art Therapist: Signed [facility]05-29-2025 Progress [facility] Cancer Care [address] [place] [address] OFFICE VISIT Date of Service: 11/17/24 1455 MR#: [id number] Acct: [id number] Name: LIZZETH BERRY Rep #: [id number] : 1955 From: Ramona tineo MD Age/Sex: 69/F Location: [facility] Status: Signed HPI Subjective Date of Service [...] on the leftbreast, had a biopsy at [facility] and was told was negative for [...] right just above the diaphragm 12 mm. Supervisor Dry Cleaning image with appearance of larger appearing pulmonary [...] focus within the pancreatic head as above. [facility] Medical History (Updated 11/17/24 @ 08:12 by [...] Medications ?Medication ?Instructions ?Recorded ?Confirmed ?Type vitamins A,C,L-ufwt-qjsaus 4,296 1 cap PO BID 08/10/20 11/17/24 History mcg-226 mg-90 mg capsule (PreserVision AREDS) csizdjwd-pcb-lohw 4 mg-folic acid tab PO 09/23/2410/14 History [...] no focal motor deficits Coordination / Balance: dgslau-qh-cral test normal Speech: speech normal Gait (Neuro): [...] and named her as her power of 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 Ramona Funez MD Banana Handler, [facility] Divisions of Medical Oncology & Hematology Department of Internal Medicine [place] [address] This note was generated using a voice [...] the past year?: No 11/17/24 1621 bianca MD> Date _ Ramona Funez MD Cosigner Signature: Date (if applicable) CC: Dr. Diya George MD; Dr. Dawson Herman MD; LOS Thakkar ~ [facility]05-29-2025 Progress note Author Ramona Funez [facility] Note Date/Time November 17, 2024 4:21p m [facility] Cancer [address] [address] OFFICE VISIT Date of Service: 11/17/24 1455 MR#: [id number] Acct: [id number] Name: LIZZETH BERRY Rep #: [id number] : 1955 From: Ramona tineo MD Age/Sex: 69/F Location: [facility] Status: Signed HPI Subjective Date of Service [...] on the leftbreast, had a biopsy at [facility] and was told was negative for [...] right just above the diaphragm 12 mm. Supervisor Dry Cleaning image with appearance of larger appearing pulmonary [...] focus within the pancreatic head as above. [facility] Medical History (Updated 11/17/24 @ 08:12 by [...] Medications ?Medication ?Instructions ?Recorded ?Confirmed ?Type vitamins A,C,I-egpq-gqkvvm 4,296 1 cap PO BID 08/10/20 11/17/24 History mcg-226 mg-90 mg capsule (PreserVision AREDS) hfoittzl-yxr-yiyr 4 mg-folic acid tab PO 09/23/240 10/14 History 200 mcg-vit K 25 mcg-lutein tablet (Centrum Minis Women 50 Plus) levothyroxine 25 mcg tablet 25 mcg PO QDAY #30 tabs 11/17/24 Rx sucralfate 1 gram tablet (Carafate) 1 g PO BID #30 tab s 11/09/24 11/17/24 Rx linaclotide 72 mcg capsule 72 mcg PO QAM 11/17/24 05/2 03/16 History (Linzess) mesalamine 1.2 gram tablet,delayed 2.4 [...] no focal motor deficits Coordination / Balance: nxcmqm-de-kakk test normal Speech: speech normal Gait (Neuro): [...] and named her as her power of 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 Ramona Funez MD Banana Handler, [facility] Divisions of Medical Oncology & Hematology Department of Internal Medicine [address] [address] This note was generated using a voice [...] Dr. Dawson Herman MD; LOS Thakkar ~ [facility] Work Phone: 1(821) 392-425505-23-2025 Radiology Diagnostic study note [facility] Imaging Services [address] [place] [address] Abdomen/Pelvis WITH Contrast MR#: [id number] Acct: [id number] Name: LIZZETH BERRY Rep #: [id number] : 1955 F 69 From: Khadar Esparza MD PCP: Dr. Diya George MD Status: REG CLI Study:Abdomen/Pelvis WITH Contrast Date of Ex am: 11/11/24 Exam# [id number] Ordering Dr: Brian Herman MD PROCEDURE: ABDOMEN/PELVIS [...] right just above the diaphragm 12 mm. Supervisor Dry Cleaning image with appearance of larger appearing pulmonary [...] the pancreatic head as above. Reading Location: [facility] CC: Dr. Diya George MD; Dr. Dawson Herman MD ~ Day Treatment Clinician/Art Therapist: Signed [facility]04-04-2025 Chief complaint+Reason for visit Narrative * Chief Complaint Admit Date ACUTE NEW - FATIGUE AND TIRED September 23, 2024 8:32am Referral Order September 26, 2024 4:28 pm Reason for Visit Admit Date Anemia September 23, 2024 8:32 am Fatigue September 23, 2024 8:32 am [facility] Work Phone: 1([phone]) 928-541304-04-2025 Chief complaint+Reason for visit Narrative * Chief Complaint Admit Date ACUTE NEW - FATIGUE AND TIRED September 23, 2024 8:32am Referral Order September 26, 2024 4:28 pm IRON ANEMIA, CONSTIPATION. W/ ORAL CONTR AST November 11, 2024 6:04am Reason for Visit Admit Date Anemia September 23, 2024 8:32 am Fatigue September 23, 2024 8:32 am [facility] Work Phone: 1([phone]) 231-902304-04-2025 Chief complaint+Reason for visit Narrative * Chief [...] of unknown primary November 17, 2024 2:44pm [facility] Work Phone: 1(915) 201-479404-04-2025 Chief complaint+Reason for visit Narrative * Chief [...] LIVER CANCER November 30, 2024 10:1 1am PODIATRY PROFESSOR. 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 December 01, 2024 10:39am Reason for Visit Admit Date Anemia September 23, 2024 8:32 am Fatigue September 23, 2024 8:32 am Metastasis of unknown primary November 17, 2024 2:44pm Metastasis of unknown primary December 01, 2024 10:39am Establishing care with new doctoreleni for December 01, 2024 10:39am [facility] Work Phone: 1(659) 155-214304-04-2025 Chief complaint+Reason for visit Narrative * Chief [...] LIVER CANCER November 30, 2024 10:1 1am PODIATRY PROFESSOR. 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 December 01, [...] 2024 10:39am Establishing care with new doctoreleni nter for December 01, 2024 10:39am Nausea and vomiting December 01, 2024 10:3 9am [facility] Work Phone: 1(152) 404-669004-04-2025 Chief complaint+Reason for visit Narrative * Chief [...] LIVER CANCER November 30, 2024 10:1 1am PODIATRY PROFESSOR. 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 December 01, [...] and vomiting December 01, 2024 10:3 9am [facility] Work Phone: 1([phone]) [phone] Chief complaint+Reason for visit Narrative * Chief [...] LIVER CANCER November 30, 2024 10:1 1am PODIATRY PROFESSOR. 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 December 01, [...] venous access port December 21, 2024 5:45am [facility] Work Phone: 1(251) 971-627204-04-2025 Chief complaint+Reason for visit Narrative * Chief [...] LIVER CANCER November 30, 2024 10:1 1am PODIATRY PROFESSOR. 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 December 01, [...] 28, 2024 8:17am Pancreatobiliary-type carcinoma December 8:17am [facility] Work Phone: 1(450) 382-701804-04-2025 Chief complaint+Reason for visit Narrative * Chief [...] LIVER CANCER November 30, 2024 10:1 1am PODIATRY PROFESSOR. 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 December 01, 2024 10:39am REVIEW LIVER BX/BONE SCAN December 07 3:44pm CHEMO ED December 08, 2024 2:39 pm PORT PLACEMENT December 16, 2024 1:23 pm Insertion, Vascular Port left poss right December 21, 2024 5:45am Insertion, Vascular Port left poss right December 21, 2024 7:18am [facility] - [facility] December 28, 2024 8:17am [facility] December 30 1:00pm nausea vomiting since thursday. lt arm swe lling toda January 01, 2025 2:04pm Reason for Visit Admit Date Anemia September 23, 2024 8:32 am Fatigue September 23, 2024 8:32 am Metastasis of unknown primary November 17, 2024 2:44pm Anemia December 01, 2024 10:3 9am Fatigue December 01, 2024 10:3 9am Metastasis of unknown primary December 01, 2024 10:39am Screening for depression December 01, 2024 10:39am Establishing care with eleni garcia for December 01, 2024 10:39am Nausea and [...] 28, 2024 8:17am Pancreatobiliary-type carcinoma December 8:17am [facility] Work Phone: 1(846) [phone] Chief complaint+Reason for visit Narrative * Chief [...] LIVER CANCER November 30, 2024 10:1 1am PODIATRY PROFESSOR. 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 December 01, 2024 10:39am REVIEW LIVER BX/BONE SCAN December 07 3:44pm CHEMO ED December 08, 2024 2:39 pm PORT PLACEMENT December 16, 2024 1:23 pm Insertion, Vascular Port left poss right December 21, 2024 5:45am Insertion, Vascular Port left poss right December 21, 2024 7:18am [facility] December 28, 2024 8:17am [facility] December 30 1:00pm nausea vomiting since thursday. lt arm swe lling toda January 01, 2025 2:04pm LEFT ARM SWELLING January 02, 2025 12:4 7pm ACUTE-POSITIVE FOR DVT January 02, 2025 1 :31pm Reason for Visit Admit Date Anemia September [...] 28, 2024 8:17am Pancreatobiliary-type carcinoma December 8:17am [place] [employer] [facility] Work Phone: 1([phone]) [phone] Evaluation note* Diagnosis Onset Date Resolution Status Admit Date Anemia acute September 23 8:32am Fatigue acute September 23 8:32am [facility] Work Phone: 1(585) 737-351404-04-2025 Evaluation note* Diagnosis Onset Date Resolution Status Admit Date Anemia acute September 23 8:32am Fatigue acute September 23 8:32am Metastasis of unknown primary acute November 17, 2024 2:44pm [facility] Work Phone: 1(978) 607-418504-04-2025 Evaluation note* Diagnosis Onset Date Resolution Status Admit Date Anemia acute September 23 8:32am Fatigue acute September 23 8:32am Metastasis of unknown primary acute November 17, 2024 2:44pm Metastasis of unknown primary acute December 01, 2024 10:39am Establishing care with new doctor, encounter for noneactive December 01, 2024 10:39am [facility] Work Phone: 1(804) 203-470204-04-2025 Evaluation note* Diagnosis Onset Date Resolution Status [...] and vomiting noneactive December 01, 2024 10:39am [facility] Work Phone: 1([phone]) 812-406304-04-2025 Evaluation note* Diagnosis Onset Date Resolution Status [...] and vomiting noneactive December 01, 2024 10:39am [facility] Work Phone: 1(358) 157-283804-04-2025 Evaluation note* Diagnosis Onset Date Resolution Status [...] 2024 2:39pm Encounter for education acute [facility] 2024 2:39pm Metastasis to liver acute December 08, 2024 2:39pm Metastasis to lung acute November 202024 2:39pm 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, 2024 2:39pm 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, 2024 2:39pm [facility] Work Phone: 1(492) 607-302804-04-2025 Evaluation note* Diagnosis Onset Date Resolution Status [...] 2024 2:39pm Encounter for education acute [facility] 2024 2:39pm Metastasis to liver acute December 08, 2024 2:39pm Metastasis to lung acute November 202024 2:39pm 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, 2024 2:39pm 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, 2024 2:39pm Encounter for insertion of venous access port acute December 16 1:23pm Cancer, metastatic to bone acute December 21, 2024 5:45am Encounter for insertion of venous access port acute December 21 5:45am [facility] Work Phone: 1(853) 577-553204-04-2025 Evaluation note* Diagnosis Onset Date Resolution Status [...] 2024 2:39pm Encounter for education acute [facility] 2024 2:39pm Metastasis to liver acute December [...] carcinoma acut e December 28, 2024 8:17am [facility] Work Phone: 1(513) 936-525512-03-2024 Telephone encounter Note* Telephone Encounter - Carolyn Morgan RN - 05/24/2024 8:06 AM EST Called patient to notify the breast pathology results are benign per Dr. Christine. Informed patient a 6 month follow up is recommended. Patient verbalized understanding. [facility] Work Phone: 1(894) 136-499412-03-2024 Miscellaneous Notes* Telephone Encounter - Carolyn Morgan RN - 05/24/2024 8:06 AM EST Called patient to notify the breast pathology results are benign per Dr. Christine. Informed patient a 6 month follow up is recommended. Patient verbalized understanding. documented in this encounterRiverview Health Institute11-14-2024 NoteHNO ID: [id number] Author: RAMONE MCMAHON MD Service: ? Author [...] DX W/COLLJ SPEC WHEN PFRMD 01/31/2008 Colonoscopy [facility] Dr. Herman COLONOSCOPY FLX DX W/COLLJ SPEC WHEN PFRMD 03/01/2018 Dr. Herman-next colonoscopy in 10 years-02/2028 LIG/TRNSXJ FLP TUBE ABDL/VAG APPR UNI/BI 1986 Tubal ligation NEUROPLASTY AND/TRANSPOS MEDIAN NRV CARPAL TUNNE 11/22/2012 right NEUROPLASTY AND/TRANSPOS MEDIAN NRV CARPAL TUNNE 01/17/2013 LEFT [facility] COVID-19 VACCINE, AGE 12+ YR (PURPLE TOP) [...] Heart Brother 71 yrs of age, sudden [place] 2008 Stroke Brother CVA REVIEW OF SYMPTOMS: The review of systems data was entered by the nurse and reviewed by ct Nursing Notes: Selene Rush RN 05/02/2024 1:59 [...] sciatica, NOTES knee/kimberly (more content not included)... [facility]11-14-2024 History of Present illness Narrative* Ramone [...] DX W/COLLJ SPEC WHEN PFRMD 01/31/2008 Colonoscopy [facility] Dr. Herman COLONOSCOPY FLX DX W/COLLJ SPEC WHEN PFRMD 03/01/2018 Dr. Herman-next colonoscopy in 10 years-02/2028 LIG/TRNSXJ FLP TUBE ABDL/VAG APPR UNI/BI 1987 Tubal ligation NEUROPLASTY &/TRANSPOS MEDIAN NRV CARPAL TUNNE 11/22/2012 right NEUROPLASTY &/TRANSPOS MEDIAN NRV CARPAL TUNNE 01/17/2013 LEFT [place] COVID-19 VACCINE, AGE 12+ YR (PURPLE TOP) [...] Heart Brother 71 yrs of age, sudden [place] 2007 Stroke Brother CVA REVIEW OF SYMPTOMS: The [...] Ramone Mcmahon III, MD documented in this encounterRiverview Health Institute11-13-2024 NoteHNO ID: [id number] Author: WILBERT MALDONADO DO Service: ? Author Type: Physician Type: [...] left breast stereotactic biopsy. Order placed in [facility]. Images from the 04/20 mammogram are annotated. Case reviewed with Attending Radiologist, Dr. Swan. Wilbert Maldonado, [facility]11-13-2024 History of Present illness Narrative* Wilbert Maldonado [...] left breast stereotactic biopsy. Order placed in [facility]. Images from the 04/20 mammogram are annotated. Case reviewed with Attending Radiologist, Dr. Swan. Wilbert Maldonado DO documented in this encounterRiverview Health Institute11-11-2024 Nurse Note* Selene Rush RN - 05/02/2024 [...] 04/20/2024 Last Colonoscopy: 03/01/2018 Selene Rush RN [facility]11-11-2024 Nurse Note* Selene Rush RN - 05/02/2024 [...] 03/01/2018 Selene Rush RN documented in this encounterRiverview Health Institute10-30-2024 History of Present illness Narrative* Erika Barcenas RT(R) - 04/20/2024 11:00 AM EDT Radiology [...] PATIENT PRESENTS WITH AN IMPLANTABLE OR ATTACHED HEEL VARNISHER: No RADIOLOGY DEPARTMENT: Mammography PERIPHERAL IV DATA: Not applicable SIGNED BY: MARTÍN Nichols) April 20, 2024 10:44 AM documented in this encounterRiverview Health Institute10-30-2024 NoteHNO ID: [id number] Author: ERIKA BARCENAS RT(R) Service: ? Author [...] PATIENT PRESENTS WITH AN IMPLANTABLE OR ATTACHED HEEL VARNISHER: No RADIOLOGY DEPARTMENT: Mammography PERIPHERAL IV DATA: Not applicable SIGNED BY: RT Magdalena(R) April 20, 2024 10:44 [facility]09-20-2024 Telephone encounter Note* Telephone Encounter - Margaret Torre RN - 03/11/2024 8:54 AM EDT Patient notified and voiced understanding. Transferred to schedule diagnostic mammogram. Margaret Torre RN [facility]09-20-2024 Miscellaneous Notes* Telephone Encounter - Margaret Torre [...] imaging Robe Garcia MD documented in this encounterRiverview Health Institute09-20-2024 Telephone encounter Note * Telephone Encounter - Keri Fuller RN - 03/11/2024 8:27 AM EDT Left message for patient to call office. Keri Fuller RN [facility]09-19-2024 Telephone encounter Note* Telephone Encounter - Robe Garcia MD - 03/10/2024 5:04 PM EDT Orders filed Robe Garcia MD [facility]09-19-2024 Telephone encounter Note* Telephone Encounter - Eunice Santa RN - 03/10/2024 4:58 PM EDT Please file orders. Eunice Santa RN [facility]09-19-2024 Telephone encounter Note* Telephone Encounter - Eunice Santa RN - 03/10/2024 4:58 PM EDT ----- Message from Robe Garcia MD sent at 03/10/2024 4:41 PM EDT ----- Needs additional imaging Robe Garcia MD [facility]09-19-2024 Note* Letter - Coordinator, Mammography - 03/10/2024 4:04 PM EDT March 10, 2024 PID: [id number] Lizzeth Dena [address] [facility] [address] [place] [address] Dear Ms. Berry, Your recent breast imaging [...] who ordered/prescribed your screening mammogram: Please call [phone] or EXT: [phone] to schedule an appointment for your additional [...] and reports are kept on file at [facility] as part of your permanent medical record, and are available for your continuing care. Thank you for allowing us to help in meeting your health care needs. Sincerely, Dr. Henao Interpreting Radiologist [facility] (Additional imaging) [facility]09-19-2024 Miscellaneous Notes* Letter - Coordinator, Mammography - 03/10/2024 4:04 PM EDT March 10, 2024 PID: [id number] Lizzeth Dena [address] [facility] [address] [place] [address] Dear Ms. Dena, Your recent breast imaging exam on 03/09/2024 [...] who ordered/prescribed your screening mammogram: Please call [phone] or EXT: [phone] to schedule an appointment for your additional [...] and reports are kept on file at [facility] as part of your permanent medical record, and are available for your continuing care. Thank you for allowing us to help in meeting your health care needs. Sincerely, Dr. Henao Interpreting Radiologist [facility] (Additional imaging) documented in this encounterRiverview Health Institute09-19-2024 NoteIMPRESSION: INCOMPLETE: NEED ADDITIONAL IMAGING EVALUATION The possible cluster of calcifications in the left breast is indeterminate. Additional views are recommended. Olimpia Henao M.D., jr/yung:03/10/2024 16:04:08 Operations Officer Afloat(s): RT Jermaine(R)(M), [facility] letter sent: Additional Imaging Needed Mammogram BI-RADS: Category 0: Incomplete: Need Additional Imaging Evaluation If this report indicates you need additional imaging, and it has NOT yet been performed, please call , to schedule. We sincerely thank you for choosing the [facility] for your breast imaging needs. Multiple national specialty organizations have released breast cancer screening guidelines for women at average risk for developing breast cancer - guidelines that are based on both evidence and opinion, yet differ on when to start and how often to screen for breast cancer. With representation from Breast Imaging, Internal Medicine, Women's Health, Family Medicine, and Medical/Surgical Oncology, the [facility] has carefully reviewed the data and reached [...] their providers when to stop screening mammograms. Day Treatment Clinician/Art Therapist: Yung Transcribe Date/Time: Mar 09 2024 11:17A Dictated by: OLIMPIA HENAO MD This examination was interpreted and the report reviewed and electronically signed by: OLIMPIA HENAO MD on Mar 10 2024 4:04PM [facility] DIV[facility] OF [id number] History of Present illness Narrative* Ashli Leon [...] PATIENT PRESENTS WITH AN IMPLANTABLE OR ATTACHED HEEL VARNISHER: No RADIOLOGY DEPARTMENT: Mammography PERIPHERAL IV DATA: Not applicable SIGNED BY: Kurt Dean March 09, 2024 11:27 AM documented in this encounterRiverview Health Institute09-18-2024 NoteHNO ID: [id number] Author: ASHLI LEON Mammo Tech Service: ? Author Type: Diesel Engineer Type: Progress Notes Filed: 03/09/2024 11:28 Note [...] PATIENT PRESENTS WITH AN IMPLANTABLE OR ATTACHED HEEL VARNISHER: No RADIOLOGY DEPARTMENT: Mammography PERIPHERAL IV DATA: Not applicable SIGNED BY: Kurt Dean March 09, 2024 11:27 [facility]09-12-2024 Telephone encounter Note* Telephone Encounter - Robe Garcia MD - 03/03/2024 3:01 PM EDT Filed Robe Garcia MD [facility]09-12-2024 Miscellaneous Notes* Telephone Encounter - Robe Garcia MD - 03/03/2024 3:01 PM EDT Filed Robe Garcia MD * Telephone Encounter - Keri Fuller RN - 03/03/2024 2:35 PM EDT Patient requesting order for Mammogram. Order pending. Has upcoming Mamm appt on 03/09/24. Keri Fuller RN documented in this encounterRiverview Health Institute09-12-2024 Telephone encounter Note * Telephone Encounter - Keri Fuller RN - 03/03/2024 2:35 PM EDT Patient requesting order for Mammogram. Order pending. Has upcoming Mamm appt on 03/09/24. Keri Fuller RN [facility]07-10-2024 Telephone encounter Note* Telephone Encounter - Nilesh Anderson MA - 12/30/2023 12:23 PM EDT Spoke with patient - states that she does not want to schedule an appointment at this time and to remove Dr. Rivas as PCP. [facility]07-10-2024 Miscellaneous Notes* Telephone Encounter - Nilesh Anderson [...] visit Larisa Guevara APRN.CNP documented in this encounterRiverview Health Institute07-09-2024 Telephone encounter Note * Telephone Encounter - Khadra Smith, RN - 12/29/2023 10:30 AM EDT Called and left a voicemail for the Patient to call back and ask for a nurse to receive the providers message. Khadra Smith RN [facility]07-09-2024 Telephone encounter Note* Telephone Encounter - Larisa Guevara APRN.CNP - 12/29/2023 9:46 AM EDT Patient has not been seen in two years. Please call and schedule Medicare Wellness visit Larisa Guevara APRN.PARATRANSIT OPERATOR [facility] Work Phone: [phone] History of Present illness Narrative* Jammie Paula [...] 03, 2022 2:47 PM documented in this encounterRiverview Health Institute05-10-2023 Miscellaneous Notes* Letter - Mammography Coordinator - 10/29/2022 10:28 AM EDT October 30, 2022 PID: [id number] Lizzeth Berry [address] [place] [address] Dear Ms. Berry, We are pleased to [...] report will be kept on file at [facility] as part of your permanent medical record and are available for your continuing care. Thank you for allowing us to help in meeting your health care needs. Sincerely, Dr. Zamora Interpreting Radiologist [facility] (Normal over 40) documented in this encounterRiverview Health Institute08-16-2007 History of Past illness Narrative* Problem Noted Date Resolved Date Routine general medical exam ination at a health care facility 02/04/2007 01/05/2012 documented as of this encounter (statuses as of 10/31/2022) [facility] History of Past illness Narrative* Problem Noted Date Resolved Date Routine general medical exam ination at a health care facility 02/04/2007 01/05/2012 documented as of this encounter (statuses as of 12/04/2022) [facility] InstituteConsult note Author Poppy Loera [facility] Note Date/Time December 21, 2024 8:27a m [facility] Medical Records Department [address] [place] [address] Anesthesia Postop Eval I 12/21/24 0826 MR#: [id number] Acct: [id number] Name: LIZZETH BERRY Rep #:[id number] : 1955 69 From: Poppy Loera CRNA PCP: Dr. Diya George MD Status:REG SDC Y Race: C Location: [place] [address] Anesthesia: Postop Eval I Current Vital Signs [...] Yes 12/21/24826 <Electronically signed by Poppy kong POWDER COMPOUNDER> Date _ Poppy Loera POWDER COMPOUNDER Cosigner Signature: Date CC: ~ Signed [facility] Work Phone: Discharge summary Author Tera [facility] Note Date/Time December 21, 2024 8:32a [facility] Medical Records Department [address] [place] [address] Instructions for Home/Discharge Instructions 12/21/24826 MR#: [id number] Acct: [id number] Name: LIZZETH BERRY Rep #:[id number] : 1955 69 From: Tera Clay MD PCP: Dr. Diya George MD [place] [facility] [place] Instructions Diet Discharge Diet: Light diet [...] Care Provider: Diya George Instructions Print Language: Angolan Discharge Orders/Prescriptions Prescriptions: Continued ondansetron 4 mg [...] CC: Dr. 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 note* Diagnosis Breast screening Breast screening, unspecified Encounter for screening mammogram for malignant neoplasm of breast Other screening mammogram documented in this encounter [facility] note* Diagnosis Abnormal screening mammogram- Primary Abnormal mammogram, unspecified documented in this encounter [facility] note* Diagnosis Abnormal screening mammogram Abnormal mammogram, unspecified [facility] Abnormal screening mammogram Abnormal mammogram, unspecified documented in this encounter [facility]* Diagnosis Breast disorder- Primary Unspecified breast disorder documented [facility] this encounter [facility]* Diagnosis Microcalcification of left breast on mammogram- Primary documented in this encounter [facility]* Diagnosis Breast disorder Unspecified breast disorder [facility] Dis[facility] instructionsAmbulatory Orders* Gastroenterology Location: None Selected [facility] Work Phone: Hospital Discharge instructionsAmbulatory Orders* Palliative Medicine Location: None Selected [facility] Work Phone: Hospital Discharge instructionsAdditional Instructions Thank you for trusting us with your care today! Your labs are reassuring. Your images are consistent with metastatic disease. There is also some inflammation of your colon consistent with colitis. Please take Tylenol (2 pills, 650 mg), ibuprofen (2 pills, 400 mg) every 6 hours as needed for pain and fever control. Please take Phenergan as needed for nausea and vomiting control Please return to the emergency department if your symptoms change or worsen. Please follow with your primary care physician for further outpatient evaluation and management.[facility] Work Phone: Progress note Author Ramona Funez [facility] Note Date/Time December 28, 2024 9:50a m [facility] [address] [place] [address]. [place] [address] OFFICE VISIT Date of Service: 12/28/2410 MR#: [id number] Acct: [id number] Name: LIZZETH BERRY Rep #: [id number] : 1955 From: Ramona tineo MD Age/Sex: 69/F [place] [facility] Status: Signed HPI Subjective Date of Service [...] on the leftbreast, had a biopsy at [facility] and was told was negative for [...] right just above the diaphragm 12 mm. 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 [employer] pets and animals: No leisure activities: reading history of recent travel: No sexually active: Yes Smoking Status: Never smoker alcohol intake: never substance use type: does not use well-balanced diet: rarely or never caffeine: No eating out: other during the past year weight has: decreased > 10 lbs what type of physical activity do you participate in: none frequency: does not exercise ahsan/sikhism: NA seatbelt use: always do you feel [...] 50 mg tablet (Stool Softener-Stimulant Laxative) vitamins A,C,R-sygk-ulzhdj 2,148 2 tab PO BID 12/19/24 12/28/24 [...] no focal motor deficits Coordination / Balance: guobpv-gj-zter test normal Speech: speech normal Gait (Neuro): [...] care for symptom management. Ramona Funez MD Banana Handler, [facility] Divisions of Medical Oncology & Hematology Department of Internal Medicine [place] [phone] This note was generated using a voice [...] applicable) CC: Dr. Diya George MD ~ [place] [employer] [facility] Work Phone: Reason for referral (narrative)* Diagnostic Procedure Only (Routine) - Authorized Specialty Diagnoses / Procedures Referred By Contac t Referred To Contact [facility] Diagnoses Breast screening Encounter for screening mammogram for malignant neoplasm of breast Procedures RYLEE SCREENING SCREENING MAMMOGRAPHY BI 2-VIEW BREAST INC CAD Robe Garcia MD [address] [place] [address] [facility] [address] [place] [address] Referral ID Status Reason Start Date Expiration Date Visits Requested Visits Authorized [id number] Authorized Auto-Generat ed Referral 03/03/2024 04/02/2025 1 1 [facility] for referral (narrative)* Diagnostic Procedure Only (Routine) - Closed Specialty Diagnoses / Procedures Referred By Coleen taylor Referred To Contact [facility] Diagnoses Breast screening Encounter for screening mammogram for malignant neoplasm of breast Procedures RYLEE SCREENING SCREENING MAMMOGRAPHY BI 2-VIEW BREAST INC CAD Robe Garcia MD [address] [place] [address] [facility] [address] [place] [address] Referral ID Status Reason Start Date Expiration Date V isits Requested Visits Authorized [id number] Closed Auto-Generate d Referral 03/03/2024 04/02/2025 1 1 [facility] for referral (narrative)* Diagnostic Procedure Only (Routine) - Authorized Specialty Diagnoses / Procedures Referred By Coleen taylor Referred To Contact [facility] Diagnoses Abnormal screening mammogram Procedures RYLEE DIAGNOSTIC LEFT DIAGNOSTIC MAMMOGRAPHY COMPUTER-AIDED DETCJ UNI Robe Garcia MD [address] [place] [address] [facility] [address] [place] [address] Referral ID Status Reason Start Date Expiration Date Visits Requested Visits Authorized [id number] Authorized Auto-Generat ed Referral 03/10/2024 2025 1 1 * Diagnostic Procedure Only (Routine) - Authorized Specialty Diagnoses / Procedures Referred By Coleen taylor Referred To Contact [facility] Diagnoses Abnormal screening mammogram Procedures US BREAST LTD LEFT US BREAST UNI REAL TIME WITH IMAGE LIMITED Robe Garcia MD [address] [place] [address] [facility] [address] [place] [address] Referral ID Status Reason Start Date Expiration Date Visits Requested Visits Authorized [id number] Authorized Auto-Generat ed Referral 03/10/2024 2025 1 1 [facility] for referral (narrative)* Diagnostic Procedure Only (Routine) - New Request Specialty Diagnoses / Procedures Referred By Contac t Referred To Contact [facility] Diagnoses Breast disorder Procedures RYLEE STEREO BX BREAST LEFT BX BREAST W/DEVICE 1ST [facility] Wilbert Smith DO [address] [place] [address] [facility] [address] [place] [address] Referral ID Status Reason Start Date Expiration Date Visits Requested Visits Authorized [id number] New Request Auto-Generat ed Referral 4 06/03/2025 1 1 [facility] for referral (narrative)* Diagnostic Procedure Only (Routine) - New Request Specialty Diagnoses / Procedures Referred By Contac t Referred To Contact [facility] Diagnoses Microcalcification of left breast on mammogram Procedures RYLEE STEREO BX BREAST LEFT BX BREAST W/DEVICE 1ST [facility] Ramone Newman MD [address] [place] [address] [facility] [address] [place] [address] Referral ID Status Reason Start Date Expiration Date Visits Requested Visits Authorized [id number] New Request Auto-Generat ed Referral 4 06/01/2025 1 1 [facility] for referral (narrative)* Diagnostic Procedure Only (Routine) - Closed Specialty Diagnoses / Procedures Referred By Contac t Referred To Contact [facility] Diagnoses Breast disorder Procedures RYLEE STEREO BX BREAST LEFT BX BREAST W/DEVICE 1ST [facility] Wilbert Smith DO [address] [place] [address] [facility] [address] [place] [phone] Referral ID Status Reason Start Date Expiration Date V isits Requested Visits Authorized [id number] Closed Auto-Generate d Referral 05/04/2024 06/03/2025 1 1 [facility] for visit Narrative* Diagnostic Procedure Only (Routine) - Closed Specialty Diagnoses / Procedures Referred By Contac t Referred To Contact [facility] Diagnoses Breast screening Encounter for screening mammogram for malignant neoplasm of breast Procedures RYLEE SCREENING SCREENING MAMMOGRAPHY BI 2-VIEW BREAST INC CAD Robe Garcia MD [address] [place] [address] [facility] [address] [place] [address] Referral ID Status Reason Start Date Expiration Date V isits Requested Visits Authorized [id number] Closed Auto-Generate d Referral 03/03/2024 04/02/2025 1 1 [facility] for visit Narrative* Diagnostic Procedure Only (Routine) - Closed Specialty Diagnoses / Procedures Referred By Contac t Referred To Contact [facility] Diagnoses Abnormal screening mammogram Procedures RYLEE DIAGNOSTIC LEFT DIAGNOSTIC MAMMOGRAPHY COMPUTER-AIDED DETCJ UNI Robe Garcia MD [address] [place] [address] [facility] [address] [place] [address] Referral ID Status Reason Start Date Expiration Date V isits Requested Visits Authorized [id number] Closed Auto-Generate d Referral 03/10/2024 2025 1 1 [facility] for visit Narrative* Diagnostic Procedure Only (Routine) - Authorized Specialty Diagnoses / Procedures Referred By Contac t Referred To Contact [facility] Diagnoses Abnormal screening mammogram Procedures US BREAST LTD LEFT US BREAST UNI REAL TIME WITH IMAGE LIMITED Robe Garcia MD [address] [place] [address] [facility] [address] [place] [address] Referral ID Status Reason Start Date Expiration Date Visits Requested Visits Authorized [id number] Authorized Auto-Generat ed Referral 03/10/2024 2025 1 1 [facility] for visit Narrative* Diagnostic Procedure Only (Routine) - Closed Specialty Diagnoses / Procedures Referred By Contac t Referred To Contact [facility] Diagnoses Breast disorder Procedures RYLEE STEREO BX BREAST LEFT BX BREAST W/DEVICE [facility]ST [facility] Wilbert Smith DO [address] [place] [address] [facility] [address] [place] [address] Referral ID Status Reason Start Date Expiration Date V isits Requested Visits Authorized [id number] Closed Auto-Generate d Referral 05/04/2024 06/03/2025 1 1 [facility] Summary Purpose Family History Relationship Condition Age at Onset Recorded Date/T [...] of urinary bladder Unk nown Advance Directives Advance Directive Response Recorded Date/ Time Living Will Yes August 06 12:54pm Power of Watchstander Yes August 06, 2021 12:54pm Advance Directive Response Recorded Date/ Time Do you have a Healthcare Power of Watchstander? Yes December 19, 2024 2:27pm Advance Directive Response Recorded Date/ Time Do you have a Healthcare Pow er of Watchstander? Yes December 19, 2024 2:27pm Do you have a Healthcare Pow er of Watchstander? Yes January 01, 2025 2:37pm Name of Medical Power of Watchstander to, denaedwina mcgee January 01, 2025 2:37pm Advance Directives on File No December 30, 2024 1:17pm Living Will Yes December 30, 2024 1:17pm Do you have a Healthcare Pow er of Watchstander? Yes December 30, 2024 1:17pm Name of Medical Power of Watchstander Karson- December 30, 2024 1:17pm Advance Directives Yes December 30 1:17pm Chief Complaint and Reason for Visit Chief [...] and content) DATE CREATED AUTHOR 10/17/2020 Km Quezada [facility] DATE CREATED AUTHOR AUTHOR'S ORGANIZ ATION 05/23/2024 [facility] DATE CREATED AUTHOR AUTHOR'S ORGANIZ ATION 05/25/2024 [facility] DATE CREATED AUTHOR AUTHOR'S ORGANIZ ATION 01/01/2025 [facility] Goals (unrecognized section and content) Goals may [...] or prosecute any alcohol or drug abuse patient.[facility] the event this information is protected by the Federal Confidentiality of Alcohol and Drug Abuse Patient Records regulations: The Federal rules restrict any use of the information to criminally investigate or prosecute any alcohol or drug abuse patient.[facility] Institute[facility] the event this information is protected by the Federal Confidentiality of Alcohol and Drug Abuse Patient Records regulations: The Federal rules restrict any use of the information to criminally investigate or prosecute any alcohol or drug abuse patient.[facility] Institute[facility] the event this information is protected by the Federal Confidentiality of Alcohol and Drug Abuse Patient Records regulations: The Federal rules restrict any use of the information to criminally investigate or prosecute any alcohol or drug abuse patient.[facility] Institute[facility] the event this information is protected by the Federal Confidentiality of Alcohol and Drug Abuse Patient Records regulations: The Federal rules restrict any use of the information to criminally investigate or prosecute any alcohol or drug abuse patient.[facility] Institute[facility] the event this information is protected by the Federal Confidentiality of Alcohol and Drug Abuse Patient Records regulations: The Federal rules restrict any use of the information to criminally investigate or prosecute any alcohol or drug abuse patient.[facility] Institute[facility] the event this information is protected by the Federal Confidentiality of Alcohol and Drug Abuse Patient Records regulations: The Federal rules restrict any use of the information to criminally investigate or prosecute any alcohol or drug abuse patient.[facility] Institute[facility] the event this information is protected by the Federal Confidentiality of Alcohol and Drug Abuse Patient Records regulations: The Federal rules restrict any use of the information to criminally investigate or prosecute any alcohol or drug abuse patient.[facility] Institute[facility] the event this information is protected by the Federal Confidentiality of Alcohol and Drug Abuse Patient Records regulations: The Federal rules restrict any use of the information to criminally investigate or prosecute any alcohol or drug abuse patient.[facility] Institute[facility] the event this information is protected by the Federal Confidentiality of Alcohol and Drug Abuse Patient Records regulations: The Federal rules restrict any use of the information to criminally investigate or prosecute any alcohol or drug abuse patient.[facility] Institute[facility] the event this information is protected by the Federal Confidentiality of Alcohol and Drug Abuse Patient Records regulations: The Federal rules restrict any use of the information to criminally investigate or prosecute any alcohol or drug abuse patient.[facility] Institute[facility] the event this information is protected by the Federal Confidentiality of Alcohol and Drug Abuse Patient Records regulations: The Federal rules restrict any use of the information to criminally investigate or prosecute any alcohol or drug abuse patient.[facility] Institute[facility] the event this information is protected by the Federal Confidentiality of Alcohol and Drug Abuse Patient Records regulations: The Federal rules restrict any use of the information to criminally investigate or prosecute any alcohol or drug abuse patient.[facility] Institute[facility] the event this information is protected by the Federal Confidentiality of Alcohol and Drug Abuse Patient Records regulations: The Federal rules restrict any use of the information to criminally investigate or prosecute any alcohol or drug abuse patient.[facility] InstituteIn the event this information is protected by the Federal Confidentiality of Alcohol and Drug Abuse Patient Records regulations: The Federal rules restrict any use of the information to criminally investigate or prosecute any alcohol or drug abuse patient.[facility] Reason for Visit (unrecogniz ed section and content) Reason Onset Date Comments Population Health Navigation Outreach 12/03/2022 [facility] No PCP list Reason Comments Appointment Reason Comments Orders Reason Comments Mammogram Result Call Back Reason Comments Results Reason Comments breast disorder Reason Comments Consult Abnormal left breast mammogram. Reason Comments Breast Problem Reason Comments Results Care Teams (unrecognized sec tion and content) Marine Steward Relationship Specialty Start Date End Date Raúl Rivas MD [address] [place], [place] [address] PCP - General Internal Medicine 12/03/22 Marine Steward Relationship Specialty Start Date End Date Raúl Rivas MD [address] [place], [place] [id number] PCP - General Internal Medicine 12/03/22 12/29/23 [...] 2024 End: December 08, 2024 Magalie Pinto PODIATRY PROFESSOR, PODIATRY PROFESSOR-C Attending Provider Active Start: December 08, 2024 [...] 2024 End: December 08, 2024 Magalie Pinto PODIATRY PROFESSOR, PODIATRY PROFESSOR-C Attending Provider Active Start: December 08, 2024 [...] 21, 2024 End: December 21, 2024 Dr. Tear Clay MD Attending Provider Active Start: December [...] 2024 End: December 08, 2024 Magalie Pinto PODIATRY PROFESSOR, PODIATRY PROFESSOR-C Attending Provider Active Start: December 08, 2024 [...] 28, 2024 End: December 28, 2024 Dr. Ramona Funez MD Attending Provider Active Start: December 28, 2024 End: December 28, 2024 Team Status: Inactive Member Role/Relationship Status Dates Dr. Diya Georeg MD Primary Care Provider Active Start: December 28, 2024 End: December 28, 2024 Dr. Diya George MD Referring Provider Active Start: December 28, 2024 End: December 28, 2024 Dr. Ramona Funez MD Attending Provider Active Start: December 28, 2024 End: December 28, 2024 Team Status: Active Member Role/Relationship Status Dates Dr. Diya George MD Primary Care Provider Active Start: December 30, 2024 Dr. Ramona Funez MD Attending Provider Active Start: December 30, 2024 Dr. Ramona Funez MD Referring Provider Active Start: December 30, 2024 Team Status: Inactive Member Role/Relationship Status Dates Dr. Diya George MD Primary Care Provider Active Start: January 01, 2025 End: January 01, 2025 Dr. Kumar Sanches DO Emergency Provider Active Start: January 01, 2025 End: January 01, 2025 Team Status: Active Member Role/Relationship Status Dates Dr. Diya George MD Primary Care Provider Active Start: January 02, 2025 Dr. Kumar Sanches DO Attending Provider Active Start: January 02, 2025 Dr. Kumar Sanches DO Referring Provider Active Start: January 02, 2025 Team Status: Inactive Member Role/Relationship Status Dates Dr. Diya George MD Primary Care Provider Active Start: January 02, 2025 End: January 02, 2025 Dr. Diya George MD Referring Provider Active Start: January 02, 2025 End: January 02, 2025 Magalie Pinto PODIATRY PROFESSOR, PODIATRY PROFESSOR-C Attending Provider Active Start: January 02, 2025 End: January 02, 2025 FOR RECORDS PERTAINING TO PATIENTS WHO ARE [...] BE BASED ON THE PRIMARY CLINICAL RECORDS. [facility], [facility]. provides no warranty or guarantee of the accuracy or completeness of information in this document.
== END | disposition home or self-care (01) ==
LOC: CVS 12:48
PROVIDERS: PCP Internal Medicine; Referring Provider Emergency Medicine; Visit Provider Emergency Medicine
DX: R22.32 Localized swelling, mass and lump, left upper limb (principal)
CPT/HCPCS: 93971